=== PATIENT | female | born 1975 | race Hispanic/Latino ===

== ENCOUNTER 2018-09-23 10:39 | Inpatient (IN) | payer OTHER ==
[~2018-09-23] VITALS: Ht 157.5 cm; Wt 68.5 kg
[~2018-09-23 10:39] MED LIST: ASPIRIN325 MG PO; COREG12.5 MG PO; COZAAR25 MG PO; FUROSEMIDE40 MG PO; KLONOPIN2 MG PO; PEPCID20 MG PO; POTASSIUM CHLO20 ME1 PO; RITALIN20 MG PO; ROBAXIN-750750 MG PO; VALIUM10 MG PO
--- OUTSIDE RECORDS SUMMARY | 2018-09-23 10:42 | XMS REPORT | Clinical Summary ---
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 6.92 cm2 [facility] method E/A ratio 22.33 [facility] E wave decelartion time 109.59 msec [facility] LVOT Diam,S 1.94 cm [facility] LVOT area 2.95 cm2 [facility] LVOT Vmax 0.82 m/s [facility] LVOT VTI 0.15 m [facility] AoV Peak PG 5.01 mmHg [facility] MV Peak E Sabino 0.67 m/s [facility] MV stenosis pressure 1/2 31.78 ms [facility] time MV Peak A Sabino 0.03 m/s [facility] Ao Root Diameter 2.48 cm [facility] AoV Area, Vmax 2.18 cm2 [facility] AoV Area, VTI 2.47 cm2 [facility] AoV Vmax 1.19 m/s [facility] IVS/LVPW,2D 1.27 [facility] Left Atrium Dimension 2.72 cm [facility] Anterior LV,d 4.82 cm [facility] LV,s 4.34 cm [facility] TR Vpeak 2.42 mm/s [facility] MV E A ratio 19.86 mmHg [facility] TR pk grad 21.45 mmHg [facility] MR peak grad 3.15 mmHg [facility] Ao Root Diameter 2.48 cm [facility] LV SYS VOL 84.80 ml [facility] LV OSEGUERA VOL 108.40 ml [facility] LV SV Teich 2D 23.59 ml [facility] LV Vol s Teich PSAX 84.80 ml [facility] LVOT CO 4.13 l/min [facility] LVOT HR for LVOT CO 90.60 bpm [facility] MV Vmax 0.89 m [facility] MV VTI Tips 0.13 m [facility] AoV Vmn 0.80 [facility] IVS s 2D 0.72 [facility] LV FS Cube 2D 9.94 [facility] LV FS Teich 2D 9.94 [facility] AoV VTI 0.18 m [facility] LV EF,2D 26.96 % [facility] MV AE ratio 0.05 [facility] LVOT Vmn 0.57 [facility] Aov area Vmn 2.12 cm2 [facility] LVOT mean grad 1.46 mmHg [facility] MAX Pred HR 176.86 [facility] 85 of MPHR 150.33 [facility] Calc MPHR 176.86 bpm [facility] IVS pct thck PLAX -3.20 % [facility] LV SV Cube 2D 30.12 ml [facility] LV vol d cube 2D 111.75 ml [facility] LV vol s cube 2D 81.63 ml [facility] LVPW pct thck PLAX 31.44 % [facility] LVPW s PLAX 0.77 cm [facility] MV Decel slope 6.11 m/s2 [facility] Pred Exer Dur R1 9.73 [facility] Pred METS R1 9.09 [facility] Narrative Performed At [facility] The left ventricle chamber size is moderately enlarged. Left ventricular systolic function moderately impaired. Left Ventricular ejection fraction is 35 - 40%. Right ventricular size is upper limits of normal. No pericardial effusion The mitral valve appears thickened and calcified. Performing Organization Address City/State/Zipcode Phone Number [facility] [address] [place] [address] * NM Lung Ventilation Perfusion (03/01/2018 8:40 PM CDT) Only the most recent of 2 results within the time period is included. Narrative Performed At [facility] CLINICAL HISTORY: hx of PEsobtachycardiacp TECHNIQUE: The patient breathed 15-20 mCi of xenon-133 gas through a closed ventilation system while dynamic imaging of the lungs was performed in the posterior and anterior projections. The patient was then injected with 5 mCi of [id number] intravenously, followed by imaging of the lungs in 8 projections. FINDINGS: Ventilation and perfusion are normal bilaterally. Incidental note of pacemaker metallic attenuation artifact left upper lobe. IMPRESSION: Normal VQ scan. [facility] Procedure Note Interface, Radiology Results Incoming - 03/01/2018 8:51 PM CDT CLINICAL HISTORY: hx of PE sob tachycardia cp TECHNIQUE: The patient breathed 15-20 mCi of xenon-133 gas through a closed ventilation system while dynamic imaging of the lungs was performed in the posterior and anterior projections. The patient was then injected with 5 mCi of [id number] intravenously, followed by imaging of the lungs in 8 projections. FINDINGS: Ventilation and perfusion are normal bilaterally. Incidental note of pacemaker metallic attenuation artifact left upper lobe. IMPRESSION: Normal VQ scan. KAMRYN Performing Organization Address City/[facility]/Zipcode Phone Number [facility] [address] [place] [address] * Respiratory pathogen panel (03/01/2018 8:07 PM CDT) Respiratory pathogen Negative for all pathogens [facility] DEPARTMENT OF panel tested: PATHOLOGY AND Negative for Adenovirus GENOMIC MEDICINE Negative for Coronavirus HKU1 Negative for Coronavirus NL63 Negative for Coronavirus 229E Negative for Coronavirus OC43 Negative for Human Metapneumovirus Negative for Rhinovirus/Enterovirus Negative for Influenza A Negative for Influenza A/H1 Negative for Influenza A/H3 Negative for Influenza A/H1-2009 Negative for Influenza B Negative for Parainfluenza Virus 1 Negative for Parainfluenza Virus 2 Negative for Parainfluenza Virus 3 Negative for Parainfluenza Virus 4 Negative for Respiratory Syncytial Virus Negative for Bordetella pertussis Negative for Chlamydophila pneumoniae Negative for Mycoplasma pneumoniae This real-time PCR assay detects the presence of nucleic acids (RNA or DNA) for the respiratory pathogens listed. A result of "Not-detected" does not exclude the possibility of the presence of one or more pathogens at concentrations less than the detectable limits of the assay. Comment: Specimen Information Specimen Source: Nares Specimen Site: Not specified Specimen Nares - Not specified Performing Organization Address [facility] Phone Number [facility] DEPARTMENT OF [address] [place] [address] PATHOLOGY AND GENOMIC MEDICINE * Influenza antigen (03/01/2018 8:07 PM CDT) Influenza antigen Negative for Influenza A/B [facility] DEPARTMENT OF antigen. PATHOLOGY AND Comment: GENOMIC MEDICINE Specimen Information Specimen Source: Nares Specimen Site: Not specified Specimen Nares - Not specified Performing Organization Address City/State/Zipcode Phone Number [facility] DEPARTMENT OF [address] [place] [address] PATHOLOGY AND GENOMIC MEDICINE * CT Chest Wo Contrast (03/01/2018 8:01 PM CDT) Narrative Performed At EXAMINATION: CT CHEST WO CONTRAST [facility] CLINICAL HISTORY: chest painsob TECHNIQUE:Multiple axial CT images of the chest are obtained without the use of intravenous contrast. The lack of intravenous contrast reduces the sensitivity of the sensitivity of detecting solid organ disease and evaluating vasculature. Sagittal and coronal 3-D reformatted images were obtained. CT scans are performed using radiation dose reduction techniques.Technical factors are evaluated and adjusted to ensure appropriate moderation of exposure.Automated dose management technology is applied to adjust radiation exposure while achieving a diagnostic quality image. COMPARISON: 01/11/2017 FINDINGS: The visualized portions of the thyroid gland are unremarkable. The right lung zone does not have any focal area of consolidation. There is no pleural effusion or pneumothorax. The left lung zone does not have any focal consolidation. There is no pleural effusion or pneumothorax. The visualized portions of the thyroid gland are unremarkable. The thoracic aorta has no aneurysmal dilatation. The heart has no pericardial effusion. There is no pleural effusion or pneumothorax. The visualized portions of the spleen, adrenal glands, pancreas and liver are unremarkable. The kidneys demonstrate no abnormality. IMPRESSION: 1. The lung zones are clear. 2. There is no pleural effusion or pneumothorax. 3. The thoracic aorta has no aneurysmal dilatation. 4. The upper abdomen is unremarkable. [id number] Procedure Note Hm Interface, Radiology Results Incoming - 03/01/2018 8:11 PM CDT EXAMINATION: CT CHEST WO CONTRAST CLINICAL HISTORY: chest pain sob TECHNIQUE: Multiple axial CT images of the chest are obtained without the use of intravenous contrast. The lack of intravenous contrast reduces the sensitivity of the sensitivity of detecting solid organ disease and evaluating vasculature. Sagittal and coronal 3-D reformatted images were obtained. CT scans are performed using radiation dose reduction techniques. Technical factors are evaluated and adjusted to ensure appropriate moderation of exposure. Automated dose management technology is applied to adjust radiation exposure while achieving a diagnostic quality image. COMPARISON: 01/11/2017 FINDINGS: The visualized portions of the thyroid gland are unremarkable. The right lung zone does not have any focal area of consolidation. There is no pleural effusion or pneumothorax. The left lung zone does not have any focal consolidation. There is no pleural effusion or pneumothorax. The visualized portions of the thyroid gland are unremarkable. The thoracic aorta has no aneurysmal dilatation. The heart has no pericardial effusion. There is no pleural effusion or pneumothorax. The visualized portions of the spleen, adrenal glands, pancreas and liver are unremarkable. The kidneys demonstrate no abnormality. IMPRESSION: 1. The lung zones are clear. 2. There is no pleural effusion or pneumothorax. 3. The thoracic aorta has no aneurysmal dilatation. 4. The upper abdomen is unremarkable. 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 [facility] DEPARTMENT OF PATHOLOGY AND GENOMIC MEDICINE Collection site RAC [facility] DEPARTMENT OF PATHOLOGY AND GENOMIC MEDICINE O2 therapy ROOM [facility] DEPARTMENT OF PATHOLOGY AND GENOMIC MEDICINE pH, venous 7.588 (H) 7.320 - 7.420 units [facility] DEPARTMENT OF PATHOLOGY AND GENOMIC MEDICINE pCO2, venous 24.7 (L) 45.0 - 51.0 mmHg [facility] DEPARTMENT OF PATHOLOGY AND GENOMIC MEDICINE pO2, venous 19.6 (L) 25.0 - 40.0 mmHg [facility] DEPARTMENT OF PATHOLOGY AND GENOMIC MEDICINE O2 saturation, venous 39.6 (L) 40.0 - 70.0 % [facility] DEPARTMENT OF PATHOLOGY AND GENOMIC MEDICINE Base excess, venous 1.8 -2.0 - 2.0 mEq/L [facility] DEPARTMENT OF PATHOLOGY AND GENOMIC MEDICINE Bicarbonate 23.6 21.0 - 28.0 mEq/L [facility] DEPARTMENT OF PATHOLOGY AND GENOMIC MEDICINE O2 content 6.7 VOL% [facility] DEPARTMENT OF PATHOLOGY AND GENOMIC MEDICINE FiO2, inspired O2% 21.0 % [facility] DEPARTMENT OF PATHOLOGY AND GENOMIC MEDICINE Carboxyhemoglobin 0.7 0.0 - 1.4 % [facility] DEPARTMENT OF Comment: PATHOLOGY AND Reference Ranges: GENOMIC MEDICINE Carboxyhemoglobin Non smoker: 0.0 - 2.0% Smoker: 2.1 - 5.0% Heavy smoker: 5.1 - 9% Methemoglobin 0.1 0.0 - 1.0 % [facility] DEPARTMENT OF PATHOLOGY AND GENOMIC MEDICINE Hemoglobin, blood gas 12.1 12.0 - 16.0 g/dL [facility] DEPARTMENT OF PATHOLOGY AND GENOMIC MEDICINE Specimen Blood Performing Organization Address City/[facility]/Zipcode Phone Number [facility] [address] [place] [address] PATHOLOGY AND GENOMIC MEDICINE * Acetaminophen level (03/01/2018 7:15 PM CDT) Acetaminophen level <15.3 10.0 - 30.0 ug/mL [facility] DEPARTMENT OF Comment: PATHOLOGY AND Therapeutic GENOMIC MEDICINE 10-30 ug/mL Possible Toxicity 150-200 ug/mL Probable Toxicity >200 ug/mL Specimen Blood Performing Organization Address City/[facility]/Zipcode Phone Number [facility] [address] [place] [address] PATHOLOGY AND GENOMIC MEDICINE * Salicylate level (03/01/2018 7:15 PM CDT) Salicylate <0.4 (L) 3.0 - 30.0 mg/dL [facility] DEPARTMENT OF Comment: PATHOLOGY AND Therapeutic Range: GENOMIC MEDICINE 5 - 30 mg/dL Specimen Blood Performing Organization Address City/[facility] Phone Number [facility] [address] [place] [address] PATHOLOGY AND GENOMIC MEDICINE * ECG ED Preliminary Interpretation - NOT AN ORDER (03/01/2018 6:48 PM CDT) Only the most recent of 3 results within the time period is included. Narrative Performed At Luis Snider Jr., MD 03/05/20189:14 PM ECG ED Preliminary Interpretation - Not an Order Performed by: LUIS SNIDER JR. Authorized by: LUIS SNIDER JR. ECG reviewed by ED Physician in the absence of a product development coordinator: yes Rate: ECG rate:103 ECG rate assessment: tachycardic Rhythm: Rhythm: paced Pacing: Pacing capture: atrially sensed, v-paced rhythm. Ectopy: Ectopy: none QRS: QRS axis:Normal Conduction: Conduction: normal ST segments: ST segments:Normal T waves: T waves: normal Comments: No acute ischemic changes noted. * XR Chest 2 Vw (03/01/2018 6:39 PM CDT) Narrative Performed At EXAMINATION:XR CHEST 2 VW [facility] CLINICAL HISTORY:43 years Female sobcpcardiac hx [facility] COMPARISON:01/31/2018 IMPRESSION: 1.Left chest wall cardiac device is similar to prior. Heart and central vasculature are normal. 2.The lungs are clear. 3.Cholecystectomy clips. Bones are intact. [id number] Procedure Note Hm Interface, Radiology Results Incoming - 03/01/2018 6:46 PM CDT EXAMINATION: XR CHEST 2 VW CLINICAL HISTORY:43 years Female sob cp cardiac hx [facility] COMPARISON: 01/31/2018 IMPRESSION: 1. Left chest wall cardiac device is similar to prior. Heart and central vasculature are normal. 2. The lungs are clear. 3. Cholecystectomy clips. Bones are intact. [id number] Performing Organization Address City/State/Zipcode Phone Number [facility] [address] [place] [address] * B natriuretic peptide (03/01/2018 6:10 PM CDT) Only the most recent of 4 results within the time period is included. BNP 19 0 - 100 pg/mL [facility] DEPARTMENT OF PATHOLOGY AND GENOMIC MEDICINE Specimen Blood Performing Organization Address City/State/Zipcode Phone Number [facility] DEPARTMENT [address] [place] [address] PATHOLOGY AND GENOMIC MEDICINE * Comprehensive metabolic panel (03/01/2018 6:10 PM CDT) Only the most recent of 3 results within the time period is included. Sodium 138 135 - 150 mEq/L [facility] DEPARTMENT OF PATHOLOGY AND GENOMIC MEDICINE Potassium 3.9 3.5 - 5.0 mEq/L [facility] DEPARTMENT OF PATHOLOGY AND GENOMIC MEDICINE Chloride 93 (L) 98 - 112 mEq/L [facility] DEPARTMENT OF PATHOLOGY AND GENOMIC MEDICINE CO2 21 (L) 24 - 31 mmol/L [facility] DEPARTMENT OF PATHOLOGY AND GENOMIC MEDICINE Anion gap 24@ANIO (H) 7 - 15 mEq/L [facility] DEPARTMENT OF PATHOLOGY AND GENOMIC MEDICINE BUN 20 (H) 7 - 18 mg/dL [facility] DEPARTMENT OF PATHOLOGY AND GENOMIC MEDICINE Creatinine 1.50 (H) 0.50 - 0.90 mg/dL [facility] DEPARTMENT OF PATHOLOGY AND GENOMIC MEDICINE Glucose 84 65 - 100 mg/dL [facility] DEPARTMENT OF PATHOLOGY AND GENOMIC MEDICINE Calcium 9.7 8.3 - 10.2 mg/dL [facility] DEPARTMENT OF PATHOLOGY AND GENOMIC MEDICINE Protein 8.9 (H) 6.3 - 8.3 g/dL [facility] DEPARTMENT OF PATHOLOGY AND GENOMIC MEDICINE Albumin 5.0 3.5 - 5.0 g/dL [facility] DEPARTMENT OF PATHOLOGY AND GENOMIC MEDICINE A/G ratio 1.3 0.7 - 3.8 [facility] DEPARTMENT OF PATHOLOGY AND GENOMIC MEDICINE Alkaline phosphatase 97 0 - 104 U/L [facility] DEPARTMENT OF PATHOLOGY AND GENOMIC MEDICINE AST 27 10 - 35 U/L [facility] DEPARTMENT OF PATHOLOGY AND GENOMIC MEDICINE ALT 15 5 - 50 U/L [facility] DEPARTMENT OF PATHOLOGY AND GENOMIC MEDICINE Total bilirubin 0.7 0.2 - 1.2 mg/dL [facility] DEPARTMENT OF PATHOLOGY AND GENOMIC MEDICINE Specimen Plasma specimen Performing Organization Address City/State/Zipcode Phone Number [facility] [place] [address] PATHOLOGY AND GENOMIC MEDICINE * Urinalysis screen and microscopy, with reflex to culture (02/01/2018 12:26 PM CDT) Only the most recent of 4 results within the time period is included. Specimen site Clean catch [facility] DEPARTMENT OF PATHOLOGY AND GENOMIC MEDICINE Color, UA Yellow [facility] DEPARTMENT OF PATHOLOGY AND GENOMIC MEDICINE Appearance, UA Slightly-Cloudy [facility] DEPARTMENT OF PATHOLOGY AND GENOMIC MEDICINE Specific gravity, UA 1.006 1.001 - 1.035 [facility] DEPARTMENT OF PATHOLOGY AND GENOMIC MEDICINE pH, UA 6.0 5.0 - 8.5 [facility] DEPARTMENT OF PATHOLOGY AND GENOMIC MEDICINE Protein, UA Negative Negative [facility] DEPARTMENT OF PATHOLOGY AND GENOMIC MEDICINE Glucose, UA Negative Negative [facility] DEPARTMENT OF PATHOLOGY AND GENOMIC MEDICINE Ketones, UA Negative Negative [facility] DEPARTMENT OF PATHOLOGY AND GENOMIC MEDICINE Bilirubin, UA Negative Negative [facility] DEPARTMENT OF PATHOLOGY AND GENOMIC MEDICINE Blood, UA Negative Negative [facility] DEPARTMENT OF PATHOLOGY AND GENOMIC MEDICINE Nitrite, UA Negative Negative [facility] DEPARTMENT OF PATHOLOGY AND GENOMIC MEDICINE Urobilinogen, UA Negative <2.0 [facility] DEPARTMENT OF PATHOLOGY AND GENOMIC MEDICINE Leukocyte esterase, UA Small (A) Negative [facility] DEPARTMENT OF PATHOLOGY AND GENOMIC MEDICINE Epithelial cells, UA Many /HPF [facility] DEPARTMENT OF PATHOLOGY AND GENOMIC MEDICINE WBC, UA 17 (H) 0 - 5 /HPF [facility] DEPARTMENT OF PATHOLOGY AND GENOMIC MEDICINE RBC, UA 1 0 - 5 /HPF [facility] DEPARTMENT OF PATHOLOGY AND GENOMIC MEDICINE Bacteria, UA Trace None seen [facility] DEPARTMENT OF PATHOLOGY AND GENOMIC MEDICINE Yeast, UA None seen [facility] DEPARTMENT OF PATHOLOGY AND GENOMIC MEDICINE Yeast with pseudohyphae, None seen [facility] DEPARTMENT OF PATHOLOGY AND GENOMIC MEDICINE Specimen Urine Performing Organization Address City/State/Zipcode Phone Number [facility] [place] [address] PATHOLOGY AND GENOMIC MEDICINE * Gram stain (02/01/2018 12:26 PM CDT) Only the most recent of 3 results within the time period is included. Gram stain result No WBC's or organisms seen. [facility] DEPARTMENT OF Comment: PATHOLOGY AND Specimen Information GENOMIC MEDICINE Specimen Source: Urine Specimen Site: Clean catch Specimen Urine Performing Organization Address City/[facility]/Zipcode Phone Number [facility] DEPARTMENT OF [address] [place] [address] PATHOLOGY AND GENOMIC MEDICINE * Urine culture (02/01/2018 12:26 PM CDT) Only the most recent of 4 results within the time period is included. Urine culture isolate Mixed Gram positive antionette [facility] DEPARTMENT OF 10-3 cfu/ml PATHOLOGY AND (A) GENOMIC MEDICINE Comment: Specimen Information Specimen Source: Urine Specimen Site: Clean catch Specimen Urine Performing Organization Address City/[facility] Phone Number [facility] DEPARTMENT OF [address] [place] [phone] PATHOLOGY AND GENOMIC MEDICINE * hCG qualitative, urine screen (01/31/2018 10:44 PM CDT) Only the most recent of 2 results within the time period is included. hCG qualitative, urine Negative Negative [facility] DEPARTMENT OF Comment: PATHOLOGY AND The manufacturers stated GENOMIC MEDICINE sensitivity of HcG test for serum is >/=10 mIU/ml and urine is >/=20mIU/ml. Specimen Urine Performing Organization Address [facility] Phone Number [place] [address] [place] [address] PATHOLOGY AND GENOMIC MEDICINE * Total iron binding capacity (11/10/2017 9:38 AM CDT) Iron level 51 (L) 76 - 198 ug/dL [facility] DEPARTMENT OF PATHOLOGY AND GENOMIC MEDICINE Iron binding capacity 305 271 - 474 ug/dL [facility] DEPARTMENT OF PATHOLOGY AND GENOMIC MEDICINE % Saturation 16.7 15.0 - 38.0 % [facility] DEPARTMENT OF PATHOLOGY AND GENOMIC MEDICINE Specimen Plasma specimen Performing Organization Address [facility] Phone Number [facility] DEPART[facility] [place] [address] [place] [phone] PATHOLOGY AND GENOMIC MEDICINE * Ferritin level (11/10/2017 9:38 AM CDT) Ferritin level 125 10 - 125 ng/mL [facility] DEPARTMENT OF PATHOLOGY AND GENOMIC MEDICINE Specimen Serum Performing Organization Address [facility] Phone Number [place] [address] [place] [phone] PATHOLOGY AND GENOMIC MEDICINE * US Extremity Left (11/09/2017 10:06 PM CDT) Narrative Performed At EXAMINATION:US EXTREMITY LEFT [facility] CLINICAL HISTORY:Pain, Lt arm edema R O abcess on pnumovax injection site COMPARISON:No prior TECHNIQUE: Focused ultrasound of the left upper extremity IMPRESSION: 1.No discrete fluid collection, abscess or hematoma is noted at the site of interest in the left upper and mid. Heterogeneous echogenicity in the soft tissues without discrete fluid collection. Procedure Note Hm Interface, Radiology Results Incoming - 11/09/2017 11:31 PM CDT EXAMINATION: US EXTREMITY LEFT CLINICAL HISTORY: Pain, Lt arm edema R O abcess on pnumovax injection site COMPARISON: No prior TECHNIQUE: Focused ultrasound of the left upper extremity IMPRESSION: 1. No discrete fluid collection, abscess or hematoma is noted at the site of interest in the left upper and mid. Heterogeneous echogenicity in the soft tissues without discrete fluid collection. Performing Organization Address City/[facility] Phone Number [facility] [address] [place] [address] * Magnesium level (11/09/2017 6:20 AM CDT) Only the most recent of 3 results within the time period is included. Magnesium 2.50 (H) 1.60 - 2.40 mg/dL [facility] DEPARTMENT OF PATHOLOGY AND GENOMIC MEDICINE Specimen Plasma specimen Performing Organization Address [facility] Phone Number [address] [place] [address] PATHOLOGY AND GENOMIC MEDICINE * Reticulocyte count (11/08/2017 6:31 AM CDT) Retic %, auto 1.9 % [facility] DEPARTMENT OF PATHOLOGY AND GENOMIC MEDICINE Retic absolute, auto 0.0533 0.0210 - 0.1155 m/uL [facility] DEPARTMENT OF PATHOLOGY AND GENOMIC MEDICINE Specimen Blood Performing Organization Address [facility] Phone Number [place] [address] [place] [address] PATHOLOGY AND GENOMIC MEDICINE * Folate level (11/08/2017 6:31 AM CDT) Folate 16.6 3.4 - 20.0 ng/mL [facility] DEPARTMENT OF PATHOLOGY AND GENOMIC MEDICINE Specimen Serum Performing Organization Address [facility] Phone Number [address] [place] [address] PATHOLOGY AND GENOMIC MEDICINE * Vitamin B12 level (11/08/2017 6:31 AM CDT) Vitamin B12 770 231 - 931 pg/mL [facility] DEPARTMENT OF Comment: PATHOLOGY AND Significant overlap exists [facility] between normal and deficiency states. However, most patients with deficiencies will have Serum B12 <200 pg/mL. Specimen Serum Performing Organization Address City/[facility] Phone Number [facility] [address] [place] [address] PATHOLOGY AND GENOMIC MEDICINE * Digoxin level (11/07/2017 5:40 PM CDT) Digoxin 1.0 0.8 - 2.0 ng/mL [facility] DEPARTMENT OF Comment: PATHOLOGY AND For valid Digoxin results, at [facility] least 6 hours should elapse between time of last dose and collection of blood. Otherwise, result may be false high. Therapeutic Range: 0.8 - 2.0 ng/mL Specimen Blood Performing Organization Address City/[facility] Phone Number [facility] [address] [place] [address] PATHOLOGY AND [facility] MEDICINE * Pv carotid duplex (11/07/2017 9:42 AM CDT) Narrative Performed At Examination: US CAROTID DUPLEX BILATERAL [facility] CLINICAL HISTORY: Suspected symptomatic vertebrovasilar occlusive disease in the symptomatic patient (e.g. vertigoataxiadiplopiadysphagiadysarthria) TECHNIQUE: Examination includes full duplex Doppler scan (real-time B mode grayscale, Doppler spectral analysis, Doppler color flow imaging) of the common carotid, internal carotid, external carotid, and vertebral arteries. Velocity parameters are based upon studies using distal internal carotid artery diameter as a denominator for stenosis calculation. COMPARISON: 07-10-12 FINDINGS: Right side:There are no significant atherosclerotic changes involving the right common carotid artery, carotid bulb, or visualized aspects of the right internal and external carotid arteries. There are no flow-limiting stenoses.. The peak systolic velocities in the right internal carotid artery are -112.90 cm/s, -98.37 cm/s, and -98.37 cm/s.The ICA end-diastolic velocity is 43.4 cm/s. The common carotid artery peak systolic velocity is 93.8 cm/s, giving an ICA/CCA peak systolic velocity ratio of 1.2.The external carotid artery has a peak systolic velocity of 127.4 cm/s. There is antegrade flow in the right vertebral artery. Left side:There are no significant atherosclerotic changes involving the left common carotid artery, carotid bulb, and visualized aspects of the left internal and external carotid arteries. There are no flow-limiting stenoses. . The peak systolic velocities in the left internal carotid artery are -87.55 cm/s, -90.78 cm/s, -111.77 cm/s.The ICA end-diastolic velocity is 37.5 cm/s. The common carotid artery peak systolic velocity is 117.7 cm/s, giving an ICA/CCA peak systolic velocity ratio of 0.9. The external carotid artery has a peak systolic velocity of 90.8 cm/s. There is antegrade flow in the left vertebral artery. IMPRESSION:Normal bilateral carotid Doppler examination. No hemodynamically significant stenosis in either carotid artery (less than 50%). Bilateral antegrade vertebral flow. [id number] Procedure Note Hm Interface, Radiology Results Incoming - 11/07/2017 9:48 AM CDT Examination: US CAROTID DUPLEX BILATERAL CLINICAL HISTORY: Suspected symptomatic vertebrovasilar occlusive disease in the symptomatic patient (e.g. vertigo ataxia diplopia dysphagia dysarthria) TECHNIQUE: Examination includes full duplex Doppler scan (real-time B mode grayscale, Doppler spectral analysis, Doppler color flow imaging) of the common carotid, internal carotid, external carotid, and vertebral arteries. Velocity parameters are based upon studies using distal internal carotid artery diameter as a denominator for stenosis calculation. COMPARISON: 07-10-12 FINDINGS: Right side:There are no significant atherosclerotic changes involving the right common carotid artery, carotid bulb, or visualized aspects of the right internal and external carotid arteries. There are no flow-limiting stenoses. . The peak systolic velocities in the right internal carotid artery are -112.90 cm/s, -98.37 cm/s, and -98.37 cm/s.The ICA end-diastolic velocity is 43.4 cm/s. The common carotid artery peak systolic velocity is 93.8 cm/s, giving an ICA/CCA peak systolic velocity ratio of 1.2. The external carotid artery has a peak systolic velocity of 127.4 cm/s. There is antegrade flow in the right vertebral artery. Left side:There are no significant atherosclerotic changes involving the left common carotid artery, carotid bulb, and visualized aspects of the left internal and external carotid arteries. There are no flow-limiting stenoses. . The peak systolic velocities in the left internal carotid artery are -87.55 cm/s, -90.78 cm/s, - 111.77 cm/s.The ICA end-diastolic velocity is 37.5 cm/s. The common carotid artery peak systolic velocity is 117.7 cm/s, giving an ICA/CCA peak systolic velocity ratio of 0.9. The external carotid artery has a peak systolic velocity of 90.8 cm/s. There is antegrade flow in the left vertebral artery. IMPRESSION: Normal bilateral carotid Doppler examination. No hemodynamically significant stenosis in either carotid artery (less than 50%). Bilateral antegrade vertebral flow. [id number] Performing Organization Address City/[facility]/Zipcode Phone Number [facility] [address] [place] [address] * Hemoglobin A1c (11/06/2017 5:20 AM CDT) Hemoglobin A1C 5.2 4.0 - 6.0 % [facility] DEPARTMENT OF Comment: PATHOLOGY AND GENOMIC MEDICINE Less than 6% - Goal of therapy for Type II Diabetes Less than 7%-Goal of therapy for Type I Diabetes Less than 8%-Accepta ble control for Type I or Type II Diabetes Greater than 8%-Unacceptabl e control; action indicated. ([id number]) Specimen Blood Performing Organization Address City/[facility]/Zipcode Phone Number [place] [phone] [place] [address] PATHOLOGY AND GENOMIC MEDICINE * Lipid panel (11/06/2017 5:20 AM CDT) Cholesterol 166 120 - 200 mg/dL [facility] DEPARTMENT OF PATHOLOGY AND GENOMIC MEDICINE Triglycerides 106 50 - 150 mg/dL [facility] DEPARTMENT OF PATHOLOGY AND GENOMIC MEDICINE HDL cholesterol 76 (H) 40 - 60 mg/dL [facility] DEPARTMENT OF PATHOLOGY AND GENOMIC MEDICINE LDL cholesterol 81Comment: Result obtained by mg/dL [facility] DEPARTMENT OF direct LDL measurement PATHOLOGY AND GENOMIC MEDICINE Lipid panel See below [facility] DEPARTMENT OF interpretation Comment: PATHOLOGY AND Total Cholesterol GENOMIC MEDICINE (mg/dL) LDL Cholesterol (mg/dL) <200 Desirable <100 Optimal 200-239Borderline -part291-9 29Near or above optimal >=240High 130-159Borderline- high 160-189High >=190Very high HDL Cholesterol (mg/dL) Triglycerides (mg/dL) <40Low <150 Normal >=60 High 150-199Borderline- high 200-499High >=500Very high Risk Catergories that modify LDL goals. Risk Catergories LDL goal (mg/dL) CHD and CHD risk equivalent <100 (10-year risk >20%) Multiple (2+) risk factors <130 (10-year risk=<20%) 0-1 risk factors <160 (<10-year risk) Defining levels of lipids in metabolic syndrome Triglycerides >=150 mg/dL HDL Cholesterol Men <40 mg/dL Women <50 mg/dL Non-HDL cholesterol is a second target for therapy in persons with high triglycerides (>=200 mg/dL) Specimen Plasma specimen Performing Organization Address City/State/Zipcode Phone Number [place] [address] [place] [address] PATHOLOGY AND GENOMIC MEDICINE * Echocardiogram complete w contrast and 3D if needed (11/05/2017 3:57 PM CDT) Velocity Ratio (V1/V2) 0.70 m/s [facility] IVS,d 0.83 0.6 - 1.2 cm [facility] EF 51.27 % [facility] LVPWD,d 0.80 cm [facility] AoV Mean PG 3.78 mmHg [facility] AV LVOT peak gradient 3.14 mmHg [facility] MV mean gradient 1.14 mmHg [facility] MV valve area p 1/2 2.28 cm2 [facility] method PV Pk Grad 4.31 mmHg [facility] E/A ratio 1.57 [facility] E wave decelartion time 210.60 msec [facility] LVOT Diam,S 2.02 cm [facility] LVOT area 3.20 cm2 [facility] LVOT Vmax 0.90 m/s [facility] LVOT VTI 0.17 m [facility] AoV Peak PG 5.35 mmHg [facility] MV Peak E Sabino 0.74 m/s [facility] MV stenosis pressure 1/2 96.51 ms [facility] time MV Peak A Sabino 0.47 m/s [facility] Ao Root Diameter 2.53 cm [facility] AoV Area, Vmax 2.45 cm2 [facility] AoV Area, VTI 2.36 cm2 [facility] AoV Vmax 1.28 m/s [facility] IVS/LVPW,2D 1.01 [facility] Left Atrium Dimension 2.08 cm [facility] Anterior LV,d 4.65 cm [facility] LV,s 3.83 cm [facility] PV VMAX 1.04 m/s [facility] RVSP (TR) 33.17 mmHg [facility] TR Vpeak 2.41 mm/s [facility] MV E A ratio 1.55 mmHg [facility] TR pk grad 23.17 mmHg [facility] MR peak grad 3.30 mmHg [facility] RVSP 33.17 mmHg [facility] Ao Root Diameter 2.53 cm [facility] LV SYS VOL 35.60 ml [facility] LV OSEGUERA VOL 73.05 ml [facility] LV SV Teich 2D 37.44 ml [facility] LV Vol s Teich PSAX 48.32 ml [facility] LVOT CO 2.35 l/min [facility] LVOT HR for LVOT CO 54.04 bpm [facility] MV Vmax 0.91 m [facility] MV VTI Tips 0.26 m [facility] AoV Vmn 0.91 [facility] IVS s 2D 0.67 [facility] LV FS Cube 2D 21.44 [facility] LV FS Teich 2D 21.44 [facility] LVPW d Mmode 0.86 [facility] AoV VTI 0.24 m [facility] LV EF,2D 51.52 % [facility] MV AE ratio 0.64 [facility] LVOT Vmn 0.57 [facility] Aov area Vmn 2.04 cm2 [facility] LVOT mean grad 1.53 mmHg [facility] MAX Pred HR 177.18 [facility] 85 of MPHR 150.60 [facility] Calc MPHR 177.18 bpm [facility] IVS pct thck PLAX 6.69 % [facility] LV SV Cube 2D 42.74 ml [facility] LV vol d cube 2D 82.96 ml [facility] LV vol s cube 2D 40.22 ml [facility] LVPW pct thck PLAX -3.29 % [facility] LVPW s PLAX 0.68 cm [facility] MV Decel slope 3.49 m/s2 [facility] Pred Exer Dur R1 9.76 [facility] Pred METS R1 9.13 [facility] TV rest pulmonary artery 35.00 mmHg [facility] pressure Narrative Performed At [facility] The left ventricle chamber size is mildly enlarged. Left Ventricular ejection fraction is 45 - 50%. Right ventricular size is normal. No pericardial effusion Performing Organization Address [facility] Phone Number [facility] [address] [place] [address] * XR Chest 1 Vw (11/05/2017 8:05 AM CDT) Narrative Performed At EXAMINATION:XR CHEST 1 VW [facility] CLINICAL HISTORY: SHORTNESS OF BREATH COMPARISON:08/19/2017. FINDINGS: One view of the chest demonstratesnormal cardiomediastinal silhouette. Pulmonary vasculature is within normal limits. Left subclavian pacer/defibrillator is again noted. Both lungs are clear. No pleural disease is identified. Regional osseous structures is unremarkable. IMPRESSION: No radiographic evidence of acute cardiopulmonary process or active disease of the chest. [id number] Procedure Note Hm Interface, Radiology Results Incoming - 11/05/2017 8:24 AM CDT EXAMINATION: XR CHEST 1 VW CLINICAL HISTORY: SHORTNESS OF BREATH COMPARISON: 08/19/2017. FINDINGS: One view of the chest demonstrates normal cardiomediastinal silhouette. Pulmonary vasculature is within normal limits. Left subclavian pacer/defibrillator is again noted. Both lungs are clear. No pleural disease is identified. Regional osseous structures is unremarkable. IMPRESSION: No radiographic evidence of acute cardiopulmonary process or active disease of the chest. [id number] Performing Organization Address [facility] Phone Number [facility] [address] [place] [address] after 09/22/2017 Insurance Payer Benefit Subscriber ID Type Phone Address Plan / Group [employer] xxxxxxxxx HMO [employer] [place] (Home) [place] [address] Advance Directives Patient has advance care planning documents, and code status on file. For more i nformation, please contact: Javon Ricks [address] [place] [address] Date Inactivated Comments Code Status Date Activated 01/06/2017 6:25 PM Full Code 01/05/2017 7:50 PM Code Status decision reached by: Patient
--- OUTSIDE RECORDS SUMMARY | 2018-09-23 10:43 | XMS REPORT | Clinical Summary ---
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 5 Active diazepam (VALIUM) 10 MG Take 10 mg by 0 tablet mouth every 8 (eight) hours as needed for Anxiety. Active dexmethylphenidate Take 40 mg by 0 (FOCALIN XR) 20 MG 24 hr mouth daily. capsule Active furosemide (LASIX) 80 MG Take 80 mg by 0 tablet mouth daily . Active potassium chloride Take 20 mEq 0 (KLOR-CON) 20 mEq packet by mouth daily . Active hahleudv-cqbx-ztw-folic Take 1 tablet 0 acid by mouth (GRXRSUHMBLEZ-AHSJ-QQUFUY daily. LS-FOLIC ACID) 3,500-18-0.4 unit-mg-mg Chew Active lactobacillus rhamnosus, Take 1 0 GG, (CULTURELLE) 10 capsule by billion cell capsule mouth. Active aspirin 81 MG EC tablet Take 81 mg by 0 mouth daily. 03/28/2018 Discontinued furosemide (LASIX) 40 MG Take 80 mg by 0 tablet mouth daily . 03/28/2018 Discontinued potassium chloride SA Take 20 mEq 0 (K-DUR,KLOR-CON) 20 MEQ by mouth tablet daily. 03/28/2018 Discontinued methylphenidate (RITALIN Take 60 mg by 0 LA) 40 MG 24 hr capsule mouth every morning . 03/28/2018 Discontinued cephalexin (KEFLEX) 750 Take 750 mg 0 MG capsule by mouth daily. 04/20/2018 Discontinued acetaminophen-codeine Take 1 tablet 5 tablet 0 (TYLENOL #3) 300-30 mg by mouth 7 per tablet every 8 (eight) hours as needed. Max Daily Amount: 3 tablets 03/28/2018 Discontinued losartan (COZAAR) 50 MG Take 50 mg by 0 tablet mouth daily. 04/20/2018 Discontinued nebivolol (BYSTOLIC) 5 MG Take 5 mg by 0 tablet mouth daily. 03/28/2018 Discontinued levoFLOXacin (LEVAQUIN) Take 500 mg 0 500 MG tablet by mouth daily. 04/20/2018 Discontinued aspirin 81 MG chewable Take 81 mg by 0 tablet mouth daily. 04/20/2018 Discontinued losartan (COZAAR) 100 MG Take 100 mg 0 tablet by mouth daily. 05/20/2018 losartan (COZAAR) 25 MG Take 1 tablet 30 tablet 0 tablet (25 mg total) 8 by mouth daily for 30 days. 05/20/2018 nebivolol (BYSTOLIC) 5 MG Take 1 tablet 60 tablet 0 tablet (5 mg total) 8 by mouth 2 (two) times daily for 30 days. 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 Arm DVT (deep venous thromboembolism), acute, right 08/17/2014 Resolved Problems Problem Noted Date Resolved Date Chest pain, unspecified type 08/31/2016 04/20/2018 Encounters Care Team Description Date Type Specialty Yamini Swanson NP Acute on chronic systolic (congestive) heart failure (HCC) (Primary Dx) 04/20/2018 Office Visit Cardiology Julio Cesar Stephens MD Henderson, MD Noel Santiago, MD Reyes Moe Elie G., MD Chest pain, unspecified type (Primary Dx); Arm DVT (deep venous thromboembolism), acute, right (HCC); History of DVT (deep vein thrombosis); Hx of cardiomyopathy; Morbid obesity (HCC); Chronic combined systolic and diastolic CHF (congestive heart failure) (HCC); Chronic kidney disease, stage 3 03/26/2018 Emergency Cardiology - 03/28/2018 03/26/2018 Orders Only General Internal Medicine after 09/22/2017 Family History Medical History Relation Name Comments Heart disease Relation Name Status Comments Social History Date Tobacco Use Types Packs/Day Years Used Former Smoker Smokeless Tobacco: Never Used Alcohol Use Drinks/Week oz/Week Comments No Sex Assigned at Date Recorded Not on file Industry Job Start Date Occupation Not on file Not on file Not on file Travel End Travel History Travel Start No recent travel history available. Last Filed Vital Signs Time Taken Vital Sign Reading 04/20/2018 10:51 AM CDT Blood Pressure 111/72 04/20/2018 10:51 AM CDT Pulse 105 04/20/2018 10:51 AM CDT Temperature 37.1 C (98.8 F) 04/20/2018 10:51 AM CDT Respiratory Rate 16 04/20/2018 10:51 AM CDT Oxygen Saturation 100% - Inhaled Oxygen - Concentration 04/20/2018 10:51 AM CDT Weight 58.7 kg (129 lb 4.8 oz) 04/20/2018 10:51 AM CDT Height 157.5 cm (5' 2") 04/20/2018 10:51 AM CDT Body Mass Index 23.65 Plan of Treatment Health Maintenance Due Date Last Done Comments INFLUENZA VACCINE 05/09/2018 Procedures Comments Procedure Name Priority Date/Time Associated Diagnosis MAGNESIUM Routine 04/20/2018 Acute on chronic systolic 12:49 PM CDT (congestive) heart failure (HCC) B-TYPE NATRIURETIC FACTOR STAT 04/20/2018 Acute on chronic systolic (BNP) 12:49 PM CDT (congestive) heart failure (HCC) BASIC METABOLIC PANEL (7) STAT 04/20/2018 Acute on chronic systolic 12:49 PM CDT (congestive) heart failure (HCC) RHYTHM STRIP - SCAN 03/29/2018 1:50 PM CDT ECHOCARDIOGRAM REPORT - 03/28/2018 SCAN 9:30 AM CDT B-TYPE NATRIURETIC FACTOR Routine 03/28/2018 (BNP) 5:09 AM CDT TSH/FREE T4 IF INDICATED Routine 03/28/2018 5:09 AM CDT BASIC METABOLIC PANEL (7) Routine 03/28/2018 5:09 AM CDT TROPONIN I Routine 03/28/2018 5:09 AM CDT US RENAL COMPLETE Routine 03/27/2018 10:37 PM CDT BLOOD CULTURE Routine 03/27/2018 9:06 PM CDT BLOOD CULTURE Routine 03/27/2018 9:06 PM CDT NM LUNG SCAN PERFUSION STAT 03/27/2018 PARTICULATE VENT 6:55 PM CDT SCREEN, URINE Routine 03/27/2018 6:34 PM CDT SODIUM, RANDOM URINE Routine 03/27/2018 4:59 PM CDT CREATININE, RANDOM URINE Routine 03/27/2018 4:59 PM CDT RAPID DRUG SCREEN, URINE STAT 03/27/2018 4:59 PM CDT 2D ECHO W/ DOPPLER Routine 03/27/2018 (CW/PW/COLOR) 4:56 PM CDT RAPID DRUG SCREEN, URINE STAT 03/27/2018 6:34 AM CDT CBC W/PLT COUNT & AUTO Routine 03/27/2018 DIFFERENTIAL 4:56 AM CDT CBC W/PLT COUNT & AUTO Routine 03/27/2018 DIFFERENTIAL 4:56 AM CDT BASIC METABOLIC PANEL (7) Routine 03/27/2018 4:56 AM CDT TROPONIN I Routine 03/27/2018 4:56 AM CDT XR CHEST 1 VIEW STAT 03/26/2018 PORTABLE/BEDSIDE 9:07 PM CDT CBC W/PLT COUNT & AUTO STAT 03/26/2018 DIFFERENTIAL 6:12 PM CDT SCREEN, URINE STAT 03/26/2018 6:12 PM CDT CREATINE KINASE (CK), STAT 03/26/2018 TOTAL AND MB 6:12 PM CDT TROPONIN I STAT 03/26/2018 6:12 PM CDT BASIC METABOLIC PANEL (7) STAT 03/26/2018 6:12 PM CDT CBC W/PLT COUNT & AUTO STAT 03/26/2018 DIFFERENTIAL 6:12 PM CDT PT/APTT STAT 03/26/2018 6:12 PM CDT ECG 12-LEAD Routine 03/26/2018 4:48 PM CDT Procedure Note - Interface, External Ris In - 03/26/2018 9:12 PM CDT Ventricula r Rate 129 BPM Atrial Rate 129 BPM P-R Interval 114 ms QRS Duration 104 ms Q-T Interval 322 ms QTC Calculatio n(Bazett) 471 ms P [place] 61 degrees R [place] 86 degrees T [place] 32 degrees Sinus tachycardi a Otherwise normal ECG No previous ECGs available ECG 12-LEAD STAT 03/26/2018 4:48 PM CDT after 09/22/2017 Results * B N P (04/20/2018 12:49 PM CDT) Only the most recent of 2 results within the time period is included. BNP 27 0 - 100 pg/mL [facility] Specimen Blood Performing Organization Address City/[facility]/Zipcode Phone Number [address] [address] [facility] * Magnesium (04/20/2018 12:49 PM CDT) Magnesium 2.3 1.6 - 2.6 mg/dL [facility] Specimen Blood Performing Organization Address City/[facility]/Zipcode Phone Number [facility] [place] [phone] * Basic Metabolic Panel (04/20/2018 12:49 PM CDT) Only the most recent of 4 results within the time period is included. Sodium 136 136 - 145 meq/L [facility] Potassium 3.7 3.5 - 5.1 meq/L [facility] Chloride 101 98 - 107 meq/L [facility] CO2 25 22 - 29 meq/L [facility] BUN 19 7 - 21 mg/dL [facility] Creatinine 1.35 (H) 0.57 - 1.25 mg/dL [facility] Glucose 106 (H) 70 - 105 mg/dL [facility] Calcium 9.8 8.4 - 10.2 mg/dL [facility] EGFR 43Comment: ESTIMATED GFR IS mL/min/1.73 sq m [facility] NOT ACCURATE CREATININE [facility] CLEARANCE IN PREDICTING GLOMERULAR FILTRATION RATE. ESTIMATED GFR IS NOT APPLICABLE FOR DIALYSIS PATIENTS. Specimen Blood Performing Organization Address City/State/Zipcode Phone Number [address] * RHYTHM STRIP - SCAN (03/29/2018 1:50 PM CDT) Narrative Performed At * ECHOCARDIOGRAM REPORT - SCAN (03/28/2018 9:30 AM CDT) Narrative Performed At * TSH/Free T4 If Indicated (03/28/2018 5:09 AM CDT) TSH 2.06 0.35 - 4.94 uIU/mL [facility] Specimen Blood - Arm, Left Performing Organization Address City/State/Zipcode Phone Number [address] [address] [phone] [place] [address] * Troponin I (03/28/2018 5:09 AM CDT) Only the most recent of 3 results within the time period is included. Troponin I <0.01 0.00 - 0.03 ng/mL [facility] Specimen Blood - Arm, Left Narrative Performed At Troponin I (TnI) levels must be interpreted in the context of the presenting [facility] symptoms and the clinical findings. Elevated TnI levels indicate myocardial [facility] damage, but are not specific for ischemic heart disease. Elevated TnI levels are seen in patients with other cardiac conditions (including myocarditis and congestive heart failure), and slight TnI elevations occur in patients with other conditions, including sepsis, renal failure, acidosis, acute neurological disease, and persistent tachyarrhythmia. Performing Organization Address City/State/Zipcode Phone Number [facility] [address] [place] [address] [facility] * US renal complete (03/27/2018 10:37 PM CDT) Narrative Performed At FINAL REPORT [facility] Exam: Complete renal ultrasound Clinical History:Acute kidney insufficiency Discussion: Evaluation of the left kidney was mildly limited by patient's body habitus and superimposed bowel. A complete renal ultrasound was performed in the usual fashion with transabdominal imaging. Compared with abdominal CT 03/07/2014 The right kidney measures 8 x 5 x 5 cm. The left kidney measures 7 x 4 x 4 cm. No evidence of renal obstruction or nephrolithiasis. The bilateral renal cortical echogenicity was normal. The right renal cortex measures 14 mm. The left renal cortex measures 14 mm. The main renal arteries and veins were patent where visible. The bladder is decompressed with a volume of 15 cc. IMPRESSION: Relatively small kidneys. Recommend clinical correlation with patient's body size. No evidence of abnormal renal cortical echogenicity, significant cortical atrophy or obstructive uropathy. Signed: Gaby Bocanegra MD Report Verified Date/Time:03/28/2018 02:22:25 Reading Location: [facility] C013T Transitional Reading Room Procedure Note Interface, External Ris In - 03/28/2018 2:24 AM CDT FINAL REPORT Exam: Complete renal ultrasound Clinical History: Acute kidney insufficiency Discussion: Evaluation of the left kidney was mildly limited by patient's body habitus and superimposed bowel. A complete renal ultrasound was performed in the usual fashion with transabdominal imaging. Compared with abdominal CT 03/07/2014 The right kidney measures 8 x 5 x 5 cm. The left kidney measures 7 x 4 x 4 cm. No evidence of renal obstruction or nephrolithiasis. The bilateral renal cortical echogenicity was normal. The right renal cortex measures 14 mm. The left renal cortex measures 14 mm. The main renal arteries and veins were patent where visible. The bladder is decompressed with a volume of 15 cc. IMPRESSION: Relatively small kidneys. Recommend clinical correlation with patient's body size. No evidence of abnormal renal cortical echogenicity, significant cortical atrophy or obstructive uropathy. Signed: Gaby Bocanegra MD Report Verified Date/Time: 03/28/2018 02:22:25 Reading Location: [address] Transitional Reading Room Performing Organization Address City/State/Zipcode Phone Number [facility] * Blood culture (03/27/2018 9:06 PM CDT) Only the most recent of 2 results within the time period is included. Result No growth in [address] [facility] Specimen Blood - Arm, Right Performing Organization Address City/[facility]/Zipcode Phone Number [facility] [address] [place] [address] [facility] * NM lung scan (V/Q) (03/27/2018 6:55 PM CDT) Narrative Performed At FINAL REPORT [facility] PROCEDURE: V/Q LUNG SCAN CPT CODE:45825 INDICATION:Dyspnea, chest pain, history of PE, pacemaker, blood clot in vein, cardiomyopathy PROTOCOL:10.5 mCi ofXe-133 gas was administered by inhalation. Rebreathing/washout images were obtained in the anterior and the posterior projections.4.2 mCi of Tc-99m MAA was then injected intravenously, and static perfusion images were obtained in multiple projections. FINDINGS: Ventilation: Initial tracer distribution is physiological. Washout proceeds normally. Perfusion:Tracer distribution is physiological. IMPRESSION: Normal ventilation/perfusion lung scan. Signed: Leonel Dodd MD Report Verified Date/Time:03/27/2018 19:11:41 Procedure Note Interface, External Ris In - 03/27/2018 7:13 PM CDT FINAL REPORT PROCEDURE: V/Q LUNG SCAN CPT CODE: 57620 INDICATION: Dyspnea, chest pain, history of PE, pacemaker, blood clot in vein, cardiomyopathy PROTOCOL: 10.5 mCi of Xe-133 gas was administered by inhalation. Rebreathing/washout images were obtained in the anterior and the posterior projections. 4.2 mCi of Tc-99m MAA was then injected intravenously, and static perfusion images were obtained in multiple projections. FINDINGS: Ventilation: Initial tracer distribution is physiological. Washout proceeds normally. Perfusion: Tracer distribution is physiological. IMPRESSION: Normal ventilation/perfusion lung scan. Signed: Leonel Dodd MD Report Verified Date/Time: 03/27/2018 19:11:41 Performing Organization Address City/State/Zipcode Phone Number [facility] * Screen, urine (03/27/2018 6:34 PM CDT) Only the most recent of 2 results within the time period is included. Preg Test, Ur Negative [facility] Specimen Urine Performing Organization Address City/[facility]/[place] [address] [facility] * Rapid drug screen, urine (03/27/2018 4:59 PM CDT) Only the most recent of 2 results within the time period is included. Barbiturate Screen Negative Negative [facility] Benzodiazepine Screen Positive (A) Negative [facility] Cocaine (Metab.) Screen Negative Negative [facility] Methadone Screen Negative Negative [facility] Opiate Screen Negative Negative [facility] Cannabinoid Screen Negative Negative [facility] Amph/Methamph Screen Negative Negative [facility] Phencyclidine Screen Negative Negative [facility] Oxycodone Screen Negative Negative [facility] Specimen Urine Narrative Performed At [facility]UG[facility] JEAN B[facility]IST[facility]. [facility] Cocaine 300 ng/mL [facility] Bnprggwydfr87 ng/mL Sttohsdmbludxv495 ng/mL Barbiturate 200 ng/mL Ojsfkuawjsfqf31 ng/mL Imvjzc731 ng/mL Methadone 300 ng/mL Amphetamine/ 1000 ng/mL Methamphetamine Oxycodone 300 ng/mL This assay provides an unconfirmed qualitative test result for the clinical management of patients in emergency situations. Chain of custody not maintained. Some xdwz-uxp-xyyzzbq medications, as well as adulterants, may cause inaccurate results. Clinical correlation should be applied. A more comprehensive drug screen or confirmation of a detected drug may be performed upon request. Performing Organization Address City/[facility] Phone Number [address] * Sodium, random urine (03/27/2018 4:59 PM CDT) Sodium Urine <20 meq/L [facility] Specimen Urine Narrative Performed At Reference Range: No Normals [facility] Performing Organization Address [facility] Phone Number [address] * Creatinine, random urine (03/27/2018 4:59 PM CDT) Creatinine, Ur 53.1 mg/dL [facility] Specimen Urine Narrative Performed At Reference Range: No Normals [facility] Performing Organization Address [facility] Phone Number [address] * 2D Echo W/Doppler(CW/PW/Color) (03/27/2018 4:56 PM CDT) Ejection Fraction [facility]CHO [facility] Narrative Performed At Transthoracic Echocardiography Report (TTE) [facility] ECHO HEARTLAB Demographics [facility] Patient Name Yandy AIKEN of Study 03/27/2018 DEONDRE [id number] GenderFemale Visit Number [id number] Ragini [id number] Number [id number] Number Date of Birth1975 Referring Physician Ijeoma Tan MD Age43 year(s) Staff Field Engineer Gaby Ruby [facility] KarolyntIzojanel Hanks MD Physician Procedure Type of Study TTE procedure:2DECHO W DOPPLER(CW/PW/COLOR) (Pending Discharge) Indications:Acute Chest Pain/ Suspected CAD. Clinical History Cardiomyopathy Congestive Heart Failure Myocarditis Pulmonary embolism S/P Pacemaker HGB 11.6 HCT 33.3 % Height: 62 inches Weight: 54.88 kg (121 lbs) BSA: 1.54 m^2 BMI: 22.13 kg/m^2 HR: 97 bpm BP: 122/75 mmHg Summary The left ventricle is chamber size (by PSLAX dimension) is normal (female - LVIDd 3.8-5.2cm) . Normal LV wall thickness. All of the LV segments are mildly hypokinetic . LVEF by Aiken's method of disk assessment is mildly reduced (40-44%) . The LVEF was measured using Aiken's bi-plane method of disk . Degree of diastolic dysfunction (LAP assessment) is inconclusive due to tachycardia . Normal (cardiac index 2-3 L/min/m2) cardiac output state at rest is noted. Peak systolic pressure may be underestimated; partial TR signal. Estimated peak systolic pressure is at least 25 mmHg. No pericardial effusion is visualized. Previous Study In comparison with the prior exam on 09-02-16 patient has tachycardia today. Signature Findings Technical Quality: Technically fair exam. Rhythm/BPSinus tachycardia during the exam. Left Ventricle The left ventricle is chamber size (by PSLAX dimension) is normal (female - LVIDd 3.8-5.2cm) . Normal LV wall thickness. All of the LV segments are mildly hypokinetic . LVEF by Aiken's method of disk assessment is mildly reduced (40-44%) . The LVEF was measured using Aiken's bi-plane method of disk . Degree of diastolic dysfunction (LAP assessment) is inconclusive due to tachycardia . Normal (cardiac index 2-3 L/min/m2) cardiac output state at rest is noted. Left AtriumLA size is normal . Right VentricleRV pacing wire is visualized . The right ventricular chamber size and systolic function are within normal limits. Right Atrium RA pacing wire is visualized . RA cavity size is normal . Aortic Valve Normal AoV structure and function. Mitral Valve Mild MV leaflet thickening. Tricuspid ValvePeak systolic pressure may be underestimated; partial TR signal. Estimated peak systolic pressure is at least 25 mmHg. Pulmonic Valve PV is not well visualized; function appears normal by Doppler visualized. AortaAortic root size (SInus of Valsalva diameter) is normal . PericardiumNo pericardial effusion is visualized. IVC/SVC/PA/PV/PleuralThe estimated RA pressure by IVC dynamics 0-5mmHg . Chambers/Structures Left Ventricle LVIDd: 3.92 cm LV Septum Diastolic: 0.82 cm LV PW Diastolic: 0.84 cm LVEDV Aiken's:70.12 ml LVESV Aiken's:41.63 ml LVEF Aiken's: 40.6 %LVEDVI: 46 ml/m^2 LVESVI: 27 ml/m^2 LVOT Diameter: 1.92 cm Right Ventricle TAPSE: 1.65 cm Aorta Ao Root S of Akosua.: 2.56 cm Doppler/Quantitative Measurements Mitral Valve MV Sabino. Peak: Tissue Doppler E' Lateral Velocity: 0.16 m/s LVOT Peak Velocity: 1.02 m/s Peak Gradient: 4.15 mmHg Mean Velocity: 0.7 m/sMean Gradient: 2.26 mmHg LVOT Diameter: 1.92 cmLVOT VTI: 15.57 cm LVOT Area: 2.9 cm^2 LVOT SV:45.06 ml LVOT CO: 4.37 l/min LVOT CI: 2.84 l/min/m^2 Tricuspid Valve TR Velocity: 2.28 m/s TR Gradient: 20.73 mmHg Procedure Note Interface, External Ris In - 03/28/2018 8:33 AM CDT Transthoracic Echocardiography Report (TTE) Demographics Patient Name AIXA AIKEN Date of Study 03/27/2018 DEONDRE Gender Female Visit Number [id number] Race Unknown Room Number C623 Number Date of 1975 Referring Physician Ijeoma Tan MD Age 43 year(s) Staff Field Engineer Gaby Tung [facility] Decorator Hand Nataliia Fischer Interpreting Sky Hanks MD Physician Procedure Type of Study TTE procedure:2DECHO W DOPPLER(CW/PW/COLOR) (Pending Discharge) Indications:Acute Chest Pain/ Suspected CAD. Clinical History Cardiomyopathy Congestive Heart Failure Myocarditis Pulmonary embolism S/P Pacemaker HGB 11.6 HCT 33.3 % Height: 62 inches Weight: 54.88 kg (121 lbs) BSA: 1.54 m^2 BMI: 22.13 kg/m^2 HR: 97 bpm BP: 122/75 mmHg Summary The left ventricle is chamber size (by PSLAX dimension) is normal (female - LVIDd 3.8-5.2cm) . Normal LV wall thickness. All of the LV segments are mildly hypokinetic . LVEF by Aiken's method of disk assessment is mildly reduced (40-44%) . The LVEF was measured using Aiken's bi-plane method of disk . Degree of diastolic dysfunction (LAP assessment) is inconclusive due to tachycardia . Normal (cardiac index 2-3 L/min/m2) cardiac output state at rest is noted. Peak systolic pressure may be underestimated; partial TR signal. Estimated peak systolic pressure is at least 25 mmHg. No pericardial effusion is visualized. Previous Study In comparison with the prior exam on 09-02-16 patient has tachycardia today. Signature Findings Technical Quality: Technically fair exam. Rhythm/BP Sinus tachycardia during the exam. Left Ventricle The left ventricle is chamber size (by PSLAX dimension) is normal (female - LVIDd 3.8-5.2cm) . Normal LV wall thickness. All of the LV segments are mildly hypokinetic . LVEF by Aiken's method of disk assessment is mildly reduced (40-44%) . The LVEF was measured using Aiken's bi-plane method of disk . Degree of diastolic dysfunction (LAP assessment) is inconclusive due to tachycardia . Normal (cardiac index 2-3 L/min/m2) cardiac output state at rest is noted. Left Atrium LA size is normal . Right Ventricle RV pacing wire is visualized . The right ventricular chamber size and systolic function are within normal limits. Right Atrium RA pacing wire is visualized . RA cavity size is normal . Aortic Valve Normal AoV structure and function. Mitral Valve Mild MV leaflet thickening. Tricuspid Valve Peak systolic pressure may be underestimated; partial TR signal. Estimated peak systolic pressure is at least 25 mmHg. Pulmonic Valve PV is not well visualized; function appears normal by Doppler visualized. Aorta Aortic root size (SInus of Valsalva diameter) is normal . Pericardium No pericardial effusion is visualized. IVC/SVC/PA/PV/Pleural The estimated RA pressure by IVC dynamics 0-5mmHg . Chambers/Structures Left Ventricle LVIDd: 3.92 cm LV Septum Diastolic: 0.82 cm LV PW Diastolic: 0.84 cm LVEDV Aiken's:70.12 ml LVESV Aiken's:41.63 ml LVEF Aiken's: 40.6 % LVEDVI: 46 ml/m^2 LVESVI: 27 ml/m^2 LVOT Diameter: 1.92 cm Right Ventricle TAPSE: 1.65 cm Aorta Ao Root S of Akosua.: 2.56 cm Doppler/Quantitative Measurements Mitral Valve MV Sabino. Peak: Tissue Doppler E' Lateral Velocity: 0.16 m/s LVOT Peak Velocity: 1.02 m/s Peak Gradient: 4.15 mmHg Mean Velocity: 0.7 m/s Mean Gradient: 2.26 mmHg LVOT Diameter: 1.92 cm LVOT VTI: 15.57 cm LVOT Area: 2.9 cm^2 LVOT SV:45.06 ml LVOT CO: 4.37 l/min LVOT CI: 2.84 l/min/m^2 Tricuspid Valve TR Velocity: 2.28 m/s TR Gradient: 20.73 mmHg Performing Organization Address City/State/Zipcode Phone Number [facility] * CBC with platelet count + automated diff (03/27/2018 4:56 AM CDT) Only the most recent of 2 results within the time period is included. WBC 7.9 3.5 - 10.5 K/L [facility] RBC 3.53 (L) 3.93 - 5.22 M/L [facility] Hemoglobin 11.6 11.2 - 15.7 GM/DL [facility] Hematocrit 33.3 (L) 34.1 - 44.9 % [facility] MCV 94.3 79.4 - 94.[address] [facility] MCH 32.9 (H) 25.6 - 32.[address] [facility] MCHC 34.8 32.2 - 35.5 GM/DL [facility] RDW 12.0 11.7 - 14.4 % [facility] Platelets 280 150 - 450 K/CU MM [facility] MPV 10.2 9.4 - 12.[address] [facility] nRBC 0 0 - 0 /[address] [facility] % Neutros 60 % [facility] % Lymphs 28 % [facility] % Monos 11 % [facility] % Eos 1 % [facility] % Baso 1 % [facility] # Neutros 4.73 1.56 - 6.13 K/L [facility] # Lymphs 2.20 1.18 - 3.74 K/L [facility] # Monos 0.83 (H) 0.24 - 0.36 K/L [facility] # Eos 0.07 0.04 - 0.36 K/L [facility] # Baso 0.05 0.01 - 0.08 K/L [facility] Immature 0 0 - 1 % [facility] Granulocytes-Relative [facility] Specimen Blood Performing Organization Address City/State/Zipcode Phone Number [facility] [address] [place] [address] [facility] * XR chest 1 view portable / bedside (03/26/2018 9:07 PM CDT) Narrative Performed At FINAL REPORT RIS History: Chest pain. Comparison: 08/31/2016 Findings: A single view of the chest is submitted. The cardiac silhouette is within normal limits for size. A left subclavian, multilead ICD remains in place. There is no focal consolidation, pneumothorax, large pleural effusion or evidence of overt pulmonary edema. There is no acute bony abnormality. Signed: Jon Taylor MD Report Verified Date/Time:03/26/2018 21:16:59 Reading Location: [address] Reading Room Procedure Note Interface, External Ris In - 03/26/2018 9:19 PM CDT FINAL REPORT History: Chest pain. Comparison: 08/31/2016 Findings: A single view of the chest is submitted. The cardiac silhouette is within normal limits for size. A left subclavian, multilead ICD remains in place. There is no focal consolidation, pneumothorax, large pleural effusion or evidence of overt pulmonary edema. There is no acute bony abnormality. Signed: Jon Taylor MD Report Verified Date/Time: 03/26/2018 21:16:59 Reading Location: [address] Reading Room Performing Organization Address City/[facility] Phone Number GE RIS * PT/aPTT (03/26/2018 6:12 PM CDT) Protime 13.6 11.7 - 14.[address] [facility] INR 1.0 <=5.9 [facility] PTT 27.7 22.5 - 36.[address] [facility] Specimen Blood Narrative Performed At RECOMMENDED COUMADIN/WARFARIN INR THERAPY RANGES [facility] STANDARD DOSE: 2.0 - 3.0 Includes: PROPHYLAXIS for venous thrombosis, [facility] systemic embolization; TREATMENT for venous thrombosis and/or pulmonary embolus. HIGH RISK: Target INR is 2.5-3.5 for patients with mechanical heart valves. Performing Organization Address [facility] Centercode Phone Number [facility] [address] [place] [address] [phone] [place] [address] * Creatine Kinase (CK), Total and MB (03/26/2018 6:12 PM CDT) Total CK 68 29 - 200 U/L [facility] CK-MB 0.6 0.0 - 6.6 ng/mL [facility] MB Relative Index 0.9 % [facility] Specimen Blood Narrative Performed At CK-MB Reference Range: [facility] <6.7Normal [facility] 6.7-10.0Borderline >10.0 Abnormal Performing Organization Address [facility] Centercode Phone Number [facility] [address] [place] [address] [facility] * ECG 12 lead (03/26/2018 4:48 PM CDT) Narrative Performed At Ventricular Rate 129 BPM GE MUSE Atrial Rate 129 BPM P-R Interval 114 ms QRS Duration 104 ms Q-T Interval 322 ms QTC Calculation(Bazett) 471 ms P [place] 61 degrees R [place] 86 degrees T [place] 32 degrees Sinus tachycardia Prolonged QT Pacing complexes seen but without evidence of ventricular capture. Supsected Pacemaker Malfunction. Please arrange for pacemaker interrogation. No previous ECGs available Confirmed by Viet BEY BASANT ([id number]) on 03/27/2018 12:37:15 PM Procedure Note Interface, External Ris In - 03/27/2018 12:37 PM CDT Ventricular Rate 129 BPM Atrial Rate 129 BPM P-R Interval 114 ms QRS Duration 104 ms Q-T Interval 322 ms QTC Calculation(Bazett) 471 ms P [place] 61 degrees R [place] 86 degrees T [place] 32 degrees Sinus tachycardia Prolonged QT Pacing complexes seen but without evidence of ventricular capture. Supsected Pacemaker Malfunction. Please arrange for pacemaker interrogation. No previous ECGs available Confirmed by Viet BEY BASANT ([id number]) on 03/27/2018 12:37:15 PM Performing Organization Address City/State/Zipcode Phone Number GE MUSE after 09/22/2017 Insurance Payer Benefit Subscriber ID Type Phone Address Plan / Group MEDICAID - MEDICAID MGD MEDICAID xxxxxxxxx Medicaid [employer] Non-Contra cted ([place]) [place] [address] Advance Directives For more information, please contact: [facility] [address] [place] [phone] Date Inactivated Comments Code Status Date Activated 03/28/2018 2:49 PM Full Code 03/26/2018 10:30 PM This code status was determined by: Patient 09/02/2016 5:33 PM Full Code 09/01/2016 12:25 AM This code status was determined by: Patient 08/25/2014 2:06 PM Full Code 08/18/2014 7:08 AM This code status was determined by: Patient
--- OUTSIDE RECORDS SUMMARY | 2018-09-23 10:45 | XMS REPORT | Summary of Care ---
Author Organization Unknown Address Unknown Phone Unavailable Encounter [facility] Sara(SOLIT[facility]) [id number] Date(s): 09/03/14 - 09/05/14 [facility] [id number] [address] Discharge Disposition: Home Physician Attending: Salvador Wade DO Physician Admitting: Salvador Wade DO Reason for Visit BENZO WITHDRAWAL Vital Signs 1 2 3 Most recent to oldest [Reference Range]: 162.56 cm (09/03/14 10:57 PM) Height 98.2 DegF (09/05/14 3:29 PM) 97.9 DegF (09/05/14 12:00 PM) 98.5 DegF (09/05/14 8:00 AM) Temperature Oral [96.4-99.1 DegF] 121 mmHg (09/05/14 3:29 PM) 112 mmHg (09/05/14 12:00 PM) 107 mmHg (09/05/14 8:00 AM) Systolic Blood Pressure [90-140 mmHg] 81 mmHg (09/05/14 3:29 PM) 77 mmHg (09/05/14 12:00 PM) 75 mmHg (09/05/14 8:00 AM) Diastolic Blood Pressure [60-90 mmHg] 15 BRMIN (09/05/14 3:29 PM) 16 BRMIN (09/05/14 12:00 PM) 16 BRMIN (09/05/14 8:00 AM) Respiratory Rate [14-20 BRMIN] 101 bpm *HI* (09/05/14 3:29 PM) 109 bpm *HI* (09/05/14 12:00 PM) 101 bpm *HI* (09/05/14 8:00 AM) Peripheral Pulse Rate [60-100 bpm] 52.273 kg (09/03/14 10:57 PM) Weight 19.78 m2 (09/03/14 10:57 PM) Body Mass Index Problem List Condition Effective Dates Status Health Status Informant ADHD (attention Resolved deficit hyperactivity disorder)(Confirmed) Blood Resolved clot(Confirmed) CHF (congestive Resolved heart failure)(Confirmed) Herniated Resolved disc(Confirmed) Hypertension(Confirm Resolved ed) Stroke(Confirmed)1 Resolved 1pt states diagnosed with stroke Friday 09/01 at [facility] Allergies, Adverse Reactions, Alerts Substance Reaction Severity Status Mucinex Active Medications Ativan 1 mg, 0.5 mL, Route: IVP, Drug form: INJ, ONCE, kg, PRN Anxiety, Start date: 19:11:00 Notes: (Same as: Ativan) Start Date: 09/03/14 Stop Date: 09/05/14 Status: Discontinued Ativan 1 mg, Route: IVP, Drug form: INJ, ONCE, kg, Priority: STAT, Start date: 09/03/14 13:32:00, Stop date: 09/03/14 13:32:00 Start Date: 09/03/14 Stop Date: 09/03/14 Status: Completed Ativan 1 mg, Route: IVP, Drug form: INJ, ONCE, kg, Priority: STAT, Start date: 09/03/14 13:10:00, Stop date: 09/03/14 13:10:00 Start Date: 09/03/14 Stop Date: 09/03/14 Status: Completed Ativan 1 mg, Route: IVP, Drug form: INJ, ONCE, kg, Priority: STAT, Start date: 09/03/14 14:39:00, Stop date: 09/03/14 14:39:00 Start Date: 09/03/14 Stop Date: 09/03/14 Status: Completed Ativan 1 mg, 0.5 mL, Route: IVP, Drug form: INJ, Q8H, kg, PRN as needed for anxiety, Pr iority: STAT, Start date: 09/03/14 18:50:00, Stop date: 10/03/14 16:01:00 Notes: (Same as: Ativan) Start Date: 09/03/14 Stop Date: 09/05/14 Status: Discontinued Ativan 1 mg, Route: IVP, Drug form: INJ, ONCE, kg, Priority: STAT, Start date: 09/03/14 18:44:00, Stop date: 09/03/14 18:44:00 Start Date: 09/03/14 Stop Date: 09/03/14 Status: Completed atropine 0.5 mg, 5 mL, Route: IVP, Drug form: INJ, ONCE, Dosing Weight 52.273, kg, PRN Br adycardia, Start date: 09/04/14 23:31:00, For symptomatic bradycardia heart rate less than 40 Start Date: 09/04/14 Stop Date: 09/05/14 Status: Discontinued cefTRIAXone + Sodium Chloride 0.9% IV 100 mL 1 gm, Route: IVPB, Drug form: PDR/INJ, [id number], kg, Start date: 09/03/14 20:00:0 0, Duration: 30 day, Stop date: 10/02/14 20:00:00 Notes: (Same As: Rocephin). Use with 100ml NS mini-bag PLUS and infuse over 30 min Start Date: 09/03/14 Stop Date: 09/05/14 Status: Discontinued chlordiazePOXIDE 10 mg, 2 cap, Route: PO, Drug form: CAP, BID, kg, Start date: 09/03/14 22:56:00, Duration: 30 day, Stop date: 10/03/14 17:00:00 Notes: (Same As: Librium) Start Date: 09/03/14 Stop Date: 09/05/14 Status: Discontinued Coreg 12.5 mg, 1 tab, Route: PO, Drug form: TAB, Q12H, Dosing Weight 52.273, kg, Start date: 09/05/14 21:00:00, Duration: 30 day, Stop date: 10/05/14 9:00:00 Notes: Give with food. (Same As: Coreg) Start Date: 09/05/14 Stop Date: 09/05/14 Status: Canceled Coreg 12.5 mg oral tablet 12.5 mg=1 tab, PO, BID, # 180 tab, 0 Refill(s) Start Date: 09/04/14 Status: Ordered Haldol 5 mg, Route: IM, ONCE, kg, PRN Anxiety, Start date: 09/03/14 19:10:00, Stop date : 10/03/14 19:09:00 Start Date: 09/03/14 Stop Date: 09/03/14 Status: Completed morphine Sulfate 4 mg, Route: IVP, Drug form: INJ, ONCE, kg, Priority: STAT, Start date: 09/03/14 13:09:00, Stop date: 09/03/14 13:09:00 Start Date: 09/03/14 Stop Date: 09/03/14 Status: Completed nitroglycerin 0.4 mg sublingual tablet 0.4 mg, 1 tab, Route: SL, Drug form: TAB, Q5Min, Dosing Weight 52.273, kg, PRN C hest Pain, Start date: 09/04/14 23:31:00, Duration: 30 day, Stop date: 10/04/14 23:30:00 Notes: (Same as:Nitroquick, Nitrostat)"Do Not Crush" Sublingual tablet Start Date: 09/04/14 Stop Date: 09/05/14 Status: Discontinued Helton 10/325 oral tablet 1 tab, Route: PO, Drug Form: TAB, Dosing Weight 52.273, kg, Q6H, PRN Pain Score 4-6, Start date: 09/05/14 12:12:00, Stop date: 09/10/14 19:39:00 Notes: Do not exceed 4gm/day of acetaminophen. (Same as: Helton 325/10) Start Date: 09/05/14 Stop Date: 09/05/14 Status: Discontinued Helton 10/325 oral tablet 1 tab, PO, Q6H, for pain, # 24 tab, 0 Refill(s) Start Date: 09/04/14 Stop Date: 09/10/14 Status: Ordered ondansetron 4 mg, 2 mL, Route: IVP, Drug form: INJ, Q8H, kg, PRN Nausea & Vomiting, Start date: 09/03/14 22:56:00, Duration: 30 day, Stop date: 10/03/14 22:55:00 Notes: (Same as: Ata) Start Date: 09/03/14 Stop Date: 09/05/14 Status: Discontinued potassium chloride 20 mEq, 100 mL, Route: IVPB, Drug form: INJ, Q2H, Dosing Weight 52.273, kg, Tota l dose=40 mEq, Start date: 09/04/14 14:00:00, Duration: 2 doses or times, Stop d ate: 09/04/14 16:00:00 Notes: (Same as: KCL) Infuse no faster than 10 mEq/hr if given peripherally. Start Date: 09/04/14 Stop Date: 09/04/14 Status: Completed potassium chloride 20 mEq oral tablet, extended release 40 mEq, Route: PO, Drug form: ERTAB, ONCE, Dosing Weight 52.273, kg, Start date: 09/04/14 9:43:00, Stop date: 09/04/14 9:43:00 Start Date: 09/04/14 Stop Date: 09/04/14 Status: Discontinued potassium chloride 25 mEq oral powder 0 Refill(s) Start Date: 09/04/14 Stop Date: 09/05/14 Status: Discontinued Ritalin LA 40 mg, Route: PO, Drug form: ERCAP, QAM, Dosing Weight 52.273, kg, Start date: 0 09/06/14 9:00:00, Duration: 30 day, Stop date: 10/05/14 9:00:00 Start Date: 09/06/14 Stop Date: 09/05/14 Status: Canceled Ritalin LA 40 mg/24 hr oral capsule, extended release 40 mg=1 cap, PO, QAM, # 30 cap, 0 Refill(s) Start Date: 09/04/14 Status: Ordered Saline Flush 0.9% 10 ml, Route: IVP, Drug Form: INJ, kg, PRN, PRN Line Flush, Start date: 09/03/14 22:56:00, Duration: 30 day, Stop date: 10/03/14 22:55:00 Notes: (Same as: BD Posiflush) Start Date: 09/03/14 Stop Date: 09/05/14 Status: Discontinued Sodium Chloride 0.9% IV 1,000 mL 1,000 mL, Rate: 125 ml/hr, Infuse over: 8 hr, Route: IV, Total Volume: 1,000, St art date: 09/03/14 22:56:00, Duration: 30 day, Stop date: 10/03/14 22:55:00 Start Date: 09/03/14 Stop Date: 09/05/14 Status: Discontinued thiamine 100 mg, 1 tab, Route: PO, Drug form: TAB, Daily, Dosing Weight 52.273, kg, Start date: 09/04/14 15:00:00, Duration: 30 day, Stop date: 10/04/14 9:00:00 Notes: (Same As: Vitamin B1) Start Date: 09/04/14 Stop Date: 09/05/14 Status: Discontinued Tylenol 650 mg, 2 tab, Route: PO, Drug form: TAB, Q6H, Dosing Weight 52.273, kg, PRN Татьяна n Score 1-3, Start date: 09/04/14 16:42:00, Duration: 30 day, Stop date: 5 16:41:00 Notes: Do not exceed 4 gm/day. (Same as: Tylenol) Start Date: 09/04/14 Stop Date: 09/05/14 Status: Discontinued warfarin 4 mg oral tablet 4 mg=1 tab, PO, Daily, # 30 tab, 0 Refill(s) Start Date: 09/05/14 Status: Ordered Xanax 2 mg oral tablet 2 mg, PO, TID, Anxiety, 0 Refill(s) Start Date: 09/04/14 Status: Ordered Xanax 2 mg oral tablet 2 mg, 2 tab, Route: PO, Drug form: TAB, TID, Dosing Weight 52.273, kg, PRN as ne eded for anxiety, Start date: 09/05/14 12:12:00, Stop date: 10/05/14 12:11:00 Notes: With food or milk(Same as: Xanax) Start Date: 09/05/14 Stop Date: 09/05/14 Status: Discontinued Zofran 4 mg, Route: IVP, Drug form: INJ, ONCE, kg, Priority: STAT, Start date: 09/03/14 13:09:00, Stop date: 09/03/14 13:09:00 Start Date: 09/03/14 Stop Date: 09/03/14 Status: Completed Results ELECTROLYTES 1 2 3 Most recent to oldest [Reference Range]: 141 mEq/L (09/05/14 4:49 AM) 142 mEq/L (09/04/14 5:44 AM) 136 mEq/L (09/03/14 12:32 PM) Sodium Lvl [135-145 mEq/L] 3.8 mEq/L (09/05/14 4:49 AM) 2.7 mEq/L 1 *CRIT* (09/04/14 5:44 AM) 3.6 mEq/L (09/03/14 12:32 PM) Potassium Lvl [3.5-5.1 mEq/L] 106 mEq/L (09/05/14 4:49 AM) 111 mEq/L *HI* (09/04/14 5:44 AM) 103 mEq/L (09/03/14 12:32 PM) Chloride Lvl [95-109 mEq/L] 26 mEq/L (09/05/14 4:49 AM) 21 mEq/L *LOW* (09/04/14 5:44 AM) 23 mEq/L *LOW* (09/03/14 12:32 PM) CO2 [24-32 mEq/L] 12.8 mEq/L (09/05/14 4:49 AM) 12.7 mEq/L (09/04/14 5:44 AM) 13.6 mEq/L (09/03/14 12:32 PM) AGAP [10.0-20.0 mEq/L] 1Result Comment: Critical Result(s) called to monie linn 09/04/2014 06:39 by sm. Read back OK. CHEM PANEL 1 2 3 Most recent to oldest [Reference Range]: 0.8 mg/dL (09/05/14 4:49 AM) 0.7 mg/dL (09/04/14 5:44 AM) 0.9 mg/dL (09/03/14 12:32 PM) Creatinine Lvl [0.5-1.4 mg/dL] 93 mL/min/1.73m2 2 *NA* (09/05/14 4:49 AM) 109 mL/min/1.73m2 3 *NA* (09/04/14 5:44 AM) 81 mL/min/1.73m2 4 *NA* (09/03/14 12:32 PM) eGFR 9 mg/dL (09/05/14 4:49 AM) 8 mg/dL (09/04/14 5:44 AM) 11 mg/dL (09/03/14 12:32 PM) BUN [7-22 mg/dL] 11 (09/04/14 5:44 AM) 12 (09/03/14 12:32 PM) B/C Ratio [6-25] 92 mg/dL 5 (09/05/14 4:49 AM) 85 mg/dL 6 (09/04/14 5:44 AM) 114 mg/dL 7 *HI* (09/03/14 12:32 PM) Glucose Lvl [70-99 mg/dL] 6.4 g/dL (09/04/14 5:44 AM) 9.0 g/dL *HI* (09/03/14 12:32 PM) Total Protein [6.4-8.4 g/dL] 3.1 g/dL *LOW* (09/04/14 5:44 AM) 4.5 g/dL (09/03/14 12:32 PM) Albumin Lvl [3.5-5.0 g/dL] 3.3 g/dL (09/04/14 5:44 AM) 4.5 g/dL *HI* (09/03/14 12:32 PM) Globulin [2.0-4.0 g/dL] 0.9 (09/04/14 5:44 AM) 1.0 (09/03/14 12:32 PM) A/G Ratio [0.7-1.6] 8.4 mg/dL *LOW* (09/05/14 4:49 AM) 7.2 mg/dL *LOW* (09/04/14 5:44 AM) 9.2 mg/dL (09/03/14 12:32 PM) Calcium Lvl [8.5-10.5 mg/dL] 4.2 mg/dL (09/04/14 5:44 AM) Phosphorus [2.5-4.5 mg/dL] 1.9 mg/dL (09/04/14 5:44 AM) Magnesium Lvl [1.8-2.4 mg/dL] 24 unit/L (09/04/14 5:44 AM) 30 unit/L (09/03/14 12:32 PM) ALT [0-65 unit/L] 33 unit/L (09/04/14 5:44 AM) 34 unit/L (09/03/14 12:32 PM) AST [0-37 unit/L] 108 unit/L (09/04/14 5:44 AM) 150 unit/L *HI* (09/03/14 12:32 PM) Alk Phos [39-136 unit/L] 0.4 mg/dL (09/04/14 5:44 AM) 0.6 mg/dL (09/03/14 12:32 PM) Bili Total [0.2-1.3 mg/dL] 2Result Comment: The eGFR is calculated using the CKD-EPI formula. In most young, healthy individuals the eGFR will be >90 mL/min/1.73m2. The eGFR declines with age. An eGFR of 60-89 may be normal in some populations, particularly the elderly, for whom the CKD-EPI formula has not been extensively validated. Use of the eGFR is not recommended in the following populations: Individuals with unstable creatinine concentrations, including patients and those with serious co-morbid conditions. Patients with extremes in muscle mass or diet. The data above are obtained from the National Kid[employer] Disease Education Program ( NKDEP) which additionally recommends that when the eGFR is used in patients with extremes of body mass index for purposes of drug dosing, the eGFR should be mul tiplied by the estimated BMI. 3Result Comment: The eGFR is calculated using the CKD-EPI formula. In most young, healthy individuals the eGFR will be >90 mL/min/1.73m2. The eGFR declines with age. An eGFR of 60-89 may be normal in some populations, particularly the elderly, for whom the CKD-EPI formula has not been extensively validated. Use of the eGFR is not recommended in the following populations: Individuals with unstable creatinine concentrations, including patients and those with serious co-morbid conditions. Patients with extremes in muscle mass or diet. The data above are obtained from the National Kid[employer] Disease Education Program ( NKDEP) which additionally recommends that when the eGFR is used in patients with extremes of body mass index for purposes of drug dosing, the eGFR should be mul tiplied by the estimated BMI. 4Result Comment: The eGFR is calculated using the CKD-EPI formula. In most young, healthy individuals the eGFR will be >90 mL/min/1.73m2. The eGFR declines with age. An eGFR of 60-89 may be normal in some populations, particularly the elderly, for whom the CKD-EPI formula has not been extensively validated. Use of the eGFR is not recommended in the following populations: Individuals with unstable creatinine concentrations, including patients and those with serious co-morbid conditions. Patients with extremes in muscle mass or diet. The data above are obtained from the National Kidney Disease Education Program ( NKDEP) which additionally recommends that when the eGFR is used in patients with extremes of body mass index for purposes of drug dosing, the eGFR should be mul tiplied by the estimated BMI. 5Interpretive Data: Adult reference range values reflect the clinical guidelines of the [place] [employer]. 6Interpretive Data: Adult reference range values reflect the clinical guidelines of the [place] [employer]. 7Interpretive Data: Adult reference range values reflect the clinical guidelines of the [place] [employer]. CARDIAC ENZYMES 1 2 3 Most recent to oldest [Reference Range]: 211 unit/L *HI* (09/03/14 12:32 PM) Total CK [12-191 unit/L] 3.5 ng/mL (09/03/14 12:32 PM) CK MB [0.5-3.6 ng/mL] 1.7 (09/03/14 12:32 PM) CK MB Index [0.0-2.5] <0.02 ng/mL (09/03/14 12:32 PM) Troponin-I [0.00-0.40 ng/mL] DRUG SCREEN 1 2 3 Most recent to oldest [Reference Range]: Negative *NA* (09/03/14 1:08 PM) U Amph Scr [Negative] Negative *NA* (09/03/14 1:08 PM) U Valeria Scr [Negative] Negative *NA* (09/03/14 1:08 PM) U Benzodia Scr [Negative] Negative *NA* (09/03/14 1:08 PM) U Cocaine Scr [Negative] Negative *NA* (09/03/14 1:08 PM) U Opiate Scr [Negative] Negative *NA* (09/03/14 1:08 PM) U Phencyc Scr [Negative] Negative *NA* (09/03/14 1:08 PM) U Cannab Scr [Negative] See Note 8 *NA* (09/03/14 1:08 PM) UDS Note 8Interpretive Data: Drugs reported as positive have not been confirmed by a second method and should be used for medical purposes only. To order confirmation, contact laboratory. note: Below are cut-off concentrations for all urine drugs of abuse performed in the laboratory. Some drugs listed in the table may not be included in this panel. Description Cut-off concentration Amphetamine 1000 ng/mL Barbiturates 200 ng/mL Benzodiazepines 300 ng/mL Cocaine metabolites 300 ng/mL Opiates 300 ng/mL Phencyclidine 25 ng/mL Propoxyphene 300 ng/mL Marijuana metabolites 50 ng/mL Methadone 300 ng/mL Urine alcohol 20 mg/dL TOXICOLOGY 1 2 3 Most recent to oldest [Reference Range]: <2 (09/03/14 12:32 PM) Acetaminoph Lvl [10-20] <1.7 mg/dL (09/03/14 12:32 PM) Salicylate Lvl [0.0-30.0 mg/dL] <.003 % 9 *NA* (09/03/14 2:49 PM) Etoh (%) <3 mg/dL 10 *NA* (09/03/14 2:49 PM) Ethanol Lvl 9Interpretive Data: Ethanol testing results should be used for medical purposes only. Negative Range: <0.003% Toxic Range: >0.25% 10Interpretive Data: Negative Range: <3 mg/dL Toxic Range: >250 mg/dL URINE CHEM 1 2 3 Most recent to oldest [Reference Range]: Negative (09/03/14 1:08 PM) U Preg [Negative] URINE AND STOOL 1 2 3 Most recent to oldest [Reference Range]: Clear (09/03/14 1:08 PM) UA Turbidity [Clear] Yellow *NA* (09/03/14 1:08 PM) UA Color [Yellow] 6.0 (09/03/14 1:08 PM) UA pH [5.0-8.0] 1.015 (09/03/14 1:08 PM) UA Spec Grav [<=1.030] Negative (09/03/14 1:08 PM) UA Glucose [Negative] Large *ABN* (09/03/14 1:08 PM) UA Blood [Negative] Negative *NA* (09/03/14 1:08 PM) UA Ketones [Negative] Negative (09/03/14 1:08 PM) UA Protein [Negative] 0.2 EU/dL (09/03/14 1:08 PM) UA Urobilinogen [0.1-1.0 EU/dL] Negative *NA* (09/03/14 1:08 PM) UA Bili [Negative] Negative (09/03/14 1:08 PM) UA Leuk Est [Negative] Negative (09/03/14 1:08 PM) UA Nitrite [Negative] 7 /HPF *HI* (09/03/14 1:08 PM) UA WBC [0-5 /HPF] 8 /HPF *HI* (09/03/14 1:08 PM) UA RBC [0-2 /HPF] Moderate /HPF *ABN* (09/03/14 1:08 PM) UA Bacteria [None Seen /HPF] Many /LPF *ABN* (09/03/14 1:08 PM) UA Sq Epi [Few /LPF] 1 /LPF (09/03/14 1:08 PM) UA Hyal Cast [0-2 /LPF] Few /LPF *NA* (09/03/14 1:08 PM) UA Mucus [None Seen /LPF] HEMATOLOGY 1 2 3 Most recent to oldest [Reference Range]: 6.9 K/CMM (09/04/14 5:44 AM) 8.1 K/CMM (09/03/14 12:32 PM) WBC [3.7-10.4 K/CMM] 3.18 M/CMM *LOW* (09/04/14 5:44 AM) 3.86 M/CMM *LOW* (09/03/14 12:32 PM) RBC [4.20-5.40 M/CMM] 10.8 g/dL *LOW* (09/04/14 5:44 AM) 12.8 g/dL (09/03/14 12:32 PM) Hgb [12.0-16.0 g/dL] 30.1 % *LOW* (09/04/14 5:44 AM) 36.0 % (09/03/14 12:32 PM) Hct [36.0-48.0 %] 94.6 fL (09/04/14 5:44 AM) 93.3 fL (09/03/14 12:32 PM) MCV [80.0-98.0 fL] 33.9 pg *HI* (09/04/14 5:44 AM) 33.1 pg *HI* (09/03/14 12:32 PM) MCH [27.0-31.0 pg] 35.8 g/dL (09/04/14 5:44 AM) 35.5 g/dL (09/03/14 12:32 PM) MCHC [32.0-36.0 g/dL] 12.6 % (09/04/14 5:44 AM) 12.4 % (09/03/14 12:32 PM) RDW [11.5-14.5 %] 206 K/CMM (09/04/14 5:44 AM) 300 K/CMM (09/03/14 12:32 PM) Platelet [133-450 K/CMM] 8.0 fL (09/04/14 5:44 AM) 8.3 fL (09/03/14 12:32 PM) MPV [7.4-10.4 fL] 63.5 % (09/04/14 5:44 AM) 70.5 % (09/03/14 12:32 PM) Segs [45.0-75.0 %] 23.4 % (09/04/14 5:44 AM) 20.4 % (09/03/14 12:32 PM) Lymphocytes [20.0-40.0 %] 9.7 % (09/04/14 5:44 AM) 7.9 % (09/03/14 12:32 PM) Monocytes [2.0-12.0 %] 2.5 % (09/04/14 5:44 AM) 0.4 % (09/03/14 12:32 PM) Eosinophils [0.0-4.0 %] 0.9 % (09/04/14 5:44 AM) 0.8 % (09/03/14 12:32 PM) Basophils [0.0-1.0 %] 4.4 K/CMM (09/04/14 5:44 AM) 5.7 K/CMM (09/03/14 12:32 PM) Segs-Bands # [1.5-8.1 K/CMM] 1.6 K/CMM (1/27/15 5:44 AM) 1.7 K/CMM (09/03/14 12:32 PM) Lymphocytes # [1.0-5.5 K/CMM] 0.7 K/CMM (09/04/14 5:44 AM) 0.6 K/CMM (09/03/14 12:32 PM) Monocytes # [0.0-0.8 K/CMM] 0.2 K/CMM (09/04/14 5:44 AM) Eosinophils # [0.0-0.5 K/CMM] 0.1 K/CMM (09/04/14 5:44 AM) 0.1 K/CMM (09/03/14 12:32 PM) Basophils # [0.0-0.2 K/CMM] 20.8 seconds *HI* (09/05/14 4:49 AM) 20.8 seconds *HI* (09/03/14 12:32 PM) PT [12.0-14.7 seconds] 1.75 11 *HI* (09/05/14 4:49 AM) 1.75 12 *HI* (09/03/14 12:32 PM) INR [0.85-1.17] 39.6 seconds 13 *HI* (09/03/14 12:32 PM) PTT [22.9-35.8 seconds] 11Interpretive Data: RECOMMENDED RANGES FOR PROTIME INR: 2.0-3.0 for most medical and surgical thromboembolic states. 2.5-3.5 for artificial heart valves and recurrent embolism. INR SHOULD BE USED ONLY FOR PATIENTS ON STABLE ANTICOAGULANT THERAPY. 12Interpretive Data: RECOMMENDED RANGES FOR PROTIME INR: 2.0-3.0 for most medical and surgical thromboembolic states. 2.5-3.5 for artificial heart valves and recurrent embolism. INR SHOULD BE USED ONLY FOR PATIENTS ON STABLE ANTICOAGULANT THERAPY. 13Interpretive Data: Heparin Therapeutic Range: 57 - 92 Seconds Medications Administered During Your Visit No data available for this section Immunizations No data available for this section Procedures Procedure Type Body Site Date of Procedure Related Diagnosis section1 Cholecystectomy Permanent cardiac pacemaker procedure Spinal fusion Tubal ligation 1x2 Social History Social History Type Response Substance Abuse 1 Alcohol Use: Past Smoking Status Never smoker, Exposure to Tobacco Smoke None, Cigarette Smoking Last 365 Days No, Reg Smoking Cessation Counseling No 1pt denies
--- OUTSIDE RECORDS SUMMARY | 2018-09-23 10:45 | XMS REPORT | Continuity of Care Document ---
Author Author [facility] Interface Address Unknown Phone Unavailable Problems Problem Status Onset Date Classification Date Reported Comments Source Discharge Diagnosis: Acute upper respiratory infection 07/28/2017 07/31/2017 [facility] PALPITATIONS Active 07/27/2017 [facility] Discharge Diagnosis: Acute anxiety 08/19/2016 08/23/2016 [facility] Discharge Diagnosis: GI bleeding 08/19/2016 08/23/2016 [facility] Discharge Diagnosis: Heart palpitations 08/19/2016 08/23/2016 [facility] Discharge Diagnosis: Abdominal pain 08/19/2016 08/23/2016 [facility] Discharge Diagnosis: Unspecified mood [affective] disorder 11/18/2015 11/21/2015 [facility] Discharge Diagnosis: Other psychoactive substance abuse, uncomplicated 11/18/2015 11/21/2015 [facility] Discharge Diagnosis: Low back pain 11/18/2015 11/21/2015 [facility] SHORTNESS OF BREATH Active 11/18/2015 [facility] FEVER Active 10/11/2015 [facility] Discharge Diagnosis: Pain in left arm 10/01/2015 10/04/2015 [facility] ARM PAIN Active 10/01/2015 [facility] Discharge Diagnosis: Urinary tract infection, site not specified 07/09/2015 07/12/2015 [facility] KINDEY INFECTION Active 07/09/2015 [facility] Discharge Diagnosis: Dehydration 09/21/2014 09/23/2014 [facility] Discharge Diagnosis: Paresthesia 09/21/2014 09/23/2014 [facility] 729.5 - PAIN IN LIMB Active 09/21/2014 [facility] ARM PAIN Active 09/21/2014 [facility] BENZO WITHDRAWAL Active 09/03/2014 [facility] DELUSIONAL Active 09/03/2014 [facility] CHF - Congestive heart failure Resolved 07/09/2011 Problem 07/31/2017 [facility] ADHD (<span ID="[id number]">Confirmed</span>) Resolved Problem 07/31/2017 [facility] Blood clot Active Problem 11/21/2015 [facility] CHF (<span ID="[id number]">Confirmed</span>) Resolved Problem 08/23/2016 [facility] Herniated disc Resolved Problem 07/31/2017 [facility] Hypertension Resolved Problem 07/31/2017 [facility] Stroke<sup>1</sup> Resolved Problem 08/23/2016 pt states diagnosed with stroke Friday 09/01 at [facility] Anxiety Resolved Problem 07/31/2017 [facility] Hematuria Resolved Problem 07/31/2017 [facility] Cardiac arrest Resolved Problem 07/31/2017 [facility] Cardiac pacemaker<sup>1</sup> Resolved Problem 07/31/2017 [facility] CHF (<span ID="[id number]">Confirmed</span>)<sup>2</sup> Active Problem 07/31/2017 ef 20% [facility] CKD (<span ID="[id number]">Confirmed</span>)<sup>3</sup> Active Problem 07/31/2017 [facility] DVT (<span ID="[id number]">Confirmed</span>) Resolved Problem 07/31/2017 [facility] SOB (<span ID="[id number]">Confirmed</span>) Resolved Problem 07/31/2017 [facility] HT - Hypertension Resolved Problem 07/31/2017 [facility] Kidney infection Active Problem 07/31/2017 [facility] [place] (<span ID="[id number]">Confirmed</span>) Resolved Problem 07/31/2017 [facility] Myocarditis Resolved Problem 07/31/2017 [facility] Palpitations<sup>4</sup> Resolved Problem 07/31/2017 heart [facility] Angina pectoris, unstable Active Problem 07/31/2017 [facility] Pulmonary embolism Resolved Problem 07/31/2017 [facility] Stroke<sup>5</sup> Resolved Problem 07/31/2017 pt states diagnosed with stroke Friday 09/01 at [facility] Cardiac pacemaker Resolved Problem 08/23/2016 [facility] CHF Active Problem 06/26/2015 [facility] Hypertension Active Problem 06/26/2015 [facility] CMP Active Problem 06/26/2015 [facility] S/P ICD Active Problem 06/26/2015 [facility] S/P ICD procedure Active Problem 04/07/2016 [facility] Congestive heart failure Active Problem 04/07/2016 [facility] Cardiomyopathy Active Problem 04/07/2016 [facility] HTN Active Problem 04/07/2016 [facility] Paroxysmal ventricular tachycardia Active Problem 04/07/2016 [facility] DRUG WITHDRAWAL Active [facility] INFLUENZA DUE TO UNIDENTIFIED INFLUENZA Active [facility] Medications Medication Details Route Status Patient Instructions Ordering Provider Order Date Source Benzocaine 15 MG / Menthol 2.1 MG Lozenge [Cepacol Sore Throat Pain Relief 15/2.1] 1 lozenge, PO, Q2H, PRN for sore throat, X 2 day, # 18 ea, 0 Refill(s) No Longer Active 07/28/2017 [facility] Saline Flush 0.9% 10 mL, Route: IVP, Drug Form: INJ, Dosing Weight 63.636, kg, PRN, PRN Line Flush, Start date: 07/27/17 15:11:00 ORTHO RN, Duration: 30 day, Stop date: 08/26/17 15:10:00 CSTNotes: (Same as: BD Posiflush) No Longer Active 07/27/2017 [facility] Acetaminophen 325 MG / Hydrocodone Bitartrate 5 MG Oral Tablet [Bullock 5/325] 1 tab, Route: PO, Drug Form: TAB, Dosing Weight 63.636, kg, ONCE, STAT, Start date: 08/19/16 21:36:00 ORTHO RN, Stop date: 08/19/16 21:36:00 CSTNotes: (Same as: Bullock 325/5) Do not exceed 4gm/day of acetaminophen. Inactive 08/20/2016 [facility] Saline Flush 0.9% 10 mL, Route: IVP, Drug Form: INJ, Dosing Weight 61.364, kg, PRN, PRN Line Flush, Start date: 08/19/16 17:07:00 ORTHO RN, Duration: 30 day, Stop date: 09/18/16 17:06:00 CSTNotes: (Same as: BD Posiflush) No Longer Active 08/19/2016 [facility] Potassium Chloride [facility] TAKE 1 TABLET BY MOUTH EVERY DAY Orally Active 20 Orally Once a day Jeffrey 08/04/2016 [facility] Diflunisal 500 MG Oral Tablet [Dolobid] 500 mg=1 tab, PO, Q8H, # 90 tab, 0 Refill(s) Active 11/18/2015 [facility] Metronidazole 500 MG Oral Tablet [Flagyl] 500 mg=1 tab, PO, Q12H, X 14 day, # 28 tab, 0 Refill(s) Active 11/18/2015 [facility] Tylenol 975 mg, Route: PO, Drug form: TAB, ONCE, Dosing Weight 61.364, kg, Priority: STAT, Start date: 11/18/15 16:51:00 CDT, Stop date: 11/18/15 16:51:00 CDT Inactive 11/18/2015 [facility] Saline Flush 0.9% 10 mL, Route: IVP, Drug Form: INJ, Dosing Weight 61.364, kg, PRN, PRN Line Flush, Start date: 11/18/15 14:41:00 CDT, Duration: 30 day, Stop date: 12/18/15 14:40:00 CDTNotes: (Same as: BD Posiflush) No Longer Active 11/18/2015 [facility] Acetaminophen 325 MG / Hydrocodone Bitartrate 10 MG Oral Tablet [Bullock 10/325] 1 tab, Route: PO, Drug Form: TAB, Dosing Weight 61.364, kg, Q6H, PRN Pain Score 4-6, STAT, Start date: 10/14/15 21:18:00, Duration: 30 day, Stop date: 11/13/15 21:17:00Notes: Do not exceed 4gm/day of acetaminophen. (Same as: Bullock 325/10) No Longer Active 10/15/2015 [facility] Morphine 2 mg, 1 mL, Route: IVP, Drug form: INJ, Q3H, Dosing Weight 61.364, kg, PRN Pain Score 7-10, Start date: 10/14/15 21:17:00, Duration: 30 day, Stop date: 11/13/15 21:16:00Notes: (Same as:MORPhine Sulfate) No Longer Active 10/15/2015 [facility] Acetaminophen 325 MG / Hydrocodone Bitartrate 5 MG Oral Tablet [Bullock 5/325] 1 tab, Route: PO, Drug Form: TAB, Dosing Weight 61.364, kg, Q4H, PRN, Start date: 10/14/15 14:54:00, Duration: 30 day, Stop date: 11/13/15 14:53:00, Pain Score 4-10 Inactive 10/14/2015 [facility] tramadol hydrochloride 50 MG Oral Tablet 50 mg, 1 tab, Route: PO, Drug form: TAB, Q4H, Dosing Weight 61.364, kg, PRN Pain Score 1-3, Start date: 10/14/15 14:54:00, Duration: 30 day, Stop date: 11/13/15 14:53:00Notes: Not to exceed 400mg/day. (Same As: Ultram) No Longer Active 10/14/2015 [facility] Colette 180 mg, Route: PO, Daily, Dosing Weight 61.364, kg, Start date: 10/14/15 9:00:00, Duration: 30 day, Stop date: 11/12/15 9:00:00 No Longer Active 10/14/2015 [facility] Warfarin 4 mg, 2 tab, Route: PO, Drug form: TAB, Q5PM, Dosing Weight 61.364, kg, Start date: 10/13/15 17:00:00, Duration: 30 day, Stop date: 11/11/15 17:00:00Notes: Nurse to ensure documentation of patient education per anticoagulation policy. Avoid large intake of vitamin-K containing foods diet. (Same As: Coumadin) WASTE: F/P - P Waste Black; E - P Waste Black Inactive 10/13/2015 [facility] Morphine 1 mg, 0.5 mL, Route: IV, Drug form: INJ, Q4H, Dosing Weight 61.364, kg, PRN Pain Score 4-6, Start date: 10/13/15 16:34:00, Duration: 30 day, Stop date: 11/12/15 16:33:00Notes: (Same as:MORPhine Sulfate) No Longer Active 10/13/2015 [facility] Claritin 10 mg, 1 tab, Route: PO, Drug form: TAB, Daily, Start date: 10/13/15 12:30:00, Duration: 30 day, Stop date: 11/12/15 9:00:00Notes: 1 hr before meals (Same as: Claritin) No Longer Active 10/13/2015 [facility] Colette 180 mg, PO, Daily, 0 Refill(s) No Longer Active 10/13/2015 [facility] Losartan 25 mg, PO, Daily, 0 Refill(s) No Longer Active 10/13/2015 [facility] cyclobenzaprine 10 mg oral tablet 10 mg=1 tab, PO, TID, PRN for spasms, # 30 tab, 0 Refill(s) Active 10/13/2015 [facility] Fexofenadine hydrochloride 180 MG Oral Tablet [Colette] 180 mg=1 tab, PO, Daily, # 30 tab, 0 Refill(s) Active 10/13/2015 [facility] Ritalin LA 40 mg, Route: PO, Drug form: ERCAP, QAM, Dosing Weight 61.364, kg, Start date: 10/13/15 9:00:00, Duration: 30 day, Stop date: 11/11/15 9:00:00 No Longer Active 10/13/2015 [facility] Tessalon Perles 100 mg, 1 cap, Route: PO, Drug form: CAP, TID, Dosing Weight 61.364, kg, PRN Cough, Start date: 10/13/15 8:49:00, Duration: 30 day, Stop date: 11/12/15 8:48:00Notes: (Same As: Tessalon Perles) "Do Not Crush" No Longer Active 10/13/2015 [facility] Alprazolam 2 MG Oral Tablet [Xanax] 2 mg, 2 tab, Route: PO, Drug form: TAB, TID, Dosing Weight 61.364, kg, PRN Anxiety, Start date: 10/13/15 8:45:00, Duration: 30 day, Stop date: 11/12/15 8:44:00Notes: With food or milk (Same as: Xanax) No Longer Active 10/13/2015 [facility] normal saline 0.9% IV 1,000 mL 1,000 mL, Rate: 75 ml/hr, Infuse over: 13.3 hr, Route: IV, Dosing Weight 61.364 kg, Total Volume: 1,000, Start date: 10/12/15 17:31:00, Duration: 30 day, Stop date: 11/11/15 17:30:00 No Longer Active 10/12/2015 [facility] Morphine 1 mg, 0.5 mL, Route: IVP, Drug form: INJ, On Adm, Dosing Weight 61.364, kg, PRN Chest Pain, Start date: 10/12/15 16:56:00, Duration: 30 day, Stop date: 11/11/15 17:55:00Notes: (Same as:MORPhine Sulfate) No Longer Active 10/12/2015 [facility] Acetaminophen 325 MG / Hydrocodone Bitartrate 5 MG Oral Tablet [Bullock 5/325] 1 tab, Route: PO, Drug Form: TAB, Dosing Weight 61.364, kg, Q6H, PRN Pain Score 1-3, Start date: 10/12/15 15:58:00, Duration: 30 day, Stop date: 11/11/15 15:57:00Notes: (Same as: Bullock 325/5) Do not exceed 4gm/day of acetaminophen. No Longer Active 10/12/2015 [facility] Sodium Chloride 0.154 MEQ/ML Injectable Solution 1,000 mL, Rate: 2,000 ml/hr, Infuse over: 30 minutes, Route: IV, Dosing Weight 61.364 kg, Total Volume: 1,000, Start date: 10/12/15 13:42:00, Duration: 1 doses or times, Stop date: 10/12/15 14:11:00 Inactive 10/12/2015 [facility] Sodium Chloride 0.154 MEQ/ML Injectable Solution 1,000 mL, Rate: 2,000 ml/hr, Infuse over: 30 minutes, Route: IV, Dosing Weight 61.364 kg, Total Volume: 1,000, Start date: 10/12/15 13:41:00, Duration: 1 doses or times, Stop date: 10/12/15 14:10:00 Inactive 10/12/2015 [facility] Calcium Carbonate 500 MG Chewable Tablet 1,000 mg, 2 tab, Route: PO, Drug form: CHEWTAB, PRN, Dosing Weight 61.364, kg, PRN Abnormal Lab Result, FOR ICU USE ONLY, Start date: 10/12/15 10:13:00, Duration: 30 day, Stop date: 11/11/15 11:12:00Notes: (Same As: Tums) Calcium Carbonate 500 wb=591 mg elemental calcium Dose= mg calcium carbonate ( mg elemental calcium) No Longer Active 10/12/2015 [facility] Calcium Gluconate 1 gm, 10 mL, Route: IVPB, PRN, Dosing Weight 61.364, kg, PRN Abnormal Lab Result, Start date: 10/12/15 10:13:00, Duration: 30 day, Stop date: 11/11/15 11:12:00, FOR ICU USE ONLYNotes: WASTE: F/P - Sink; E - Municipal Trash Bin No Longer Active 10/12/2015 [facility] Magnesium Sulfate 2 gm, 50 mL, Route: IVPB, Drug form: INJ, PRN, Dosing Weight 61.364, kg, PRN Abnormal Lab Result, Start date: 10/12/15 10:13:00, Duration: 30 day, Stop date: 11/11/15 11:12:00, FOR ICU USE ONLYNotes: WASTE: F/P - Sink; E - Municipal Trash Bin No Longer Active 10/12/2015 [facility] Neutra-Phos 2 pkt, Route: PO, Drug Form: PDR/REC, Dosing Weight 61.364, kg, PRN, PRN Abnormal Lab Result, FOR ICU USE ONLY, Start date: 10/12/15 10:13:00, Duration: 30 day, Stop date: 11/11/15 11:12:00Notes: (Same as: Neutra-Phos) Each 1.25 gm pkt has 250mg phosphorous. Mix w/2.5oz water and stir. No Longer Active 10/12/2015 [facility] potassium phosphate + Sodium Chloride 0.9% IV 250 mL 45 mmol, 15 mL, Route: IVPB, PRN, Dosing Weight 61.364, kg, PRN Abnormal Lab Result, Start date: 10/12/15 10:13:00, Duration: 30 day, Stop date: 11/11/15 11:12:00, FOR ICU USE ONLYNotes: (Same as: K Phosphate.) 1 mMol phoshate has 1.47 mEq potassium Infuse over 4 hours No Longer Active 10/12/2015 [facility] sodium phosphate + Sodium Chloride 0.9% IV 250 mL 30 mmol, 10 mL, Route: IVPB, PRN, Dosing Weight 61.364, kg, PRN Abnormal Lab Result, Start date: 10/12/15 10:13:00, Duration: 30 day, Stop date: 11/11/15 11:12:00, FOR ICU USE ONLY No Longer Active 10/12/2015 [facility] Magnesium Oxide 800 mg, 2 tab, Route: PO, Drug form: TAB, PRN, Dosing Weight 61.364, kg, PRN Abnormal Lab Result, FOR ICU USE ONLY, Start date: 10/12/15 10:13:00, Duration: 30 day, Stop date: 11/11/15 11:12:00Notes: (S stuart as: Mag-Ox 400) Magnesium oxide [id number] elemental magnesium Dose=____mg magnesium oxide (___mg elemental magnesium) No Longer Active 10/12/2015 [facility] potassium chloride 20 mEq, 100 mL, Route: IVPB, Drug form: INJ, PRN, Dosing Weight 61.364, kg, PRN Abnormal Lab Result, Via central line, Start date: 10/12/15 10:13:00, Duration: 30 day, Stop date: 11/11/15 11:12:00, F OR ICU USE ONLYNotes: (Same as: KCL) Infuse no faster than 10 mEq/hr if given peripherally. No Longer Active 10/12/2015 [facility] Saline Flush 0.9% 10 ml, Route: IVP, Drug Form: INJ, Dosing Weight 61.364, kg, Q12H, Start date: 10/12/15 9:00:00, Duration: 30 day, Stop date: 11/10/15 21:00:00Notes: (Same as: BD Posiflush) No Longer Active 10/12/2015 [facility] pantoprazole 40 mg, 1 tab, Route: PO, Drug form: ECTAB, Daily, Dosing Weight 61.364, kg, Start date: 10/12/15 9:00:00, Duration: 30 day, Stop date: 11/10/15 9:00:00Notes: Tablet should not be chewed or crushed. ( Same as: Protonix) No Longer Active 10/12/2015 [facility] potassium chloride 0 Refill(s) No Longer Active 10/12/2015 [facility] Furosemide 40 MG Oral Tablet [Lasix] 40 mg=1 tab, PO, Daily, 0 Refill(s) No Longer Active 10/12/2015 [facility] diazepam 10 mg oral tablet 10 mg=1 tab, PO, TID, 0 Refill(s) No Longer Active 10/12/2015 [facility] Lovenox 40 mg, 0.4 mL, Route: SUB-Q, Drug form: INJ, [id number], Dosing Weight 61.364, kg, Start date: 10/12/15 7:00:00, Duration: 30 day, Stop date: 11/10/15 9:00:00Notes: (Same as: Lovenox) No Longer Active 10/12/2015 [facility] Levofloxacin 500 mg, 1 tab, Route: PO, Drug form: TAB, [id number], Dosing Weight 61.364, kg, Priority: NOW, Start date: 10/12/15 6:24:00, Duration: 5 day, Stop date: 10/16/15 6:24:00 No Longer Active 10/12/2015 [facility] potassium chloride 20 mEq, 15 mL, Route: NJ, Drug form: LIQ, PRN, Dosing Weight 61.364, kg, PRN Abnormal Lab Result, Start date: 10/12/15 5:41:00, Duration: 30 day, Stop date: 11/11/15 6:40:00, FOR ICU USE ONLYNotes: (Same as: Potassium Chloride) No Longer Active 10/12/2015 [facility] sodium phosphate + Sodium Chloride 0.9% IV 250 mL 15 mmol, 5 mL, Route: IVPB, PRN, Dosing Weight 61.364, kg, PRN Abnormal Lab Result, Start date: 10/12/15 5:41:00, Duration: 30 day, Stop date: 11/11/15 6:40:00, FOR ICU USE ONLY No Longer Active 10/12/2015 [facility] Calcium Carbonate 500 MG Chewable Tablet 1,000 mg, 2 tab, Route: PO, Drug form: CHEWTAB, PRN, Dosing Weight 61.364, kg, PRN Abnormal Lab Result, FOR ICU USE ONLY, Start date: 10/12/15 5:41:00, Duration: 30 day, Stop date: 11/11/15 6:40:00Notes: (Same As: Tums) Calcium Carbonate 500 eb=407 mg elemental calcium Dose= mg calcium carbonate ( mg elemental calcium) No Longer Active 10/12/2015 [facility] Magnesium Sulfate 2 gm, 50 mL, Route: IVPB, Drug form: INJ, PRN, Dosing Weight 61.364, kg, PRN Abnormal Lab Result, Start date: 10/12/15 5:41:00, Duration: 30 day, Stop date: 11/11/15 6:40:00, FOR ICU USE ONLYNotes: WASTE: F/P - Sink; E - Municipal Trash Bin No Longer Active 10/12/2015 [facility] Neutra-Phos 2 pkt, Route: PO, Drug Form: PDR/REC, Dosing Weight 61.364, kg, PRN, PRN Abnormal Lab Result, FOR ICU USE ONLY, Start date: 10/12/15 5:41:00, Duration: 30 day, Stop date: 11/11/15 6:40:00Notes: (Same as: Neutra-Phos) Each 1.25 gm pkt has 250mg phosphorous. Mix w/2.5oz water and stir. No Longer Active 10/12/2015 [facility] Calcium Gluconate 1 gm, 10 mL, Route: IVPB, PRN, Dosing Weight 61.364, kg, PRN Abnormal Lab Result, Start date: 10/12/15 5:41:00, Duration: 30 day, Stop date: 11/11/15 6:40:00, FOR ICU USE ONLYNotes: WASTE: F/P - Sink; E - Municipal Trash Bin No Longer Active 10/12/2015 [facility] Magnesium Oxide 800 mg, 2 tab, Route: PO, Drug form: TAB, PRN, Dosing Weight 61.364, kg, PRN Abnormal Lab Result, FOR ICU USE ONLY, Start date: 10/12/15 5:41:00, Duration: 30 day, Stop date: 11/11/15 6:40:00Notes: ( Same as: Mag-Ox 400) Magnesium oxide [id number] elemental magnesium Dose=____mg magnesium oxide (___mg elemental magnesium) No Longer Active 10/12/2015 [facility] potassium phosphate + Sodium Chloride 0.9% IV 250 mL 30 mmol, 10 mL, Route: IVPB, PRN, Dosing Weight 61.364, kg, PRN Abnormal Lab Result, Start date: 10/12/15 5:41:00, Duration: 30 day, Stop date: 11/11/15 6:40:00, FOR ICU USE ONLYNotes: (Same as: K Phosphate.) 1 mMol phoshate has 1.47 mEq potassium Infuse over 4 hours No Longer Active 10/12/2015 [facility] Saline Flush 0.9% 10 ml, Route: IVP, Drug Form: INJ, Dosing Weight 61.364, kg, PRN, PRN Line Flush, Start date: 10/12/15 5:41:00, Duration: 30 day, Stop date: 11/11/15 6:40:00Notes: (Same as: BD Posiflush) No Longer Active 10/12/2015 [facility] sennosides, HALFWAY 8.6 mg, 1 tab, Route: PO, Drug Form: TAB, Dosing Weight 61.364, kg, Q12H, PRN as needed for constipation, Start date: 10/12/15 5:41:00, Duration: 30 day, Stop date: 11/11/15 5:40:00Notes: (Same as: Senokot) No Longer Active 10/12/2015 [facility] Docusate 100 mg, 1 cap, Route: PO, Drug form: CAP, Q12H, Dosing Weight 61.364, kg, PRN as needed for constipation, Start date: 10/12/15 5:41:00, Duration: 30 day, Stop date: 11/11/15 5:40:00Notes: (Same as: Colace) (Do Not Crush) No Longer Active 10/12/2015 [facility] Ondansetron 4 mg, 2 mL, Route: IVP, Drug form: INJ, Q8H, Dosing Weight 61.364, kg, PRN Nausea & Vomiting, Start date: 10/12/15 5:41:00, Duration: 30 day, Stop date: 11/11/15 5:40:00Notes: (Same as: Zofran) MEDICATION WASTE Product Size: 4 mg Product Wasted: ___ mg No Longer Active 10/12/2015 [facility] Acetaminophen 650 mg, 2 tab, Route: PO, Drug form: TAB, Q4H, Dosing Weight 61.364, kg, PRN For Temp > 100.4 F, Start date: 10/12/15 5:41:00, Duration: 30 day, Stop date: 11/11/15 5:40:00Notes: Do not exceed 4 gm/day. (Same as: Tylenol) No Longer Active 10/12/2015 [facility] normal saline 0.9% IV 1,000 mL 1,000 mL, Rate: 75 ml/hr, Infuse over: 13.3 hr, Route: IV, Dosing Weight 61.364 kg, Total Volume: 1,000, Start date: 10/12/15 3:49:00, Stop date: 10/12/15 12:00:00 Inactive 10/12/2015 [facility] Tamiflu 75 mg, 1 cap, Route: PO, Drug form: CAP, [id number], Dosing Weight 61.364, kg, CrCl > 60 ml/hr, Start date: 10/12/15 1:00:00, Duration: 5 day, Stop date: 10/16/15 13:00:00Notes: Take with food. Same as: Tamiflu) No Longer Active 10/12/2015 [facility] Sodium Chloride 0.154 MEQ/ML Injectable Solution 1,000 mL, 1000 ml/hr, Infuse Over: 1 hr, Route: IV, 1,000, Drug form: INJ, ONCE, Priority: STAT, Dosing Weight 61.364 kg, Start date: 10/12/15 0:37:00, Duration: 1 doses or times, Stop date: 10/12/15 0:37:00 Inactive 10/12/2015 [facility] Zofran 4 mg, 2 mL, Route: IVP, Drug form: INJ, ONCE, Dosing Weight 61.364, kg, Priority: STAT, Start date: 10/12/15 0:36:00, Stop date: 10/12/15 0:36:00Notes: (Same as: Zofran) MEDICATION WASTE Product Size: 4 mg Product Wasted: ___ mg Inactive 10/12/2015 [facility] Sodium Chloride 0.154 MEQ/ML Injectable Solution 1,000 mL, 1,000 ml/hr, Infuse Over: 1 Hour, Route: IV, ONCE, Priority: STAT, Dosing Weight 61.364 kg, Start date: 10/11/15 22:34:00, Duration: 1 doses or times, Stop date: 10/11/15 22:34:00 Inactive 10/12/2015 [facility] Cipro 400 mg, 200 mL, Route: IVPB, Drug form: INJ, ONCE, Dosing Weight 61.364, kg, Priority: STAT, Start date: 10/11/15 22:34:00, Stop date: 10/11/15 22:34:00Notes: Do not refrigerate Inactive 10/12/2015 [facility] cefepime 1 gm, Route: IVPB, ONCE, Dosing Weight 61.364, kg, Priority: STAT, Start date: 10/11/15 22:34:00, Stop date: 10/11/15 22:34:00 Inactive 10/12/2015 [facility] Vancomycin 1,250 mg, Route: IVPB, ONCE, Dosing Weight 61.364, kg, Priority: STAT, Start date: 10/11/15 22:33:00, Stop date: 10/11/15 22:33:00Notes: TIME CRITICAL MEDICATION (Same As: Vancocin) Infusion rate 2001 mg: infuse over 2.5 hours MEDICATION WASTE Product Size: 1000 mg Product Wasted: ___ mg No Longer Active 10/12/2015 [facility] Zofran ODT 4 mg, Route: PO, Drug form: TABDIS, ONCE, Dosing Weight 61.364, kg, Priority: STAT, Start date: 10/11/15 16:26:00, Stop date: 10/11/15 16:26:00 Inactive 10/11/2015 [facility] Saline Flush 0.9% 10 mL, Route: IVP, Drug Form: INJ, Dosing Weight 61.364, kg, PRN, PRN Line Flush, Start date: 10/11/15 16:19:00, Duration: 1 day, Stop date: 10/12/15 16:18:00Notes: (Same as: BD Posiflush) No Longer Active 10/11/2015 [facility] Ondansetron 4 mg, Route: IVP, Drug form: INJ, ONCE, Dosing Weight 61.364, kg, Priority: STAT, Start date: 07/09/15 18:08:00, Stop date: 07/09/15 18:08:00 Inactive 07/10/2015 [facility] Morphine 4 mg, Route: IVP, Drug form: INJ, ONCE, Dosing Weight 61.364, kg, Priority: STAT, Start date: 07/09/15 18:07:00, Stop date: 07/09/15 18:07:00 Inactive 07/10/2015 [facility] Ibuprofen 800 MG Oral Tablet [Motrin] 800 mg=1 tab, PO, Q8H, PRN Pain, Take with food, # 30 tab, 0 Refill(s) Active 07/09/2015 [facility] Rocephin 1 gm, Route: IVPB, Drug form: PDR/INJ, ONCE, Dosing Weight 61.364, kg, Priority: STAT, Start date: 07/09/15 17:54:00, Stop date: 07/09/15 17:54:00 Inactive 07/09/2015 [facility] nitrofurantoin macrocrystals 100 mg oral capsule (Macrodantin) 100 mg=1 cap, PO, BID, X 10 day, # 20 cap, 0 Refill(s) Active 07/09/2015 [facility] Potassium Chloride CR as directed Orally Active 20 MEQ Orally daily Jeffrey 02/21/2015 [facility] Losartan Potassium 1 tablet Orally Active 50 MG Orally Twice a day Jeffrey 02/11/2015 [facility] Losartan Potassium 1/2 half tablet Orally Active 100 MG Orally twice a day (bid) Jeffrey 02/11/2015 [facility] Coumadin 5 mg, Route: PO, ONCE, Dosing Weight 65.909, kg, Priority: STAT, Start date: 09/21/14 17:26:00, Stop date: 09/21/14 17:26:00 Inactive 09/21/2014 [facility] Acetaminophen 300 MG / Codeine Phosphate 30 MG Oral Tablet [Tylenol with Codeine #3] See Instructions, Pain, 1 - 2 tab PO Q4H 2, # 24 tab, 0 Refill(s)Special Instructions: 1 - 2 tab PO Q4H 2 Active 09/21/2014 [facility] Sodium Chloride 0.154 MEQ/ML Injectable Solution 1,000 mL, 1000 ml/hr, Infuse Over: 1 hr, Route: IV, 1,000, Drug form: INJ, ONCE, Priority: STAT, Dosing Weight 65.909 kg, Start date: 09/21/14 15:10:00, Duration: 1 doses or times, Stop date: 09/21/14 15:10:00 Inactive 09/21/2014 [facility] Ritalin LA 40 mg, Route: PO, Drug form: ERCAP, QAM, Dosing Weight 52.273, kg, Start date: 09/06/14 9:00:00, Duration: 30 day, Stop date: 10/05/14 9:00:00 No Longer Active 09/06/2014 [facility] Coreg 12.5 mg, 1 tab, Route: PO, Drug form: TAB, Q12H, Dosing Weight 52.273, kg, Start date: 09/05/14 21:00:00, Duration: 30 day, Stop date: 10/05/14 9:00:00Notes: Give with food. (Same As: Coreg) Inactive 09/06/2014 [facility] warfarin 4 mg oral tablet 4 mg=1 tab, PO, Daily, # 30 tab, 0 Refill(s) Active 09/05/2014 [facility] Alprazolam 2 MG Oral Tablet [Xanax] 2 mg, 2 tab, Route: PO, Drug form: TAB, TID, Dosing Weight 52.273, kg, PRN as needed for anxiety, Start date: 09/05/14 12:12:00, Stop date: 10/05/14 12:11:00Notes: With food or milk (Same as: Xanax) Inactive 09/05/2014 [facility] Acetaminophen 325 MG / Hydrocodone Bitartrate 10 MG Oral Tablet [Bullock 10/325] 1 tab, Route: PO, Drug Form: TAB, Dosing Weight 52.273, kg, Q6H, PRN Pain Score 4-6, Start date: 09/05/14 12:12:00, Stop date: 09/10/14 19:39:00Notes: Do not exceed 4gm/day of acetaminophen. (Same as: Bullock 325/10) Inactive 09/05/2014 [facility] Atropine 0.5 mg, 5 mL, Route: IVP, Drug form: INJ, ONCE, Dosing Weight 52.273, kg, PRN Bradycardia, Start date: 09/04/14 23:31:00, For symptomatic bradycardia heart rate less than 40 No Longer Active 09/05/2014 [facility] Nitroglycerin 0.4 MG Sublingual Tablet 0.4 mg, 1 tab, Route: SL, Drug form: TAB, Q5Min, Dosing Weight 52.273, kg, PRN Chest Pain, Start date: 09/04/14 23:31:00, Duration: 30 day, Stop date: 10/04/14 23:30:00Notes: (Same as:Nitroquick, Nitrostat) "Do Not Crush" Sublingual tablet No Longer Active 09/05/2014 [facility] Alprazolam 2 MG Oral Tablet [Xanax] 2 mg, PO, TID, Anxiety, 0 Refill(s) Active 09/05/2014 [facility] Acetaminophen 325 MG / Hydrocodone Bitartrate 10 MG Oral Tablet [Bullock 10/325] 1 tab, PO, Q6H, for pain, # 24 tab, 0 Refill(s) Active 09/05/2014 [facility] 24 HR Methylphenidate Hydrochloride 40 MG Extended Release Capsule [Ritalin] 40 mg=1 cap, PO, QAM, # 30 cap, 0 Refill(s) Active 09/05/2014 [facility] potassium chloride 25 mEq oral powder 0 Refill(s) No Longer Active 09/05/2014 [facility] carvedilol 12.5 MG Oral Tablet [Coreg] 12.5 mg=1 tab, PO, BID, # 180 tab, 0 Refill(s) Active 09/05/2014 [facility] Tylenol 650 mg, 2 tab, Route: PO, Drug form: TAB, Q6H, Dosing Weight 52.273, kg, PRN Pain Score 1-3, Start date: 09/04/14 16:42:00, Duration: 30 day, Stop date: 10/04/14 16:41:00Notes: Do not exceed 4 gm/day. (Same as: Tylenol) No Longer Active 09/04/2014 [facility] Thiamine 100 mg, 1 tab, Route: PO, Drug form: TAB, Daily, Dosing Weight 52.273, kg, Start date: 09/04/14 15:00:00, Duration: 30 day, Stop date: 10/04/14 9:00:00Notes: (Same As: Vitamin B1) No Longer Active 09/04/2014 [facility] Potassium Chloride 20 mEq, 100 mL, Route: IVPB, Drug form: INJ, Q2H, Dosing Weight 52.273, kg, Total dose=40 mEq, Start date: 09/04/14 14:00:00, Duration: 2 doses or times, Stop date: 09/04/14 16:00:00Notes: (Same as: KCL) Infuse no faster than 10 mEq/hr if given peripherally. Inactive 09/04/2014 [facility] Potassium Chloride 20 MEQ Extended Release Tablet 40 mEq, Route: PO, Drug form: ERTAB, ONCE, Dosing Weight 52.273, kg, Start date: 09/04/14 9:43:00, Stop date: 09/04/14 9:43:00 Inactive 09/04/2014 [facility] Chlordiazepoxide 10 mg, 2 cap, Route: PO, Drug form: CAP, BID, kg, Start date: 09/03/14 22:56:00, Duration: 30 day, Stop date: 10/03/14 17:00:00Notes: (Same As: Librium) No Longer Active 09/04/2014 [facility] Saline Flush 0.9% 10 ml, Route: IVP, Drug Form: INJ, kg, PRN, PRN Line Flush, Start date: 09/03/14 22:56:00, Duration: 30 day, Stop date: 10/03/14 22:55:00Notes: (Same as: BD Posiflush) No Longer Active 09/04/2014 [facility] Sodium Chloride 0.154 MEQ/ML Injectable Solution 1,000 mL, Rate: 125 ml/hr, Infuse over: 8 hr, Route: IV, Total Volume: 1,000, Start date: 09/03/14 22:56:00, Duration: 30 day, Stop date: 10/03/14 22:55:00 No Longer Active 09/04/2014 [facility] Ondansetron 4 mg, 2 mL, Route: IVP, Drug form: INJ, Q8H, kg, PRN Nausea & Vomiting, Start date: 09/03/14 22:56:00, Duration: 30 day, Stop date: 10/03/14 22:55:00Notes: (Same as: Zofran) No Longer Active 09/04/2014 [facility] Ceftriaxone 1 gm, Route: IVPB, Drug form: PDR/INJ, [id number], kg, Start date: 09/03/14 20:00:00, Duration: 30 day, Stop date: 10/02/14 20:00:00Notes: (Same As: Rocephin). Use with 100ml NS mini-bag PLUS and infuse over 30 min No Longer Active 09/04/2014 [facility] Ativan 1 mg, 0.5 mL, Route: IVP, Drug form: INJ, ONCE, kg, PRN Anxiety, Start date: 09/03/14 19:11:00Notes: (Same as: Ativan) No Longer Active 09/04/2014 [facility] Haldol 5 mg, Route: IM, ONCE, kg, PRN Anxiety, Start date: 09/03/14 19:10:00, Stop date: 10/03/14 19:09:00 Inactive 09/04/2014 [facility] Ativan 1 mg, 0.5 mL, Route: IVP, Drug form: INJ, Q8H, kg, PRN as needed for anxiety, Priority: STAT, Start date: 09/03/14 18:50:00, Stop date: 10/03/14 16:01:00Notes: (Same as: Ativan) No Longer Active 09/04/2014 [facility] Ativan 1 mg, Route: IVP, Drug form: INJ, ONCE, kg, Priority: STAT, Start date: 09/03/14 18:44:00, Stop date: 09/03/14 18:44:00 Inactive 09/04/2014 [facility] Ativan 1 mg, Route: IVP, Drug form: INJ, ONCE, kg, Priority: STAT, Start date: 09/03/14 14:39:00, Stop date: 09/03/14 14:39:00 Inactive 09/03/2014 [facility] Ativan 1 mg, Route: IVP, Drug form: INJ, ONCE, kg, Priority: STAT, Start date: 09/03/14 13:32:00, Stop date: 09/03/14 13:32:00 Inactive 09/03/2014 [facility] Ativan 1 mg, Route: IVP, Drug form: INJ, ONCE, kg, Priority: STAT, Start date: 09/03/14 13:10:00, Stop date: 09/03/14 13:10:00 Inactive 09/03/2014 [facility] Zofran 4 mg, Route: IVP, Drug form: INJ, ONCE, kg, Priority: STAT, Start date: 09/03/14 13:09:00, Stop date: 09/03/14 13:09:00 Inactive 09/03/2014 [facility] Morphine 4 mg, Route: IVP, Drug form: INJ, ONCE, kg, Priority: STAT, Start date: 09/03/14 13:09:00, Stop date: 09/03/14 13:09:00 Inactive 09/03/2014 [facility] Losartan Potassium 1 tablet Orally Active 100 mg Orally Once a day [facility] Lasix 1 tablet Orally Active 40 mg Orally twice a day (bid) [facility] Allergies, Adverse Reactions, Alerts Substance Category Reaction Severity Reaction type Status Date Reported Comments Source Bicillin L-A Assertion Drug allergy Active [facility] Mucinex Assertion Drug allergy Active [facility] Zoloft Assertion Drug allergy Active [facility] Decadron Assertion Drug allergy Active [facility] traMADol Assertion Drug allergy Active [facility] Immunizations Immunization Date Given Site Status Last Updated Comments Source Results Order Name Results Value Reference Range Date Interpretation Comments Source Retroperitoneal Complete US Retroperitoneal Complete US EXAM: US RETROPERITONEAL COMPLETE DATE: 03/16/2018 10:33 AM CDT INDICATION: - N17.8 Other acute kidney failure, I95.9 Hypotension, unspecified. Stage III chronic kidney disease. ADDITIONAL INFORMATION: None. COMPARISON: CT scan of the abdomen and pelvis of 08/19/2016. TECHNIQUE: Multiplanar grayscale and color Doppler ultrasound images of the kidneys, aorta, IVC and urinary bladder. DISCUSSION: Right kidney Hydronephrosis: None. Size: 8.3 x 3.7 x 3.9 cm, small in size Echogenicity: Mild increased renal cortical echogenicity. Parenchymal thickness and contour: Normal. Calculi: None. Cysts: None. Masses: None. Left kidney Hydronephrosis: None. Size: 7.8 x 4.4 x 4.8 cm, small in size Echogenicity: Mild increased renal cortical echogenicity. Parenchymal thickness and contour: Normal. Calculi: None. Cysts: None. Masses: None. Abdominal aorta:There is no sonographic evidence of aneurysm or of dissection where visualized. IVC: Normal where visualized. Bladder: No wall thickening, masses, or calculi are seen. Normal ureteral jets are seen confirming bilateral ureteral patency. An 8 cc post void residual is seen within the urinary bladder. Prevoid bladder volume is estimated to be 404 cc. IMPRESSION: 1. Small bilateral kidneys with mild increased renal cortical echogenicity without significant cortical thinning, nonspecific findings likely from underlying medical renal disease. 2. Trace post void residual within the urinary bladder. 3. No focal lesions are seen within the kidneys or within the urinary bladder. 03/16/2018 - - Read by: Aguila Verdin MD Dictated Date/time: 03/16/18 11:33 Electronically Signed by: Aguila Verdin MD 03/16/18 11:37 FINAL REPORT [facility] CARDIAC ENZYMES Troponin-I null 0.00 - 0.40 07/28/2017 [facility] URINE AND STOOL UA Urobilinogen <=1.0 mg/dL 0.1 - 1.0 07/28/2017 [facility] URINE AND STOOL UA Color Ltyellow 07/28/2017 [facility] URINE AND STOOL UA Blood Negative (07/27/17 10:33 PM) Negative 07/28/2017 [facility] URINE AND STOOL UA Bacteria Occasional /HPF None Seen /HPF 07/28/2017 [facility] URINE AND STOOL UA Sq Epi Occasional /LPF Few /LPF 07/28/2017 [facility] URINE AND STOOL UA Leuk Est Trace *ABN* (07/27/17 10:33 PM) Negative 07/28/2017 [facility] URINE AND STOOL UA Nitrite Negative (07/27/17 10:33 PM) Negative 07/28/2017 [facility] URINE AND STOOL UA RBC 1 /HPF 0 - 2 07/28/2017 [facility] URINE AND STOOL UA WBC 2 /HPF 0 - 5 07/28/2017 [facility] URINE AND STOOL UA Glucose Negative mg/dL Negative mg/dL 07/28/2017 [facility] URINE AND STOOL UA Protein Negative mg/dL Negative mg/dL 07/28/2017 [facility] URINE AND STOOL UA Bili Negative *NA* (07/27/17 10:33 PM) Negative 07/28/2017 [facility] URINE AND STOOL UA Ketones Negative mg/dL Negative mg/dL 07/28/2017 [facility] URINE AND STOOL UA pH 7.0 5.0 - 8.0 07/28/2017 [facility] URINE AND STOOL UA Spec Grav 1.003 <=1.030 07/28/2017 [facility] URINE AND STOOL UA Turbidity Clear (07/27/17 10:33 PM) Clear 07/28/2017 [facility] CARDIAC ENZYMES BNP 30 pg/mL <=100 pg/mL 07/28/2017 [facility] CARDIAC ENZYMES Troponin-I null 0.00 - 0.40 07/28/2017 [facility] CARDIAC ENZYMES Total CK 202 unit/L 12 - 191 07/28/2017 [facility] CARDIAC ENZYMES CK MB 3.8 ng/mL 0.5 - 3.6 07/28/2017 [facility] CARDIAC ENZYMES CK MB Index 1.9 0.0 - 2.5 07/28/2017 [facility] CHEM PANEL eGFR 28 mL/min/1.73m2 07/28/2017 Result Comment: The eGFR is calculated using the [...] from the National Kidney Disease Education Program (NKDEP) which additionally recommends that when the eGFR is used in patients with extremes of body mass index for purposes of drug dosing, the eGFR should be multiplied by the estimated BMI. [facility] CHEM PANEL Globulin 4.7 g/dL 2.7 - 4.2 07/28/2017 [facility] CHEM PANEL A/G Ratio 1.0 0.7 - 1.6 07/28/2017 [facility] CHEM PANEL B/C Ratio 10 6 - 25 07/28/2017 [facility] CHEM PANEL AGAP 15.3 meq/L 10.0 - 20.0 07/28/2017 [facility] CHEM PANEL Bili Total 0.7 mg/dL 0.2 - 1.3 07/28/2017 [facility] CHEM PANEL Potassium Lvl 3.3 meq/L 3.5 - 5.1 07/28/2017 [facility] CHEM PANEL Sodium Lvl 131 meq/L 135 - 145 07/28/2017 [facility] CHEM PANEL Glucose Lvl 87 mg/dL 70 - 99 07/28/2017 [facility] CHEM PANEL ALT 24 unit/L 0 - 65 07/28/2017 [facility] CHEM PANEL AST 16 unit/L 0 - 37 07/28/2017 [facility] CHEM PANEL Albumin Lvl 4.8 g/dL 3.5 - 5.0 07/28/2017 [facility] CHEM PANEL Calcium Lvl 9.5 mg/dL 8.5 - 10.5 07/28/2017 [facility] CHEM PANEL Total Protein 9.5 g/dL 6.4 - 8.4 07/28/2017 [facility] CHEM PANEL Alk Phos 155 unit/L 39 - 136 07/28/2017 [facility] CHEM PANEL CO2 24 meq/L 24 - 32 07/28/2017 [facility] CHEM PANEL BUN 21 mg/dL 7 - 22 07/28/2017 [facility] CHEM PANEL Creatinine Lvl 2.14 mg/dL 0.50 - 1.40 07/28/2017 [facility] CHEM PANEL Chloride Lvl 95 meq/L 95 - 109 07/28/2017 [facility] HEMATOLOGY MPV 8.4 fL 7.4 - 10.4 07/28/2017 [facility] HEMATOLOGY MCHC 35.9 g/dL 32.0 - 36.0 07/28/2017 [facility] HEMATOLOGY Platelet 192 K/CMM 133 - 450 07/28/2017 [facility] HEMATOLOGY RDW 12.6 % 11.5 - 14.5 07/28/2017 [facility] MCH 34.4 pg 27.0 - 31.0 07/28/2017 [facility] HEMATOLOGY MCV 95.8 fL 80.0 - 98.0 07/28/2017 [facility] HEMATOLOGY Hct 34.3 % 36.0 - 48.0 07/28/2017 [facility] HEMATOLOGY Hgb 12.3 g/dL 12.0 - 16.0 07/28/2017 [facility] HEMATOLOGY RBC 3.58 M/CMM 4.20 - 5.40 07/28/2017 [facility] HEMATOLOGY WBC 13.3 K/CMM 3.7 - 10.4 07/28/2017 [facility] HEMATOLOGY Basophils # 0.1 K/CMM 0.0 - 0.2 07/28/2017 [facility] HEMATOLOGY Monocytes # 1.3 K/CMM 0.0 - 0.8 07/28/2017 [facility] HEMATOLOGY Lymphocytes # 1.8 K/CMM 1.0 - 5.5 07/28/2017 [facility] HEMATOLOGY Eosinophils # 0.2 K/CMM 0.0 - 0.5 07/28/2017 [facility] HEMATOLOGY Segs-Bands # 10.0 K/CMM 1.5 - 8.1 07/28/2017 [facility] HEMATOLOGY Basophils 0.8 % 0.0 - 1.0 07/28/2017 [facility] HEMATOLOGY Eosinophils 1.2 % 0.0 - 4.0 07/28/2017 [facility] HEMATOLOGY Lymphocytes 13.6 % 20.0 - 40.0 07/28/2017 [facility] HEMATOLOGY Monocytes 9.4 % 2.0 - 12.0 07/28/2017 [facility] HEMATOLOGY Segs 75.0 % 45.0 - 75.0 07/28/2017 [facility] RAPID Grp A Strep Scr Negative (07/27/17 6:24 PM) Negative 07/28/2017 [facility] VIRAL - SEROLOGY Influ B Negative (07/27/17 6:24 PM) Negative 07/28/2017 [facility] VIRAL - SEROLOGY Influ A Negative (07/27/17 6:24 PM) Negative 07/28/2017 [facility] Chest 1view DX Chest 1view DX Patient Name: MALIA CHU : 1975; Age: 42 years Female MR: [id number] Study: Chest 1view DX Order Time: 07/27/2017 3:11 PM ORTHO RN Clinical Indication: - chest pain, palpitations and cough. COMPARISON: October 2015 x-rays. August 2014. FINDINGS: Views: 1 SUPPORT LINES: Cardiac device wires are intact. LUNGS: There is normal lung volume. There are no suspicious interstitial/airspace opacities. There are no pleural effusions. There is no pneumothorax. The pulmonary vasculature is normal. MEDIASTINUM: The cardiac silhouette is normal. The trachea is midline. Right upper quadrant surgical dominique. BONES: There are no clinically significant osseous abnormalities noted. IMPRESSION: No radiographic evidence of acute pulmonary disease. SL: CHANTALE 07/27/2017 - - Read by: Tye Baird MD Dictated Date/time: 07/27/17 16:29 Electronically Signed by: Tye Baird MD 07/27/17 16:30 FINAL REPORT [facility] URINE AND STOOL Occult Bld Stl Positive *ABN* (08/19/16 9:15 PM) Negative 08/20/2016 [facility] URINE AND STOOL UA Urobilinogen <=1.0 mg/dL 0.1 - 1.0 08/19/2016 [facility] URINE AND STOOL UA Color Colorless 08/19/2016 [facility] URINE AND STOOL UA Nitrite Negative (08/19/16 5:57 PM) Negative 08/19/2016 [facility] URINE AND STOOL UA Leuk Est Negative (08/19/16 5:57 PM) Negative 08/19/2016 [facility] URINE AND STOOL UA WBC null 0 - 5 08/19/2016 [facility] URINE AND STOOL UA Sq Epi None Seen 08/19/2016 [facility] URINE AND STOOL UA Glucose Negative mg/dL Negative mg/dL 08/19/2016 [facility] URINE AND STOOL UA pH 6.0 5.0 - 8.0 08/19/2016 [facility] URINE AND STOOL UA Protein Negative mg/dL Negative mg/dL 08/19/2016 [facility] URINE AND STOOL UA Spec Grav 1.004 <=1.030 08/19/2016 [facility] URINE AND STOOL UA Turbidity Clear (08/19/16 5:57 PM) Clear 08/19/2016 [facility] URINE AND STOOL UA Bili Negative *NA* (08/19/16 5:57 PM) Negative 08/19/2016 [facility] URINE AND STOOL UA Blood Negative (08/19/16 5:57 PM) Negative 08/19/2016 [facility] URINE AND STOOL UA Ketones Negative mg/dL Negative mg/dL 08/19/2016 [facility] URINE CHEM U Preg Negative (08/19/16 5:57 PM) Negative 08/19/2016 [facility] CARDIAC ENZYMES CK MB null 0.5 - 3.6 08/19/2016 [facility] CARDIAC ENZYMES Troponin-I null 0.00 - 0.40 08/19/2016 [facility] CARDIAC ENZYMES Total CK 88 unit/L 12 - 191 08/19/2016 [facility] CARDIAC ENZYMES CK MB Index null 0.0 - 2.5 08/19/2016 [facility] CHEM PANEL eGFR 71 mL/min/1.73m2 08/19/2016 Result Comment: The eGFR is calculated using the [...] from the National Kidney Disease Education Program (NKDEP) which additionally recommends that when the eGFR is used in patients with extremes of body mass index for purposes of drug dosing, the eGFR should be multiplied by the estimated BMI. [facility] CHEM PANEL Albumin Lvl 3.6 g/dL 3.5 - 5.0 08/19/2016 [facility] CHEM PANEL ALT 22 unit/L 0 - 65 08/19/2016 [facility] CHEM PANEL Alk Phos 91 unit/L 39 - 136 08/19/2016 [facility] CHEM PANEL Bili Total 0.4 mg/dL 0.2 - 1.3 08/19/2016 [facility] CHEM PANEL AGAP 14.6 meq/L 10.0 - 20.0 08/19/2016 [facility] CHEM PANEL AST 25 unit/L 0 - 37 08/19/2016 [facility] CHEM PANEL B/C Ratio 11 6 - 25 08/19/2016 [facility] CHEM PANEL Globulin 4.2 g/dL 2.7 - 4.2 08/19/2016 [facility] CHEM PANEL A/G Ratio 0.9 0.7 - 1.6 08/19/2016 [facility] CHEM PANEL Glucose Lvl 96 mg/dL 70 - 99 08/19/2016 [facility] CHEM PANEL BUN 11 mg/dL 7 - 22 08/19/2016 [facility] CHEM PANEL Creatinine Lvl 0.99 mg/dL 0.50 - 1.40 08/19/2016 [facility] CHEM PANEL Potassium Lvl 3.6 meq/L 3.5 - 5.1 08/19/2016 [facility] CHEM PANEL Sodium Lvl 138 meq/L 135 - 145 08/19/2016 [facility] CHEM PANEL Chloride Lvl 104 meq/L 95 - 109 08/19/2016 [facility] CHEM PANEL Total Protein 7.8 g/dL 6.4 - 8.4 08/19/2016 [facility] CHEM PANEL Calcium Lvl 8.2 mg/dL 8.5 - 10.5 08/19/2016 [facility] CHEM PANEL CO2 23 meq/L 24 - 32 08/19/2016 [facility] CHEM PANEL Lipase Lvl 139 unit/L 73 - 393 08/19/2016 [facility] HEMATOLOGY PTT 31.7 s 22.9 - 35.8 08/19/2016 [facility] HEMATOLOGY INR 0.94 0.85 - 1.17 08/19/2016 [facility] HEMATOLOGY PT 12.8 s 12.0 - 14.7 08/19/2016 [facility] HEMATOLOGY MPV 8.1 fL 7.4 - 10.4 08/19/2016 [facility] HEMATOLOGY Platelet 163 K/CMM 133 - 450 08/19/2016 [facility] HEMATOLOGY RDW 13.5 % 11.5 - 14.5 08/19/2016 [facility] HEMATOLOGY RBC 3.31 M/CMM 4.20 - 5.40 08/19/2016 [facility] HEMATOLOGY Hct 32.4 % 36.0 - 48.0 08/19/2016 [facility] Hgb 11.2 g/dL 12.0 - 16.0 08/19/2016 [facility] WBC 5.2 K/CMM 3.7 - 10.4 08/19/2016 [facility] MCHC 34.7 g/dL 32.0 - 36.0 08/19/2016 [facility] MCH 33.9 pg 27.0 - 31.0 08/19/2016 [facility] MCV 97.7 fL 80.0 - 98.0 08/19/2016 [facility] Lymphocytes 17.3 % 20.0 - 40.0 08/19/2016 [facility] Segs 72.7 % 45.0 - 75.0 08/19/2016 [facility] Monocytes 8.1 % 2.0 - 12.0 08/19/2016 [facility] Eosinophils # 0.1 K/CMM 0.0 - 0.5 08/19/2016 [facility] Lymphocytes # 0.9 K/CMM 1.0 - 5.5 08/19/2016 [facility] Monocytes # 0.4 K/CMM 0.0 - 0.8 08/19/2016 [facility] Basophils 0.4 % 0.0 - 1.0 08/19/2016 [facility] Eosinophils 1.5 % 0.0 - 4.0 08/19/2016 [facility] Segs-Bands # 3.8 K/CMM 1.5 - 8.1 08/19/2016 [facility] ED Abdomen/Pelvis IV contrast only CT ED Abdomen/Pelvis IV contrast only CT EXAM: CT ABDOMEN AND PELVIS WITH CONTRAST DATE: 08/19/2016 9:21 PM ORTHO RN INDICATION: Bloody stool. COMPARISON: 11/18/2015. TECHNIQUE: Helical CT imaging of the abdomen and pelvis performed from lung bases through the lesser trochanters following the administration of intravenous contrast. Axial, sagittal and coronal multiplanar reconstructions provided. IV contrast: [address] Radiation Dose: TXO=1712.84 mGy-cm FINDINGS: LOWER CHEST: The lung bases are clear of focal consolidation, pleural effusions, and pneumothorax. The heart is unremarkable without evidence for a pericardial effusion. Defibrillator leads are partially visualized. LIVER: Unremarkable. GALLBLADDER/BILIARY: The patient is status post cholecystectomy, with physiologic dilatation of the intrahepatic and extrahepatic bile ducts. PANCREAS: Unremarkable SPLEEN: Unremarkable ADRENALS: Unremarkable KIDNEYS AND URETERS: Unremarkable BLADDER: Unremarkable STOMACH: Unremarkable. BOWEL: Normal in course and caliber without focal wall thickening or evidence for obstruction. The rectosigmoid colon is unremarkable. APPENDIX: The appendix is visualized and unremarkable. PELVIS: The uterus is retroverted. Nabothian cysts are noted adjacent to the cervix. PERITONEUM: There is free fluid within the pelvis, likely physiologic in nature. LYMPH NODES: Unremarkable. VASCULAR: Unremarkable. OSSEOUS STRUCTURES: Postsurgical changes at L5-S1 are redemonstrated. No acute osseous abnormalities are present. SOFT TISSUES: Unremarkable IMPRESSION: No acute abnormality in the abdomen or pelvis. SL: [id number] 08/19/2016 - - Read by: Julio Cesar Alanis MD Dictated Date/time: 08/19/16 23:51 Electronically Signed by: Julio Cesar Alanis MD 08/19/16 23:54 FINAL REPORT [facility] CHEM PANEL A/G Ratio 1.0 0.7 - 1.6 11/18/2015 [facility] CHEM PANEL Globulin 4.5 g/dL 2.0 - 4.0 11/18/2015 [facility] CHEM PANEL B/C Ratio 19 6 - 25 11/18/2015 [facility] CHEM PANEL AGAP 14.4 meq/L 10.0 - 20.0 11/18/2015 [facility] CHEM PANEL eGFR 59 mL/min/1.73m2 11/18/2015 Result Comment: The eGFR is calculated using the [...] from the National Kidney Disease Education Program (NKDEP) which additionally recommends that when the eGFR is used in patients with extremes of body mass index for purposes of drug dosing, the eGFR should be multiplied by the estimated BMI. [facility] CHEM PANEL Potassium Lvl 3.4 meq/L 3.5 - 5.1 11/18/2015 [facility] CHEM PANEL Sodium Lvl 133 meq/L 135 - 145 11/18/2015 [facility] CHEM PANEL Creatinine Lvl 1.16 mg/dL 0.50 - 1.40 11/18/2015 [facility] CHEM PANEL BUN 22 mg/dL 7 - 22 11/18/2015 [facility] CHEM PANEL Chloride Lvl 96 meq/L 95 - 109 11/18/2015 [facility] CHEM PANEL Bili Total 0.3 mg/dL 0.2 - 1.3 11/18/2015 [facility] CHEM PANEL Alk Phos 121 unit/L 39 - 136 11/18/2015 [facility] CHEM PANEL AST 32 unit/L 0 - 37 11/18/2015 [facility] CHEM PANEL ALT 33 unit/L 0 - 65 11/18/2015 [facility] CHEM PANEL Albumin Lvl 4.4 g/dL 3.5 - 5.0 11/18/2015 [facility]M PANEL Total Protein 8.9 g/dL 6.4 - 8.4 11/18/2015 [facility] CHEM PANEL Calcium Lvl 9.0 mg/dL 8.5 - 10.5 11/18/2015 [facility] CHEM PANEL CO2 26 meq/L 24 - 32 11/18/2015 [facility] CHEM PANEL Glucose Lvl 89 mg/dL 70 - 99 11/18/2015 [facility] CHEM PANEL Amylase Lvl 76 unit/L 25 - 115 11/18/2015 [facility] CHEM PANEL Lipase Lvl 149 unit/L 73 - 393 11/18/2015 [facility] HEMATOLOGY Eosinophils # 0.1 K/CMM 0.0 - 0.5 11/18/2015 [facility] HEMATOLOGY Monocytes # 0.4 K/CMM 0.0 - 0.8 11/18/2015 [facility] HEMATOLOGY Lymphocytes # 1.5 K/CMM 1.0 - 5.5 11/18/2015 [facility] HEMATOLOGY Segs-Bands # 3.9 K/CMM 1.5 - 8.1 11/18/2015 [facility] HEMATOLOGY Eosinophils 1.6 % 0.0 - 4.0 11/18/2015 [facility] HEMATOLOGY Monocytes 6.6 % 2.0 - 12.0 11/18/2015 [facility] HEMATOLOGY Basophils 0.7 % 0.0 - 1.0 11/18/2015 [facility] HEMATOLOGY Segs 66.2 % 45.0 - 75.0 11/18/2015 [facility] HEMATOLOGY Lymphocytes 24.9 % 20.0 - 40.0 11/18/2015 [facility] HEMATOLOGY Platelet 193 K/CMM 133 - 450 11/18/2015 [facility] HEMATOLOGY RDW 13.6 % 11.5 - 14.5 11/18/2015 [facility] HEMATOLOGY MPV 8.5 fL 7.4 - 10.4 11/18/2015 [facility] HEMATOLOGY MCHC 34.4 g/dL 32.0 - 36.0 11/18/2015 [facility] HEMATOLOGY MCV 98.5 fL 80.0 - 98.0 11/18/2015 [facility] HEMATOLOGY Hct 34.1 % 36.0 - 48.0 11/18/2015 [facility] HEMATOLOGY MCH 33.9 pg 27.0 - 31.0 11/18/2015 [facility] HEMATOLOGY Hgb 11.8 g/dL 12.0 - 16.0 11/18/2015 [facility] HEMATOLOGY RBC 3.47 M/CMM 4.20 - 5.40 11/18/2015 [facility] HEMATOLOGY WBC 5.9 K/CMM 3.7 - 10.4 11/18/2015 [facility] URINE CHEM U Preg Negative (11/18/15 3:35 PM) Negative 11/18/2015 [facility] DRUG SCREEN UDS Note See Note (11/18/15 3:18 PM) 11/18/2015 [facility] DRUG SCREEN U Opiate Scr Negative *NA* (11/18/15 3:18 PM) Negative 11/18/2015 [facility] DRUG SCREEN U Phencyc Scr Negative *NA* (11/18/15 3:18 PM) Negative 11/18/2015 [facility] DRUG SCREEN U Cocaine Scr Negative *NA* (11/18/15 3:18 PM) Negative 11/18/2015 [facility] DRUG SCREEN U Cannab Scr Positive *ABN* (11/18/15 3:18 PM) Negative 11/18/2015 [facility] DRUG SCREEN U Valeria Scr Negative *NA* (11/18/15 3:18 PM) Negative 11/18/2015 [facility] DRUG SCREEN U Benzodia Scr Positive *ABN* (11/18/15 3:18 PM) Negative 11/18/2015 [facility] DRUG SCREEN U Amph Scr Negative *NA* (11/18/15 3:18 PM) Negative 11/18/2015 [facility] URINE AND STOOL UA Turbidity Clear (11/18/15 3:18 PM) Clear 11/18/2015 [facility] URINE AND STOOL UA Nitrite Negative (11/18/15 3:18 PM) Negative 11/18/2015 [facility] URINE AND STOOL UA WBC 2 /HPF 0 - 5 11/18/2015 [facility] URINE AND STOOL UA Leuk Est Negative (11/18/15 3:18 PM) Negative 11/18/2015 [facility] URINE AND STOOL UA Sq Epi Occasional /LPF Few /LPF 11/18/2015 [facility] URINE AND STOOL UA Protein Negative mg/dL Negative mg/dL 11/18/2015 [facility] URINE AND STOOL UA Bili Negative *NA* (11/18/15 3:18 PM) Negative 11/18/2015 [facility] URINE AND STOOL UA Blood Moderate *ABN* (11/18/15 3:18 PM) Negative 11/18/2015 [facility] URINE AND STOOL UA Glucose Negative mg/dL Negative mg/dL 11/18/2015 [facility] URINE AND STOOL UA Ketones 20 mg/dL Negative mg/dL 11/18/2015 [facility] URINE AND STOOL UA Spec Grav 1.010 <=1.030 11/18/2015 [facility] URINE AND STOOL UA pH 6.0 5.0 - 8.0 11/18/2015 [facility] URINE AND STOOL UA RBC 1 /HPF 0 - 2 11/18/2015 [facility] URINE AND STOOL UA Bacteria Many /HPF None Seen /HPF 11/18/2015 [facility] URINE AND STOOL UA Hyal Cast 14 /LPF 0 - 2 11/18/2015 [facility] URINE AND STOOL UA Mucus Few /LPF None Seen /LPF 11/18/2015 [facility] URINE AND STOOL UA Color Ltyellow 11/18/2015 [facility] URINE AND STOOL UA Urobilinogen <=1.0 mg/dL 0.1 - 1.0 11/18/2015 [facility] Renal Stone CT Renal Stone CT CT ABDOMEN PELVIS WITHOUT CONTRAST (RENAL STONE): HISTORY: Vaginal discharge with left flank pain for 2 days. TECHNIQUE: Multislice axial acquisition of the abdomen and pelvis targeted to the urinary tract was done without contrast. Sagittal and coronal reconstructions were also done. FINDINGS: There is no evidence of urinary tract calculus or hydronephrosis. There are no significant renal abnormalities. The urinary bladder is within normal limits. There is been improvement in bladder distention since the CT on 10/11/2015. The uterus and adnexal regions are within normal limits. A surgical clip in the cul-de-sac is noted. The gallbladder is been removed. The liver, spleen, pancreas and adrenal glands show no significant abnormalities. The gastrointestinal tract is unremarkable. There are postsurgical changes in the lower lumbar spine with hardware at L5 L5 S1. No acute osseous abnormalities are seen. There is no significant change compared to the previous CT. IMPRESSION: 1. No evidence of urinary tract calculus or hydronephrosis. 2. No other acute CT abnormalities in the abdomen or pelvis. [id number] 11/18/2015 - - Read by: Arsen Oliva MD Dictated Date/time: 11/18/15 16:46 Electronically Signed by: Arsen Oliva MD 11/18/15 16:50 FINAL REPORT [facility] PT 12.9 s 12.0 - 14.7 10/15/2015 [facility] INR 0.94 0.85 - 1.17 10/15/2015 [facility] WBC 3.2 K/CMM 3.7 - 10.4 10/15/2015 [facility] Hgb 10.7 g/dL 12.0 - 16.0 10/15/2015 [facility] Hct 30.8 % 36.0 - 48.0 10/15/2015 [facility] MCH 34.6 pg 27.0 - 31.0 10/15/2015 [facility] Platelet 148 K/CMM 133 - 450 10/15/2015 [facility] RBC 3.09 M/CMM 4.20 - 5.40 10/15/2015 [facility] MCV 99.5 fL 80.0 - 98.0 10/15/2015 [facility] MCHC 34.8 g/dL 32.0 - 36.0 10/15/2015 [facility] MPV 8.7 fL 7.4 - 10.4 10/15/2015 [facility] RDW 13.5 % 11.5 - 14.5 10/15/2015 [facility] Monocytes # 0.5 K/CMM 0.0 - 0.8 10/15/2015 [facility] HEMATOLOGY Eosinophils # 0.1 K/CMM 0.0 - 0.5 10/15/2015 [facility] Lymphocytes # 1.2 K/CMM 1.0 - 5.5 10/15/2015 [facility] Segs-Bands # 1.4 K/CMM 1.5 - 8.1 10/15/2015 [facility] Basophils 0.4 % 0.0 - 1.0 10/15/2015 [facility] HEMATOLOGY Eosinophils 2.9 % 0.0 - 4.0 10/15/2015 [facility] HEMATOLOGY Monocytes 16.3 % 2.0 - 12.0 10/15/2015 [facility] HEMATOLOGY Lymphocytes 38.2 % 20.0 - 40.0 10/15/2015 [facility] HEMATOLOGY Segs 42.2 % 45.0 - 75.0 10/15/2015 [facility] HEMATOLOGY Macrocyte 1+ *ABN* (10/15/15 5:23 AM) None Seen 10/15/2015 [facility] CHEM PANEL Lactic Acid Lvl 0.8 mMol/L 0.5 - 2.2 10/14/2015 [facility] ELECTROLYTES AGAP 11.5 meq/L 10.0 - 20.0 10/14/2015 [facility] ELECTROLYTES eGFR 71 mL/min/1.73m2 10/14/2015 Result Comment: The eGFR is calculated using the [...] from the National Kidney Disease Education Program (NKDEP) which additionally recommends that when the eGFR is used in patients with extremes of body mass index for purposes of drug dosing, the eGFR should be multiplied by the estimated BMI. [facility] ELECTROLYTES BUN 7 mg/dL 7 - 22 10/14/2015 [facility] ELECTROLYTES Glucose Lvl 100 mg/dL 70 - 99 10/14/2015 [facility] ELECTROLYTES Sodium Lvl 136 meq/L 135 - 145 10/14/2015 [facility] ELECTROLYTES Creatinine Lvl 1.00 mg/dL 0.50 - 1.40 10/14/2015 [facility] ELECTROLYTES CO2 27 meq/L 24 - 32 10/14/2015 [facility] ELECTROLYTES Chloride Lvl 101 meq/L 95 - 109 10/14/2015 [facility] ELECTROLYTES Potassium Lvl 3.5 meq/L 3.5 - 5.1 10/14/2015 [facility] ELECTROLYTES Calcium Lvl 8.0 mg/dL 8.5 - 10.5 10/14/2015 [facility] HEMATOLOGY Macrocyte 1+ *ABN* (10/14/15 5:14 AM) None Seen 10/14/2015 [facility] HEMATOLOGY Eosinophils # 0.1 K/CMM 0.0 - 0.5 10/14/2015 [facility] HEMATOLOGY Segs 42.4 % 45.0 - 75.0 10/14/2015 [facility] HEMATOLOGY Basophils 0.6 % 0.0 - 1.0 10/14/2015 [facility] HEMATOLOGY Monocytes # 0.5 K/CMM 0.0 - 0.8 10/14/2015 [facility] HEMATOLOGY Monocytes 18.7 % 2.0 - 12.0 10/14/2015 [facility] HEMATOLOGY Lymphocytes 35.9 % 20.0 - 40.0 10/14/2015 [facility] HEMATOLOGY Segs-Bands # 1.1 K/CMM 1.5 - 8.1 10/14/2015 [facility] Eosinophils 2.4 % 0.0 - 4.0 10/14/2015 [facility] Lymphocytes # 0.9 K/CMM 1.0 - 5.5 10/14/2015 [facility] PT 12.7 s 12.0 - 14.7 10/14/2015 [facility] INR 0.92 0.85 - 1.17 10/14/2015 [facility] Hgb 9.8 g/dL 12.0 - 16.0 10/14/2015 [facility] HEMATOLOGY RBC 2.80 M/CMM 4.20 - 5.40 10/14/2015 [facility] MCH 34.9 pg 27.0 - 31.0 10/14/2015 [facility] WBC 2.6 K/CMM 3.7 - 10.4 10/14/2015 [facility] HEMATOLOGY MPV 8.7 fL 7.4 - 10.4 10/14/2015 [facility] MCV 100.8 fL 80.0 - 98.0 10/14/2015 [facility] HEMATOLOGY Hct 28.2 % 36.0 - 48.0 10/14/2015 [facility] HEMATOLOGY RDW 14.0 % 11.5 - 14.5 10/14/2015 [facility] Platelet 138 K/CMM 133 - 450 10/14/2015 [facility] MCHC 34.7 g/dL 32.0 - 36.0 10/14/2015 [facility] CHEM PANEL Lactic Acid Lvl 1.0 mMol/L 0.5 - 2.2 10/13/2015 [facility] ELECTROLYTES AGAP 10.8 meq/L 10.0 - 20.0 10/13/2015 [facility] ELECTROLYTES eGFR 86 mL/min/1.73m2 10/13/2015 Result Comment: The eGFR is calculated using the [...] from the National Kidney Disease Education Program (NKDEP) which additionally recommends that when the eGFR is used in patients with extremes of body mass index for purposes of drug dosing, the eGFR should be multiplied by the estimated BMI. [facility] ELECTROLYTES Potassium Lvl 3.8 meq/L 3.5 - 5.1 10/13/2015 [facility] ELECTROLYTES CO2 21 meq/L 24 - 32 10/13/2015 [facility] ELECTROLYTES Chloride Lvl 111 meq/L 95 - 109 10/13/2015 [facility] ELECTROLYTES Calcium Lvl 7.2 mg/dL 8.5 - 10.5 10/13/2015 [facility] ELECTROLYTES Glucose Lvl 107 mg/dL 70 - 99 10/13/2015 [facility] ELECTROLYTES BUN 7 mg/dL 7 - 22 10/13/2015 [facility] ELECTROLYTES Creatinine Lvl 0.85 mg/dL 0.50 - 1.40 10/13/2015 [facility] ELECTROLYTES Sodium Lvl 139 meq/L 135 - 145 10/13/2015 [facility] MPV 8.4 fL 7.4 - 10.4 10/13/2015 [facility] Platelet 125 K/CMM 133 - 450 10/13/2015 [facility] RDW 14.2 % 11.5 - 14.5 10/13/2015 [facility] MCHC 33.8 g/dL 32.0 - 36.0 10/13/2015 [facility] MCV 102.2 fL 80.0 - 98.0 10/13/2015 [facility] MCH 34.5 pg 27.0 - 31.0 10/13/2015 [facility] Hgb 8.6 g/dL 12.0 - 16.0 10/13/2015 [facility] HEMATOLOGY Hct 25.6 % 36.0 - 48.0 10/13/2015 [facility] HEMATOLOGY WBC 3.0 K/CMM 3.7 - 10.4 10/13/2015 [facility] HEMATOLOGY RBC 2.50 M/CMM 4.20 - 5.40 10/13/2015 [facility] HEMATOLOGY Eosinophils # 0.1 K/CMM 0.0 - 0.5 10/13/2015 [facility] HEMATOLOGY Monocytes # 0.4 K/CMM 0.0 - 0.8 10/13/2015 [facility] HEMATOLOGY Lymphocytes # 0.8 K/CMM 1.0 - 5.5 10/13/2015 [facility] HEMATOLOGY Segs-Bands # 1.8 K/CMM 1.5 - 8.1 10/13/2015 [facility] HEMATOLOGY Macrocyte 1+ *ABN* (10/13/15 3:59 AM) None Seen 10/13/2015 [facility] HEMATOLOGY Basophils 0.5 % 0.0 - 1.0 10/13/2015 [facility] HEMATOLOGY Eosinophils 1.9 % 0.0 - 4.0 10/13/2015 [facility] HEMATOLOGY Monocytes 13.8 % 2.0 - 12.0 10/13/2015 [facility] HEMATOLOGY Lymphocytes 25.0 % 20.0 - 40.0 10/13/2015 [facility] HEMATOLOGY Segs 58.8 % 45.0 - 75.0 10/13/2015 [facility] CARDIAC ENZYMES Troponin-I null 0.00 - 0.40 10/12/2015 [facility] URINE AND STOOL UA Urobilinogen 0.2 EU/dL 0.1 - 1.0 10/12/2015 [facility] URINE AND STOOL UA Leuk Est Negative (10/12/15 1:36 PM) Negative 10/12/2015 [facility] URINE AND STOOL UA Nitrite Positive *ABN* (10/12/15 1:36 PM) Negative 10/12/2015 [facility] URINE AND STOOL UA Ketones Negative *NA* (10/12/15 1:36 PM) Negative 10/12/2015 [facility] URINE AND STOOL UA Glucose Negative (10/12/15 1:36 PM) Negative 10/12/2015 [facility] URINE AND STOOL UA Bili Negative *NA* (10/12/15 1:36 PM) Negative 10/12/2015 [facility] URINE AND STOOL UA Blood Negative (10/12/15 1:36 PM) Negative 10/12/2015 [facility] URINE AND STOOL UA pH 6.5 5.0 - 8.0 10/12/2015 [facility] URINE AND STOOL UA Spec Grav 1.010 <=1.030 10/12/2015 [facility] URINE AND STOOL UA Protein Negative (10/12/15 1:36 PM) Negative 10/12/2015 [facility] URINE AND STOOL UA Turbidity Clear (10/12/15 1:36 PM) Clear 10/12/2015 [facility] URINE AND STOOL UA Color Yellow *NA* (10/12/15 1:36 PM) Yellow 10/12/2015 [facility] URINE AND STOOL UA Bacteria Moderate /HPF None Seen /HPF 10/12/2015 [facility] URINE AND STOOL UA RBC None Seen (10/12/15 1:36 PM) 0 - 2 10/12/2015 [facility] URINE AND STOOL UA WBC 0-2 /HPF None Seen /HPF 10/12/2015 [facility] URINE AND STOOL UA Sq Epi Many /LPF Few /LPF 10/12/2015 [facility] ELECTROLYTES Potassium Lvl 3.6 meq/L 3.5 - 5.1 10/12/2015 [facility] BACTERIAL - SEROLOGY MRSA by PCR Negative (10/12/15 5:49 AM) 10/12/2015 [facility] Chest 1view DX Chest 1view DX Clinical Indication: Respiratory distress; Comparison: 10/11/2015 FINDINGS: The AP single view radiograph provided for review. The exam demonstrates mild decreased lung volumes without significant airspace opacities, pleural effusions or pneumothorax. Heart size stable within normal limits. Vasculature mildly accentuated. Left automatic implantable cardiac defibrillator noted. The trachea is midline. There are no clinically significant osseous abnormalities noted. IMPRESSION: Decreased lung volumes with accentuated vascular markings but otherwise unremarkable SL: [id number] 10/12/2015 - - Read by: Frandy Savage MD Dictated Date/time: 10/12/15 11:51 Electronically Signed by: Frandy Savage MD 10/12/15 11:52 FINAL REPORT [facility] CHEM PANEL Procalcitonin Lvl 0.14 ng/mL 0.00 - 0.10 10/12/2015 [facility] CHEM PANEL Lactic Acid Lvl 0.5 mMol/L 0.5 - 2.2 10/12/2015 [facility] VIRAL - SEROLOGY Influ B Positive 1 *ABN* (10/11/15 10:50 PM) Negative 10/12/2015 Result Comment: "Significant Findings called to abhi lawrence__at __10/11/2015 23:56_by __bz_.Read Back OK." [facility] VIRAL - SEROLOGY Influ A Negative (10/11/15 10:50 PM) Negative 10/12/2015 [facility] ED Abdomen/Pelvis IV contrast only CT ED Abdomen/Pelvis IV contrast only CT Clinical Indication: Abdominal pain, acute, fever for 3 days Comparison: 09/03/2014 TECHNIQUE: Sequential trans-axial images were obtained with a multi-detector helical CT after administration of iodinated contrast. Coronal and sagittal reconstructions were obtained. 100 mL of omnipaque contrast material was used for the exam. omnipaque oral contrast material was used for the exam. CT Radiation Dose DLP 914.32 mGy-cm FINDINGS: CT ABDOMEN WITH CONTRAST: VISUALIZED LUNG BASES: Unremarkable. ABDOMINAL SOLID ORGANS: The contrast-enhanced images of the liver, spleen, pancreas,, adrenals and kidneys are normal. Bladder is surgically absent. The extrahepatic duct/ common bile duct appears unremarkable. STOMACH AND BOWEL: The stomach is unremarkable. The nonopacified loops of small bowel in the abdomen are unremarkable. The non-contrast opacified loops of colon in the abdomen are unremarkable. PERITONEUM AND RETROPERITONEUM: There is no abdominal lymphadenopathy. There is no pneumoperitoneum or ascites. The retroperitoneal region appears unremarkable. VASCULAR STRUCTURES: The abdominal aorta appears unremarkable. There are widely patent bilateral renal arteries. The mesenteric arteries appear unremarkable. The inferior vena cava appears normal. The renal veins, mesenteric veins and portal vein appear unremarkable. OSSEOUS STRUCTURES: There are no acute osseous abnormalities seen. Anterior and posterior fusion is noted at L5-S1. CT PELVIS WITH CONTRAST: BOWEL: The nonopacified loops of small bowel in the pelvis are unremarkable. The non-contrast opacified loops of colon in the pelvis are unremarkable. PERITONEUM AND EXTRAPERITONEAL REGIONS: There is no pelvic lymphadenopathy or ascites. The inguinal regions are unremarkable. BLADDER: The bladder is moderately distended. No wall thickening or calcification is appreciated.. OSSEOUS STRUCTURES: There are no definite significant osseous abnormalities seen. IMPRESSION: Moderate distention of the urinary bladder. No wall thickening appreciated. SL: [id number] 10/11/2015 - - Read by: Alvarez Clinton DO Dictated Date/time: 10/11/15 23:31 Electronically Signed by: Alvarez Clinton DO 10/11/15 23:39 FINAL REPORT [facility] CHEM PANEL Lipase Lvl 252 unit/L 73 - 393 10/11/2015 [facility] CHEM PANEL eGFR 47 mL/min/1.73m2 10/11/2015 Result Comment: The eGFR is calculated using the [...] from the National Kidney Disease Education Program (NKDEP) which additionally recommends that when the eGFR is used in patients with extremes of body mass index for purposes of drug dosing, the eGFR should be multiplied by the estimated BMI. [facility] CHEM PANEL Alk Phos 160 unit/L 39 - 136 10/11/2015 [facility] CHEM PANEL Bili Total 0.5 mg/dL 0.2 - 1.3 10/11/2015 [facility] CHEM PANEL Total Protein 7.8 g/dL 6.4 - 8.4 10/11/2015 [facility] CHEM PANEL Albumin Lvl 3.7 g/dL 3.5 - 5.0 10/11/2015 [facility] CHEM PANEL ALT 84 unit/L 0 - 65 10/11/2015 [facility] CHEM PANEL AST 70 unit/L 0 - 37 10/11/2015 [facility] CHEM PANEL CO2 28 meq/L 24 - 32 10/11/2015 [facility] CHEM PANEL Calcium Lvl 7.7 mg/dL 8.5 - 10.5 10/11/2015 [facility] CHEM PANEL Sodium Lvl 135 meq/L 135 - 145 10/11/2015 [facility] CHEM PANEL Chloride Lvl 99 meq/L 95 - 109 10/11/2015 [facility] CHEM PANEL BUN 24 mg/dL 7 - 22 10/11/2015 [facility] CHEM PANEL Creatinine Lvl 1.40 mg/dL 0.50 - 1.40 10/11/2015 [facility] CHEM PANEL Glucose Lvl 112 mg/dL 70 - 99 10/11/2015 [facility] CHEM PANEL Globulin 4.1 g/dL 2.0 - 4.0 10/11/2015 [facility] CHEM PANEL A/G Ratio 0.9 0.7 - 1.6 10/11/2015 [facility] CHEM PANEL B/C Ratio 17 6 - 25 10/11/2015 [facility] CHEM PANEL AGAP 11.2 meq/L 10.0 - 20.0 10/11/2015 [facility] HEMATOLOGY PTT 34.0 s 22.9 - 35.8 10/11/2015 [facility] HEMATOLOGY INR 0.91 0.85 - 1.17 10/11/2015 [facility] HEMATOLOGY PT 12.6 s 12.0 - 14.7 10/11/2015 [facility] URINE AND STOOL UA RBC 3-5 /HPF 0 - 2 10/11/2015 [facility] URINE AND STOOL UA Bacteria Many /HPF None Seen /HPF 10/11/2015 [facility] URINE AND STOOL UA WBC 6-10 /HPF None Seen /HPF 10/11/2015 [facility] URINE AND STOOL UA Sq Epi Few /LPF Few /LPF 10/11/2015 [facility] URINE AND STOOL UA Turbidity Clear (10/11/15 4:31 PM) Clear 10/11/2015 [facility] URINE AND STOOL UA Spec Grav 1.010 <=1.030 10/11/2015 [facility] URINE AND STOOL UA Nitrite Negative (10/11/15 4:31 PM) Negative 10/11/2015 [facility] URINE AND STOOL UA Leuk Est Negative (10/11/15 4:31 PM) Negative 10/11/2015 [facility] URINE AND STOOL UA Bili Negative *NA* (10/11/15 4:31 PM) Negative 10/11/2015 [facility] URINE AND STOOL UA Blood Negative (10/11/15 4:31 PM) Negative 10/11/2015 [facility] URINE AND STOOL UA Glucose Negative mg/dL Negative mg/dL 10/11/2015 [facility] URINE AND STOOL UA Ketones Negative mg/dL Negative mg/dL 10/11/2015 [facility] URINE AND STOOL UA Urobilinogen 0.2 EU/dL 0.1 - 1.0 10/11/2015 [facility] URINE AND STOOL UA pH 7.0 5.0 - 8.0 10/11/2015 [facility] URINE AND STOOL UA Protein Negative mg/dL Negative mg/dL 10/11/2015 [facility] URINE AND STOOL UA Color Yellow *NA* (10/11/15 4:31 PM) Yellow 10/11/2015 [facility] URINE CHEM U Preg Negative (10/11/15 4:31 PM) Negative 10/11/2015 [facility] Abdomen acute series w chest 1 view DX Abdomen acute series w chest 1 view DX Clinical Indication: Abdominal pain, acute, fever Comparison: CT dated 09/03/1949 FINDINGS: The single view of the chest shows no consolidation effusion or pneumothorax. Heart size, vascular markings, and osseous structures are within normal limits. Left subclavian automatic implantable cardiac defibrillator is present with leads in the region of right atrium, right ventricle and coronary sinus. The supine and upright views of the abdomen shows a non-obstructive bowel gas pattern. There is no abnormal dilatation of bowel loops. Mild amounts of retained colonic fecal material is noted. No significant air fluid levels. There is no pneumoperitoneaum. There are no radiopaque densities noted. There are no clinically significant osseous abnormalities noted. IMPRESSION: 1. Unremarkable view of the chest. 2. Unremarkable abdomen series. SL: [id number] 10/11/2015 - - Read by: Alvarez Clinton DO Dictated Date/time: 10/11/15 18:20 Electronically Signed by: Alvarez Clinton DO 10/11/15 18:27 FINAL REPORT [facility] CHEM PANEL Globulin 4.2 g/dL 2.0 - 4.0 10/01/2015 [facility] CHEM PANEL A/G Ratio 1.0 0.7 - 1.6 10/01/2015 [facility] CHEM PANEL B/C Ratio 17 6 - 25 10/01/2015 [facility] CHEM PANEL AGAP 12.4 meq/L 10.0 - 20.0 10/01/2015 [facility] CHEM PANEL eGFR 66 mL/min/1.73m2 10/01/2015 Result Comment: The eGFR is calculated using the [...] from the National Kidney Disease Education Program (NKDEP) which additionally recommends that when the eGFR is used in patients with extremes of body mass index for purposes of drug dosing, the eGFR should be multiplied by the estimated BMI. [facility] CHEM PANEL Bili Total 0.3 mg/dL 0.2 - 1.3 10/01/2015 [facility] CHEM PANEL Alk Phos 97 unit/L 39 - 136 10/01/2015 [facility] CHEM PANEL AST 19 unit/L 0 - 37 10/01/2015 [facility] CHEM PANEL ALT 24 unit/L 0 - 65 10/01/2015 [facility] CHEM PANEL Albumin Lvl 4.0 g/dL 3.5 - 5.0 10/01/2015 [facility] CHEM PANEL Total Protein 8.2 g/dL 6.4 - 8.4 10/01/2015 [facility] CHEM PANEL Calcium Lvl 8.3 mg/dL 8.5 - 10.5 10/01/2015 [facility] CHEM PANEL CO2 26 meq/L 24 - 32 10/01/2015 [facility] CHEM PANEL Chloride Lvl 103 meq/L 95 - 109 10/01/2015 [facility] CHEM PANEL Creatinine Lvl 1.06 mg/dL 0.50 - 1.40 10/01/2015 [facility] CHEM PANEL Sodium Lvl 137 meq/L 135 - 145 10/01/2015 [facility] CHEM PANEL Potassium Lvl 4.4 meq/L 3.5 - 5.1 10/01/2015 [facility] CHEM PANEL BUN 18 mg/dL 7 - 22 10/01/2015 [facility] CHEM PANEL Glucose Lvl 99 mg/dL 70 - 99 10/01/2015 [facility] HEMATOLOGY Basophils # 0.1 K/CMM 0.0 - 0.2 10/01/2015 [facility] Macrocyte 1+ *ABN* (10/01/15 1:17 PM) None Seen 10/01/2015 [facility] HEMATOLOGY Monocytes # 0.6 K/CMM 0.0 - 0.8 10/01/2015 [facility] HEMATOLOGY Eosinophils # 0.1 K/CMM 0.0 - 0.5 10/01/2015 [facility] Lymphocytes # 1.3 K/CMM 1.0 - 5.5 10/01/2015 [facility] HEMATOLOGY Segs-Bands # 5.8 K/CMM 1.5 - 8.1 10/01/2015 [facility] Eosinophils 1.1 % 0.0 - 4.0 10/01/2015 [facility] HEMATOLOGY Basophils 0.9 % 0.0 - 1.0 10/01/2015 [facility] HEMATOLOGY Monocytes 7.2 % 2.0 - 12.0 10/01/2015 [facility] HEMATOLOGY Segs 74.1 % 45.0 - 75.0 10/01/2015 [facility] HEMATOLOGY Lymphocytes 16.7 % 20.0 - 40.0 10/01/2015 [facility] WBC 7.8 K/CMM 3.7 - 10.4 10/01/2015 [facility] HEMATOLOGY RBC 3.58 M/CMM 4.20 - 5.40 10/01/2015 [facility] HEMATOLOGY Hgb 12.2 g/dL 12.0 - 16.0 10/01/2015 [facility] HEMATOLOGY Hct 35.7 % 36.0 - 48.0 10/01/2015 [facility] MCH 34.1 pg 27.0 - 31.0 10/01/2015 [facility] Platelet 238 K/CMM 133 - 450 10/01/2015 [facility] MPV 8.0 fL 7.4 - 10.4 10/01/2015 [facility] MCHC 34.2 g/dL 32.0 - 36.0 10/01/2015 [facility] RDW 13.0 % 11.5 - 14.5 10/01/2015 [facility] MCV 99.6 fL 80.0 - 98.0 10/01/2015 [facility] URINE AND STOOL UA Urobilinogen <=1.0 mg/dL 0.1 - 1.0 10/01/2015 [facility] URINE AND STOOL UA Color Ltyellow 10/01/2015 [facility] URINE AND STOOL UA Sq Epi None Seen 10/01/2015 [facility] URINE AND STOOL UA RBC 6 /HPF 0 - 2 10/01/2015 [facility] URINE AND STOOL UA Blood Negative (10/01/15 1:17 PM) Negative 10/01/2015 [facility] URINE AND STOOL UA Bili Negative *NA* (10/01/15 1:17 PM) Negative 10/01/2015 [facility] URINE AND STOOL UA Nitrite Positive *ABN* (10/01/15 1:17 PM) Negative 10/01/2015 [facility] URINE AND STOOL UA Glucose Negative mg/dL Negative mg/dL 10/01/2015 [facility] URINE AND STOOL UA Protein Negative mg/dL Negative mg/dL 10/01/2015 [facility] URINE AND STOOL UA Ketones Negative mg/dL Negative mg/dL 10/01/2015 [facility] URINE AND STOOL UA WBC 3 /HPF 0 - 5 10/01/2015 [facility] URINE AND STOOL UA Leuk Est Negative (10/01/15 1:17 PM) Negative 10/01/2015 [facility] URINE AND STOOL UA Turbidity Clear (10/01/15 1:17 PM) Clear 10/01/2015 [facility] URINE AND STOOL UA Spec Grav 1.006 <=1.030 10/01/2015 [facility] URINE AND STOOL UA pH 7.0 5.0 - 8.0 10/01/2015 [facility] Ext Upper Venous Doppler Unilat US Ext Upper Venous Doppler Unilat US Study: Left upper extremity Doppler venous sonogram Clinical Indication: Left upper extremity pain Comparison: None FINDINGS: Multiple sonographic images of the left upper extremity were acquired. The visualized and compressible portions of the left internal jugular, subclavian, axillary, brachial, cephalic, and basilic veins demonstrate normal compressibility and flow without filling defect. IMPRESSION: No evidence of deep venous thrombosis of the left upper extremity. SL: [id number] 10/01/2015 - - Read by: Nic Garduno MD Dictated Date/time: 10/01/15 13:58 Electronically Signed by: Nic Garduno MD 10/01/15 14:00 FINAL REPORT [facility] CARDIAC ENZYMES Troponin-I null 0.00 - 0.40 07/09/2015 [facility] CARDIAC ENZYMES CK MB null 0.5 - 3.6 07/09/2015 [facility] CARDIAC ENZYMES Total CK 64 unit/L 12 - 191 07/09/2015 [facility] CARDIAC ENZYMES CK MB Index null 0.0 - 2.5 07/09/2015 [facility] CHEM PANEL eGFR 46 mL/min/1.73m2 07/09/2015 Result Comment: The eGFR is calculated using the [...] from the National Kidney Disease Education Program (NKDEP) which additionally recommends that when the eGFR is used in patients with extremes of body mass index for purposes of drug dosing, the eGFR should be multiplied by the estimated BMI. [facility] CHEM PANEL Albumin Lvl 4.7 g/dL 3.5 - 5.0 07/09/2015 [facility] CHEM PANEL ALT 23 unit/L 0 - 65 07/09/2015 [facility] CHEM PANEL CO2 26 meq/L 24 - 32 07/09/2015 [facility] CHEM PANEL Calcium Lvl 9.5 mg/dL 8.5 - 10.5 07/09/2015 [facility] CHEM PANEL Total Protein 9.3 g/dL 6.4 - 8.4 07/09/2015 [facility] CHEM PANEL Potassium Lvl 4.0 meq/L 3.5 - 5.1 07/09/2015 [facility] CHEM PANEL Chloride Lvl 96 meq/L 95 - 109 07/09/2015 [facility] CHEM PANEL Creatinine Lvl 1.42 mg/dL 0.50 - 1.40 07/09/2015 [facility] CHEM PANEL Sodium Lvl 131 meq/L 135 - 145 07/09/2015 [facility] CHEM PANEL Bili Total 0.7 mg/dL 0.2 - 1.3 07/09/2015 [facility] CHEM PANEL AST 17 unit/L 0 - 37 07/09/2015 [facility] CHEM PANEL Alk Phos 90 unit/L 39 - 136 07/09/2015 [facility] CHEM PANEL Glucose Lvl 87 mg/dL 70 - 99 07/09/2015 [facility] CHEM PANEL BUN 26 mg/dL 7 - 22 07/09/2015 [facility] CHEM PANEL A/G Ratio 1.0 0.7 - 1.6 07/09/2015 [facility] CHEM PANEL B/C Ratio 18 6 - 25 07/09/2015 [facility] CHEM PANEL AGAP 13.0 meq/L 10.0 - 20.0 07/09/2015 [facility] CHEM PANEL Globulin 4.6 g/dL 2.0 - 4.0 07/09/2015 [facility] HEMATOLOGY MCHC 33.8 g/dL 32.0 - 36.0 07/09/2015 [facility] HEMATOLOGY RDW 13.2 % 11.5 - 14.5 07/09/2015 [facility] HEMATOLOGY MPV 8.5 fL 7.4 - 10.4 07/09/2015 [facility] HEMATOLOGY Platelet 191 K/CMM 133 - 450 07/09/2015 [facility] HEMATOLOGY RBC 4.08 M/CMM 4.20 - 5.40 07/09/2015 [facility] HEMATOLOGY Hgb 13.7 g/dL 12.0 - 16.0 07/09/2015 [facility] HEMATOLOGY WBC 9.8 K/CMM 3.7 - 10.4 07/09/2015 [facility] HEMATOLOGY MCV 99.3 fL 80.0 - 98.0 07/09/2015 [facility] HEMATOLOGY MCH 33.6 pg 27.0 - 31.0 07/09/2015 [facility] HEMATOLOGY Hct 40.5 % 36.0 - 48.0 07/09/2015 [facility] HEMATOLOGY Lymphocytes 14.9 % 20.0 - 40.0 07/09/2015 [facility] HEMATOLOGY Segs 78.5 % 45.0 - 75.0 07/09/2015 [facility] HEMATOLOGY Monocytes 5.5 % 2.0 - 12.0 07/09/2015 [facility] HEMATOLOGY Segs-Bands # 7.7 K/CMM 1.5 - 8.1 07/09/2015 [facility] HEMATOLOGY Lymphocytes # 1.5 K/CMM 1.0 - 5.5 07/09/2015 [facility] HEMATOLOGY Basophils 0.7 % 0.0 - 1.0 07/09/2015 [facility] HEMATOLOGY Eosinophils 0.4 % 0.0 - 4.0 07/09/2015 [facility] HEMATOLOGY Basophils # 0.1 K/CMM 0.0 - 0.2 07/09/2015 [facility] HEMATOLOGY Monocytes # 0.5 K/CMM 0.0 - 0.8 07/09/2015 [facility] HEMATOLOGY Macrocyte 1+ *ABN* (07/09/15 3:58 PM) None Seen 07/09/2015 [facility] URINE AND STOOL UA Urobilinogen <=1.0 mg/dL 0.1 - 1.0 07/09/2015 [facility] URINE AND STOOL UA Color Ltyellow 07/09/2015 [facility] URINE AND STOOL UA Blood Negative (07/09/15 1:50 PM) Negative 07/09/2015 [facility] URINE AND STOOL UA Nitrite Positive *ABN* (07/09/15 1:50 PM) Negative 07/09/2015 [facility] URINE AND STOOL UA Ketones Negative mg/dL Negative mg/dL 07/09/2015 [facility] URINE AND STOOL UA Bili Negative *NA* (07/09/15 1:50 PM) Negative 07/09/2015 [facility] URINE AND STOOL UA Glucose Negative mg/dL Negative mg/dL 07/09/2015 [facility] URINE AND STOOL UA Protein Negative mg/dL Negative mg/dL 07/09/2015 [facility] URINE AND STOOL UA pH 6.0 5.0 - 8.0 07/09/2015 [facility] URINE AND STOOL UA Turbidity Marked *ABN* (07/09/15 1:50 PM) Clear 07/09/2015 [facility] URINE AND STOOL UA Spec Grav 1.004 <=1.030 07/09/2015 [facility] URINE AND STOOL UA Bacteria Occasional /HPF None Seen /HPF 07/09/2015 [facility] URINE AND STOOL UA RBC null 0 - 2 07/09/2015 [facility] URINE AND STOOL UA Leuk Est Small *ABN* (07/09/15 1:50 PM) Negative 07/09/2015 [facility] URINE AND STOOL UA Sq Epi Few /LPF Few /LPF 07/09/2015 [facility] URINE AND STOOL UA WBC 11 /HPF 0 - 5 07/09/2015 [facility] URINE CHEM U Preg Negative (07/09/15 1:50 PM) Negative 07/09/2015 [facility] URINE AND STOOL UA Color Yellow *NA* (09/21/14 4:12 PM) Yellow 09/21/2014 [facility] URINE AND STOOL UA Turbidity Clear (09/21/14 4:12 PM) Clear 09/21/2014 [facility] URINE AND STOOL UA Ketones Negative *NA* (09/21/14 4:12 PM) Negative 09/21/2014 [facility] URINE AND STOOL UA Bili Negative *NA* (09/21/14 4:12 PM) Negative 09/21/2014 [facility] URINE AND STOOL UA Leuk Est Negative (09/21/14 4:12 PM) Negative 09/21/2014 [facility] URINE AND STOOL UA Glucose Negative (09/21/14 4:12 PM) Negative 09/21/2014 [facility] URINE AND STOOL UA Nitrite Negative (09/21/14 4:12 PM) Negative 09/21/2014 [facility] URINE AND STOOL UA Blood Negative (09/21/14 4:12 PM) Negative 09/21/2014 [facility] URINE AND STOOL UA Urobilinogen 0.2 EU/dL 0.1 - 1.0 09/21/2014 [facility] URINE AND STOOL UA pH 6.5 5.0 - 8.0 09/21/2014 [facility] URINE AND STOOL UA Spec Grav <=1.005
*NA*
(09/21/14 4:12 PM) <=1.030 09/21/2014 [facility] URINE AND STOOL UA Protein Negative (09/21/14 4:12 PM) Negative 09/21/2014 [facility] URINE AND STOOL UA Bacteria Occasional /HPF None Seen /HPF 09/21/2014 [facility] URINE AND STOOL UA WBC 0-2 /HPF None Seen /HPF 09/21/2014 [facility] URINE AND STOOL UA RBC None Seen (09/21/14 4:12 PM) 0 - 2 09/21/2014 [facility] URINE AND STOOL UA Sq Epi Rare /LPF Few /LPF 09/21/2014 [facility] URINE CHEM U Preg Negative (09/21/14 4:12 PM) Negative 09/21/2014 [facility] ELECTROLYTES AGAP 11.3 meq/L 10.0 - 20.0 09/21/2014 [facility] ELECTROLYTES A/G Ratio 0.7 0.7 - 1.6 09/21/2014 [facility] ELECTROLYTES Globulin 4.3 g/dL 2.0 - 4.0 09/21/2014 [facility] ELECTROLYTES B/C Ratio 9 6 - 25 09/21/2014 [facility] ELECTROLYTES eGFR 71 mL/min/1.73m2 09/21/2014 1Result Comment: The eGFR is calculated using the [...] from the National Kidney Disease Education Program (NKDEP) which additionally recommends that when the eGFR is used in patients with extremes of body mass index for purposes of drug dosing, the eGFR should be multiplied by the estimated BMI. [facility] ELECTROLYTES Alk Phos 173 unit/L 39 - 136 09/21/2014 [facility] ELECTROLYTES Bili Total 0.3 mg/dL 0.2 - 1.3 09/21/2014 [facility] ELECTROLYTES AST 43 unit/L 0 - 37 09/21/2014 [facility] ELECTROLYTES ALT 56 unit/L 0 - 65 09/21/2014 [facility] ELECTROLYTES Albumin Lvl 2.8 g/dL 3.5 - 5.0 09/21/2014 [facility] ELECTROLYTES Total Protein 7.1 g/dL 6.4 - 8.4 09/21/2014 [facility] ELECTROLYTES Calcium Lvl 9.2 mg/dL 8.5 - 10.5 09/21/2014 [facility] ELECTROLYTES Chloride Lvl 104 meq/L 95 - 109 09/21/2014 [facility] ELECTROLYTES CO2 32 meq/L 24 - 32 09/21/2014 [facility] ELECTROLYTES Sodium Lvl 142 meq/L 135 - 145 09/21/2014 [facility] ELECTROLYTES Potassium Lvl 5.3 meq/L 3.5 - 5.1 09/21/2014 [facility] ELECTROLYTES BUN 9 mg/dL 7 - 22 09/21/2014 [facility] ELECTROLYTES Creatinine Lvl 1.0 mg/dL 0.5 - 1.4 09/21/2014 [facility] ELECTROLYTES Glucose Lvl 97 mg/dL 70 - 99 09/21/2014 2Interpretive Data: Adult reference range values reflect the clinical guidelines of the [place] [employer]. [facility] HEMATOLOGY MPV 6.9 fL 7.4 - 10.4 09/21/2014 [facility] HEMATOLOGY RDW 13.1 % 11.5 - 14.5 09/21/2014 [facility] HEMATOLOGY Platelet 373 K/CMM 133 - 450 09/21/2014 [facility] MCHC 34.5 g/dL 32.0 - 36.0 09/21/2014 [facility] MCV 95.5 fL 80.0 - 98.0 09/21/2014 [facility] MCH 33.0 pg 27.0 - 31.0 09/21/2014 [facility] HEMATOLOGY Hgb 10.5 g/dL 12.0 - 16.0 09/21/2014 [facility] HEMATOLOGY Hct 30.4 % 36.0 - 48.0 09/21/2014 [facility] HEMATOLOGY RBC 3.18 M/CMM 4.20 - 5.40 09/21/2014 [facility] WBC 8.2 K/CMM 3.7 - 10.4 09/21/2014 [facility] Monocytes 5.1 % 2.0 - 12.0 09/21/2014 [facility] HEMATOLOGY Eosinophils 1.5 % 0.0 - 4.0 09/21/2014 [facility] HEMATOLOGY Basophils 0.5 % 0.0 - 1.0 09/21/2014 [facility] HEMATOLOGY Segs 72.4 % 45.0 - 75.0 09/21/2014 [facility] HEMATOLOGY Lymphocytes 20.5 % 20.0 - 40.0 09/21/2014 [facility] HEMATOLOGY Monocytes # 0.4 K/CMM 0.0 - 0.8 09/21/2014 [facility] HEMATOLOGY Segs-Bands # 5.9 K/CMM 1.5 - 8.1 09/21/2014 [facility] Lymphocytes # 1.7 K/CMM 1.0 - 5.5 09/21/2014 [facility] Eosinophils # 0.1 K/CMM 0.0 - 0.5 09/21/2014 [facility] Hip 2 views DX Hip 2 views DX Name: MALIA CHU : 1975 SEX: F Ordering Physician: Kd Trinidad Hip min 2 views : Sep 21, 2014 04:09:00 PM. CLINICAL INDICATION: Pain of unknown origin Comparison Examination: None FINDINGS: AP and frog-leg views of the left hip are acquired. There is normal alignment of the hip without fractures or dislocations. There are no radio-opaque foreign bodies. The acetabulum is unremarkable. The visualized sacroiliac joint and symphysis pubis are unremarkable. If there is further concern, recommend follow-up radiographs or MRI for complete assessment. IMPRESSION: No fracture or dislocation of the left hip. NE - 23 09/21/2014 - - Read by: Joshua Salamanca MD Dictated Date/time: 09/21/14 16:15 Electronically Signed by: Joshua Salamanca MD 09/21/14 16:16 FINAL REPORT [facility] CHEM PANEL BUN 9 mg/dL 7 - 22 09/05/2014 [facility] CHEM PANEL eGFR 93 mL/min/1.73m2 09/05/2014 2Result Comment: The eGFR is calculated using [...] from the National Kidney Disease Education Program (NKDEP) which additionally recommends that when the eGFR is used in patients with extremes of body mass index for purposes of drug dosing, the eGFR should be multiplied by the estimated BMI. [facility] CHEM PANEL Calcium Lvl 8.4 mg/dL 8.5 - 10.5 09/05/2014 [facility] CHEM PANEL AGAP 12.8 meq/L 10.0 - 20.0 09/05/2014 [facility] CHEM PANEL CO2 26 meq/L 24 - 32 09/05/2014 [facility] CHEM PANEL Chloride Lvl 106 meq/L 95 - 109 09/05/2014 [facility] CHEM PANEL Sodium Lvl 141 meq/L 135 - 145 09/05/2014 [facility] CHEM PANEL Creatinine Lvl 0.8 mg/dL 0.5 - 1.4 09/05/2014 [facility] CHEM PANEL Potassium Lvl 3.8 meq/L 3.5 - 5.1 09/05/2014 [facility] CHEM PANEL Glucose Lvl 92 mg/dL 70 - 99 09/05/2014 5Interpretive Data: Adult reference range values reflect the clinical guidelines of the [place] [employer]. [facility] HEMATOLOGY PT 20.8 s 12.0 - 14.7 09/05/2014 [facility] HEMATOLOGY INR 1.75 0.85 - 1.17 09/05/2014 11Interpretive Data: RECOMMENDED RANGES FOR PROTIME INR: 2.0-3.0 for most medical and surgical thromboembolic states. 2.5-3.5 for artificial heart valves and recurrent embolism. INR SHOULD BE USED ONLY FOR PATIENTS ON STABLE ANTICOAGULANT THERAPY. [facility] CHEM PANEL Phosphorus 4.2 mg/dL 2.5 - 4.5 09/04/2014 [facility] CHEM PANEL Magnesium Lvl 1.9 mg/dL 1.8 - 2.4 09/04/2014 [facility] ELECTROLYTES Chloride Lvl 111 meq/L 95 - 109 09/04/2014 [facility] ELECTROLYTES Potassium Lvl 2.7 meq/L 3.5 - 5.1 09/04/2014 1Result Comment: Critical Result(s) called to monie linn 09/04/2014 06:39 by bridgett. Read back OK. [facility] ELECTROLYTES Sodium Lvl 142 meq/L 135 - 145 09/04/2014 [facility] ELECTROLYTES Total Protein 6.4 g/dL 6.4 - 8.4 09/04/2014 [facility] ELECTROLYTES Albumin Lvl 3.1 g/dL 3.5 - 5.0 09/04/2014 [facility] ELECTROLYTES A/G Ratio 0.9 0.7 - 1.6 09/04/2014 [facility] ELECTROLYTES Globulin 3.3 g/dL 2.0 - 4.0 09/04/2014 [facility] ELECTROLYTES Calcium Lvl 7.2 mg/dL 8.5 - 10.5 09/04/2014 [facility] ELECTROLYTES AGAP 12.7 meq/L 10.0 - 20.0 09/04/2014 [facility] ELECTROLYTES B/C Ratio 11 6 - 25 09/04/2014 [facility] ELECTROLYTES eGFR 109 mL/min/1.73m2 09/04/2014 3Result Comment: The eGFR is calculated using [...] from the National Kidney Disease Education Program (NKDEP) which additionally recommends that when the eGFR is used in patients with extremes of body mass index for purposes of drug dosing, the eGFR should be multiplied by the estimated BMI. [facility] ELECTROLYTES AST 33 unit/L 0 - 37 09/04/2014 [facility] ELECTROLYTES ALT 24 unit/L 0 - 65 09/04/2014 [facility] ELECTROLYTES Alk Phos 108 unit/L 39 - 136 09/04/2014 [facility] ELECTROLYTES Bili Total 0.4 mg/dL 0.2 - 1.3 09/04/2014 [facility] ELECTROLYTES CO2 21 meq/L 24 - 32 09/04/2014 [facility] ELECTROLYTES BUN 8 mg/dL 7 - 22 09/04/2014 [facility] ELECTROLYTES Creatinine Lvl 0.7 mg/dL 0.5 - 1.4 09/04/2014 [facility] ELECTROLYTES Glucose Lvl 85 mg/dL 70 - 99 09/04/2014 6Interpretive Data: Adult reference range values reflect the clinical guidelines of the [place] [employer]. [facility] HEMATOLOGY Basophils # 0.1 K/CMM 0.0 - 0.2 09/04/2014 [facility] HEMATOLOGY Monocytes 9.7 % 2.0 - 12.0 09/04/2014 [facility] HEMATOLOGY Lymphocytes 23.4 % 20.0 - 40.0 09/04/2014 [facility] HEMATOLOGY Lymphocytes # 1.6 K/CMM 1.0 - 5.5 09/04/2014 [facility] HEMATOLOGY Eosinophils # 0.2 K/CMM 0.0 - 0.5 09/04/2014 [facility] HEMATOLOGY Monocytes # 0.7 K/CMM 0.0 - 0.8 09/04/2014 [facility] HEMATOLOGY Eosinophils 2.5 % 0.0 - 4.0 09/04/2014 [facility] HEMATOLOGY Segs 63.5 % 45.0 - 75.0 09/04/2014 [facility] Segs-Bands # 4.4 K/CMM 1.5 - 8.1 09/04/2014 [facility] Basophils 0.9 % 0.0 - 1.0 09/04/2014 [facility] MPV 8.0 fL 7.4 - 10.4 09/04/2014 [facility] RDW 12.6 % 11.5 - 14.5 09/04/2014 [facility] MCHC 35.8 g/dL 32.0 - 36.0 09/04/2014 [facility] WBC 6.9 K/CMM 3.7 - 10.4 09/04/2014 [facility] RBC 3.18 M/CMM 4.20 - 5.40 09/04/2014 [facility] MCV 94.6 fL 80.0 - 98.0 09/04/2014 [facility] MCH 33.9 pg 27.0 - 31.0 09/04/2014 [facility] Hct 30.1 % 36.0 - 48.0 09/04/2014 [facility] Platelet 206 K/CMM 133 - 450 09/04/2014 [facility] Hgb 10.8 g/dL 12.0 - 16.0 09/04/2014 [facility] TOXICOLOGY Etoh (%) null 09/03/2014 9Interpretive Data: Ethanol testing results should be used for medical purposes only. Negative Range: <0.003% Toxic Range: >0.25% [facility] TOXICOLOGY Ethanol Lvl null 09/03/2014 10Interpretive Data: Negative Range: <3 mg/dL Toxic Range: >250 mg/dL [facility] DRUG SCREEN U Opiate Scr Negative *NA* (09/03/14 1:08 PM) Negative 09/03/2014 [facility] DRUG SCREEN U Phencyc Scr Negative *NA* (09/03/14 1:08 PM) Negative 09/03/2014 [facility] DRUG SCREEN U Cannab Scr Negative *NA* (09/03/14 1:08 PM) Negative 09/03/2014 [facility] DRUG SCREEN UDS Note See Note 8 *NA* (09/03/14 1:08 PM) 09/03/2014 8Interpretive Data: Drugs reported as positive have [...] Methadone 300 ng/mL Urine alcohol 20 mg/dL [facility] DRUG SCREEN U Amph Scr Negative *NA* (09/03/14 1:08 PM) Negative 09/03/2014 [facility] DRUG SCREEN U Valeria Scr Negative *NA* (09/03/14 1:08 PM) Negative 09/03/2014 [facility] DRUG SCREEN U Cocaine Scr Negative *NA* (09/03/14 1:08 PM) Negative 09/03/2014 [facility] DRUG SCREEN U Benzodia Scr Negative *NA* (09/03/14 1:08 PM) Negative 09/03/2014 [facility] URINE AND STOOL UA Color Yellow *NA* (09/03/14 1:08 PM) Yellow 09/03/2014 [facility] URINE AND STOOL UA Turbidity Clear (09/03/14 1:08 PM) Clear 09/03/2014 [facility] URINE AND STOOL UA Protein Negative (09/03/14 1:08 PM) Negative 09/03/2014 [facility] URINE AND STOOL UA pH 6.0 5.0 - 8.0 09/03/2014 [facility] URINE AND STOOL UA Spec Grav 1.015 <=1.030 09/03/2014 [facility] URINE AND STOOL UA Ketones Negative *NA* (09/03/14 1:08 PM) Negative 09/03/2014 [facility] URINE AND STOOL UA Glucose Negative (09/03/14 1:08 PM) Negative 09/03/2014 [facility] URINE AND STOOL UA Urobilinogen 0.2 EU/dL 0.1 - 1.0 09/03/2014 [facility] URINE AND STOOL UA Blood Large *ABN* (09/03/14 1:08 PM) Negative 09/03/2014 [facility] URINE AND STOOL UA Bili Negative *NA* (09/03/14 1:08 PM) Negative 09/03/2014 [facility] URINE AND STOOL UA Leuk Est Negative (09/03/14 1:08 PM) Negative 09/03/2014 [facility] URINE AND STOOL UA Nitrite Negative (09/03/14 1:08 PM) Negative 09/03/2014 [facility] URINE AND STOOL UA RBC 8 /HPF 0 - 2 09/03/2014 [facility] URINE AND STOOL UA Bacteria Moderate /HPF None Seen /HPF 09/03/2014 [facility] URINE AND STOOL UA Mucus Few /LPF None Seen /LPF 09/03/2014 [facility] URINE AND STOOL UA Hyal Cast 1 /LPF 0 - 2 09/03/2014 [facility] URINE AND STOOL UA WBC 7 /HPF 0 - 5 09/03/2014 [facility] URINE AND STOOL UA Sq Epi Many /LPF Few /LPF 09/03/2014 [facility] URINE CHEM U Preg Negative (09/03/14 1:08 PM) Negative 09/03/2014 [facility] CARDIAC ENZYMES CK MB Index 1.7 0.0 - 2.5 09/03/2014 [facility] CARDIAC ENZYMES CK MB 3.5 ng/mL 0.5 - 3.6 09/03/2014 [facility] CARDIAC ENZYMES Troponin-I null 0.00 - 0.40 09/03/2014 [facility] CARDIAC ENZYMES Total CK 211 unit/L 12 - 191 09/03/2014 [facility] CHEM PANEL B/C Ratio 12 6 - 25 09/03/2014 [facility] CHEM PANEL Globulin 4.5 g/dL 2.0 - 4.0 09/03/2014 [facility] CHEM PANEL A/G Ratio 1.0 0.7 - 1.6 09/03/2014 [facility] CHEM PANEL AGAP 13.6 meq/L 10.0 - 20.0 09/03/2014 [facility] CHEM PANEL eGFR 81 mL/min/1.73m2 09/03/2014 4Result Comment: The eGFR is calculated using [...] from the National Kidney Disease Education Program (NKDEP) which additionally recommends that when the eGFR is used in patients with extremes of body mass index for purposes of drug dosing, the eGFR should be multiplied by the estimated BMI. [facility] CHEM PANEL BUN 11 mg/dL 7 - 22 09/03/2014 [facility] CHEM PANEL Bili Total 0.6 mg/dL 0.2 - 1.3 09/03/2014 [facility] CHEM PANEL Alk Phos 150 unit/L 39 - 136 09/03/2014 [facility] CHEM PANEL Creatinine Lvl 0.9 mg/dL 0.5 - 1.4 09/03/2014 [facility] CHEM PANEL CO2 23 meq/L 24 - 32 09/03/2014 [facility] CHEM PANEL Calcium Lvl 9.2 mg/dL 8.5 - 10.5 09/03/2014 [facility] CHEM PANEL Albumin Lvl 4.5 g/dL 3.5 - 5.0 09/03/2014 [facility] CHEM PANEL ALT 30 unit/L 0 - 65 09/03/2014 [facility] CHEM PANEL AST 34 unit/L 0 - 37 09/03/2014 [facility] CHEM PANEL Glucose Lvl 114 mg/dL 70 - 99 09/03/2014 7Interpretive Data: Adult reference range values reflect the clinical guidelines of the [place] [employer]. [facility] CHEM PANEL Total Protein 9.0 g/dL 6.4 - 8.4 09/03/2014 [facility] CHEM PANEL Chloride Lvl 103 meq/L 95 - 109 09/03/2014 [facility] CHEM PANEL Sodium Lvl 136 meq/L 135 - 145 09/03/2014 [facility] [facility]M PANEL Potassium Lvl 3.6 meq/L 3.5 - 5.1 09/03/2014 [facility] HEMATOLOGY Basophils # 0.1 K/CMM 0.0 - 0.2 09/03/2014 [facility] HEMATOLOGY Basophils 0.8 % 0.0 - 1.0 09/03/2014 [facility] HEMATOLOGY Segs-Bands # 5.7 K/CMM 1.5 - 8.1 09/03/2014 [facility] HEMATOLOGY Lymphocytes # 1.7 K/CMM 1.0 - 5.5 09/03/2014 [facility] Monocytes # 0.6 K/CMM 0.0 - 0.8 09/03/2014 [facility] Lymphocytes 20.4 % 20.0 - 40.0 09/03/2014 [facility] HEMATOLOGY Segs 70.5 % 45.0 - 75.0 09/03/2014 [facility] Monocytes 7.9 % 2.0 - 12.0 09/03/2014 [facility] Eosinophils 0.4 % 0.0 - 4.0 09/03/2014 [facility] PTT 39.6 s 22.9 - 35.8 09/03/2014 13Interpretive Data: Heparin Therapeutic Range: 57 - 92 Seconds [facility] INR 1.75 0.85 - 1.17 09/03/2014 12Interpretive Data: RECOMMENDED RANGES FOR PROTIME INR: 2.0-3.0 for most medical and surgical thromboembolic states. 2.5-3.5 for artificial heart valves and recurrent embolism. INR SHOULD BE USED ONLY FOR PATIENTS ON STABLE ANTICOAGULANT THERAPY. [facility] PT 20.8 s 12.0 - 14.7 09/03/2014 [facility] Platelet 300 K/CMM 133 - 450 09/03/2014 [facility] RDW 12.4 % 11.5 - 14.5 09/03/2014 [facility] MCHC 35.5 g/dL 32.0 - 36.0 09/03/2014 [facility] MPV 8.3 fL 7.4 - 10.4 09/03/2014 [facility] Hct 36.0 % 36.0 - 48.0 09/03/2014 [facility] MCH 33.1 pg 27.0 - 31.0 09/03/2014 [facility] MCV 93.3 fL 80.0 - 98.0 09/03/2014 [facility] HEMATOLOGY WBC 8.1 K/CMM 3.7 - 10.4 09/03/2014 [facility] HEMATOLOGY Hgb 12.8 g/dL 12.0 - 16.0 09/03/2014 [facility] HEMATOLOGY RBC 3.86 M/CMM 4.20 - 5.40 09/03/2014 [facility] TOXICOLOGY Salicylate Lvl null 0.0 - 30.0 09/03/2014 [facility] TOXICOLOGY Acetaminoph Lvl <2
(09/03/14 12:32 PM) 10 - 20 09/03/2014 [facility] Vital Signs Vital Sign Value Date Comments Source Respitory Rate 17 07/28/2017 [facility] Systolic (mm Hg) 113 07/28/2017 [facility] Diastolic (mm Hg) 80 07/28/2017 [facility] Temperature Oral (F) 97.7 F 07/28/2017 [facility] Respitory Rate 16 07/28/2017 [facility] Systolic (mm Hg) 103 07/28/2017 [facility] Diastolic (mm Hg) 75 07/28/2017 [facility] Heart Rate 88 07/28/2017 [facility] Temperature Oral (F) 98.8 F 07/28/2017 [facility] Weight 59.091 07/27/2017 [facility] BMI Calculated 23.83 07/27/2017 [facility] Height 157.48 cm 07/27/2017 [facility] Heart Rate 89 07/27/2017 [facility] Respitory Rate 18 07/27/2017 [facility] Temperature Oral (F) 97.9 F 07/27/2017 [facility] Systolic (mm Hg) 113 07/27/2017 [facility] Diastolic (mm Hg) 77 07/27/2017 [facility] Respitory Rate 16 08/20/2016 [facility] Heart Rate 76 08/20/2016 [facility] Systolic (mm Hg) 99 08/20/2016 [facility] Diastolic (mm Hg) 65 08/20/2016 [facility] Respitory Rate 16 08/20/2016 [facility] Heart Rate 80 08/20/2016 [facility] Systolic (mm Hg) 105 08/20/2016 [facility] Diastolic (mm Hg) 63 08/20/2016 [facility] Respitory Rate 18 08/20/2016 [facility] Heart Rate 84 08/20/2016 [facility] Systolic (mm Hg) 100 08/20/2016 [facility] Diastolic (mm Hg) 59 08/20/2016 [facility] Temperature Oral (F) 98.4 F 08/19/2016 [facility] Height 157.48 cm 08/19/2016 [facility] BMI Calculated 25.66 08/19/2016 [facility] Weight 63.636 08/19/2016 [facility] Respitory Rate 18 11/18/2015 [facility] Systolic (mm Hg) 98 11/18/2015 [facility] Diastolic (mm Hg) 67 11/18/2015 [facility] Heart Rate 86 11/18/2015 [facility] Temperature Oral (F) 98.1 F 11/18/2015 [facility] Height 157.48 cm 11/18/2015 [facility] Weight 61.364 11/18/2015 [facility] BMI Calculated 24.74 11/18/2015 [facility] Temperature Oral (F) 97.5 F 11/18/2015 [facility] Systolic (mm Hg) 114 11/18/2015 [facility] Diastolic (mm Hg) 79 11/18/2015 [facility] Respitory Rate 17 11/18/2015 [facility] Heart Rate 93 11/18/2015 [facility] Respitory Rate 18 10/15/2015 [facility] Systolic (mm Hg) 116 10/15/2015 [facility] Diastolic (mm Hg) 81 10/15/2015 [facility] Heart Rate 120 10/15/2015 [facility] Respitory Rate 18 10/15/2015 [facility] Heart Rate 89 10/15/2015 [facility] Temperature Oral (F) 97.4 F 10/15/2015 [facility] Systolic (mm Hg) 106 10/15/2015 [facility] Diastolic (mm Hg) 74 10/15/2015 [facility] Systolic (mm Hg) 104 10/15/2015 [facility] Diastolic (mm Hg) 71 10/15/2015 [facility] Respitory Rate 18 10/15/2015 [facility] Heart Rate 90 10/15/2015 [facility] Temperature Oral (F) 97.5 F 10/15/2015 [facility] Temperature Oral (F) 97.9 F 10/15/2015 [facility] Weight 61.364 10/11/2015 [facility] BMI Calculated 23.96 10/11/2015 [facility] Height 160.02 cm 10/11/2015 [facility] Temperature Oral (F) 98.2 F 10/01/2015 [facility] Heart Rate 80 10/01/2015 [facility] Systolic (mm Hg) 110 10/01/2015 [facility] Diastolic (mm Hg) 74 10/01/2015 [facility] Respitory Rate 18 10/01/2015 [facility] Systolic (mm Hg) 108 10/01/2015 [facility] Diastolic (mm Hg) 76 10/01/2015 [facility] Heart Rate 83 10/01/2015 [facility] Respitory Rate 17 10/01/2015 [facility] Temperature Oral (F) 98.3 F 10/01/2015 [facility] BMI Calculated 24.74 10/01/2015 [facility] Weight 61.364 10/01/2015 [facility] Height 157.48 cm 10/01/2015 [facility] Temperature Oral (F) 98.2 F 07/10/2015 [facility] Systolic (mm Hg) 118 07/10/2015 [facility] Diastolic (mm Hg) 78 07/10/2015 [facility] Respitory Rate 16 07/10/2015 [facility] Heart Rate 98 07/10/2015 [facility] Diastolic (mm Hg) 75 07/09/2015 [facility] Systolic (mm Hg) 109 07/09/2015 [facility] Respitory Rate 18 07/09/2015 [facility] Heart Rate 103 07/09/2015 [facility] Weight 61.364 07/09/2015 [facility] Height 157.48 cm 07/09/2015 [facility] Respitory Rate 18 07/09/2015 [facility] Heart Rate 103 07/09/2015 [facility] Temperature Oral (F) 98.4 F 07/09/2015 [facility] Systolic (mm Hg) 145 07/09/2015 [facility] Diastolic (mm Hg) 96 07/09/2015 [facility] BMI Calculated 24.74 07/09/2015 [facility] Heart Rate 82 09/21/2014 [facility] Respitory Rate 17 09/21/2014 [facility] Diastolic (mm Hg) 61 09/21/2014 [facility] Systolic (mm Hg) 105 09/21/2014 [facility] Temperature Oral (F) 97.7 F 09/21/2014 [facility] Heart Rate 90 09/21/2014 [facility] Systolic (mm Hg) 99 09/21/2014 [facility] Respitory Rate 16 09/21/2014 [facility] Diastolic (mm Hg) 55 09/21/2014 [facility] Systolic (mm Hg) 96 09/21/2014 [facility] Respitory Rate 16 09/21/2014 [facility] Diastolic (mm Hg) 68 09/21/2014 [facility] Heart Rate 90 09/21/2014 [facility] Temperature Oral (F) 98.3 F 09/21/2014 [facility] BMI Calculated 26.58 09/21/2014 [facility] Height 157.48 cm 09/21/2014 [facility] Weight 65.909 09/21/2014 [facility] Systolic (mm Hg) 121 09/05/2014 [facility] Diastolic (mm Hg) 81 09/05/2014 [facility] Heart Rate 101 09/05/2014 [facility] Temperature Oral (F) 98.2 F 09/05/2014 [facility] Respitory Rate 15 09/05/2014 [facility] Temperature Oral (F) 97.9 F 09/05/2014 [facility] Systolic (mm Hg) 112 09/05/2014 [facility] Respitory Rate 16 09/05/2014 [facility] Heart Rate 109 09/05/2014 [facility] Diastolic (mm Hg) 77 09/05/2014 [facility] Systolic (mm Hg) 107 09/05/2014 [facility] Diastolic (mm Hg) 75 09/05/2014 [facility] Temperature Oral (F) 98.5 F 09/05/2014 [facility] Heart Rate 101 09/05/2014 [facility] Respitory Rate 16 09/05/2014 [facility] Height 162.56 cm 09/04/2014 [facility] BMI Calculated 19.78 09/04/2014 [facility] Weight 52.273 09/04/2014 [facility] Encounters Location Location Details Encounter Type Encounter Number Reason For Visit Attending Provider ADM Date DC Date Status Source [facility] Inpatient [id number] Salvador Fernandesk 09/03/2014 09/05/2014 [facility] [id number] Kd Vivi 09/21/2014 09/22/2014 [facility] losartan 50mg [id number] 02/11/2015 02/11/2015 [facility] losartan 50mg [id number] 02/11/2015 02/11/2015 [facility] losartan 50mg [id number] 02/11/2015 02/11/2015 [facility] losartan 50mg [id number] 02/11/2015 02/11/2015 [facility] losartan 50mg [id number] 02/11/2015 02/11/2015 [facility] losartan 50mg [id number] 02/11/2015 02/11/2015 [facility] losartan 50mg [id number] 02/11/2015 02/11/2015 [facility] Wants to increase Losartan [id number] 05/22/2015 05/22/2015 [facility] Wants to increase Losartan [id number] 05/22/2015 05/22/2015 [facility] Losartan [id number] 05/22/2015 05/22/2015 [facility] Wants [facility] Losartan [id number] 05/22/2015 05/22/2015 [facility] Wants [facility] Losartan [id number] 05/22/2015 05/22/2015 [facility] Wants [facility] Losartan [id number] 05/22/2015 05/22/2015 [facility] Wants to increase Losartan [id number] 05/22/2015 05/22/2015 [facility] Unknown [id number] 05/27/2015 05/27/2015 [facility] Unknown [id number] 05/27/2015 05/27/2015 [facility] Unknown [id number] 05/27/2015 05/27/2015 [facility] Unknown [id number] 05/27/2015 05/27/2015 [facility] Unknown [id number] 05/27/2015 05/27/2015 [facility] Unknown [id number] 05/27/2015 05/27/2015 [facility] Unknown [id number] 05/27/2015 05/27/2015 [facility] Refill for losartan [id number] 05/28/2015 05/28/2015 [facility] Refill for losartan [id number] 05/28/2015 05/28/2015 [facility] for losartan [id number] 05/28/2015 05/28/2015 [facility] Refill for losartan [id number] 05/28/2015 05/28/2015 [facility] Refill for losartan [id number] 05/28/2015 05/28/2015 [facility] refill on Potassium [id number] 06/25/2015 06/25/2015 [facility] refill on Potassium [id number] 06/25/2015 06/25/2015 [facility] refill on Potassium [id number] 06/25/2015 06/25/2015 [facility] refill on Potassium [id number] 06/25/2015 06/25/2015 [facility] [id number] Nini Amos 07/09/2015 07/10/2015 [facility] refill for lasix [id number] 08/08/2015 08/08/2015 [facility] refill for lasix [id number] 08/08/2015 08/08/2015 [facility] refill for lasix [id number] 08/08/2015 08/08/2015 [facility] [id number] Nadim Scientologist 10/01/2015 10/01/2015 [facility] Inpatient [id number] Quratulavioleta Campbelli 10/11/2015 10/15/2015 [facility] [id number] China Cisneros 11/18/2015 11/18/2015 [facility] patient called for refill [id number] 12/27/2015 12/27/2015 [facility] patient called for refill [id number] 12/27/2015 12/27/2015 [facility] refill request [id number] 04/06/2016 04/06/2016 [facility] Emergency [id number] Patricia Navasowole 08/19/2016 08/20/2016 [facility] Emergency [id number] Celia Plataooqi 07/27/2017 07/28/2017 [facility] Procedures Procedure Code Date Perfomer Comments Source section<sup>1</sup> 48022375 x2 [facility] Cholecyst[facility] [id number] [facility] Permanent cardiac pacemaker procedure [id number] [facility] Spinal fusion [id number] [facility] Tubal ligation [id number] [facility] Ablation [id number] [facility] Pacemaker care<sup>2</sup> [id number] defib [facility] section<sup>1</sup> 25329805 x2 [facility] Cholecystectomy 39002585 [facility] Permanent cardiac pacemaker procedure [id number] [facility] Spinal fusion [id number] [facility] Tubal ligation [id number] [facility]
--- OUTSIDE RECORDS SUMMARY | 2018-09-23 10:45 | XMS REPORT | Summary of Care ---
Author Organization Unknown Address Unknown Phone Unavailable Encounter [facility] Sara(SOLITARIO) [id number] Date(s): 09/21/14 - 09/21/[address] [facility] [address] Discharge Diagnosis: Dehydration Discharge Diagnosis: Paresthesia Discharge Disposition: Home Physician Attending: Kd Trinidad MD Reason for Visit R ARM PAIN Vital Signs 1 2 3 Most recent to oldest [Reference Range]: 157.48 cm (09/21/14 1:51 PM) Height 97.7 DegF (09/21/14 5:24 PM) 98.3 DegF (09/21/14 1:51 PM) Temperature Oral [96.4-99.1 DegF] 105 mmHg (09/21/14 5:24 PM) 99 mmHg (09/21/14 4:33 PM) 96 mmHg (09/21/14 3:33 PM) Systolic Blood Pressure [90-140 mmHg] 61 mmHg (09/21/14 5:24 PM) 55 mmHg *LOW* (09/21/14 4:33 PM) 68 mmHg (09/21/14 3:33 PM) Diastolic Blood Pressure [60-90 mmHg] 17 BRMIN (09/21/14 5:24 PM) 16 BRMIN (09/21/14 4:33 PM) 16 BRMIN (09/21/14 3:33 PM) Respiratory Rate [14-20 BRMIN] 82 bpm (09/21/14 5:24 PM) 90 bpm (09/21/14 4:33 PM) 90 bpm (09/21/14 3:33 PM) Peripheral Pulse Rate [60-100 bpm] 65.909 kg (09/21/14 1:51 PM) Weight 26.58 m2 (09/21/14 1:51 PM) Body Mass Index Problem List Condition Effective Dates Status Health Status Informant ADHD (attention Resolved deficit hyperactivity disorder)(Confirmed) Blood Active clot(Confirmed) CHF (congestive Resolved heart failure)(Confirmed) Herniated Resolved disc(Confirmed) Hypertension(Confirm Resolved ed) Stroke(Confirmed)1 Resolved 1pt states diagnosed with stroke Friday 09/01 at [facility] Allergies, Adverse Reactions, Alerts Substance Reaction Severity Status Bicillin L-A Active Mucinex Active Zoloft Active Medications Coumadin 5 mg, Route: PO, ONCE, Dosing Weight 65.909, kg, Priority: STAT, Start date: 17:26:00, Stop date: 09/21/14 17:26:00 Start Date: 09/21/14 Stop Date: 09/21/14 Status: Discontinued Sodium Chloride 0.9% (Bolus) IV 1,000 mL, 1000 ml/hr, Infuse Over: 1 hr, Route: IV, 1,000, Drug form: INJ, ONCE, Priority: STAT, Dosing Weight 65.909 kg, Start date: 09/21/14 15:10:00, Duratio n: 1 doses or times, Stop date: 09/21/14 15:10:00 Start Date: 09/21/14 Stop Date: 09/21/14 Status: Completed Tylenol with Codeine #3 oral tablet See Instructions, Pain, 1 - 2 tab PO Q4H 2, # 24 tab, 0 Refill(s) Special Instructions: 1 - 2 tab PO Q4H 2 Start Date: 09/21/14 Status: Ordered Results ELECTROLYTES Most recent to 1 oldest [Reference Range]: Sodium Lvl [135-145 142 mEq/L mEq/L] (09/21/14 3:30 PM) Potassium Lvl 5.3 mEq/L [3.5-5.1 mEq/L] *HI* (09/21/14 3:30 PM) Chloride Lvl [95-109 104 mEq/L mEq/L] (09/21/14 3:30 PM) CO2 [24-32 mEq/L] 32 mEq/L (09/21/14 3:30 PM) AGAP [10.0-20.0 11.3 mEq/L mEq/L] (09/21/14 3:30 PM) CHEM PANEL Most recent to 1 oldest [Reference Range]: Creatinine Lvl 1.0 mg/dL [0.5-1.4 mg/dL] (09/21/14 3:30 PM) eGFR 71 mL/min/1.73m2 1 *NA* (09/21/14 3:30 PM) BUN [7-22 mg/dL] 9 mg/dL (09/21/14 3:30 PM) B/C Ratio [6-25] 9 (09/21/14 3:30 PM) Glucose Lvl [70-99 97 mg/dL 2 mg/dL] (09/21/14 3:30 PM) Total Protein 7.1 g/dL [6.4-8.4 g/dL] (09/21/14 3:30 PM) Albumin Lvl [3.5-5.0 2.8 g/dL g/dL] *LOW* (09/21/14 3:30 PM) Globulin [2.0-4.0 4.3 g/dL g/dL] *HI* (09/21/14 3:30 PM) A/G Ratio [0.7-1.6] 0.7 (09/21/14 3:30 PM) Calcium Lvl 9.2 mg/dL [8.5-10.5 mg/dL] (09/21/14 3:30 PM) ALT [0-65 unit/L] 56 unit/L (09/21/14 3:30 PM) AST [0-37 unit/L] 43 unit/L *HI* (09/21/14 3:30 PM) Alk Phos [39-136 173 unit/L unit/L] *HI* (09/21/14 3:30 PM) Bili Total [0.2-1.3 0.3 mg/dL mg/dL] (09/21/14 3:30 PM) 1Result Comment: The eGFR is calculated using [...] be mul tiplied by the estimated BMI. 2Interpretive Data: Adult reference range values reflect the clinical guidelines of the [place] [employer]. URINE CHEM Most recent to 1 oldest [Reference Range]: U Preg [Negative] Negative (09/21/14 4:12 PM) URINE AND STOOL Most recent to 1 oldest [Reference Range]: UA Turbidity [Clear] Clear (09/21/14 4:12 PM) UA Color [Yellow] Yellow *NA* (09/21/14 4:12 PM) UA pH [5.0-8.0] 6.5 (09/21/14 4:12 PM) UA Spec Grav <=1.005 [<=1.030] *NA* (09/21/14 4:12 PM) UA Glucose Negative [Negative] (09/21/14 4:12 PM) UA Blood [Negative] Negative (09/21/14 4:12 PM) UA Ketones Negative [Negative] *NA* (09/21/14 4:12 PM) UA Protein Negative [Negative] (09/21/14 4:12 PM) UA Urobilinogen 0.2 EU/dL [0.1-1.0 EU/dL] (09/21/14 4:12 PM) UA Bili [Negative] Negative *NA* (09/21/14 4:12 PM) UA Leuk Est Negative [Negative] (09/21/14 4:12 PM) UA Nitrite Negative [Negative] (09/21/14 4:12 PM) UA WBC [None Seen 0-2 /HPF /HPF] (09/21/14 4:12 PM) UA RBC [0-2] None Seen (09/21/14 4:12 PM) UA Bacteria [None Occasional /HPF Seen /HPF] (09/21/14 4:12 PM) UA Sq Epi [Few /LPF] Rare /LPF (09/21/14 4:12 PM) HEMATOLOGY Most recent to 1 oldest [Reference Range]: WBC [3.7-10.4 K/CMM] 8.2 K/CMM (09/21/14 3:30 PM) RBC [4.20-5.40 3.18 M/CMM M/CMM] *LOW* (09/21/14 3:30 PM) Hgb [12.0-16.0 g/dL] 10.5 g/dL *LOW* (09/21/14 3:30 PM) Hct [36.0-48.0 %] 30.4 % *LOW* (09/21/14 3:30 PM) MCV [80.0-98.0 fL] 95.5 fL (09/21/14 3:30 PM) MCH [27.0-31.0 pg] 33.0 pg *HI* (09/21/14 3:30 PM) MCHC [32.0-36.0 34.5 g/dL g/dL] (09/21/14 3:30 PM) RDW [11.5-14.5 %] 13.1 % (09/21/14 3:30 PM) Platelet [133-450 373 K/CMM K/CMM] (09/21/14 3:30 PM) MPV [7.4-10.4 fL] 6.9 fL *LOW* (09/21/14 3:30 PM) Segs [45.0-75.0 %] 72.4 % (09/21/14 3:30 PM) Lymphocytes 20.5 % [20.0-40.0 %] (09/21/14 3:30 PM) Monocytes [2.0-12.0 5.1 % %] (09/21/14 3:30 PM) Eosinophils [0.0-4.0 1.5 % %] (09/21/14 3:30 PM) Basophils [0.0-1.0 0.5 % %] (09/21/14 3:30 PM) Segs-Bands # 5.9 K/CMM [1.5-8.1 K/CMM] (09/21/14 3:30 PM) Lymphocytes # 1.7 K/CMM [1.0-5.5 K/CMM] (09/21/14 3:30 PM) Monocytes # [0.0-0.8 0.4 K/CMM K/CMM] (09/21/14 3:30 PM) Eosinophils # 0.1 K/CMM [0.0-0.5 K/CMM] (09/21/14 3:30 PM) Medications Administered During Your Visit No data available for this section Immunizations No data available for this section Social History Social History Type Response Substance Abuse 1 Alcohol Use: Past Smoking Status Never smoker, Exposure to Tobacco Smoke None, Cigarette Smoking Last 365 Days No, Reg Smoking Cessation Counseling No 1pt denies
--- OUTSIDE RECORDS SUMMARY | 2018-09-23 10:46 | XMS REPORT | Summary of Care ---
Author Author [facility] Organization [facility] Address Unknown Phone Unavailable Encounter HQ Sara(FIN) [phone] Date(s): 07/27/17 - 07/28/17 [facility] [address] [place] [address]- Discharge Diagnosis: Acute upper respiratory infection Discharge Disposition: Home or Self Care Attending Physician: Celia Hernandez DO Vital Signs 1 2 3 Most recent to oldest [Reference Range]: 157.48 cm (07/27/17 3:06 PM) Height 97.7 DegF (07/28/17 12:42 AM) 98.8 DegF (07/27/17 7:36 PM) 97.9 DegF (07/27/17 3:06 PM) Temperature Oral [96.4-99.1 DegF] 113/80 mmHg (07/28/17 12:42 AM) 103/75 mmHg (07/27/17 7:36 PM) 113/77 mmHg (07/27/17 3:06 PM) Blood Pressure [90-140/60-90 mmHg] 17 BRMIN (07/28/17 12:42 AM) 16 BRMIN (07/27/17 7:36 PM) 18 BRMIN (07/27/17 3:06 PM) Respiratory Rate [14-20 BRMIN] 88 bpm (07/27/17 7:36 PM) 89 bpm (07/27/17 3:06 PM) Peripheral Pulse Rate [60-100 bpm] 59.091 kg (07/27/17 3:06 PM) Weight 23.83 m2 (07/27/17 3:06 PM) Body Mass Index Problem List Condition Effective Dates Status Health Status Informant ADHD (attention Resolved deficit hyperactivity disorder)(Confirmed) Anxiety(Confirmed) Resolved Hematuria(Confirmed) Resolved Cardiac Resolved arrest(Confirmed) Cardiac Resolved pacemaker(Confirmed) 1 CHF (congestive Active heart failure)(Confirmed)2 CHF - Congestive 07/09/11 Resolved heart failure(Confirmed) CKD (chronic kidney Active disease)(Confirmed)3 DVT (deep venous Resolved thrombosis)(Confirme d) SOB (shortness of Resolved breath)(Confirmed) Herniated Resolved disc(Confirmed) HT - Resolved Hypertension(Confirm ed) Hypertension(Confirm Resolved ed) Kidney Active infection(Confirmed) IA (myocardial Resolved infarction)(Confirme d) Myocarditis(Confirme Resolved d) Palpitations(Confirm Resolved ed)4 Angina pectoris, Active unstable(Confirmed) Pulmonary Resolved embolism(Confirmed) Stroke(Confirmed)5 Resolved 1defib 2ef 20% 3eccmo 4heart 5pt states diagnosed with stroke Friday 09/01 at [facility] Allergies, Adverse Reactions, Alerts Substance Reaction Severity Status Zoloft Active Decadron Active Bicillin L-A Active Mucinex Active traMADol Active Medications Cepacol Sore Throat Pain Relief [place] mucous membrane lozenge 1 lozenge, PO, Q2H, PRN for sore throat, X 2 day, # 18 ea, 0 Refill(s) Start Date: 07/28/17 Stop Date: 07/30/17 Status: Completed Saline Flush 0.9% 10 mL, Route: IVP, Drug Form: INJ, Dosing Weight 63.636, kg, PRN, PRN Line Flush , Start date: 07/27/17 15:11:00 MOVIE ACTOR, Duration: 30 day, Stop date: 08/26/17 15:10 :00 MOVIE ACTOR Notes: (Same as: BD Posiflush) Start Date: 07/27/17 Stop Date: 07/28/17 Status: Discontinued Results ELECTROLYTES Most recent to 1 2 oldest [Reference Range]: Sodium Lvl [135-145 131 mEq/L mEq/L] *LOW* (07/27/17 6:24 PM) Potassium Lvl 3.3 mEq/L [3.5-5.1 mEq/L] *LOW* (07/27/17 6:24 PM) Chloride Lvl [95-109 95 mEq/L mEq/L] (07/27/17 6:24 PM) CO2 [24-32 mEq/L] 24 mEq/L (07/27/17 6:24 PM) AGAP [10.0-20.0 15.3 mEq/L mEq/L] (07/27/17 6:24 PM) CHEM PANEL Most recent to 1 2 oldest [Reference Range]: Creatinine Lvl 2.14 mg/dL [0.50-1.40 mg/dL] *HI* (07/27/17 6:24 PM) eGFR 28 mL/min/1.73m2 1 *NA* (07/27/17 6:24 PM) BUN [7-22 mg/dL] 21 mg/dL (07/27/17 6:24 PM) B/C Ratio [6-25] 10 (07/27/17 6:24 PM) Glucose Lvl [70-99 87 mg/dL mg/dL] (07/27/17 6:24 PM) Total Protein 9.5 g/dL [6.4-8.4 g/dL] *HI* (07/27/17 6:24 PM) Albumin Lvl [3.5-5.0 4.8 g/dL g/dL] (07/27/17 6:24 PM) Globulin [2.7-4.2 4.7 g/dL g/dL] *HI* (07/27/17 6:24 PM) A/G Ratio [0.7-1.6] 1.0 (07/27/17 6:24 PM) Calcium Lvl 9.5 mg/dL [8.5-10.5 mg/dL] (07/27/17 6:24 PM) ALT [0-65 unit/L] 24 unit/L (07/27/17 6:24 PM) AST [0-37 unit/L] 16 unit/L (07/27/17 6:24 PM) Alk Phos [39-136 155 unit/L unit/L] *HI* (07/27/17 6:24 PM) Bili Total [0.2-1.3 0.7 mg/dL mg/dL] (07/27/17 6:24 PM) 1Result Comment: The eGFR is calculated [...] be mul tiplied by the estimated BMI. CARDIAC ENZYMES Most recent to 1 2 oldest [Reference Range]: Total CK [12-191 202 unit/L unit/L] *HI* (07/27/17 6:24 PM) CK MB [0.5-3.6 3.8 ng/mL ng/mL] *HI* (07/27/17 6:24 PM) CK MB Index 1.9 [0.0-2.5] (07/27/17 6:24 PM) Troponin-I <0.02 ng/mL <0.02 ng/mL [0.00-0.40 ng/mL] (07/27/17 10:33 PM) (07/27/17 6:24 PM) BNP [<=100 pg/mL] 30 pg/mL (07/27/17 6:24 PM) URINE AND STOOL Most recent to 1 2 oldest [Reference Range]: UA Turbidity [Clear] Clear (07/27/17 10:33 PM) UA Color Ltyellow *NA* (07/27/17 10:33 PM) UA pH [5.0-8.0] 7.0 (07/27/17 10:33 PM) UA Spec Grav 1.003 [<=1.030] (07/27/17 10:33 PM) UA Glucose [Negative Negative mg/dL mg/dL] *NA* (07/27/17 10:33 PM) UA Blood [Negative] Negative (07/27/17 10:33 PM) UA Ketones [Negative Negative mg/dL mg/dL] *NA* (07/27/17 10:33 PM) UA Protein [Negative Negative mg/dL mg/dL] (07/27/17 10:33 PM) UA Urobilinogen <=1.0 mg/dL [0.1-1.0 mg/dL] *NA* (07/27/17 10:33 PM) UA Bili [Negative] Negative *NA* (07/27/17 10:33 PM) UA Leuk Est Trace [Negative] *ABN* (07/27/17 10:33 PM) UA Nitrite Negative [Negative] (07/27/17 10:33 PM) UA WBC [0-5 /HPF] 2 /HPF (07/27/17 10:33 PM) UA RBC [0-2 /HPF] 1 /HPF (07/27/17 10:33 PM) UA Bacteria [None Occasional /HPF Seen /HPF] *NA* (07/27/17 10:33 PM) UA Sq Epi [Few /LPF] Occasional /LPF *NA* (07/27/17 10:33 PM) HEMATOLOGY Most recent to 1 2 oldest [Reference Range]: WBC [3.7-10.4 K/CMM] 13.3 K/CMM *HI* (07/27/17 6:24 PM) RBC [4.20-5.40 3.58 M/CMM M/CMM] *LOW* (07/27/17 6:24 PM) Hgb [12.0-16.0 g/dL] 12.3 g/dL (07/27/17 6:24 PM) Hct [36.0-48.0 %] 34.3 % *LOW* (07/27/17 6:24 PM) MCV [80.0-98.0 fL] 95.8 fL (07/27/17 6:24 PM) MCH [27.0-31.0 pg] 34.4 pg *HI* (07/27/17 6:24 PM) MCHC [32.0-36.0 35.9 g/dL g/dL] (07/27/17 6:24 PM) RDW [11.5-14.5 %] 12.6 % (07/27/17 6:24 PM) Platelet [133-450 192 K/CMM K/CMM] (07/27/17 6:24 PM) MPV [7.4-10.4 fL] 8.4 fL (07/27/17 6:24 PM) Segs [45.0-75.0 %] 75.0 % (07/27/17 6:24 PM) Lymphocytes 13.6 % [20.0-40.0 %] *LOW* (07/27/17 6:24 PM) Monocytes [2.0-12.0 9.4 % %] (07/27/17 6:24 PM) Eosinophils [0.0-4.0 1.2 % %] (07/27/17 6:24 PM) Basophils [0.0-1.0 0.8 % %] (07/27/17 6:24 PM) Segs-Bands # 10.0 K/CMM [1.5-8.1 K/CMM] *HI* (07/27/17 6:24 PM) Lymphocytes # 1.8 K/CMM [1.0-5.5 K/CMM] (07/27/17 6:24 PM) Monocytes # [0.0-0.8 1.3 K/CMM K/CMM] *HI* (07/27/17 6:24 PM) Eosinophils # 0.2 K/CMM [0.0-0.5 K/CMM] (07/27/17 6:24 PM) Basophils # [0.0-0.2 0.1 K/CMM K/CMM] (07/27/17 6:24 PM) RAPID Most recent to 1 2 oldest [Reference Range]: Grp A Strep Scr Negative [Negative] (07/27/17 6:24 PM) VIRAL - SEROLOGY Most recent to 1 2 oldest [Reference Range]: Influ A [Negative] Negative (07/27/17 6:24 PM) Influ B [Negative] Negative (07/27/17 6:24 PM) Immunizations No data available for this section Procedures Procedure Date Related Diagnosis Body Site Ablation section1 Cholecystectomy Pacemaker care2 Permanent cardiac pacemaker procedure Spinal fusion Tubal ligation 1x2 2defib Social History Social History Type Response Substance Abuse 1 Alcohol Past Smoking Status Never smoker; Exposure to Tobacco Smoke None; Cigarette Smoking Last 365 Days No; Reg Smoking Cessation Counseling No 1pt denies Assessment and Plan No data available for this section
--- OUTSIDE RECORDS SUMMARY | 2018-09-23 10:46 | XMS REPORT | Summary of Care ---
Author Author [facility] Organization [facility] Address Unknown Phone Unavailable Encounter IAN Ruiz(SOLITARIO) [id number] Date(s): 07/09/15 - 07/09/15 [facility] [address] [place] [address]- Discharge Diagnosis: Urinary tract infection, site not specified Discharge Disposition: Home Attending Physician: Nini Amos DO Vital Signs 1 2 3 Most recent to oldest [Reference Range]: 157.48 cm (07/09/15 1:29 PM) Height 98.2 DegF (07/09/15 6:48 PM) 98.4 DegF (07/09/15 1:29 PM) Temperature Oral [96.4-99.1 DegF] 118/78 mmHg (07/09/15 6:48 PM) 145/96 mmHg *HI* (07/09/15 1:29 PM) Blood Pressure [90-140/60-90 mmHg] 109 mmHg (07/09/15 5:24 PM) Systolic Blood Pressure [90-140 mmHg] 75 mmHg (07/09/15 5:24 PM) Diastolic Blood Pressure [60-90 mmHg] 16 BRMIN (07/09/15 6:48 PM) 18 BRMIN (07/09/15 5:24 PM) 18 BRMIN (07/09/15 1:29 PM) Respiratory Rate [14-20 BRMIN] 98 bpm (07/09/15 6:48 PM) 103 bpm *HI* (07/09/15 5:24 PM) 103 bpm *HI* (07/09/15 1:29 PM) Peripheral Pulse Rate [60-100 bpm] 61.364 kg (07/09/15 1:29 PM) Weight 24.74 m2 (07/09/15 1:29 PM) Body Mass Index Problem List Condition Effective Dates Status Health Status Informant ADHD (attention Resolved deficit hyperactivity disorder)(Confirmed) Blood Active clot(Confirmed) CHF (congestive Resolved heart failure)(Confirmed) Herniated Resolved disc(Confirmed) Hypertension(Confirm Resolved ed) Stroke(Confirmed)1 Resolved 1pt states diagnosed with stroke Friday 09/01 at [facility] Allergies, Adverse Reactions, Alerts Substance Reaction Severity Status Bicillin L-A Active Mucinex Active Zoloft Active Medications morphine Sulfate 4 mg, Route: IVP, Drug form: INJ, ONCE, Dosing Weight 61.364, kg, Priority: STAT , Start date: 07/09/15 18:07:00, Stop date: 07/09/15 18:07:00 Start Date: 07/09/15 Stop Date: 07/09/15 Status: Completed Motrin 800 mg oral tablet 800 mg=1 tab, PO, Q8H, PRN Pain, Take with food, # 30 tab, 0 Refill(s) Start Date: 07/09/15 Status: Ordered nitrofurantoin macrocrystals 100 mg oral capsule (Macrodantin) 100 mg=1 cap, PO, BID, X 10 day, # 20 cap, 0 Refill(s) Start Date: 07/09/15 Stop Date: 07/19/15 Status: Ordered ondansetron 4 mg, Route: IVP, Drug form: INJ, ONCE, Dosing Weight 61.364, kg, Priority: STAT , Start date: 07/09/15 18:08:00, Stop date: 07/09/15 18:08:00 Start Date: 07/09/15 Stop Date: 07/09/15 Status: Completed Rocephin 1 gm, Route: IVPB, Drug form: PDR/INJ, ONCE, Dosing Weight 61.364, kg, Priority: STAT, Start date: 07/09/15 17:54:00, Stop date: 07/09/15 17:54:00 Start Date: 07/09/15 Stop Date: 07/09/15 Status: Completed Results ELECTROLYTES Most recent to 1 oldest [Reference Range]: Sodium Lvl [135-145 131 mEq/L mEq/L] *LOW* (07/09/15 3:58 PM) Potassium Lvl 4.0 mEq/L [3.5-5.1 mEq/L] (07/09/15 3:58 PM) Chloride Lvl [95-109 96 mEq/L mEq/L] (07/09/15 3:58 PM) CO2 [24-32 mEq/L] 26 mEq/L (07/09/15 3:58 PM) AGAP [10.0-20.0 13.0 mEq/L mEq/L] (07/09/15 3:58 PM) CHEM PANEL Most recent to 1 oldest [Reference Range]: Creatinine Lvl 1.42 mg/dL [0.50-1.40 mg/dL] *HI* (07/09/15 3:58 PM) eGFR 46 mL/min/1.73m2 1 *NA* (07/09/15 3:58 PM) BUN [7-22 mg/dL] 26 mg/dL *HI* (07/09/15 3:58 PM) B/C Ratio [6-25] 18 (07/09/15 3:58 PM) Glucose Lvl [70-99 87 mg/dL mg/dL] (07/09/15 3:58 PM) Total Protein 9.3 g/dL [6.4-8.4 g/dL] *HI* (07/09/15 3:58 PM) Albumin Lvl [3.5-5.0 4.7 g/dL g/dL] (07/09/15 3:58 PM) Globulin [2.0-4.0 4.6 g/dL g/dL] *HI* (07/09/15 3:58 PM) A/G Ratio [0.7-1.6] 1.0 (07/09/15 3:58 PM) Calcium Lvl 9.5 mg/dL [8.5-10.5 mg/dL] (07/09/15 3:58 PM) ALT [0-65 unit/L] 23 unit/L (07/09/15 3:58 PM) AST [0-37 unit/L] 17 unit/L (07/09/15 3:58 PM) Alk Phos [39-136 90 unit/L unit/L] (07/09/15 3:58 PM) Bili Total [0.2-1.3 0.7 mg/dL mg/dL] (07/09/15 3:58 PM) 1Result Comment: The eGFR is calculated [...] BMI. CARDIAC ENZYMES Most recent to 1 oldest [Reference Range]: Total CK [12-191 64 unit/L unit/L] (07/09/15 3:58 PM) CK MB [0.5-3.6 <0.5 ng/mL ng/mL] (07/09/15 3:58 PM) CK MB Index <0.8 [0.0-2.5] (07/09/15 3:58 PM) Troponin-I <0.02 ng/mL [0.00-0.40 ng/mL] (07/09/15 3:58 PM) URINE CHEM Most recent to 1 oldest [Reference Range]: U Preg [Negative] Negative (07/09/15 1:50 PM) URINE AND STOOL Most recent to 1 oldest [Reference Range]: UA Turbidity [Clear] Marked *ABN* (07/09/15 1:50 PM) UA Color Ltyellow *NA* (07/09/15 1:50 PM) UA pH [5.0-8.0] 6.0 (07/09/15 1:50 PM) UA Spec Grav 1.004 [<=1.030] (07/09/15 1:50 PM) UA Glucose [Negative Negative mg/dL mg/dL] *NA* (07/09/15 1:50 PM) UA Blood [Negative] Negative (07/09/15 1:50 PM) UA Ketones [Negative Negative mg/dL mg/dL] *NA* (07/09/15 1:50 PM) UA Protein [Negative Negative mg/dL mg/dL] (07/09/15 1:50 PM) UA Urobilinogen <=1.0 mg/dL [0.1-1.0 mg/dL] *NA* (07/09/15 1:50 PM) UA Bili [Negative] Negative *NA* (07/09/15 1:50 PM) UA Leuk Est Small [Negative] *ABN* (07/09/15 1:50 PM) UA Nitrite Positive [Negative] *ABN* (07/09/15 1:50 PM) UA WBC [0-5 /HPF] 11 /HPF *HI* (07/09/15 1:50 PM) UA RBC [0-2 /HPF] <1 /HPF (07/09/15 1:50 PM) UA Bacteria [None Occasional /HPF Seen /HPF] *NA* (07/09/15 1:50 PM) UA Sq Epi [Few /LPF] Few /LPF *NA* (07/09/15 1:50 PM) HEMATOLOGY Most recent to 1 oldest [Reference Range]: WBC [3.7-10.4 K/CMM] 9.8 K/CMM (07/09/15 3:58 PM) RBC [4.20-5.40 4.08 M/CMM M/CMM] *LOW* (07/09/15 3:58 PM) Hgb [12.0-16.0 g/dL] 13.7 g/dL (07/09/15 3:58 PM) Hct [36.0-48.0 %] 40.5 % (07/09/15 3:58 PM) MCV [80.0-98.0 fL] 99.3 fL *HI* (07/09/15 3:58 PM) MCH [27.0-31.0 pg] 33.6 pg *HI* (07/09/15 3:58 PM) MCHC [32.0-36.0 33.8 g/dL g/dL] (07/09/15 3:58 PM) RDW [11.5-14.5 %] 13.2 % (07/09/15 3:58 PM) Platelet [133-450 191 K/CMM K/CMM] (07/09/15 3:58 PM) MPV [7.4-10.4 fL] 8.5 fL (07/09/15 3:58 PM) Segs [45.0-75.0 %] 78.5 % *HI* (07/09/15 3:58 PM) Lymphocytes 14.9 % [20.0-40.0 %] *LOW* (07/09/15 3:58 PM) Monocytes [2.0-12.0 5.5 % %] (07/09/15 3:58 PM) Eosinophils [0.0-4.0 0.4 % %] (07/09/15 3:58 PM) Basophils [0.0-1.0 0.7 % %] (07/09/15 3:58 PM) Segs-Bands # 7.7 K/CMM [1.5-8.1 K/CMM] (07/09/15 3:58 PM) Lymphocytes # 1.5 K/CMM [1.0-5.5 K/CMM] (07/09/15 3:58 PM) Monocytes # [0.0-0.8 0.5 K/CMM K/CMM] (07/09/15 3:58 PM) Basophils # [0.0-0.2 0.1 K/CMM K/CMM] (07/09/15 3:58 PM) Macrocyte [None 1+ Seen] *ABN* (07/09/15 3:58 PM) Immunizations No data available for this section Procedures Procedure Date Related Diagnosis Body Site section1 Cholecystectomy Permanent cardiac pacemaker procedure Spinal fusion Tubal ligation 1x2 Social History Social History Type Response Substance Abuse 1 Alcohol Past Smoking Status Never smoker; Exposure to Tobacco Smoke None; Cigarette Smoking Last 365 Days No; Reg Smoking Cessation Counseling No 1pt denies Assessment and Plan No data available for this section
--- OUTSIDE RECORDS SUMMARY | 2018-09-23 10:46 | XMS REPORT | Summary of Care ---
Author Author [facility] Organization [facility] Address Unknown Phone Unavailable Encounter IAN Ruiz(SOLITARIO) [id number] Date(s): 08/19/16 - 08/20/16 [facility] [address] [place] [address]- [phone] Discharge Diagnosis: Acute anxiety Discharge Diagnosis: GI bleeding Discharge Diagnosis: Heart palpitations Discharge Diagnosis: Abdominal pain Discharge Disposition: Home or Self Care Attending Physician: Patricia Wagner MD Vital Signs 1 2 3 Most recent to oldest [Reference Range]: 157.48 cm (08/19/16 5:05 PM) Height 98.4 DegF (08/19/16 5:05 PM) Temperature Oral [96.4-99.1 DegF] 99/65 mmHg (08/20/16 12:35 AM) 105/63 mmHg (08/19/16 10:00 PM) 100/59 mmHg (08/19/16 8:29 PM) Blood Pressure [90-140/60-90 mmHg] 16 BRMIN (08/20/16 12:35 AM) 16 BRMIN (08/19/16 10:00 PM) 18 BRMIN (08/19/16 8:29 PM) Respiratory Rate [14-20 BRMIN] 76 bpm (08/20/16 12:35 AM) 80 bpm (08/19/16 10:00 PM) 84 bpm (08/19/16 8:29 PM) Peripheral Pulse Rate [60-100 bpm] 63.636 kg (08/19/16 5:05 PM) Weight 25.66 m2 (08/19/16 5:05 PM) Body Mass Index Problem List Condition Effective Dates Status Health Status Informant ADHD (attention Resolved deficit hyperactivity disorder)(Confirmed) Anxiety(Confirmed) Resolved Cardiac Resolved pacemaker(Confirmed) CHF (congestive Resolved heart failure)(Confirmed) CHF - Congestive 07/09/11 Resolved heart failure(Confirmed) Herniated Resolved disc(Confirmed) HT - Resolved Hypertension(Confirm ed) Hypertension(Confirm Resolved ed) Stroke(Confirmed)1 Resolved 1pt states diagnosed with stroke Friday 09/01 at [facility] Allergies, Adverse Reactions, Alerts Substance Reaction Severity Status Bicillin L-A Active Decadron Active Mucinex Active traMADol Active Zoloft Active Medications [place] 5/325 oral tablet 1 tab, Route: PO, Drug Form: TAB, Dosing Weight 63.636, kg, ONCE, STAT, Start da te: 08/19/16 21:36:00 CRITICAL CARE NURSE, Stop date: 08/19/16 21:36:00 CRITICAL CARE NURSE Notes: (Same as: [place] 325/5) Do not exceed 4gm/day of acetaminophen. Start Date: 08/19/16 Stop Date: 08/19/16 Status: Completed Saline Flush 0.9% 10 mL, Route: IVP, Drug Form: INJ, Dosing Weight 61.364, kg, PRN, PRN Line Flush , Start date: 08/19/16 17:07:00 CRITICAL CARE NURSE, Duration: 30 day, Stop date: 09/18/16 17:06 :00 CRITICAL CARE NURSE Notes: (Same as: BD Posiflush) Start Date: 08/19/16 Stop Date: 08/20/16 Status: Discontinued Results ELECTROLYTES Most recent to 1 oldest [Reference Range]: Sodium Lvl [135-145 138 mEq/L mEq/L] (08/19/16 5:56 PM) Potassium Lvl 3.6 mEq/L [3.5-5.1 mEq/L] (08/19/16 5:56 PM) Chloride Lvl [95-109 104 mEq/L mEq/L] (08/19/16 5:56 PM) CO2 [24-32 mEq/L] 23 mEq/L *LOW* (08/19/16 5:56 PM) AGAP [10.0-20.0 14.6 mEq/L mEq/L] (08/19/16 5:56 PM) CHEM PANEL Most recent to 1 oldest [Reference Range]: Creatinine Lvl 0.99 mg/dL [0.50-1.40 mg/dL] (08/19/16 5:56 PM) eGFR 71 mL/min/1.73m2 1 *NA* (08/19/16 5:56 PM) BUN [7-22 mg/dL] 11 mg/dL (08/19/16 5:56 PM) B/C Ratio [6-25] 11 (08/19/16 5:56 PM) Glucose Lvl [70-99 96 mg/dL mg/dL] (08/19/16 5:56 PM) Total Protein 7.8 g/dL [6.4-8.4 g/dL] (08/19/16 5:56 PM) Albumin Lvl [3.5-5.0 3.6 g/dL g/dL] (08/19/16 5:56 PM) Globulin [2.7-4.2 4.2 g/dL g/dL] (08/19/16 5:56 PM) A/G Ratio [0.7-1.6] 0.9 (08/19/16 5:56 PM) Calcium Lvl 8.2 mg/dL [8.5-10.5 mg/dL] *LOW* (08/19/16 5:56 PM) ALT [0-65 unit/L] 22 unit/L (08/19/16 5:56 PM) AST [0-37 unit/L] 25 unit/L (08/19/16 5:56 PM) Alk Phos [39-136 91 unit/L unit/L] (08/19/16 5:56 PM) Bili Total [0.2-1.3 0.4 mg/dL mg/dL] (08/19/16 5:56 PM) Lipase Lvl [73-393 139 unit/L unit/L] (08/19/16 5:56 PM) 1Result Comment: The eGFR is calculated [...] 1 oldest [Reference Range]: Total CK [12-191 88 unit/L unit/L] (08/19/16 5:56 PM) CK MB [0.5-3.6 <0.5 ng/mL ng/mL] (08/19/16 5:56 PM) CK MB Index <0.6 [0.0-2.5] (08/19/16 5:56 PM) Troponin-I <0.02 ng/mL [0.00-0.40 ng/mL] (08/19/16 5:56 PM) URINE CHEM Most recent to 1 oldest [Reference Range]: U Preg [Negative] Negative (08/19/16 5:57 PM) URINE AND STOOL Most recent to 1 oldest [Reference Range]: UA Turbidity [Clear] Clear (08/19/16 5:57 PM) UA Color Colorless *NA* (08/19/16 5:57 PM) UA pH [5.0-8.0] 6.0 (08/19/16 5:57 PM) UA Spec Grav 1.004 [<=1.030] (08/19/16 5:57 PM) UA Glucose [Negative Negative mg/dL mg/dL] *NA* (08/19/16 5:57 PM) UA Blood [Negative] Negative (08/19/16 5:57 PM) UA Ketones [Negative Negative mg/dL mg/dL] *NA* (08/19/16 5:57 PM) UA Protein [Negative Negative mg/dL mg/dL] (08/19/16 5:57 PM) UA Urobilinogen <=1.0 mg/dL [0.1-1.0 mg/dL] *NA* (08/19/16 5:57 PM) UA Bili [Negative] Negative *NA* (08/19/16 5:57 PM) UA Leuk Est Negative [Negative] (08/19/16 5:57 PM) UA Nitrite Negative [Negative] (08/19/16 5:57 PM) UA WBC [0-5 /HPF] <1 /HPF (08/19/16 5:57 PM) UA Sq Epi None Seen *NA* (08/19/16 5:57 PM) Occult Bld Stl Positive [Negative] *ABN* (08/19/16 9:15 PM) HEMATOLOGY Most recent to 1 oldest [Reference Range]: WBC [3.7-10.4 K/CMM] 5.2 K/CMM (08/19/16 5:56 PM) RBC [4.20-5.40 3.31 M/CMM M/CMM] *LOW* (08/19/16 5:56 PM) Hgb [12.0-16.0 g/dL] 11.2 g/dL *LOW* (08/19/16 5:56 PM) Hct [36.0-48.0 %] 32.4 % *LOW* (08/19/16 5:56 PM) MCV [80.0-98.0 fL] 97.7 fL (08/19/16 5:56 PM) MCH [27.0-31.0 pg] 33.9 pg *HI* (08/19/16 5:56 PM) MCHC [32.0-36.0 34.7 g/dL g/dL] (08/19/16 5:56 PM) RDW [11.5-14.5 %] 13.5 % (08/19/16 5:56 PM) Platelet [133-450 163 K/CMM K/CMM] (08/19/16 5:56 PM) MPV [7.4-10.4 fL] 8.1 fL (08/19/16 5:56 PM) Segs [45.0-75.0 %] 72.7 % (08/19/16 5:56 PM) Lymphocytes 17.3 % [20.0-40.0 %] *LOW* (08/19/16 5:56 PM) Monocytes [2.0-12.0 8.1 % %] (08/19/16 5:56 PM) Eosinophils [0.0-4.0 1.5 % %] (08/19/16 5:56 PM) Basophils [0.0-1.0 0.4 % %] (08/19/16 5:56 PM) Segs-Bands # 3.8 K/CMM [1.5-8.1 K/CMM] (08/19/16 5:56 PM) Lymphocytes # 0.9 K/CMM [1.0-5.5 K/CMM] *LOW* (08/19/16 5:56 PM) Monocytes # [0.0-0.8 0.4 K/CMM K/CMM] (08/19/16 5:56 PM) Eosinophils # 0.1 K/CMM [0.0-0.5 K/CMM] (08/19/16 5:56 PM) PT [12.0-14.7 12.8 seconds seconds] (08/19/16 5:56 PM) INR [0.85-1.17] 0.94 (08/19/16 5:56 PM) PTT [22.9-35.8 31.7 seconds seconds] (08/19/16 5:56 PM) Immunizations No data available for this [...]
--- OUTSIDE RECORDS SUMMARY | 2018-09-23 10:46 | XMS REPORT ---
Author Author Yolanda Murphy Organization [employer] Address Unknown Phone Unavailable Care Team Providers Care Steward/Stewardess Room Name Role Phone Yolanda Murphy Unavailable Encounters Encounter Location Date Refill for losartan [facility] May 28, 2015 refill on Potassium [facility] Jun 25, 2015 refill for lasix [facility] Aug 08, 2015 losartan 50mg [facility] February 11, 2015 Wants to increase Losartan [facility] May 22, 2015 Unknown [facility] May 27, 2015 Problems Problem Type Condition ICD-9 Code Onset Dates Condition Status Problem S/P ICD (internal cardiac defibrillator) procedure Z95.810 Active Problem Congestive heart failure I50.9 Active Problem Cardiomyopathy I42.9 Active Problem HTN (hypertension) I10 Active Medications Medication Code System Code Instructions Start Date End Date Status Dosage Lasix MEDISPAN [address]-31 40 mg Orally twice a day (bid) Active 1 tablet Social History Social History Element Qualifiers Date Reported Tobacco Use: . Are you a: non-smoker Aug 05, 2015 Caffeine intake? . Status: Yes, What type: Coffee once a month Aug 05, 2015 Do you drink alcohol? . Status: No Aug 05, 2015 Summary Purpose [employer] Submission
--- OUTSIDE RECORDS SUMMARY | 2018-09-23 10:46 | XMS REPORT | Summary of Care ---
Author Author [facility] Organization [facility] Address Unknown Phone Unavailable Encounter IAN Ruiz([place]) [id number] Date(s): 10/01/15 - 10/01/15 [facility] [id number] [place] [address]- Discharge Diagnosis: Pain in left arm Discharge Diagnosis: Unspecified mood [affective] disorder Discharge Disposition: Home Attending Physician: Pretty Chase MD Vital Signs Most recent to 1 2 oldest [Reference Range]: Height 157.48 cm (10/01/15 12:06 PM) Temperature Oral 98.2 DegF 98.3 DegF [96.4-99.1 DegF] (10/01/15 2:59 PM) (10/01/15 12:06 PM) Blood Pressure 110/74 mmHg 108/76 mmHg [90-140/60-90 mmHg] (10/01/15 2:59 PM) (10/01/15 12:06 PM) Respiratory Rate 18 BRMIN 17 BRMIN [14-20 BRMIN] (10/01/15 2:59 PM) (10/01/15 12:06 PM) Peripheral Pulse 80 bpm 83 bpm Rate [60-100 bpm] (10/01/15 2:59 PM) (10/01/15 12:06 PM) Weight 61.364 kg (10/01/15 12:06 PM) Body Mass Index 24.74 m2 (10/01/15 12:06 PM) Problem List Condition Effective Dates Status Health Status Informant ADHD (attention Resolved deficit hyperactivity disorder)(Confirmed) Blood Active clot(Confirmed) CHF (congestive Resolved heart failure)(Confirmed) Herniated Resolved disc(Confirmed) Hypertension(Confirm Resolved ed) Stroke(Confirmed)1 Resolved 1pt states diagnosed with stroke Friday 09/01 at [facility] Allergies, Adverse Reactions, Alerts Substance Reaction Severity Status Bicillin L-A Active Mucinex Active Zoloft Active Medications No data available for this section Results ELECTROLYTES Most recent to 1 oldest [Reference Range]: Sodium Lvl [135-145 137 mEq/L mEq/L] (10/01/15 1:17 PM) Potassium Lvl 4.4 mEq/L [3.5-5.1 mEq/L] (10/01/15 1:17 PM) Chloride Lvl [95-109 103 mEq/L mEq/L] (10/01/15 1:17 PM) CO2 [24-32 mEq/L] 26 mEq/L (10/01/15 1:17 PM) AGAP [10.0-20.0 12.4 mEq/L mEq/L] (10/01/15 1:17 PM) CHEM PANEL Most recent to 1 oldest [Reference Range]: Creatinine Lvl 1.06 mg/dL [0.50-1.40 mg/dL] (10/01/15 1:17 PM) eGFR 66 mL/min/1.73m2 1 *NA* (10/01/15 1:17 PM) BUN [7-22 mg/dL] 18 mg/dL (10/01/15 1:17 PM) B/C Ratio [6-25] 17 (10/01/15 1:17 PM) Glucose Lvl [70-99 99 mg/dL mg/dL] (10/01/15 1:17 PM) Total Protein 8.2 g/dL [6.4-8.4 g/dL] (10/01/15 1:17 PM) Albumin Lvl [3.5-5.0 4.0 g/dL g/dL] (10/01/15 1:17 PM) Globulin [2.0-4.0 4.2 g/dL g/dL] *HI* (10/01/15 1:17 PM) A/G Ratio [0.7-1.6] 1.0 (10/01/15 1:17 PM) Calcium Lvl 8.3 mg/dL [8.5-10.5 mg/dL] *LOW* (10/01/15 1:17 PM) ALT [0-65 unit/L] 24 unit/L (10/01/15 1:17 PM) AST [0-37 unit/L] 19 unit/L (10/01/15 1:17 PM) Alk Phos [39-136 97 unit/L unit/L] (10/01/15 1:17 PM) Bili Total [0.2-1.3 0.3 mg/dL mg/dL] (10/01/15 1:17 PM) 1Result Comment: The eGFR is calculated [...] be mul tiplied by the estimated BMI. URINE AND STOOL Most recent to 1 oldest [Reference Range]: UA Turbidity [Clear] Clear (10/01/15 1:17 PM) UA Color Ltyellow *NA* (10/01/15 1:17 PM) UA pH [5.0-8.0] 7.0 (10/01/15 1:17 PM) UA Spec Grav 1.006 [<=1.030] (10/01/15 1:17 PM) UA Glucose [Negative Negative mg/dL mg/dL] *NA* (10/01/15 1:17 PM) UA Blood [Negative] Negative (10/01/15 1:17 PM) UA Ketones [Negative Negative mg/dL mg/dL] *NA* (10/01/15 1:17 PM) UA Protein [Negative Negative mg/dL mg/dL] (10/01/15 1:17 PM) UA Urobilinogen <=1.0 mg/dL [0.1-1.0 mg/dL] *NA* (10/01/15 1:17 PM) UA Bili [Negative] Negative *NA* (10/01/15 1:17 PM) UA Leuk Est Negative [Negative] (10/01/15 1:17 PM) UA Nitrite Positive [Negative] *ABN* (10/01/15 1:17 PM) UA WBC [0-5 /HPF] 3 /HPF (10/01/15 1:17 PM) UA RBC [0-2 /HPF] 6 /HPF *HI* (10/01/15 1:17 PM) UA Sq Epi None Seen *NA* (10/01/15 1:17 PM) HEMATOLOGY Most recent to 1 oldest [Reference Range]: WBC [3.7-10.4 K/CMM] 7.8 K/CMM (10/01/15 1:17 PM) RBC [4.20-5.40 3.58 M/CMM M/CMM] *LOW* (10/01/15 1:17 PM) Hgb [12.0-16.0 g/dL] 12.2 g/dL (10/01/15 1:17 PM) Hct [36.0-48.0 %] 35.7 % *LOW* (10/01/15 1:17 PM) MCV [80.0-98.0 fL] 99.6 fL *HI* (10/01/15 1:17 PM) MCH [27.0-31.0 pg] 34.1 pg *HI* (10/01/15 1:17 PM) MCHC [32.0-36.0 34.2 g/dL g/dL] (10/01/15 1:17 PM) RDW [11.5-14.5 %] 13.0 % (10/01/15 1:17 PM) Platelet [133-450 238 K/CMM K/CMM] (10/01/15 1:17 PM) MPV [7.4-10.4 fL] 8.0 fL (10/01/15 1:17 PM) Segs [45.0-75.0 %] 74.1 % (10/01/15 1:17 PM) Lymphocytes 16.7 % [20.0-40.0 %] *LOW* (10/01/15 1:17 PM) Monocytes [2.0-12.0 7.2 % %] (10/01/15 1:17 PM) Eosinophils [0.0-4.0 1.1 % %] (10/01/15 1:17 PM) Basophils [0.0-1.0 0.9 % %] (10/01/15 1:17 PM) Segs-Bands # 5.8 K/CMM [1.5-8.1 K/CMM] (10/01/15 1:17 PM) Lymphocytes # 1.3 K/CMM [1.0-5.5 K/CMM] (10/01/15 1:17 PM) Monocytes # [0.0-0.8 0.6 K/CMM K/CMM] (10/01/15 1:17 PM) Eosinophils # 0.1 K/CMM [0.0-0.5 K/CMM] (10/01/15 1:17 PM) Basophils # [0.0-0.2 0.1 K/CMM K/CMM] (10/01/15 1:17 PM) Macrocyte [None 1+ Seen] *ABN* (10/01/15 1:17 PM) Immunizations No data available for this [...]
--- OUTSIDE RECORDS SUMMARY | 2018-09-23 10:46 | XMS REPORT ---
Author Author Yolanda Murphy Organization [employer] Address Unknown Phone Unavailable Care Team Providers Care Mattress Packer Name Role Phone Yolanda Murphy Unavailable Encounters Encounter Location Date losartan 50mg [facility] February 11, 2015 Wants to increase Losartan [facility] May 22, 2015 Unknown [facility] May 27, 2015 Problems Problem Type Condition ICD-9 Code Onset Dates Condition Status Problem CHF 428.0 Active Problem Hypertension 401.0 Active Problem CMP 425.4 Active Problem S/P ICD V45.02 Active Medications Medication Code System Code Instructions Start Date End Date Status Dosage [facility] [address]-68 50 MG Orally Twice a day February 11, 2015 Active 1 tablet Social History Social History Element Qualifiers Date Reported Tobacco Use: . Are you a: non-smoker Apr 04, 2015 Caffeine intake? . Status: Yes, What type: Coffee once a month Apr 04, 2015 Do you drink alcohol? . Status: No Apr 04, 2015 Summary Purpose [employer] Submission
--- OUTSIDE RECORDS SUMMARY | 2018-09-23 10:46 | XMS REPORT | Summary of Care ---
Author [facility] Address Unknown Phone Unavailable Encounter [facility]) [id number] Date(s): 10/11/15 - 10/15/15 [facility] [address] [place] [address]- Discharge Disposition: Home Attending Physician: Demetria Palafox MD Admitting Physician: Yifan Bunch MD Vital Signs 1 2 3 Most recent to oldest [Reference Range]: 160.02 cm (10/11/15 3:57 PM) Height 63.778 kg (10/15/15 6:20 AM) Current Weight 97.4 DegF (10/15/15 7:02 AM) 97.5 DegF (10/15/15 12:00 AM) 97.9 DegF (10/14/15 6:00 PM) Temperature Oral [96.4-99.1 DegF] 116/81 mmHg (10/15/15 10:53 AM) 106/74 mmHg (10/15/15 7:02 AM) 104/71 mmHg (10/15/15 12:00 AM) Blood Pressure [90-140/60-90 mmHg] 18 BRMIN (10/15/15 10:53 AM) 18 BRMIN (10/15/15 7:02 AM) 18 BRMIN (10/15/15 12:00 AM) Respiratory Rate [14-20 BRMIN] 120 bpm *HI* (10/15/15 10:53 AM) 89 bpm (10/15/15 7:02 AM) 90 bpm (10/15/15 12:00 AM) Peripheral Pulse Rate [60-100 bpm] 61.364 kg (10/11/15 3:57 PM) Weight 23.96 m2 (10/11/15 3:57 PM) Body Mass Index Problem List Condition Effective Dates Status Health Status Informant ADHD (attention Resolved deficit hyperactivity disorder)(Confirmed) Anxiety(Confirmed) Resolved Blood Active clot(Confirmed) Cardiac Resolved pacemaker(Confirmed) CHF (congestive Resolved heart failure)(Confirmed) CHF - Congestive 07/09/11 Resolved heart failure(Confirmed) Herniated Resolved disc(Confirmed) HT - Resolved Hypertension(Confirm ed) Hypertension(Confirm Resolved ed) Stroke(Confirmed)1 Resolved 1pt states diagnosed with stroke Friday 09/01 at [facility] Allergies, Adverse Reactions, Alerts Substance Reaction Severity Status Bicillin L-A Active Mucinex Active Zoloft Active Medications acetaminophen 650 mg, 2 tab, Route: PO, Drug form: TAB, Q4H, Dosing Weight 61.364, kg, PRN For Temp > 100.4 F, Start date: 10/12/15 5:41:00, Duration: 30 day, Stop date: 11/11/15 5:40:00 Notes: Do not exceed 4 gm/day. (Same as: Tylenol) Start Date: 10/12/15 Stop Date: 10/15/15 Status: Discontinued Colette 180 mg, Route: PO, Daily, Dosing Weight 61.364, kg, Start date: 10/14/15 9:00:00 , Duration: 30 day, Stop date: 11/12/15 9:00:00 Start Date: 10/14/15 Stop Date: 10/13/15 Status: Deleted Colette 180 mg, Route: PO, Daily, Dosing Weight 61.364, kg, Start date: 10/14/15 9:00:00 , Duration: 30 day, Stop date: 11/12/15 9:00:00 Start Date: 10/14/15 Stop Date: 10/13/15 Status: Deleted Colette 180 mg, PO, Daily, 0 Refill(s) Start Date: 10/13/15 Stop Date: 10/15/15 Status: Discontinued Colette 180 mg oral tablet 180 mg=1 tab, PO, Daily, # 30 tab, 0 Refill(s) Start Date: 10/13/15 Stop Date: 11/12/15 Status: Ordered calcium carbonate 500 mg (200 mg elemental calcium) oral tablet 1,000 mg, 2 tab, Route: PO, Drug form: CHEWTAB, PRN, Dosing Weight 61.364, kg, P RN Abnormal Lab Result, FOR ICU USE ONLY, Start date: 10/12/15 5:41:00, Duration : 30 day, Stop date: 11/11/15 6:40:00 Notes: (Same As: Tums)Calcium Carbonate 500 gf=520 mg elemental calcium Dose=_ mg calcium carbonate ( mg elemental calcium) Start Date: 10/12/15 Stop Date: 10/14/15 Status: Discontinued calcium carbonate 500 mg (200 mg elemental calcium) oral tablet 500 mg, 1 tab, Route: PO, Drug form: CHEWTAB, PRN, Dosing Weight 61.364, kg, PRN Abnormal Lab Result, FOR ICU USE ONLY, Start date: 10/12/15 5:41:00, Duration: 30 day, Stop date: 11/11/15 6:40:00 Notes: (Same As: Pengs)Calcium Carbonate 500 bs=489 mg elemental calcium Dose=_ mg calcium carbonate ( mg elemental calcium) Start Date: 10/12/15 Stop Date: 10/14/15 Status: Discontinued calcium carbonate 500 mg (200 mg elemental calcium) oral tablet 1,000 mg, 2 tab, Route: PO, Drug form: CHEWTAB, PRN, Dosing Weight 61.364, kg, P RN Abnormal Lab Result, FOR ICU USE ONLY, Start date: 10/12/15 10:13:00, Duratio n: 30 day, Stop date: 11/11/15 11:12:00 Notes: (Same As: Pengs)Calcium Carbonate 500 tw=759 mg elemental calcium Dose=_ mg calcium carbonate ( mg elemental calcium) Start Date: 10/12/15 Stop Date: 10/14/15 Status: Discontinued calcium carbonate 500 mg (200 mg elemental calcium) oral tablet 500 mg, 1 tab, Route: PO, Drug form: CHEWTAB, PRN, Dosing Weight 61.364, kg, PRN Abnormal Lab Result, FOR ICU USE ONLY, Start date: 10/12/15 10:13:00, Duration: 30 day, Stop date: 11/11/15 11:12:00 Notes: (Same As: Tums)Calcium Carbonate 500 an=926 mg elemental calcium Dose=_ mg calcium carbonate ( mg elemental calcium) Start Date: 10/12/15 Stop Date: 10/14/15 Status: Discontinued calcium gluconate + Sodium Chloride 0.9% IV 50 mL 1 gm, 10 mL, Route: IVPB, PRN, Dosing Weight 61.364, kg, PRN Abnormal Lab Result , Start date: 10/12/15 5:41:00, Duration: 30 day, Stop date: 11/11/15 6:40:00, F OR ICU USE ONLY Notes: WASTE: F/P - Sink; E - Municipal Trash Bin Start Date: 10/12/15 Stop Date: 10/14/15 Status: Discontinued calcium gluconate + Sodium Chloride 0.9% IV 50 mL 1 gm, 10 mL, Route: IVPB, PRN, Dosing Weight 61.364, kg, PRN Abnormal Lab Result , Start date: 10/12/15 10:13:00, Duration: 30 day, Stop date: 11/11/15 11:12:00, FOR ICU USE ONLY Notes: WASTE: F/P - Sink; E - Municipal Trash Bin Start Date: 10/12/15 Stop Date: 10/14/15 Status: Discontinued cefepime 1 gm, Route: IVPB, ONCE, Dosing Weight 61.364, kg, Priority: STAT, Start date: 0 10/11/15 22:34:00, Stop date: 10/11/15 22:34:00 Start Date: 10/11/15 Stop Date: 10/11/15 Status: Completed Cipro 400 mg, 200 mL, Route: IVPB, Drug form: INJ, ONCE, Dosing Weight 61.364, kg, Martha ority: STAT, Start date: 10/11/15 22:34:00, Stop date: 10/11/15 22:34:00 Notes: Do not refrigerate Start Date: 10/11/15 Stop Date: 10/11/15 Status: Completed Claritin 10 mg, 1 tab, Route: PO, Drug form: TAB, Daily, Start date: 10/13/15 12:30:00, D uration: 30 day, Stop date: 11/12/15 9:00:00 Notes: 1 hr before meals (Same as: Claritin) Start Date: 10/13/15 Stop Date: 10/15/15 Status: Discontinued cyclobenzaprine 10 mg oral tablet 10 mg=1 tab, PO, TID, PRN for spasms, # 30 tab, 0 Refill(s) Start Date: 10/13/15 Stop Date: 10/23/15 Status: Ordered diazepam 10 mg oral tablet 10 mg=1 tab, PO, TID, 0 Refill(s) Start Date: 10/12/15 Stop Date: 10/15/15 Status: Discontinued docusate 100 mg, 1 cap, Route: PO, Drug form: CAP, Q12H, Dosing Weight 61.364, kg, PRN as needed for constipation, Start date: 10/12/15 5:41:00, Duration: 30 day, Stop d ate: 11/11/15 5:40:00 Notes: (Same as: Colace) (Do Not Crush) Start Date: 10/12/15 Stop Date: 10/15/15 Status: Discontinued Lasix 40 mg oral tablet 40 mg=1 tab, PO, Daily, 0 Refill(s) Start Date: 10/12/15 Stop Date: 10/15/15 Status: Discontinued levofloxacin 500 mg, 1 tab, Route: PO, Drug form: TAB, [id number], Dosing Weight 61.364, kg, Martha ority: NOW, Start date: 10/12/15 6:24:00, Duration: 5 day, Stop date: 10/16/15 6 :24:00 Start Date: 10/12/15 Stop Date: 10/14/15 Status: Discontinued losartan 25 mg, PO, Daily, 0 Refill(s) Start Date: 10/13/15 Stop Date: 10/15/15 Status: Discontinued Lovenox 40 mg, 0.4 mL, Route: SUB-Q, Drug form: INJ, [id number], Dosing Weight 61.364, kg, Start date: 10/12/15 7:00:00, Duration: 30 day, Stop date: 11/10/15 9:00:00 Notes: (Same as: Lovenox) Start Date: 10/12/15 Stop Date: 10/15/15 Status: Discontinued magnesium oxide 800 mg, 2 tab, Route: PO, Drug form: TAB, PRN, Dosing Weight 61.364, kg, PRN Abn ormal Lab Result, FOR ICU USE ONLY, Start date: 10/12/15 5:41:00, Duration: 30 d ay, Stop date: 11/11/15 6:40:00 Notes: (Same as: Mag-Ox 400)Magnesium oxide [id number] elemental magnesiumDose= ____mg magnesium oxide (___mg elemental magnesium) Start Date: 10/12/15 Stop Date: 10/14/15 Status: Discontinued magnesium oxide 800 mg, 2 tab, Route: PO, Drug form: TAB, PRN, Dosing Weight 61.364, kg, PRN Abn ormal Lab Result, FOR ICU USE ONLY, Start date: 10/12/15 10:13:00, Duration: 30 day, Stop date: 11/11/15 11:12:00 Notes: (Same as: Mag-Ox 400)Magnesium oxide [id number] elemental magnesiumDose= ____mg magnesium oxide (___mg elemental magnesium) Start Date: 10/12/15 Stop Date: 10/14/15 Status: Discontinued magnesium sulfate 2 gm, 50 mL, Route: IVPB, Drug form: INJ, PRN, Dosing Weight 61.364, kg, PRN Abn ormal Lab Result, Start date: 10/12/15 5:41:00, Duration: 30 day, Stop date: 11/22 6:40:00, FOR ICU USE ONLY Notes: WASTE: F/P - Sink; E - Municipal Trash Bin Start Date: 10/12/15 Stop Date: 10/14/15 Status: Discontinued magnesium sulfate 2 gm, 50 mL, Route: IVPB, Drug form: INJ, PRN, Dosing Weight 61.364, kg, PRN Abn ormal Lab Result, Start date: 10/12/15 10:13:00, Duration: 30 day, Stop date: 11:12:00, FOR ICU USE ONLY Notes: WASTE: F/P - Sink; E - Municipal Trash Bin Start Date: 10/12/15 Stop Date: 10/14/15 Status: Discontinued morphine Sulfate 2 mg, 1 mL, Route: IVP, Drug form: INJ, Q3H, Dosing Weight 61.364, kg, PRN Pain Score 7-10, Start date: 10/14/15 21:17:00, Duration: 30 day, Stop date: 11/13/15 21:16:00 Notes: (Same as:MORPhine Sulfate) Start Date: 10/14/15 Stop Date: 10/15/15 Status: Discontinued morphine Sulfate 1 mg, 0.5 mL, Route: IV, Drug form: INJ, Q4H, Dosing Weight 61.364, kg, PRN Pain Score 4-6, Start date: 10/13/15 16:34:00, Duration: 30 day, Stop date: 11/12/15 16:33:00 Notes: (Same as:MORPhine Sulfate) Start Date: 10/13/15 Stop Date: 10/14/15 Status: Discontinued morphine Sulfate 1 mg, 0.5 mL, Route: IVP, Drug form: INJ, On Adm, Dosing Weight 61.364, kg, PRN Chest Pain, Start date: 10/12/15 16:56:00, Duration: 30 day, Stop date: 11/11/15 17:55:00 Notes: (Same as:MORPhine Sulfate) Start Date: 10/12/15 Stop Date: 10/13/15 Status: Discontinued Neutra-Phos 2 pkt, Route: PO, Drug Form: PDR/REC, Dosing Weight 61.364, kg, PRN, PRN Abnorma l Lab Result, FOR ICU USE ONLY, Start date: 10/12/15 5:41:00, Duration: 30 day, Stop date: 11/11/15 6:40:00 Notes: (Same as: Neutra-Phos) Each 1.25 gm pkt has 250mg phosphorous. Mix w/2.5 oz water and stir. Start Date: 10/12/15 Stop Date: 10/14/15 Status: Discontinued Neutra-Phos 2 pkt, Route: PO, Drug Form: PDR/REC, Dosing Weight 61.364, kg, PRN, PRN Abnorma l Lab Result, FOR ICU USE ONLY, Start date: 10/12/15 10:13:00, Duration: 30 day, Stop date: 11/11/15 11:12:00 Notes: (Same as: Neutra-Phos) Each 1.25 gm pkt has 250mg phosphorous. Mix w/2.5 oz water and stir. Start Date: 10/12/15 Stop Date: 10/14/15 Status: Discontinued Martinez 10/325 oral tablet 1 tab, Route: PO, Drug Form: TAB, Dosing Weight 61.364, kg, Q6H, PRN Pain Score 4-6, STAT, Start date: 10/14/15 21:18:00, Duration: 30 day, Stop date: 11/13/15 21:17:00 Notes: Do not exceed 4gm/day of acetaminophen. (Same as: Martinez 325/10) Start Date: 10/14/15 Stop Date: 10/15/15 Status: Discontinued Martinez 5/325 oral tablet 1 tab, Route: PO, Drug Form: TAB, Dosing Weight 61.364, kg, Q4H, PRN, Start date : 10/14/15 14:54:00, Duration: 30 day, Stop date: 11/13/15 14:53:00, Pain Score 4-10 Start Date: 10/14/15 Stop Date: 10/14/15 Status: Discontinued Martinez 5/325 oral tablet 1 tab, Route: PO, Drug Form: TAB, Dosing Weight 61.364, kg, Q6H, PRN Pain Score 1-3, Start date: 10/12/15 15:58:00, Duration: 30 day, Stop date: 11/11/15 15:57: 00 Notes: (Same as: Martinez 325/5) Do not exceed 4gm/day of acetaminophen. Start Date: 10/12/15 Stop Date: 10/14/15 Status: Discontinued normal saline 0.9% IV 1,000 mL 1,000 mL, Rate: 75 ml/hr, Infuse over: 13.3 hr, Route: IV, Dosing Weight 61.364 kg, Total Volume: 1,000, Start date: 10/12/15 3:49:00, Stop date: 10/12/15 12:00 :00 Start Date: 10/12/15 Stop Date: 10/12/15 Status: Completed normal saline 0.9% IV 1,000 mL 1,000 mL, Rate: 75 ml/hr, Infuse over: 13.3 hr, Route: IV, Dosing Weight 61.364 kg, Total Volume: 1,000, Start date: 10/12/15 17:31:00, Duration: 30 day, Stop d ate: 11/11/15 17:30:00 Start Date: 10/12/15 Stop Date: 10/13/15 Status: Discontinued ondansetron 4 mg, 2 mL, Route: IVP, Drug form: INJ, Q8H, Dosing Weight 61.364, kg, PRN Nause a & Vomiting, Start date: 10/12/15 5:41:00, Duration: 30 day, Stop date: 11/11/15 5:40:00 Notes: (Same as: Ata) MEDICATION WASTE Product Size: 4 mgProduct Was ming: ___ mg Start Date: 10/12/15 Stop Date: 10/15/15 Status: Discontinued pantoprazole 40 mg, 1 tab, Route: PO, Drug form: ECTAB, Daily, Dosing Weight 61.364, kg, Star t date: 10/12/15 9:00:00, Duration: 30 day, Stop date: 11/10/15 9:00:00 Notes: Tablet should not be chewed or crushed.(Same as: Protonix) Start Date: 10/12/15 Stop Date: 10/15/15 Status: Discontinued potassium chloride 20 mEq, 15 mL, Route: NJ, Drug form: LIQ, PRN, Dosing Weight 61.364, kg, PRN Abn ormal Lab Result, Start date: 10/12/15 5:41:00, Duration: 30 day, Stop date: 11/22 6:40:00, FOR ICU USE ONLY Notes: (Same as: Potassium Chloride) Start Date: 10/12/15 Stop Date: 10/14/15 Status: Discontinued potassium chloride 20 mEq, 1 tab, Route: PO, Drug form: ERTAB, PRN, Dosing Weight 61.364, kg, PRN A bnormal Lab Result, Start date: 10/12/15 5:41:00, Duration: 30 day, Stop date: 0 11/11/15 6:40:00, FOR ICU USE ONLY Notes: (Same as: K-Dur 20)"Do Not Crush" With food and full glass of water Start Date: 10/12/15 Stop Date: 10/14/15 Status: Discontinued potassium chloride 10 mEq, 100 mL, Route: IVPB, Drug form: INJ, PRN, Dosing Weight 61.364, kg, PRN Abnormal Lab Result, Via peripheral line, Start date: 10/12/15 5:41:00, Duration : 30 day, Stop date: 11/11/15 6:40:00, FOR ICU USE ONLY Notes: Infuse at a rate of 10 mEq/hr.(Same as: KCL) Start Date: 10/12/15 Stop Date: 10/14/15 Status: Discontinued potassium chloride 20 mEq, 100 mL, Route: IVPB, Drug form: INJ, PRN, Dosing Weight 61.364, kg, PRN Abnormal Lab Result, Via central line, Start date: 10/12/15 5:41:00, Duration: 3 0 day, Stop date: 11/11/15 6:40:00, FOR ICU USE ONLY Notes: (Same as: KCL) Infuse no faster than 10 mEq/hr if given peripherally. Start Date: 10/12/15 Stop Date: 10/14/15 Status: Discontinued potassium chloride 0 Refill(s) Start Date: 10/12/15 Stop Date: 10/15/15 Status: Discontinued potassium chloride 20 mEq, 100 mL, Route: IVPB, Drug form: INJ, PRN, Dosing Weight 61.364, kg, PRN Abnormal Lab Result, Via central line, Start date: 10/12/15 10:13:00, Duration: 30 day, Stop date: 11/11/15 11:12:00, FOR ICU USE ONLY Notes: (Same as: KCL) Infuse no faster than 10 mEq/hr if given peripherally. Start Date: 10/12/15 Stop Date: 10/14/15 Status: Discontinued potassium chloride 20 mEq, 15 mL, Route: NJ, Drug form: LIQ, PRN, Dosing Weight 61.364, kg, PRN Abn ormal Lab Result, Start date: 10/12/15 10:13:00, Duration: 30 day, Stop date: 11:12:00, FOR ICU USE ONLY Notes: (Same as: Potassium Chloride) Start Date: 10/12/15 Stop Date: 10/14/15 Status: Discontinued potassium chloride 20 mEq, 1 tab, Route: PO, Drug form: ERTAB, PRN, Dosing Weight 61.364, kg, PRN A bnormal Lab Result, Start date: 10/12/15 10:13:00, Duration: 30 day, Stop date: 11/11/15 11:12:00, FOR ICU USE ONLY Notes: (Same as: K-Dur 20)"Do Not Crush" With food and full glass of water Start Date: 10/12/15 Stop Date: 10/14/15 Status: Discontinued potassium chloride 10 mEq, 100 mL, Route: IVPB, Drug form: INJ, PRN, Dosing Weight 61.364, kg, PRN Abnormal Lab Result, Via peripheral line, Start date: 10/12/15 10:13:00, Duratio n: 30 day, Stop date: 11/11/15 11:12:00, FOR ICU USE ONLY Notes: Infuse at a rate of 10 mEq/hr.(Same as: KCL) Start Date: 10/12/15 Stop Date: 10/14/15 Status: Discontinued potassium phosphate + Sodium Chloride 0.9% IV 250 mL 30 mmol, 10 mL, Route: IVPB, PRN, Dosing Weight 61.364, kg, PRN Abnormal Lab Res ult, Start date: 10/12/15 5:41:00, Duration: 30 day, Stop date: 11/11/15 6:40:00 , FOR ICU USE ONLY Notes: (Same as: K Phosphate.) 1 mMol phoshate has 1.47 mEq potassium Infuse o ifeanyi 4 hours Start Date: 10/12/15 Stop Date: 10/14/15 Status: Discontinued potassium phosphate + Sodium Chloride 0.9% IV 250 mL 15 mmol, 5 mL, Route: IVPB, PRN, Dosing Weight 61.364, kg, PRN Abnormal Lab Resu lt, Start date: 10/12/15 5:41:00, Duration: 30 day, Stop date: 11/11/15 6:40:00, FOR ICU USE ONLY Notes: (Same as: K Phosphate.) 1 mMol phoshate has 1.47 mEq potassium Infuse o ifeanyi 4 hours Start Date: 10/12/15 Stop Date: 10/14/15 Status: Discontinued potassium phosphate + Sodium Chloride 0.9% IV 250 mL 45 mmol, 15 mL, Route: IVPB, PRN, Dosing Weight 61.364, kg, PRN Abnormal Lab Res ult, Start date: 10/12/15 5:41:00, Duration: 30 day, Stop date: 11/11/15 6:40:00 , FOR ICU USE ONLY Notes: (Same as: K Phosphate.) 1 mMol phoshate has 1.47 mEq potassium Infuse o ifeanyi 4 hours Start Date: 10/12/15 Stop Date: 10/14/15 Status: Discontinued potassium phosphate + Sodium Chloride 0.9% IV 250 mL 45 mmol, 15 mL, Route: IVPB, PRN, Dosing Weight 61.364, kg, PRN Abnormal Lab Res ult, Start date: 10/12/15 10:13:00, Duration: 30 day, Stop date: 11/11/15 11:12: 00, FOR ICU USE ONLY Notes: (Same as: K Phosphate.) 1 mMol phoshate has 1.47 mEq potassium Infuse o ifeanyi 4 hours Start Date: 10/12/15 Stop Date: 10/14/15 Status: Discontinued potassium phosphate + Sodium Chloride 0.9% IV 250 mL 30 mmol, 10 mL, Route: IVPB, PRN, Dosing Weight 61.364, kg, PRN Abnormal Lab Res ult, Start date: 10/12/15 10:13:00, Duration: 30 day, Stop date: 11/11/15 11:12: 00, FOR ICU USE ONLY Notes: (Same as: K Phosphate.) 1 mMol phoshate has 1.47 mEq potassium Infuse o ifeanyi 4 hours Start Date: 10/12/15 Stop Date: 10/14/15 Status: Discontinued potassium phosphate + Sodium Chloride 0.9% IV 250 mL 15 mmol, 5 mL, Route: IVPB, PRN, Dosing Weight 61.364, kg, PRN Abnormal Lab Resu lt, Start date: 10/12/15 10:13:00, Duration: 30 day, Stop date: 11/11/15 11:12:0 0, FOR ICU USE ONLY Notes: (Same as: K Phosphate.) 1 mMol phoshate has 1.47 mEq potassium Infuse o ifeanyi 4 hours Start Date: 10/12/15 Stop Date: 10/14/15 Status: Discontinued Ritalin LA 40 mg, Route: PO, Drug form: ERCAP, QAM, Dosing Weight 61.364, kg, Start date: 0 10/13/15 9:00:00, Duration: 30 day, Stop date: 11/11/15 9:00:00 Start Date: 10/13/15 Stop Date: 10/15/15 Status: Discontinued Saline Flush 0.9% 10 mL, Route: IVP, Drug Form: INJ, Dosing Weight 61.364, kg, PRN, PRN Line Flush , Start date: 10/11/15 16:19:00, Duration: 1 day, Stop date: 10/12/15 16:18:00 Notes: (Same as: BD Posiflush) Start Date: 10/11/15 Stop Date: 10/12/15 Status: Completed Saline Flush 0.9% 10 ml, Route: IVP, Drug Form: INJ, Dosing Weight 61.364, kg, PRN, PRN Line Flush , Start date: 10/12/15 5:41:00, Duration: 30 day, Stop date: 11/11/15 6:40:00 Notes: (Same as: BD Posiflush) Start Date: 10/12/15 Stop Date: 10/15/15 Status: Discontinued Saline Flush 0.9% 10 ml, Route: IVP, Drug Form: INJ, Dosing Weight 61.364, kg, Q12H, Start date: 0 10/12/15 9:00:00, Duration: 30 day, Stop date: 11/10/15 21:00:00 Notes: (Same as: BD Posiflush) Start Date: 10/12/15 Stop Date: 10/15/15 Status: Discontinued senna 8.6 mg, 1 tab, Route: PO, Drug Form: TAB, Dosing Weight 61.364, kg, Q12H, PRN as needed for constipation, Start date: 10/12/15 5:41:00, Duration: 30 day, Stop d ate: 11/11/15 5:40:00 Notes: (Same as: Senokot) Start Date: 10/12/15 Stop Date: 10/15/15 Status: Discontinued Sodium Chloride 0.9% (Bolus) IV 1,000 mL, 1000 ml/hr, Infuse Over: 1 hr, Route: IV, 1,000, Drug form: INJ, ONCE, Priority: STAT, Dosing Weight 61.364 kg, Start date: 10/12/15 0:37:00, Duration: 1 doses or times, Stop date: 10/12/15 0:37:00 Start Date: 10/12/15 Stop Date: 10/12/15 Status: Completed Sodium Chloride 0.9% (Bolus) IV 1,000 mL, 1,000 ml/hr, Infuse Over: 1 Hour, Route: IV, ONCE, Priority: STAT, Dos ing Weight 61.364 kg, Start date: 10/11/15 22:34:00, Duration: 1 doses or times, Stop date: 10/11/15 22:34:00 Start Date: 10/11/15 Stop Date: 10/11/15 Status: Completed Sodium Chloride 0.9% IV 1,000 mL 1,000 mL, Rate: 2,000 ml/hr, Infuse over: 30 minutes, Route: IV, Dosing Weight 6 1.364 kg, Total Volume: 1,000, Start date: 10/12/15 13:42:00, Duration: 1 doses or times, Stop date: 10/12/15 14:11:00 Start Date: 10/12/15 Stop Date: 10/12/15 Status: Completed Sodium Chloride 0.9% IV 1,000 mL 1,000 mL, Rate: 2,000 ml/hr, Infuse over: 30 minutes, Route: IV, Dosing Weight 6 1.364 kg, Total Volume: 1,000, Start date: 10/12/15 13:41:00, Duration: 1 doses or times, Stop date: 10/12/15 14:10:00 Start Date: 10/12/15 Stop Date: 10/12/15 Status: Completed sodium phosphate + Sodium Chloride 0.9% IV 250 mL 15 mmol, 5 mL, Route: IVPB, PRN, Dosing Weight 61.364, kg, PRN Abnormal Lab Resu lt, Start date: 10/12/15 5:41:00, Duration: 30 day, Stop date: 11/11/15 6:40:00, FOR ICU USE ONLY Start Date: 10/12/15 Stop Date: 10/14/15 Status: Discontinued sodium phosphate + Sodium Chloride 0.9% IV 250 mL 45 mmol, 15 mL, Route: IVPB, PRN, Dosing Weight 61.364, kg, PRN Abnormal Lab Res ult, Start date: 10/12/15 5:41:00, Duration: 30 day, Stop date: 11/11/15 6:40:00 , FOR ICU USE ONLY Start Date: 10/12/15 Stop Date: 10/14/15 Status: Discontinued sodium phosphate + Sodium Chloride 0.9% IV 250 mL 30 mmol, 10 mL, Route: IVPB, PRN, Dosing Weight 61.364, kg, PRN Abnormal Lab Res ult, Start date: 10/12/15 5:41:00, Duration: 30 day, Stop date: 11/11/15 6:40:00 , FOR ICU USE ONLY Start Date: 10/12/15 Stop Date: 10/14/15 Status: Discontinued sodium phosphate + Sodium Chloride 0.9% IV 250 mL 30 mmol, 10 mL, Route: IVPB, PRN, Dosing Weight 61.364, kg, PRN Abnormal Lab Res ult, Start date: 10/12/15 10:13:00, Duration: 30 day, Stop date: 11/11/15 11:12: 00, FOR ICU USE ONLY Start Date: 10/12/15 Stop Date: 10/14/15 Status: Discontinued sodium phosphate + Sodium Chloride 0.9% IV 250 mL 15 mmol, 5 mL, Route: IVPB, PRN, Dosing Weight 61.364, kg, PRN Abnormal Lab Resu lt, Start date: 10/12/15 10:13:00, Duration: 30 day, Stop date: 11/11/15 11:12:0 0, FOR ICU USE ONLY Start Date: 10/12/15 Stop Date: 10/14/15 Status: Discontinued sodium phosphate + Sodium Chloride 0.9% IV 250 mL 45 mmol, 15 mL, Route: IVPB, PRN, Dosing Weight 61.364, kg, PRN Abnormal Lab Res ult, Start date: 10/12/15 10:13:00, Duration: 30 day, Stop date: 11/11/15 11:12: 00, FOR ICU USE ONLY Start Date: 10/12/15 Stop Date: 10/14/15 Status: Discontinued TamiFLU 75 mg, 1 cap, Route: PO, Drug form: CAP, [id number], Dosing Weight 61.364, kg, CrCl > 60 ml/hr, Start date: 10/12/15 1:00:00, Duration: 5 day, Stop date: 10/16/15 13:00:00 Notes: Take with food.Same as: Tamiflu) Start Date: 10/12/15 Stop Date: 10/14/15 Status: Discontinued Tessalon Perles 100 mg, 1 cap, Route: PO, Drug form: CAP, TID, Dosing Weight 61.364, kg, PRN Cou gh, Start date: 10/13/15 8:49:00, Duration: 30 day, Stop date: 11/12/15 8:48:00 Notes: (Same As: Nikolas Ballesteros)"Do Not Crush" Start Date: 10/13/15 Stop Date: 10/15/15 Status: Discontinued tramadol 50 mg oral tablet 50 mg, 1 tab, Route: PO, Drug form: TAB, Q4H, Dosing Weight 61.364, kg, PRN Pain Score 1-3, Start date: 10/14/15 14:54:00, Duration: 30 day, Stop date: 11/13/15 14:53:00 Notes: Not to exceed 400mg/day. (Same As: Ultram) Start Date: 10/14/15 Stop Date: 10/15/15 Status: Discontinued vancomycin + Sodium Chloride 0.9% IV 250 mL 1,250 mg, Route: IVPB, ONCE, Dosing Weight 61.364, kg, Priority: STAT, Start sara e: 10/11/15 22:33:00, Stop date: 10/11/15 22:33:00 Notes: TIME CRITICAL MEDICATION(Same As: Vancocin)Infusion rate< 1000 mg: infuse over 1 [id number] - 1500 mg: infuse over 1.5 [id number] - 2000 mg: infuse over 2 hours> 2001 mg: infuse over 2.5 hours MEDICATION WASTE Product Size: 1000 mgProduct Wasted: ___ mg Start Date: 10/11/15 Stop Date: 10/12/15 Status: Completed warfarin 4 mg, 2 tab, Route: PO, Drug form: TAB, Q5PM, Dosing Weight 61.364, kg, Start da te: 10/13/15 17:00:00, Duration: 30 day, Stop date: 11/11/15 17:00:00 Notes: Nurse to ensure documentation of patient education per anticoagulation po licy.Avoid large intake of vitamin-K containing foods diet.(Same As: Coumadin)[place] CONNER: F/P - P Waste Black; E - P Waste Black Start Date: 10/13/15 Stop Date: 10/13/15 Status: Canceled Xanax 2 mg oral tablet 2 mg, 2 tab, Route: PO, Drug form: TAB, TID, Dosing Weight 61.364, kg, PRN Anxie ty, Start date: 10/13/15 8:45:00, Duration: 30 day, Stop date: 11/12/15 8:44:00 Notes: With food or milk(Same as: Xanax) Start Date: 10/13/15 Stop Date: 10/15/15 Status: Discontinued Zofran 4 mg, 2 mL, Route: IVP, Drug form: INJ, ONCE, Dosing Weight 61.364, kg, Priority : STAT, Start date: 10/12/15 0:36:00, Stop date: 10/12/15 0:36:00 Notes: (Same as: Zofran) MEDICATION WASTE Product Size: 4 mgProduct Was ming: ___ mg Start Date: 10/12/15 Stop Date: 10/12/15 Status: Completed Zofran ODT 4 mg, Route: PO, Drug form: TABDIS, ONCE, Dosing Weight 61.364, kg, Priority: ST AT, Start date: 10/11/15 16:26:00, Stop date: 10/11/15 16:26:00 Start Date: 10/11/15 Stop Date: 10/11/15 Status: Completed Results ELECTROLYTES 1 2 3 Most recent to oldest [Reference Range]: 136 mEq/L (10/14/15 5:14 AM) 139 mEq/L (10/13/15 3:59 AM) 135 mEq/L (10/11/15 4:31 PM) Sodium Lvl [135-145 mEq/L] 3.5 mEq/L (10/14/15 5:14 AM) 3.8 mEq/L (10/13/15 3:59 AM) 3.6 mEq/L (10/12/15 12:05 PM) Potassium Lvl [3.5-5.1 mEq/L] 101 mEq/L (10/14/15 5:14 AM) 111 mEq/L *HI* (10/13/15 3:59 AM) 99 mEq/L (10/11/15 4:31 PM) Chloride Lvl [95-109 mEq/L] 27 mEq/L (10/14/15 5:14 AM) 21 mEq/L *LOW* (10/13/15 3:59 AM) 28 mEq/L (10/11/15 4:31 PM) CO2 [24-32 mEq/L] 11.5 mEq/L (10/14/15 5:14 AM) 10.8 mEq/L (10/13/15 3:59 AM) 11.2 mEq/L (10/11/15 4:31 PM) AGAP [10.0-20.0 mEq/L] CHEM PANEL 1 2 3 Most recent to oldest [Reference Range]: 1.00 mg/dL (10/14/15 5:14 AM) 0.85 mg/dL (10/13/15 3:59 AM) 1.40 mg/dL (10/11/15 4:31 PM) Creatinine Lvl [0.50-1.40 mg/dL] 71 mL/min/1.73m2 1 *NA* (10/14/15 5:14 AM) 86 mL/min/1.73m2 2 *NA* (10/13/15 3:59 AM) 47 mL/min/1.73m2 3 *NA* (10/11/15 4:31 PM) eGFR 7 mg/dL (10/14/15 5:14 AM) 7 mg/dL (10/13/15 3:59 AM) 24 mg/dL *HI* (10/11/15 4:31 PM) BUN [7-22 mg/dL] 17 (10/11/15 4:31 PM) B/C Ratio [6-25] 100 mg/dL *HI* (10/14/15 5:14 AM) 107 mg/dL *HI* (10/13/15 3:59 AM) 112 mg/dL *HI* (10/11/15 4:31 PM) Glucose Lvl [70-99 mg/dL] 7.8 g/dL (10/11/15 4:31 PM) Total Protein [6.4-8.4 g/dL] 3.7 g/dL (10/11/15 4:31 PM) Albumin Lvl [3.5-5.0 g/dL] 4.1 g/dL *HI* (10/11/15 4:31 PM) Globulin [2.0-4.0 g/dL] 0.9 (10/11/15 4:31 PM) A/G Ratio [0.7-1.6] 8.0 mg/dL *LOW* (10/14/15 5:14 AM) 7.2 mg/dL *LOW* (10/13/15 3:59 AM) 7.7 mg/dL *LOW* (10/11/15 4:31 PM) Calcium Lvl [8.5-10.5 mg/dL] 84 unit/L *HI* (10/11/15 4:31 PM) ALT [0-65 unit/L] 70 unit/L *HI* (10/11/15 4:31 PM) AST [0-37 unit/L] 160 unit/L *HI* (10/11/15 4:31 PM) Alk Phos [39-136 unit/L] 0.5 mg/dL (10/11/15 4:31 PM) Bili Total [0.2-1.3 mg/dL] 252 unit/L (10/11/15 4:31 PM) Lipase Lvl [73-393 unit/L] 0.8 mMol/L (10/14/15 5:14 AM) 1.0 mMol/L (10/13/15 3:59 AM) 0.5 mMol/L (10/11/15 10:50 PM) Lactic Acid Lvl [0.5-2.2 mMol/L] 0.14 ng/mL *HI* (10/11/15 10:50 PM) Procalcitonin Lvl [0.00-0.10 ng/mL] 1Result Comment: The eGFR is calculated using [...] be mul tiplied by the estimated BMI. 2Result Comment: The eGFR is calculated using [...] tiplied by the estimated BMI. CARDIAC ENZYMES 1 2 3 Most recent to oldest [Reference Range]: <0.02 ng/mL (10/12/15 5:31 PM) Troponin-I [0.00-0.40 ng/mL] URINE CHEM 1 2 3 Most recent to oldest [Reference Range]: Negative (10/11/15 4:31 PM) U Preg [Negative] URINE AND STOOL 1 2 3 Most recent to oldest [Reference Range]: Clear (10/12/15 1:36 PM) Clear (10/11/15 4:31 PM) UA Turbidity [Clear] Yellow *NA* (10/12/15 1:36 PM) Yellow *NA* (10/11/15 4:31 PM) UA Color [Yellow] 6.5 (10/12/15 1:36 PM) 7.0 (10/11/15 4:31 PM) UA pH [5.0-8.0] 1.010 (10/12/15 1:36 PM) 1.010 (10/11/15 4:31 PM) UA Spec Grav [<=1.030] Negative (10/12/15 1:36 PM) UA Glucose [Negative] Negative mg/dL (10/11/15 4:31 PM) UA Glucose [Negative mg/dL] Negative (10/12/15 1:36 PM) Negative (10/11/15 4:31 PM) UA Blood [Negative] Negative *NA* (10/12/15 1:36 PM) UA Ketones [Negative] Negative mg/dL *NA* (10/11/15 4:31 PM) UA Ketones [Negative mg/dL] Negative (10/12/15 1:36 PM) UA Protein [Negative] Negative mg/dL (10/11/15 4:31 PM) UA Protein [Negative mg/dL] 0.2 EU/dL (10/12/15 1:36 PM) 0.2 EU/dL (10/11/15 4:31 PM) UA Urobilinogen [0.1-1.0 EU/dL] Negative *NA* (10/12/15 1:36 PM) Negative *NA* (10/11/15 4:31 PM) UA Bili [Negative] Negative (10/12/15 1:36 PM) Negative (10/11/15 4:31 PM) UA Leuk Est [Negative] Positive *ABN* (10/12/15 1:36 PM) Negative (10/11/15 4:31 PM) UA Nitrite [Negative] 0-2 /HPF (10/12/15 1:36 PM) 6-10 /HPF *ABN* (10/11/15 4:31 PM) UA WBC [None Seen /HPF] None Seen (10/12/15 1:36 PM) UA RBC [0-2] 3-5 /HPF *ABN* (10/11/15 4:31 PM) UA RBC [0-2 /HPF] Moderate /HPF (10/12/15 1:36 PM) Many /HPF (10/11/15 4:31 PM) UA Bacteria [None Seen /HPF] Many /LPF *ABN* (10/12/15 1:36 PM) Few /LPF (10/11/15 4:31 PM) UA Sq Epi [Few /LPF] HEMATOLOGY 1 2 3 Most recent to oldest [Reference Range]: 3.2 K/CMM *LOW* (10/15/15 5:23 AM) 2.6 K/CMM *LOW* (10/14/15 5:14 AM) 3.0 K/CMM *LOW* (10/13/15 3:59 AM) WBC [3.7-10.4 K/CMM] 3.09 M/CMM *LOW* (10/15/15 5:23 AM) 2.80 M/CMM *LOW* (10/14/15 5:14 AM) 2.50 M/CMM *LOW* (10/13/15 3:59 AM) RBC [4.20-5.40 M/CMM] 10.7 g/dL *LOW* (10/15/15 5:23 AM) 9.8 g/dL *LOW* (10/14/15 5:14 AM) 8.6 g/dL *LOW* (10/13/15 3:59 AM) Hgb [12.0-16.0 g/dL] 30.8 % *LOW* (10/15/15 5:23 AM) 28.2 % *LOW* (10/14/15 5:14 AM) 25.6 % *LOW* (10/13/15 3:59 AM) Hct [36.0-48.0 %] 99.5 fL *HI* (10/15/15 5:23 AM) 100.8 fL *HI* (10/14/15 5:14 AM) 102.2 fL *HI* (10/13/15 3:59 AM) MCV [80.0-98.0 fL] 34.6 pg *HI* (10/15/15 5:23 AM) 34.9 pg *HI* (10/14/15 5:14 AM) 34.5 pg *HI* (10/13/15 3:59 AM) MCH [27.0-31.0 pg] 34.8 g/dL (10/15/15 5:23 AM) 34.7 g/dL (10/14/15 5:14 AM) 33.8 g/dL (10/13/15 3:59 AM) MCHC [32.0-36.0 g/dL] 13.5 % (10/15/15 5:23 AM) 14.0 % (10/14/15 5:14 AM) 14.2 % (10/13/15 3:59 AM) RDW [11.5-14.5 %] 148 K/CMM (10/15/15 5:23 AM) 138 K/CMM (10/14/15 5:14 AM) 125 K/CMM *LOW* (10/13/15 3:59 AM) Platelet [133-450 K/CMM] 8.7 fL (10/15/15 5:23 AM) 8.7 fL (10/14/15 5:14 AM) 8.4 fL (10/13/15 3:59 AM) MPV [7.4-10.4 fL] 42.2 % *LOW* (10/15/15 5:23 AM) 42.4 % *LOW* (10/14/15 5:14 AM) 58.8 % (10/13/15 3:59 AM) Segs [45.0-75.0 %] 38.2 % (10/15/15 5:23 AM) 35.9 % (10/14/15 5:14 AM) 25.0 % (10/13/15 3:59 AM) Lymphocytes [20.0-40.0 %] 16.3 % *HI* (10/15/15 5:23 AM) 18.7 % *HI* (10/14/15 5:14 AM) 13.8 % *HI* (10/13/15 3:59 AM) Monocytes [2.0-12.0 %] 2.9 % (10/15/15 5:23 AM) 2.4 % (10/14/15 5:14 AM) 1.9 % (10/13/15 3:59 AM) Eosinophils [0.0-4.0 %] 0.4 % (10/15/15 5:23 AM) 0.6 % (10/14/15 5:14 AM) 0.5 % (10/13/15 3:59 AM) Basophils [0.0-1.0 %] 1.4 K/CMM *LOW* (10/15/15 5:23 AM) 1.1 K/CMM *LOW* (10/14/15 5:14 AM) 1.8 K/CMM (10/13/15 3:59 AM) Segs-Bands # [1.5-8.1 K/CMM] 1.2 K/CMM (10/15/15 5:23 AM) 0.9 K/CMM *LOW* (10/14/15 5:14 AM) 0.8 K/CMM *LOW* (10/13/15 3:59 AM) Lymphocytes # [1.0-5.5 K/CMM] 0.5 K/CMM (10/15/15 5:23 AM) 0.5 K/CMM (10/14/15 5:14 AM) 0.4 K/CMM (10/13/15 3:59 AM) Monocytes # [0.0-0.8 K/CMM] 0.1 K/CMM (10/15/15 5:23 AM) 0.1 K/CMM (10/14/15 5:14 AM) 0.1 K/CMM (10/13/15 3:59 AM) Eosinophils # [0.0-0.5 K/CMM] 1+ *ABN* (10/15/15 5:23 AM) 1+ *ABN* (10/14/15 5:14 AM) 1+ *ABN* (10/13/15 3:59 AM) Macrocyte [None Seen] 12.9 seconds (10/15/15 5:23 AM) 12.7 seconds (10/14/15 5:14 AM) 12.6 seconds (10/11/15 4:31 PM) PT [12.0-14.7 seconds] 0.94 (10/15/15 5:23 AM) 0.92 (10/14/15 5:14 AM) 0.91 (10/11/15 4:31 PM) INR [0.85-1.17] 34.0 seconds (10/11/15 4:31 PM) PTT [22.9-35.8 seconds] BACTERIAL - SEROLOGY 1 2 3 Most recent to oldest [Reference Range]: Negative (10/12/15 5:49 AM) MRSA by PCR VIRAL - SEROLOGY 1 2 3 Most recent to oldest [Reference Range]: Negative (10/11/15 10:50 PM) Influ A [Negative] Positive 1 *ABN* (10/11/15 10:50 PM) Influ B [Negative] 1Result Comment: "Significant Findings called to abhi lawrence__at __10/11/2015 23:56_by __bz_.Read Back OK." Immunizations No data available for this section Procedures Procedure Date Related Diagnosis Body Site section1 Cholecystectomy Permanent cardiac pacemaker procedure Spinal fusion Tubal ligation 1x2 Social History Social History Type Response Substance Abuse 1 Alcohol Past Smoking Status Never smoker; Exposure to Tobacco Smoke None; Cigarette Smoking Last 365 Days No; Reg Smoking Cessation Counseling No 1pt denies Assessment and Plan Extracted from: Title: Progress Note * Author: Julio Fuentes MD Date: 10/14/15 Patient: MALIA CHU Age: 40 years Sex: Female : 1975 Associated Diagnoses: None Author: Julio Fuentes MD Basic Information Patient seen and examined at bedside.Overnight,no acute event.Her Bp has improved significantly and her repaet echo yestewrday showed a normal EF.Her Hb dropped by 2 gram which i believe is dilutional since she got almost 5L of fluid since yesterday. Review of Systems REVIEW OF SYSTEMS: HEENT : Pupils are equal and reactive to light Lymph nodes: no enlarged lymph nodes Respiratory : Cough Cardiovascular: No Palpitations Gastrointestinal: No abdominal distention Neurologic: No weakness or loss of sensation Endocrine: No Thyroid Enlargement Skin: No skin excoriations Extremities: No leg swelling Health Status Allergies: Allergic Reactions (All) Severity Not Documented Bicillin L-A- No reactions were documented. Mucinex- No reactions were documented. Zoloft- No reactions were documented., Allergies (3) ActiveReaction Bicillin L-ANone Documented MucinexNone Documented ZoloftNone Documented Current medications: (Selected) Inpatient Medications Ordered Claritin: 10 mg, 1 tab, PO, Daily Lovenox: 40 mg, 0.4 mL, SUB-Q, [id number] Neutra-Phos: 2 pkt, PO, PRN, PRN: Abnormal Lab Result Neutra-Phos: 2 pkt, PO, PRN, PRN: Abnormal Lab Result Martinez 5/325 oral tablet: 1 tab, PO, Q6H, PRN: Pain Score 1-3 Ritalin LA: 40 mg, PO, QAM Saline Flush 0.9%: 10 ml, IVP, PRN, PRN: Line Flush Saline Flush 0.9%: 10 ml, IVP, Q12H TamiFLU: 75 mg, 1 cap, PO, [id number] Tessalon Perles: 100 mg, 1 cap, PO, TID, PRN: Cough Xanax 2 mg oral tablet: 2 mg, 2 tab, PO, TID, PRN: Anxiety acetaminophen: 650 mg, 2 tab, PO, Q4H, PRN: For Temp > 100.4 F calcium carbonate 500 mg (200 mg elemental calcium) oral tablet: 1,000 mg, 2 tab, PO, PRN, PRN: Abnormal Lab Result calcium carbonate 500 mg (200 mg elemental calcium) oral tablet: 1,000 mg, 2 tab, PO, PRN, PRN: Abnormal Lab Result calcium carbonate 500 mg (200 mg elemental calcium) oral tablet: 500 mg, 1 tab, PO, PRN, PRN: Abnormal Lab Result calcium carbonate 500 mg (200 mg elemental calcium) oral tablet: 500 mg, 1 tab, PO, PRN, PRN: Abnormal Lab Result calcium gluconate + Sodium Chloride 0.9% IV 50 mL: 1 gm, 10 mL, 120 ml/hr, IVPB, PRN, PRN: Abnormal Lab Result calcium gluconate + Sodium Chloride 0.9% IV 50 mL: 1 gm, 10 mL, 120 ml/hr, IVPB, PRN, PRN: Abnormal Lab Result docusate: 100 mg, 1 cap, PO, Q12H, PRN: as needed for constipation levofloxacin: 500 mg, 1 tab, PO, [id number] magnesium oxide: 800 mg, 2 tab, PO, PRN, PRN: Abnormal Lab Result magnesium oxide: 800 mg, 2 tab, PO, PRN, PRN: Abnormal Lab Result magnesium sulfate: 2 gm, 50 mL, 25 ml/hr, IVPB, PRN, PRN: Abnormal Lab Result magnesium sulfate: 2 gm, 50 mL, 25 ml/hr, IVPB, PRN, PRN: Abnormal Lab Result morphine Sulfate: 1 mg, 0.5 mL, IV, Q4H, PRN: Pain Score 4-6 ondansetron: 4 mg, 2 mL, IVP, Q8H, PRN: Nausea & Vomiting pantoprazole: 40 mg, 1 tab, PO, Daily potassium chloride: 10 mEq, 100 mL, 100 ml/hr, IVPB, PRN, PRN: Abnormal Lab Result potassium chloride: 10 mEq, 100 mL, 100 ml/hr, IVPB, PRN, PRN: Abnormal Lab Result potassium chloride: 20 mEq, 1 tab, PO, PRN, PRN: Abnormal Lab Result potassium chloride: 20 mEq, 1 tab, PO, PRN, PRN: Abnormal Lab Result potassium chloride: 20 mEq, 100 mL, 50 ml/hr, IVPB, PRN, PRN: Abnormal Lab Result potassium chloride: 20 mEq, 100 mL, 50 ml/hr, IVPB, PRN, PRN: Abnormal Lab Result potassium chloride: 20 mEq, 15 mL, NJ, PRN, PRN: Abnormal Lab Result potassium chloride: 20 mEq, 15 mL, NJ, PRN, PRN: Abnormal Lab Result potassium phosphate + Sodium Chloride 0.9% IV 250 mL: 15 mmol, 5 mL, 63.75 ml/hr, IVPB, PRN, PRN: Abnormal Lab Result potassium phosphate + Sodium Chloride 0.9% IV 250 mL: 15 mmol, 5 mL, 63.75 ml/hr, IVPB, PRN, PRN: Abnormal Lab Result potassium phosphate + Sodium Chloride 0.9% IV 250 mL: 30 mmol, 10 mL, 65 ml/hr, IVPB, PRN, PRN: Abnormal Lab Result potassium phosphate + Sodium Chloride 0.9% IV 250 mL: 30 mmol, 10 mL, 65 ml/hr, IVPB, PRN, PRN: Abnormal Lab Result potassium phosphate + Sodium Chloride 0.9% IV 250 mL: 45 mmol, 15 mL, 66.25 ml/hr, IVPB, PRN, PRN: Abnormal Lab Result potassium phosphate + Sodium Chloride 0.9% IV 250 mL: 45 mmol, 15 mL, 66.25 ml/hr, IVPB, PRN, PRN: Abnormal Lab Result senna: 8.6 mg, 1 tab, PO, Q12H, PRN: as needed for constipation sodium phosphate + Sodium Chloride 0.9% IV 250 mL: 15 mmol, 5 mL, 63.75 ml/hr, IVPB, PRN, PRN: Abnormal Lab Result sodium phosphate + Sodium Chloride 0.9% IV 250 mL: 15 mmol, 5 mL, 63.75 ml/hr, IVPB, PRN, PRN: Abnormal Lab Result sodium phosphate + Sodium Chloride 0.9% IV 250 mL: 30 mmol, 10 mL, 65 ml/hr, IVPB, PRN, PRN: Abnormal Lab Result sodium phosphate + Sodium Chloride 0.9% IV 250 mL: 30 mmol, 10 mL, 65 ml/hr, IVPB, PRN, PRN: Abnormal Lab Result sodium phosphate + Sodium Chloride 0.9% IV 250 mL: 45 mmol, 15 mL, 66.25 ml/hr, IVPB, PRN, PRN: Abnormal Lab Result sodium phosphate + Sodium Chloride 0.9% IV 250 mL: 45 mmol, 15 mL, 66.25 ml/hr, IVPB, PRN, PRN: Abnormal Lab Result Prescriptions Suspended Motrin 800 mg oral tablet: 800 mg, 1 tab, PO, Q8H, Take with food, PRN: Pain, 30 tab, 0 Refill(s) Documented Medications Documented Colette 180 mg oral tablet: 180 mg, 1 tab, PO, Daily, for 30 day, 30 tab, 0 Refill(s) Colette: 180 mg, PO, Daily, 0 Refill(s) cyclobenzaprine 10 mg oral tablet: 10 mg, 1 tab, PO, TID, for 10 day, PRN: for spasms, 30 tab, 0 Refill(s) losartan: 25 mg, PO, Daily, 0 Refill(s) Suspended Coreg 12.5 mg oral tablet: 12.5 mg, 1 tab, PO, BID, 180 tab, 0 Refill(s) Lasix 40 mg oral tablet: 40 mg, 1 tab, PO, Daily, 0 Refill(s) Martinez 10/325 oral tablet: 1 tab, PO, Q6H, 24 tab, PRN: for pain Ritalin LA 40 mg/24 hr oral capsule, extended release: 40 mg, 1 cap, PO, QAM, 30 cap, 0 Refill(s) Xanax 2 mg oral tablet: 2 mg, PO, TID, PRN: Anxiety diazepam 10 mg oral tablet: 10 mg, 1 tab, PO, TID, 0 Refill(s) potassium chloride: 0 Refill(s) Problem list: All Problems Blood clot / SNOMED CT 749442602 / Confirmed Resolved: ADHD (attention deficit hyperactivity disorder) / SNOMED CT [id number] Resolved: Anxiety / SNOMED CT [id number] Resolved: Cardiac pacemaker / SNOMED CT 13590575 Resolved: CHF (congestive heart failure) / SNOMED CT [id number] Resolved: CHF - Congestive heart failure / SNOMED CT 817858566 Resolved: Herniated disc / SNOMED CT [id number] Resolved: HT - Hypertension / SNOMED CT 941490944 Resolved: Hypertension / SNOMED CT [id number] Resolved: Stroke / SNOMED CT [id number] pt states diagnosed with stroke Friday 09/01 at [facility], Active Problems (1) Blood clot Physical Examination VS/Measurements Vital Signs (last 24 hrs) Last Charted Temp Oral98.1 DegF (OCT 13 08:04) Heart Rate [id number] bpm (OCT 13 09:20) Resp Rate 18 BRMIN (OCT 13 08:04) MNC325 mmHg (OCT 13 09:20) DBP77 mmHg (OCT 13 09:20) PHYSICAL EXAMINATION: HEENT : Pupils are equal and reactive to light Lymph nodes: No palpable lymphadenopathy Respiratory : Mild b/l expiratory wheeze Cardiovascular: First and second heart sound heard. No murmurs Gastrointestinal: Abdomen is soft, nontender. No palpabl organomegaly Neurologic: No focal neurologic deficit Endocrine: No thyromegaly Skin: Absent skin excoriations Extremities: No edema ,cyanosis or clubbing Review / Management Results review: Labs (Last four charted values) WBC L 2.6(OCT 13)L 3.0(OCT 12)7.1(OCT 10) Hgb L 9.8(OCT 13)L 8.6(OCT 12)L 10.7(OCT 10) Hct L 28.2(OCT 13)L 25.6(OCT 12)L 30.5(OCT 10) Plt 138(OCT 13)L 125(OCT 12)146(OCT 10) Na 136(OCT 13)139(OCT 12)135(OCT 10) K 3.5(OCT 13)3.8(OCT 12)3.6(OCT 11)L 3.2(OCT 10) CO2 27(OCT 13)L 21(OCT 12)28(OCT 10) Cl 101(OCT 13)H 111(OCT 12)99(OCT 10) Cr 1.00(OCT 13)0.85(OCT 12)1.40(OCT 10) BUN 7(OCT 13)7(OCT 12)H 24(OCT 10) Glucose Random H 100(OCT 13)H 107(OCT 12)H 112(OCT 10) Ca L 8.0(OCT 13)L 7.2(OCT 12)L 7.7(OCT 10) PT 12.7(OCT 13)12.6(OCT 10) INR 0.92(OCT 13)0.91(OCT 10) PTT 34.0(OCT 10) Troponin <0.02(OCT 11). Impression and Plan 40 yo w/ HTN, ADHD, concern for substance abuse, h/o benzo w/d, and h/o CMP w/ AICD w/ most recent echo 10/11 noting complete recovery. She p/w concern for fever, and cocnern for flu exposure. Her blood pressures were diminished with sbp~90-100. She was not tachycardic and did not have further fevers. Her InfB was positive. She was treated in the ICU initially. 1.Influenza B viral infection Continue Tamifu 75MG PO BID d/c levaquin, no indication for this at this time 2.Hypotension: Resolved Likely secondary to volume depletion and medications: benzos 3.h/o Cardiomyopathy s/p AICD placement Coreg/Lasix on hold for hypotension Appears to have recovered cardiac function, hold at d/c 4.Hx of DVT: in 10/2014, off coumadin now per patient after verification of resultion. 5.Anxiety disorder taper Alprazolam, may need to consider d/c (defer to pcp) 6.ADHD: On Ritalin 7.DVT/GI prophylaxis: ppi and lmwh Disposition; D/C today anticipated pending PCP records to confirm meds PCP: Dr. Wendy Ojeda: [phone] Code status: Full Addendum Developing neutropenina: ?medication reaction by -d/c tamiflu Gina, -check in am Julio Mendez MD on 10/14/2015 11:29
--- OUTSIDE RECORDS SUMMARY | 2018-09-23 10:46 | XMS REPORT | Summary of Care ---
Author Author [facility] Organization [facility] Address Unknown Phone Unavailable Encounter IAN Ruiz(SOLITARIO) [id number] Date(s): 11/18/15 - 11/18/15 [facility] [address] [place] [address]- Discharge Diagnosis: Other psychoactive substance abuse, uncomplicated Discharge Diagnosis: Unspecified mood [affective] disorder Discharge Diagnosis: Low back pain Discharge Disposition: Home Attending Physician: China Cisneros MD Vital Signs Most recent to 1 2 oldest [Reference Range]: Height 157.48 cm (11/18/15 2:41 PM) Temperature Oral 98.1 DegF 97.5 DegF [96.4-99.1 DegF] (11/18/15 6:10 PM) (11/18/15 2:41 PM) Blood Pressure 98/67 mmHg 114/79 mmHg [90-140/60-90 mmHg] (11/18/15 6:10 PM) (11/18/15 2:41 PM) Respiratory Rate 18 BRMIN 17 BRMIN [14-20 BRMIN] (11/18/15 6:10 PM) (11/18/15 2:41 PM) Peripheral Pulse 86 bpm 93 bpm Rate [60-100 bpm] (11/18/15 6:10 PM) (11/18/15 2:41 PM) Weight 61.364 kg (11/18/15 2:41 PM) Body Mass Index 24.74 m2 (11/18/15 2:41 PM) Problem List Condition Effective Dates Status Health Status Informant ADHD (attention Resolved deficit hyperactivity disorder)(Confirmed) Anxiety(Confirmed) Resolved Blood Active clot(Confirmed) Cardiac Resolved pacemaker(Confirmed) CHF (congestive Resolved heart failure)(Confirmed) CHF - Congestive 07/09/11 Resolved heart failure(Confirmed) Herniated Resolved disc(Confirmed) HT - Resolved Hypertension(Confirm ed) Hypertension(Confirm Resolved ed) Stroke(Confirmed)1 Resolved 1pt states diagnosed with stroke Friday 09/01 at [facility] Allergies, Adverse Reactions, Alerts Substance Reaction Severity Status Bicillin L-A Active Mucinex Active Zoloft Active Medications Dolobid 500 mg oral tablet 500 mg=1 tab, PO, Q8H, # 90 tab, 0 Refill(s) Start Date: 11/18/15 Status: Ordered Flagyl 500 mg oral tablet 500 mg=1 tab, PO, Q12H, X 14 day, # 28 tab, 0 Refill(s) Start Date: 11/18/15 Stop Date: 12/02/15 Status: Ordered Saline Flush 0.9% 10 mL, Route: IVP, Drug Form: INJ, Dosing Weight 61.364, kg, PRN, PRN Line Flush , Start date: 11/18/15 14:41:00 CDT, Duration: 30 day, Stop date: 12/18/15 14:40 :00 CDT Notes: (Same as: BD Posiflush) Start Date: 11/18/15 Stop Date: 11/19/15 Status: Discontinued Tylenol 975 mg, Route: PO, Drug form: TAB, ONCE, Dosing Weight 61.364, kg, Priority: STA T, Start date: 11/18/15 16:51:00 CDT, Stop date: 11/18/15 16:51:00 CDT Start Date: 11/18/15 Stop Date: 11/18/15 Status: Completed Results ELECTROLYTES Most recent to 1 oldest [Reference Range]: Sodium Lvl [135-145 133 mEq/L mEq/L] *LOW* (11/18/15 3:35 PM) Potassium Lvl 3.4 mEq/L [3.5-5.1 mEq/L] *LOW* (11/18/15 3:35 PM) Chloride Lvl [95-109 96 mEq/L mEq/L] (11/18/15 3:35 PM) CO2 [24-32 mEq/L] 26 mEq/L (11/18/15 3:35 PM) AGAP [10.0-20.0 14.4 mEq/L mEq/L] (11/18/15 3:35 PM) CHEM PANEL Most recent to 1 oldest [Reference Range]: Creatinine Lvl 1.16 mg/dL [0.50-1.40 mg/dL] (11/18/15 3:35 PM) eGFR 59 mL/min/1.73m2 1 *NA* (11/18/15 3:35 PM) BUN [7-22 mg/dL] 22 mg/dL (11/18/15 3:35 PM) B/C Ratio [6-25] 19 (11/18/15 3:35 PM) Glucose Lvl [70-99 89 mg/dL mg/dL] (11/18/15 3:35 PM) Total Protein 8.9 g/dL [6.4-8.4 g/dL] *HI* (11/18/15 3:35 PM) Albumin Lvl [3.5-5.0 4.4 g/dL g/dL] (11/18/15 3:35 PM) Globulin [2.0-4.0 4.5 g/dL g/dL] *HI* (11/18/15 3:35 PM) A/G Ratio [0.7-1.6] 1.0 (11/18/15 3:35 PM) Calcium Lvl 9.0 mg/dL [8.5-10.5 mg/dL] (11/18/15 3:35 PM) ALT [0-65 unit/L] 33 unit/L (11/18/15 3:35 PM) AST [0-37 unit/L] 32 unit/L (11/18/15 3:35 PM) Alk Phos [39-136 121 unit/L unit/L] (11/18/15 3:35 PM) Bili Total [0.2-1.3 0.3 mg/dL mg/dL] (11/18/15 3:35 PM) Amylase Lvl [25-115 76 unit/L unit/L] (11/18/15 3:35 PM) Lipase Lvl [73-393 149 unit/L unit/L] (11/18/15 3:35 PM) 1Result Comment: The eGFR is calculated [...] be mul tiplied by the estimated BMI. DRUG SCREEN Most recent to 1 oldest [Reference Range]: U Amph Scr Negative [Negative] *NA* (11/18/15 3:18 PM) U Valeria Scr Negative [Negative] *NA* (11/18/15 3:18 PM) U Benzodia Scr Positive [Negative] *ABN* (11/18/15 3:18 PM) U Cocaine Scr Negative [Negative] *NA* (11/18/15 3:18 PM) U Opiate Scr Negative [Negative] *NA* (11/18/15 3:18 PM) U Phencyc Scr Negative [Negative] *NA* (11/18/15 3:18 PM) U Cannab Scr Positive [Negative] *ABN* (11/18/15 3:18 PM) UDS Note See Note (11/18/15 3:18 PM) URINE CHEM Most recent to 1 oldest [Reference Range]: U Preg [Negative] Negative (11/18/15 3:35 PM) URINE AND STOOL Most recent to 1 oldest [Reference Range]: UA Turbidity [Clear] Clear (11/18/15 3:18 PM) UA Color Ltyellow *NA* (11/18/15 3:18 PM) UA pH [5.0-8.0] 6.0 (11/18/15 3:18 PM) UA Spec Grav 1.010 [<=1.030] (11/18/15 3:18 PM) UA Glucose [Negative Negative mg/dL mg/dL] *NA* (11/18/15 3:18 PM) UA Blood [Negative] Moderate *ABN* (11/18/15 3:18 PM) UA Ketones [Negative 20 mg/dL mg/dL] *ABN* (11/18/15 3:18 PM) UA Protein [Negative Negative mg/dL mg/dL] (11/18/15 3:18 PM) UA Urobilinogen <=1.0 mg/dL [0.1-1.0 mg/dL] *NA* (11/18/15 3:18 PM) UA Bili [Negative] Negative *NA* (11/18/15 3:18 PM) UA Leuk Est Negative [Negative] (11/18/15 3:18 PM) UA Nitrite Negative [Negative] (11/18/15 3:18 PM) UA WBC [0-5 /HPF] 2 /HPF (11/18/15 3:18 PM) UA RBC [0-2 /HPF] 1 /HPF (11/18/15 3:18 PM) UA Bacteria [None Many /HPF Seen /HPF] *ABN* (11/18/15 3:18 PM) UA Sq Epi [Few /LPF] Occasional /LPF *NA* (11/18/15 3:18 PM) UA Hyal Cast [0-2 14 /LPF /LPF] *HI* (11/18/15 3:18 PM) UA Mucus [None Seen Few /LPF /LPF] *NA* (11/18/15 3:18 PM) HEMATOLOGY Most recent to 1 oldest [Reference Range]: WBC [3.7-10.4 K/CMM] 5.9 K/CMM (11/18/15 3:35 PM) RBC [4.20-5.40 3.47 M/CMM M/CMM] *LOW* (11/18/15 3:35 PM) Hgb [12.0-16.0 g/dL] 11.8 g/dL *LOW* (11/18/15 3:35 PM) Hct [36.0-48.0 %] 34.1 % *LOW* (11/18/15 3:35 PM) MCV [80.0-98.0 fL] 98.5 fL *HI* (11/18/15 3:35 PM) MCH [27.0-31.0 pg] 33.9 pg *HI* (11/18/15 3:35 PM) MCHC [32.0-36.0 34.4 g/dL g/dL] (11/18/15 3:35 PM) RDW [11.5-14.5 %] 13.6 % (11/18/15 3:35 PM) Platelet [133-450 193 K/CMM K/CMM] (11/18/15 3:35 PM) MPV [7.4-10.4 fL] 8.5 fL (11/18/15 3:35 PM) Segs [45.0-75.0 %] 66.2 % (11/18/15 3:35 PM) Lymphocytes 24.9 % [20.0-40.0 %] (11/18/15 3:35 PM) Monocytes [2.0-12.0 6.6 % %] (11/18/15 3:35 PM) Eosinophils [0.0-4.0 1.6 % %] (11/18/15 3:35 PM) Basophils [0.0-1.0 0.7 % %] (11/18/15 3:35 PM) Segs-Bands # 3.9 K/CMM [1.5-8.1 K/CMM] (11/18/15 3:35 PM) Lymphocytes # 1.5 K/CMM [1.0-5.5 K/CMM] (11/18/15 3:35 PM) Monocytes # [0.0-0.8 0.4 K/CMM K/CMM] (11/18/15 3:35 PM) Eosinophils # 0.1 K/CMM [0.0-0.5 K/CMM] (11/18/15 3:35 PM) Immunizations No data available for this section Procedures Procedure Date Related Diagnosis Body Site section1 Cholecystectomy Permanent cardiac pacemaker procedure Spinal fusion Tubal ligation 1x2 Social History Social History Type Response Substance Abuse 1 Alcohol Past Smoking Status Never smoker; Type: Cigarettes; Exposure to Tobacco Smoke None; Cigarette Smoking Last 365 Days No; Reg Smoking Cessation Counseling No 1pt denies Assessment and Plan No data available for this section
--- OUTSIDE RECORDS SUMMARY | 2018-09-23 10:46 | XMS REPORT ---
Author Author Yolanda Murphy Organization [employer]ClinicalWorks Address Unknown Phone Unavailable Care Team Providers Care Mental Health Tech Name Role Phone Yolanda Murphy Unavailable Encounters Encounter Location Date losartan 50mg [facility] February 11, 2015 Wants to increase Losartan [facility] May 22, 2015 Unknown [facility] May 27, 2015 Problems Problem Type Condition ICD-9 Code Onset Dates Condition Status Problem CHF 428.0 Active Problem Hypertension 401.0 Active Problem CMP 425.4 Active Problem S/P ICD V45.02 Active Social History Social History Element Qualifiers Date Reported Tobacco Use: . Are you a: non-smoker Apr 04, 2015 Caffeine intake? . Status: Yes, What type: Coffee once a month Apr 04, 2015 Do you drink alcohol? . Status: No Apr 04, 2015 Summary Purpose eClinicalWorks Submission
--- OUTSIDE RECORDS SUMMARY | 2018-09-23 10:46 | XMS REPORT ---
Author Author Yolanda Murphy Organization [employer] Address Unknown Phone Unavailable Care Team Providers Care Medical Surgical Tech Name Role Phone Yolanda Murphy Unavailable Encounters Encounter Location Date Refill for losartan [facility] May 28, 2015 losartan 50mg [facility] February 11, [...] Date End Date Status Dosage Losartan Potassium [facility] [address]-83 100 MG Orally twice a day (bid) February 11, 2015 Active 1/2 half tablet Social History Social History Element Qualifiers Date Reported Tobacco Use: . Are you a: non-smoker Apr 04, 2015 Caffeine intake? . Status: Yes, What type: Coffee once a month Apr 04, 2015 Do you drink alcohol? . Status: No Apr 04, 2015 Summary Purpose eClinicalWorks Submission
--- OUTSIDE RECORDS SUMMARY | 2018-09-23 10:46 | XMS REPORT ---
Author Author Yolanda Murphy Organization [employer] Address Unknown Phone Unavailable Care Team Providers Care Pump Service Supervisor Name Role Phone Yolanda Murphy Unavailable Encounters Encounter Location Date Refill for losartan [facility] May 28, 2015 refill on Potassium [facility] Jun 25, 2015 losartan 50mg [facility] February 11, 2015 Wants to increase Losartan [facility] May 22, 2015 Unknown [facility] May 27, 2015 Problems Problem Type Condition ICD-9 Code Onset Dates Condition Status Problem CHF 428.0 Active Problem Hypertension 401.0 Active Problem CMP 425.4 Active Problem S/P ICD V45.02 Active Medications Medication Code System Code Instructions Start Date End Date Status Dosage Potassium Chloride CR Unknown 0 20 MEQ Orally daily February 21, 2015 Sep 23, 2015 Active as directed Social History Social History Element Qualifiers Date Reported Tobacco Use: . Are you a: non-smoker Apr 04, 2015 Caffeine intake? . Status: Yes, What type: Coffee once a month Apr 04, 2015 Do you drink alcohol? . Status: No Apr 04, 2015 Summary Purpose eClinicalWorks Submission
--- OUTSIDE RECORDS SUMMARY | 2018-09-23 10:47 | XMS REPORT ---
Author Author Yolanda Murphy Organization [employer] Address Unknown Phone Unavailable Care Team Providers Care Tow Boat Captain Name Role Phone Yolanda Murphy Unavailable Encounters Encounter Location Date Refill for losartan [facility] May 28, 2015 refill on Potassium [facility] Jun 25, 2015 refill for lasix [facility] Aug 08, 2015 patient called for refill [facility] December 27, 2015 losartan 50mg [facility] February 11, 2015 Wants to increase Losartan [facility] May 22, 2015 Unknown [facility] May 27, 2015 Problems Problem Type Condition ICD-9 Code Onset Dates Condition Status Problem S/P ICD (internal cardiac defibrillator) procedure Z95.810 Active Problem Congestive heart failure I50.9 Active Problem Cardiomyopathy I42.9 Active Problem HTN (hypertension) I10 Active Problem Paroxysmal ventricular tachycardia I47.2 Active Medications Medication Code System Code Instructions Start Date End Date Status Dosage Losartan Potassium [facility] [address]-33 100 mg Orally Once a day Active 1 tablet Social History Social History Element Qualifiers Date Reported Tobacco Use: . Are you a: non-smoker Sep 12, 2015 Marital Status: . Single Sep 12, 2015 Caffeine intake? . Status: Yes, What type: Coffee once a month Sep 12, 2015 Do you drink alcohol? . Status: No Sep 12, 2015 Summary Purpose eClinicalWorks Submission
--- OUTSIDE RECORDS SUMMARY | 2018-09-23 10:47 | XMS REPORT ---
Author Author [facility] Address Unknown Phone Unavailable Care Team Providers Care Rn Radiation Oncology Name Role Phone BENJAMIN JAUREGUI Unavailable Unavailable JEAN CARLOS BRITTANY HILLS Unavailable Unavailable Problems This patient has no known problems. Allergies, Adverse Reactions, Alerts This patient has no known allergies or adverse reactions. Medications This patient has no known medications. Results Test Description Test Time Test Comments Text Results Atomic Results Result Comments B-TYPE NATRIURETIC FACTOR (BNP) 2018-04-20 13:22:00 B-TYPE NATRIURETIC PEPTIDE (BEAKER) (test rubs=422) 27 pg/mL 0-100 [id number] 13:14:00* Test Item Value Reference Range Comments MAGNESIUM (BEAKER) (test qupm=989) 2.3 mg/dL 1.6-2.6 BASIC METABOLIC [id number] 13:14:00* Test Item Value Reference Range Comments SODIUM (BEAKER) (test jjuj=542) 136 meq/L 136-145 POTASSIUM (BEAKER) (test atpq=960) 3.7 meq/L 3.5-5.1 CHLORIDE (BEAKER) (test clpx=128) 101 meq/L 98-107 CO2 (BEAKER) (test xfss=403) 25 meq/L 22-29 BLOOD UREA NITROGEN (BEAKER) (test twef=616) 19 mg/dL 7-21 CREATININE (BEAKER) (test mboi=051) 1.35 mg/dL 0.57-1.25 GLUCOSE RANDOM (BEAKER) (test twkz=688) 106 mg/dL 70-105 CALCIUM (BEAKER) (test goqj=029) 9.8 mg/dL 8.4-10.2 EGFR (BEAKER) (test hcwe=5804) 43 mL/min/1.73 sq m ESTIMATED GFR IS NOT ACCURATE CREATININE CLEARANCE IN PREDICTING GLOMERULAR FILTRATION RATE. ESTIMATED GFR IS NOT APPLICABLE FOR DIALYSIS PATIENTS. BLOOD [id number] 00:00:00* Test Item Value Reference Range Comments CULTURE (BEAKER) (test yglz=4439) No growth in 5 days BLOOD [id number] 00:00:00* Test Item Value Reference Range Comments CULTURE (BEAKER) (test sxdt=7900) No growth in 5 days TSH/FREE T4 IF [id number] 06:12:00* Test Item Value Reference Range Comments THYROID STIMULATING HORMONE (BEAKER) (test sfyk=304) 2.06 uIU/mL 0.35-4.94 BASIC METABOLIC [id number] 06:00:00* Test Item Value Reference Range Comments SODIUM (BEAKER) (test eecd=353) 136 meq/L 136-145 POTASSIUM (BEAKER) (test cinu=588) 3.6 meq/L 3.5-5.1 CHLORIDE (BEAKER) (test kguw=310) 108 meq/L 98-107 CO2 (BEAKER) (test aqlt=072) 21 meq/L 22-29 BLOOD UREA NITROGEN (BEAKER) (test xnrf=030) 26 mg/dL 7-21 CREATININE (BEAKER) (test qrom=315) 1.24 mg/dL 0.57-1.25 GLUCOSE RANDOM (BEAKER) (test jnlh=673) 99 mg/dL 70-105 CALCIUM (BEAKER) (test xudq=562) 9.0 mg/dL 8.4-10.2 EGFR (BEAKER) (test kscd=7311) 47 mL/min/1.73 sq m ESTIMATED GFR IS NOT ACCURATE CREATININE CLEARANCE IN PREDICTING GLOMERULAR FILTRATION RATE. ESTIMATED GFR IS NOT APPLICABLE FOR DIALYSIS PATIENTS. TROPONIN [id number] 05:51:00* Test Item Value Reference Range Comments TROPONIN I (BEAKER) (test uofc=100) < ng/mL 0.00-0.03 Troponin I (TnI) levels must be interpreted in the context of the presenting sym ptoms and the clinical findings. Elevated TnI levels indicate myocardial damage, but are not specific for ischemic heart disease. Elevated TnI levels are seen in patients with other cardiac conditions (including myocarditis and congestive h eart failure), and slight TnI elevations occur in patients with other conditions , including sepsis, renal failure, acidosis, acute neurological disease, and per sistent tachyarrhythmia.B-TYPE NATRIURETIC FACTOR (BNP)2018-03-28 05:50:00* Test Item Value Reference Range Comments B-TYPE NATRIURETIC PEPTIDE (VAMSHI) (test yoow=829) 26 pg/mL 0-100 U/S, RENAL, [id number] 02:22:00Reason for exam:->akiFINAL REPORT Exam: Complete renal ultrasound Clinical History: [...] atrophy or obstructive uropathy. Signed: Gaby Bocanegra ort Verified Date/Time: 03/28/2018 02:22:25 Reading Location: [address] Reading Room Electronically signed by: GABY BOCANEGRA M.D. on 03/10 02:22 AM P[facility] PERF IMAGING, PARTIC, [id number] 19:11:00Reason for exam:->sobIs the patient ?->NoWhen was patient's last menstrual cycle?-> 03/26/18INAL REPORT PROCEDURE: V/Q LUNG SCAN CPT CODE: 45952 INDICATION: Dyspnea, chest pain, history of PE, [...] physiological. IMPRESSION: Normal ventilation/perfusion lung scan. Signed: Dennys Galicia MDReport Verified Date/Time: 03/27/2018 19:11:41 EN, [id number] 19:10:00* Test Item Value Reference Range Comments TEST URINE (BEAKER) (test zymx=746) Negative RAPID DRUG SCREEN, [id number] 18:27:00* Test Item Value Reference Range Comments BARBITURATE URINE (BEAKER) (test gmpe=739) Negative Negative BENZODIAZEPINE SCREEN URINE (BEAKER) (test vbpl=660) Positive Negative COCAINE (METAB.) SCREEN (BEAKER) (test qfid=4449) Negative Negative METHADONE SCREEN (BEAKER) (test zwli=4714) Negative Negative OPIATE SCREEN URINE (BEAKER) (test xmpa=520) Negative Negative CANNABINOID SCREEN URINE (BEAKER) (test yewp=001) Negative Negative AMPH/METHAMPH SCREEN (BEAKER) (test xvsd=0139) Negative Negative PHENCYCLIDINE SCREEN URINE (BEAKER) (test lnhx=905) Negative Negative OXYCODONE SCREEN URINE (BEAKER) (test oywm=0196) Negative Negative DRUG CUTOFF CONC.Cocaine 300 ng/mL Cannabinoid 50 ng/mL Benzodiazepine 200 ng/mLBarbiturate 200 ng/mLPh encyclidine 25 ng/mLOpiate 300 ng/mLMethadone 300 ng/mLAmphetamine/ 1000 ng/mL MethamphetamineOxycodone 300 ng/mLThis assay provides an unconfirmed qualitative test result for the cli nical management of patients in emergency situations. Chain of custody not maint ained. Some dxis-rco-vlsxlyu medications, as well as adulterants, may cause inac curate results. Clinical correlation should be applied. A more comprehensive jorge g screen or confirmation of a detected drug may be performed upon request. SODIUM, RANDOM [id number] 17:58:00* Test Item Value Reference Range Comments SODIUM URINE (BEAKER) (test pnpb=374) < meq/L Reference Range: No NormalsCREATININE, RANDOM [id number] 17:48:00* Test Item Value Reference Range Comments CREATININE URINE (BEAKER) (test ymja=203) 53.1 mg/dL Reference Range: No NormalsRAPID DRUG SCREEN, [id number] 08:29:00* Test Item Value Reference Range Comments BARBITURATE URINE (BEAKER) (test vqdo=441) Negative Negative BENZODIAZEPINE SCREEN URINE (BEAKER) (test teck=992) Positive Negative COCAINE (METAB.) SCREEN (BEAKER) (test icqc=3076) Negative Negative METHADONE SCREEN (BEAKER) (test cyzj=7510) Negative Negative OPIATE SCREEN URINE (BEAKER) (test dyzf=758) Positive Negative CANNABINOID SCREEN URINE (BEAKER) (test zznm=485) Negative Negative AMPH/METHAMPH SCREEN (BEAKER) (test xsfl=9431) Negative Negative PHENCYCLIDINE SCREEN URINE (BEAKER) (test nedy=348) Negative Negative OXYCODONE SCREEN URINE (BEAKER) (test zbgi=6593) Negative Negative DRUG CUTOFF CONC.Cocaine 300 ng/mL Cannabinoid 50 ng/mL Benzodiazepine 200 ng/mLBarbiturate 200 ng/mLPh encyclidine 25 ng/mLOpiate 300 ng/mLMethadone 300 ng/mLAmphetamine/ 1000 ng/mL MethamphetamineOxycodone 300 ng/mLThis assay provides an unconfirmed qualitative test result for the cli nical management of patients in emergency situations. Chain of custody not maint ained. Some rfdw-kai-jaimyib medications, as well as adulterants, may cause inac curate results. Clinical correlation should be applied. A more comprehensive jorge g screen or confirmation of a detected drug may be performed upon request. TROPONIN [id number] 05:49:00* Test Item Value Reference Range Comments TROPONIN I (BEAKER) (test vxpx=422) < ng/mL 0.00-0.03 Troponin I (TnI) levels must be interpreted in the context of the presenting sym ptoms and the clinical findings. Elevated TnI levels indicate myocardial damage, but are not specific for ischemic heart disease. Elevated TnI levels are seen in patients with other cardiac conditions (including myocarditis and congestive h eart failure), and slight TnI elevations occur in patients with other conditions , including sepsis, renal failure, acidosis, acute neurological disease, and per sistent tachyarrhythmia.BASIC METABOLIC [id number] 05:46:00* Test Item Value Reference Range Comments SODIUM (BEAKER) (test eikq=734) 138 meq/L 136-145 POTASSIUM (BEAKER) (test vmxh=642) 3.6 meq/L 3.5-5.1 CHLORIDE (BEAKER) (test kmrh=627) 103 meq/L 98-107 CO2 (BEAKER) (test kabk=225) 24 meq/L 22-29 BLOOD UREA NITROGEN (BEAKER) (test shgl=592) 31 mg/dL 7-21 CREATININE (BEAKER) (test xjpr=337) 1.67 mg/dL 0.57-1.25 GLUCOSE RANDOM (BEAKER) (test hram=648) 98 mg/dL 70-105 CALCIUM (BEAKER) (test txyf=278) 9.9 mg/dL 8.4-10.2 EGFR (BEAKER) (test cdwy=4168) 33 mL/min/1.73 sq m ESTIMATED GFR IS NOT ACCURATE CREATININE CLEARANCE IN PREDICTING GLOMERULAR FILTRATION RATE. ESTIMATED GFR IS NOT APPLICABLE FOR DIALYSIS PATIENTS. CBC W/PLT COUNT & AUTO [id number] 05:28:00* Test Item Value Reference Range Comments WHITE BLOOD CELL COUNT (BEAKER) (test ylse=529) 7.9 K/ L 3.5-10.5 RED BLOOD CELL COUNT (BEAKER) (test lsyw=216) 3.53 M/ L 3.93-5.22 HEMOGLOBIN (BEAKER) (test axqh=150) 11.6 GM/DL 11.2-15.7 HEMATOCRIT (BEAKER) (test mrmr=716) 33.3 % 34.1-44.9 MEAN CORPUSCULAR VOLUME (BEAKER) (test irlr=019) 94.3 fL 79.4-94.8 MEAN CORPUSCULAR HEMOGLOBIN (BEAKER) (test iqla=480) 32.9 pg 25.6-32.2 MEAN CORPUSCULAR HEMOGLOBIN CONC (BEAKER) (test kjpn=178) 34.8 GM/DL 32.2-35.5 RED CELL DISTRIBUTION WIDTH (BEAKER) (test cddr=228) 12.0 % 11.7-14.4 PLATELET COUNT (BEAKER) (test hepm=505) 280 K/CU MM 150-450 MEAN PLATELET VOLUME (BEAKER) (test smsn=124) 10.2 fL 9.4-12.3 NUCLEATED RED BLOOD CELLS (BEAKER) (test tszx=281) 0 /100 WBC 0-0 NEUTROPHILS RELATIVE PERCENT (BEAKER) (test rlky=617) 60 % LYMPHOCYTES RELATIVE PERCENT (BEAKER) (test ejhy=424) 28 % MONOCYTES RELATIVE PERCENT (BEAKER) (test wizu=010) 11 % EOSINOPHILS RELATIVE PERCENT (BEAKER) (test gjsb=053) 1 % BASOPHILS RELATIVE PERCENT (BEAKER) (test mxxe=253) 1 % NEUTROPHILS ABSOLUTE COUNT (BEAKER) (test xbwm=734) 4.73 K/ L 1.56-6.13 LYMPHOCYTES ABSOLUTE COUNT (BEAKER) (test qrtt=589) 2.20 K/ L 1.18-3.74 MONOCYTES ABSOLUTE COUNT (BEAKER) (test mnty=075) 0.83 K/ L 0.24-0.36 EOSINOPHILS ABSOLUTE COUNT (BEAKER) (test stnx=318) 0.07 K/ L 0.04-0.36 BASOPHILS ABSOLUTE COUNT (BEAKER) (test ahxj=057) 0.05 K/ L 0.01-0.08 IMMATURE GRANULOCYTES-RELATIVE PERCENT (BEAKER) (test hojs=5901) 0 % 0-1 RAD, CHEST, 1 VIEW, NON [id number] 21:16:00Reason for exam:->CHEST PAINIs the patient ?->NoShould this be performed at the bedside?->YesFINAL REPORT History: Chest pain. Comparison: 08/31/2016 Findings: A single view of the chest is submitted. The cardiac silhouette is wit hin normal limits for size. A left subclavian, multilead ICD remains in place. There is no focal consolidation, pneumothorax, large pleural effusion or evidenc e of overt pulmonary edema. There is no acute bony abnormality. Signed: Elisa Perry MDReport Verified Date/Time: 03/26/2018 21:16:59 Reading Location: [address] Reading Room /[id number] 18:58:00* Test Item Value Reference Range Comments PROTIME (BEAKER) (test klii=251) 13.6 seconds 11.7-14.7 INR (BEAKER) (test xbxy=646) 1.0 <=5.9 PARTIAL THROMBOPLASTIN TIME (BEAKER) (test vtxk=454) 27.7 seconds 22.5-36.0 RECOMMENDED COUMADIN/WARFARIN INR THERAPY RANGESSTANDARD DOSE: 2.0 - 3.0 Inclu mariana: PROPHYLAXIS for venous thrombosis, systemic embolization; TREATMENT for nell ous thrombosis and/or pulmonary embolus.HIGH RISK: Target INR is 2.5-3.5 for pat ients with mechanical heart valves.CREATINE KINASE (CK), TOTAL AND [id number] 18:46:00* Test Item Value Reference Range Comments CREATINE KINASE TOTAL (BEAKER) (test xtqu=278) 68 U/L 29-200 CREATINE KINASE-MB (BEAKER) (test fwcl=146) 0.6 ng/mL 0.0-6.6 CREATINE KINASE-MB INDEX (BEAKER) (test neot=499) 0.9 % CK-MB Reference Range:<6.7 Normal6.7-10.0 Borderline>10.0 Abnormal TROPONIN [id number] 18:46:00* Test Item Value Reference Range Comments TROPONIN I (BEAKER) (test qujs=913) < ng/mL 0.00-0.03 Troponin I (TnI) levels must be interpreted in the context of the presenting sym ptoms and the clinical findings. Elevated TnI levels indicate myocardial damage, but are not specific for ischemic heart disease. Elevated TnI levels are seen in patients with other cardiac conditions (including myocarditis and congestive h eart failure), and slight TnI elevations occur in patients with other conditions , including sepsis, renal failure, acidosis, acute neurological disease, and per sistent tachyarrhythmia.BASIC METABOLIC [id number] 18:40:00* Test Item Value Reference Range Comments SODIUM (BEAKER) (test xqys=213) 134 meq/L 136-145 POTASSIUM (BEAKER) (test lmjw=095) 3.9 meq/L 3.5-5.1 CHLORIDE (BEAKER) (test rhbe=802) 101 meq/L 98-107 CO2 (BEAKER) (test mebo=038) 20 meq/L 22-29 BLOOD UREA NITROGEN (BEAKER) (test rkny=152) 28 mg/dL 7-21 CREATININE (BEAKER) (test qtam=304) 1.79 mg/dL 0.57-1.25 GLUCOSE RANDOM (BEAKER) (test eflj=281) 102 mg/dL 70-105 CALCIUM (BEAKER) (test rirz=030) 10.4 mg/dL 8.4-10.2 EGFR (BEAKER) (test tyce=4098) 31 mL/min/1.73 sq m ESTIMATED GFR IS NOT ACCURATE CREATININE CLEARANCE IN PREDICTING GLOMERULAR FILTRATION RATE. ESTIMATED GFR IS NOT APPLICABLE FOR DIALYSIS PATIENTS. SCREEN, [id number] 18:32:00* Test Item Value Reference Range Comments TEST URINE (BEAKER) (test yerr=968) Negative CBC W/PLT COUNT & AUTO [id number] 18:22:00* Test Item Value Reference Range Comments WHITE BLOOD CELL COUNT (BEAKER) (test kxwi=204) 10.1 K/ L 3.5-10.5 RED BLOOD CELL COUNT (BEAKER) (test qjcb=919) 3.79 M/ L 3.93-5.22 HEMOGLOBIN (BEAKER) (test vqoh=367) 12.6 GM/DL 11.2-15.7 HEMATOCRIT (BEAKER) (test sbwq=963) 35.4 % 34.1-44.9 MEAN CORPUSCULAR VOLUME (BEAKER) (test ptjz=283) 93.4 fL 79.4-94.8 MEAN CORPUSCULAR HEMOGLOBIN (BEAKER) (test solu=793) 33.2 pg 25.6-32.2 MEAN CORPUSCULAR HEMOGLOBIN CONC (BEAKER) (test lllw=148) 35.6 GM/DL 32.2-35.5 RED CELL DISTRIBUTION WIDTH (BEAKER) (test yawr=344) 11.9 % 11.7-14.4 PLATELET COUNT (BEAKER) (test drlw=887) 313 K/CU MM 150-450 MEAN PLATELET VOLUME (BEAKER) (test pbhp=498) 10.0 fL 9.4-12.3 NUCLEATED RED BLOOD CELLS (BEAKER) (test jexw=486) 0 /100 WBC 0-0 NEUTROPHILS RELATIVE PERCENT (BEAKER) (test dqjc=672) 77 % LYMPHOCYTES RELATIVE PERCENT (BEAKER) (test fexj=674) 15 % MONOCYTES RELATIVE PERCENT (BEAKER) (test iizd=955) 7 % EOSINOPHILS RELATIVE PERCENT (BEAKER) (test sxzq=259) 0 % BASOPHILS RELATIVE PERCENT (BEAKER) (test aimk=431) 1 % NEUTROPHILS ABSOLUTE COUNT (BEAKER) (test juet=704) 7.74 K/ L 1.56-6.13 LYMPHOCYTES ABSOLUTE COUNT (BEAKER) (test brcy=314) 1.52 K/ L 1.18-3.74 MONOCYTES ABSOLUTE COUNT (BEAKER) (test ciyt=002) 0.70 K/ L 0.24-0.36 EOSINOPHILS ABSOLUTE COUNT (BEAKER) (test lffc=068) 0.01 K/ L 0.04-0.36 BASOPHILS ABSOLUTE COUNT (BEAKER) (test fqvq=133) 0.06 K/ L 0.01-0.08 IMMATURE GRANULOCYTES-RELATIVE PERCENT (BEAKER) (test nido=3023) 0 % 0-1
--- OUTSIDE RECORDS SUMMARY | 2018-09-23 10:47 | XMS REPORT ---
Author Author Yolanda Murphy Organization eClinicalWorks Address Unknown Phone Unavailable Care Team Providers Care Head Insulation Board Saw Operator Name Role Phone Yolanda Murphy Unavailable Encounters [...] 2015 Unknown [facility] May 27, 2015 refill request [facility] Apr 06, 2016 Problems Problem Type Condition ICD-9 Code Onset Dates Condition Status Problem S/P ICD (internal cardiac defibrillator) procedure Z95.810 Active Problem Congestive heart failure I50.9 Active Problem Cardiomyopathy I42.9 Active Problem HTN (hypertension) I10 Active Problem Paroxysmal ventricular tachycardia I47.2 Active Medications Medication Code System Code Instructions Start Date End Date Status Dosage Potassium Chloride Kate [facility] [id number] 20 Orally Once a day Aug 04, 2016 Active TAKE 1 TABLET BY MOUTH EVERY DAY Social History Social History Element Qualifiers Date Reported Tobacco Use: . Are you a: non-smoker Mar 12, 2016 Marital Status: . Single Mar 12, 2016 Caffeine intake? . Status: Yes, What type: Coffee once a month Mar 12, 2016 Do you drink alcohol? . Status: No Mar 12, 2016 Summary Purpose eClinicalWorks Submission
[2018-09-23 11:20] LABS: BASOPHILS % 0.4 % (0.0-1.0); EOSINOPHILS # (AUTO) 0.1 (0.0-0.4); EOSINOPHILS % 1.5 % (0.0-6.0); HEMATOCRIT 27.3 % (34.2-44.1); HEMOGLOBIN 10.8 g/dL (12.0-16.0); LYMPHOCYTES # (AUTO) 1.7 (1.0-3.2); LYMPHOCYTES % 30.9 % (18.0-39.1); MEAN CORPUSCULAR HEMOGLOBIN 33.2 pg (28-32); MEAN CORPUSCULAR HGB CONC 39.6 g/dL (31-35); MONOCYTES # (AUTO) 0.7 (0.2-0.8); NEUTROPHILS % 54.8 % (38.7-80.0); PLATELET COUNT 196 x10e3/uL (140-360); RED BLOOD COUNT 3.25 x10e6/uL (3.6-5.1); RED CELL DISTRIBUTION WIDTH 10.8 % (11.7-14.4)
[2018-09-23 11:29] LABS: INR 0.87; PROTHROMBIN TIME 12.6 seconds (11.9-14.5)
[2018-09-23 11:30] LABS: PARTIAL THROMBOPLASTIN TIME 30.9 seconds (23.8-35.5)
[2018-09-23 11:32] LABS: AMPHETAMINES SCREEN,URINE NEGATIVE (NEGATIVE); BENZODIAZEPINES SCREEN,URINE POSITIVE (NEGATIVE); PHENCYCLIDINE SCREEN,URINE NEGATIVE (NEGATIVE)
[2018-09-23 11:39] LABS: ALANINE AMINOTRANSFERASE 625 IU/L (0-55); ALBUMIN 4.3 g/dL (3.5-5.0); ALBUMIN/GLOBULIN RATIO 1.3 (0.8-2.0); ALKALINE PHOSPHATASE 309 IU/L (40-150); ANION GAP 22.1 mmol/L (8-16); BLOOD UREA NITROGEN 93 mg/dL (7-26); BUN/CREATININE RATIO 25 (6-25); CALCIUM 9.4 mg/dL (8.4-10.2); CARBON DIOXIDE 22 mmol/L (22-29); CHLORIDE 75 mmol/L (98-107); CREATINE KINASE 244 IU/L (29-168); CREATININE, SERUM 3.69 mg/dL (0.57-1.11); EST GLOMERULAR FILTRATION RATE 13 ML/MIN (60-); GLUCOSE 93 mg/dL (74-118); POTASSIUM 3.1 mmol/L (3.5-5.1)
[2018-09-23 11:43] LABS: COLOR,URINE ORANGE (YELLOW)
[2018-09-23 11:44] LABS: BILIRUBIN,URINE NEGATIVE (NEGATIVE); CLARITY,URINE CLEAR (CLEAR); KETONES,URINE NEGATIVE (NEGATIVE); LEUKOCYTE ESTERASE ,URINE NEGATIVE (NEGATIVE); NITRITE,URINE POSITIVE (NEGATIVE); PROTEIN,URINE DIPSTICK TRACE (NEGATIVE); URINE UROBILINOGEN 4 mg/dL (0.2 - 1)
[2018-09-23 11:47] LABS: SODIUM 116 mmol/L (136-145)
[2018-09-23 11:49] LABS: BACTERIA,URINE FEW /HPF; EPITHELIAL CELLS,URINE FEW /LPF; RBC,URINE 0-5 /HPF (0-5); WBC,URINE (MAN) 0-5 /HPF (0-5)
[2018-09-23] MEDS ORDERED: POTASSIUM CHLO20 ME1 (11:51)
[2018-09-23] MEDS ORDERED: SODIUM CHLORIDE 0.9% 1000ML 2,000 ML IV SCH (12:30)
[2018-09-23] MEDS ORDERED: SODIUM CHLORIDE 0.9% 1000ML 1,000 ML IV SCH (12:36)
[2018-09-23] MEDS ORDERED: ONDANSETRON HCL INJ 2MG/ML 2ML 2 MG/ML VIAL IV PRN (12:45)
[2018-09-23] MEDS ORDERED: SODIUM BICARBONATE 8.4% INJ 50 ML SYR IV ONE (13:00)
[2018-09-23 13:04] LABS: BLOOD UREA NITROGEN 93 mg/dL (7-26); GLUCOSE 92 mg/dL (74-118); OSMOLALITY,SERUM 263 mOsm/kg (278-305)
[2018-09-23 13:19] LABS: SODIUM 116 mmol/L (136-145)
[2018-09-23 13:30] LABS: ACETAMINOPHEN 5 ug/mL (10-30)
--- OUTSIDE RECORDS SUMMARY | 2018-09-23 14:16 | XMS REPORT | Clinical Summary ---
Author Author [facility] Organization [facility] Address Unknown Phone Unavailable Care Team Providers Care Bank Worker Name Role Phone Alexandrea Ojeda MD PCP Allergies Comments Active Allergy Reactions Severity Noted Date Dexamethasone 01/20/2016 Dexamethasone Acetate Hives Medium 07/27/2016 Flu Vaccine Rash Low 02/01/2018 [id number](36mo,Up) PT. STATED THAT SHE GETS PAIN ON [...] 12/10/2017 lactobacillus Take 1 30 each 0 [id number]-rhpbi-lwdqlgt capsule by 8 us (BIO K PLUS) [...] Taken Vital Sign Reading 06/17/2018 11:49 PM [employer] Blood Pressure 122/81 06/17/2018 11:49 PM [employer] Pulse 87 06/17/2018 11:49 PM [employer] Temperature 36.9 C (98.4 F) 06/17/2018 11:49 PM [employer] Respiratory Rate 18 06/17/2018 11:49 PM [employer] Oxygen Saturation 97% - Inhaled Oxygen - Concentration 04/07/2018 8:27 AM CDT Weight 56.7 kg (125 lb) 06/17/2018 11:49 PM [employer] Height 157.5 cm (5' 2") 04/07/2018 8:27 AM CDT Body Mass Index 22.86 Plan of Treatment Health Maintenance Due Date Last Done Comments CERVICAL CANCER SCREENING 01/11/1996 INFLUENZA VACCINE 03/09/2018 11/06/2017 Implants Device Identifier Shelf Expiration Date Model / Serial / Lot Implanted Type Area Manufactur er 11/06/2018 [id number] / / [id number] Device Vasclr Clsr Baln Cath 10ml Cardiovasc CARDINAL Lkng Syr 6fr 7fr Mynxgrip - [facility] [id number] Implants Implanted: Qty: 1 on 01/05/2017 by Nish Betts MD Pacemaker-05/04/2016 Pacemaker Implanted: 05/04/2016 (Quantity not on file) Procedures Comments Procedure Name Priority Date/Time Associated Diagnosis XR CHEST 1 VW PORTABLE STAT 06/18/2018 12:29 AM [employer] POC GLUCOSE Routine 04/07/2018 8:59 AM CDT [...] MMODE SPECTRAL 9:15 AM CDT COLOR DOPPLER (71631) NM LUNG VENTILATION STAT 03/01/2018 PERFUSION 8:40 [...] MMODE SPECTRAL 3:57 PM CDT COLOR DOPPLER ([id number]) HCG QUALITATIVE, URINE Routine 11/05/2017 SCREEN 10:03 [...] Chest 1 Vw Portable (06/18/2018 12:29 AM [employer]) Only the most recent of 2 results [...] noted. Impression: No active cardiopulmonary disease identified. [facility]-[id number] Procedure Note Hm Interface, Radiology Results Incoming - 06/18/2018 12:33 AM [employer] Examination: XR CHEST 1 VW PORTABLE Clinical History: pacer placement verification Comparison: None. Technique: Single frontal view of the chest is obtained. Findings: The lungs are free of infiltrate. The heart size is normal. No pleural effusion is seen. Left transvenous pacer device is noted. Impression: No active cardiopulmonary disease identified. [facility]-[id number] Performing Organization Address City/State/Zipcode Phone Number [facility] [address] [place] [address] * POC glucose (04/07/2018 8:59 AM CDT) POC glucose 88 65 - 99 mg/dL [facility] DEPARTMENT OF Comment: PATHOLOGY AND Meter ID: [id number] GENOMIC MEDICINE Data Warehousing Specialist: Lewis Parker Performing Organization Address City/State/Zipcode Phone Number [facility] [place] [address] [place] [address] PATHOLOGY AND GENOMIC MEDICINE * Blood culture, aerobic & anaerobic (03/03/2018 6:09 PM CDT) Only the most recent of 6 results within the time period is included. Blood culture isolate No growth after 5 days of [facility] DEPARTMENT OF incubation. PATHOLOGY AND Comment: GENOMIC MEDICINE Specimen Information Specimen Source: Blood Specimen Site: Antecubital Arm Left Specimen Blood Performing Organization Address [facility] Phone Number [facility] DEPARTMENT OF [address] [place] [address] PATHOLOGY AND GENOMIC MEDICINE * ECG 12 lead (03/03/2018 7:02 AM CDT) Only the most recent of 4 results within the time period is included. Ventricular rate 126 [facility] MUSE Atrial rate 126 [facility] MUSE NM interval 122 [facility] MUSE QRSD interval 102 [facility] MUSE QT interval 328 [facility]USE QTC interval 475 [facility] MUSE P axis 1 68 [facility] MUSE QRS axis 1 78 [facility] MUSE T wave axis 50 [facility] MUSE EKG impression Atrial-sensed [facility] MUSE ventricular-paced rhythm-Baseline artifact-In automated comparison with ECG of 01-MAR-2018 16:06,-Vent. rate has increased BY 23 BPM- Performing Organization Address [facility]/Zipcode Phone Number [facility] [address] [place] [address] * Estimated GFR (03/03/2018 6:37 AM CDT) Only the most recent of 10 results within the time period is included. GFR Non Af Amer 41 (A) mL/min/1.73 m2 [facility] DEPARTMENT OF PATHOLOGY AND [facility] Res[facility] MEDICINE GFR Af Amer 50 (A) mL/min/1.73 m2 [facility] DEPARTMENT OF Comment: PATHOLOGY AND Chronic kidney [...] specimen Performing Organization Address City/State/Zipcode Phone Number [address] [place] [address] PATHOLOGY AND [facility] * Troponin (03/03/2018 6:37 AM CDT) Only the most recent of 6 results within the time period is included. Troponin <0.30 0.00 - 0.30 ng/mL [facility] DEPARTMENT OF Comment: PATHOLOGY AND 0.11 - 1.49 GENOMIC MEDICINE ng/mlMay indicate increased risk of acute coronary syndrome. >=1.5 ng/ml Consistent with acute myocardial infarction. The diagnostic value of a single normal or non-diagnostic result is questionable.Serial samples at 2-6 hour intervals are required to rule out acute myocardial injury. Specimen Plasma specimen Performing Organization Address City/[facility] Cent[facility]ode Phone Number [address] [place] [address] PATHOLOGY AND [facility] * CBC with platelet and differential (03/03/2018 6:37 AM CDT) Only the most recent of 9 results within the time period is included. WBC 6.9 4.2 - 11.0 k/uL [facility] DEPARTMENT OF PATHOLOGY AND GENOMIC MEDICINE RBC 3.07 (L) 4.04 - 5.86 m/uL [facility] DEPARTMENT OF PATHOLOGY AND GENOMIC MEDICINE HGB 10.5 (L) 11.5 - 15.3 g/dL [facility] DEPARTMENT OF PATHOLOGY AND GENOMIC MEDICINE HCT 29.4 (L) 34.0 - 45.0 % [facility] DEPARTMENT OF PATHOLOGY AND GENOMIC MEDICINE MCV 95.8 80.0 - 98.0 fL [facility] DEPARTMENT OF PATHOLOGY AND GENOMIC MEDICINE MCH 32.6 27.0 - 34.0 pg [facility] DEPARTMENT OF PATHOLOGY AND GENOMIC MEDICINE MCHC 34.0 31.5 - 36.5 g/dL [facility] DEPARTMENT OF PATHOLOGY AND GENOMIC MEDICINE RDW - SD 41.9 37.0 - 51.0 [facility] OF PATHOLOGY AND GENOMIC MEDICINE MPV 10.1 7.4 - 10.4 [facility] DEPARTMENT OF PATHOLOGY AND GENOMIC MEDICINE Platelet count 163 150 - 400 k/uL [facility] DEPARTMENT OF PATHOLOGY AND GENOMIC MEDICINE Nucleated RBC 0.00 /100 WBC [facility] DEPARTMENT OF PATHOLOGY AND GENOMIC MEDICINE Neutrophils 69.3 (H) 36.0 - 66.0 % [facility] DEPARTMENT PATHOLOGY AND GENOMIC MEDICINE Lymphocytes 20.0 (L) 24.0 - 44.0 % [facility] DEPARTMENT PATHOLOGY AND GENOMIC MEDICINE Monocytes 8.2 (H) 0.0 - 6.0 % [facility] DEPARTMENT OF PATHOLOGY AND GENOMIC MEDICINE Eosinophils 1.7 0.0 - 6.0 % [facility] DEPARTMENT PATHOLOGY AND GENOMIC MEDICINE Basophils 0.4 0.0 - 1.2 % [facility] PATHOLOGY AND GENOMIC MEDICINE Immature granulocytes 0.4 0.0 - 1.0 % [facility] PATHOLOGY AND GENOMIC MEDICINE Specimen Blood Performing Organization Address City/[facility] [place] [address] PATHOLOGY [facility] * Lactic acid level (03/03/2018 6:37 AM CDT) Only the most recent of 3 results within the time period is included. Lactic acid 1.9 0.5 - 2.2 mmol/L [facility] PATHOLOGY AND GENOMIC MEDICINE Specimen Blood Performing Organization Address City/[facility] [place] [address] PATHOLOGY [facility] * Basic metabolic panel (03/03/2018 6:37 AM CDT) Only the most recent of 7 results within the time period is included. Sodium 133 (L) 135 - 150 mEq/L [facility] PATHOLOGY AND GENOMIC MEDICINE Potassium 3.5 3.5 - 5.0 mEq/L [facility] PATHOLOGY AND GENOMIC MEDICINE Chloride 94 (L) 98 - 112 mEq/L [facility] PATHOLOGY AND GENOMIC MEDICINE CO2 24 24 - 31 mmol/L [facility] DEPARTMENT OF PATHOLOGY AND GENOMIC MEDICINE Anion gap 15@ANIO 7 - 15 mEq/L [facility] DEPARTMENT OF PATHOLOGY AND GENOMIC MEDICINE BUN 11 7 - 18 mg/dL [facility] DEPARTMENT OF PATHOLOGY AND GENOMIC MEDICINE Creatinine 1.40 (H) 0.50 - 0.90 mg/dL [facility] DEPARTMENT OF PATHOLOGY AND GENOMIC MEDICINE Glucose 99 65 - 100 mg/dL [facility] DEPARTMENT OF PATHOLOGY AND GENOMIC MEDICINE Calcium 9.0 8.3 - 10.2 mg/dL [facility] DEPARTMENT OF PATHOLOGY AND GENOMIC MEDICINE Specimen Plasma specimen Performing Organization Address City/[facility] Centercode Phone Number [address] [place] [address] PATHOLOGY AND GENOMIC MEDICINE * Urinalysis, automated with microscopy (03/02/2018 12:38 PM CDT) Color, UA Yellow [facility] DEPARTMENT OF PATHOLOGY AND GENOMIC MEDICINE Appearance, UA Clear [facility] DEPARTMENT OF PATHOLOGY AND GENOMIC MEDICINE Specific gravity, UA 1.008 1.001 - 1.035 [facility] DEPARTMENT OF PATHOLOGY AND GENOMIC MEDICINE pH, UA 6.0 5.0 - 8.5 [facility] DEPARTMENT OF PATHOLOGY AND GENOMIC MEDICINE Protein, UA Negative Negative [facility] DEPARTMENT OF PATHOLOGY AND GENOMIC MEDICINE Glucose, UA Negative Negative [facility] DEPARTMENT OF PATHOLOGY AND GENOMIC MEDICINE Ketones, UA Negative Negative [facility] DEPARTMENT OF PATHOLOGY AND GENOMIC MEDICINE Bilirubin, UA Negative Negative [facility] DEPARTMENT OF PATHOLOGY AND GENOMIC MEDICINE Blood, UA Negative Negative [facility] DEPARTMENT OF PATHOLOGY AND GENOMIC MEDICINE Nitrite, UA Negative Negative [facility] DEPARTMENT OF PATHOLOGY AND GENOMIC MEDICINE Urobilinogen, UA Negative <2.0 [facility] DEPARTMENT OF PATHOLOGY AND GENOMIC MEDICINE Leukocyte esterase, UA Negative Negative [facility] DEPARTMENT OF PATHOLOGY AND GENOMIC MEDICINE Epithelial cells, UA Few /HPF [facility] DEPARTMENT OF PATHOLOGY AND GENOMIC MEDICINE WBC, UA None seen 0 - 5 /HPF [facility] DEPARTMENT OF PATHOLOGY AND GENOMIC MEDICINE RBC, UA <1 0 - 5 /HPF [facility] DEPARTMENT OF PATHOLOGY AND GENOMIC MEDICINE Bacteria, UA None seen None seen [facility] DEPARTMENT OF PATHOLOGY AND GENOMIC MEDICINE Yeast, UA None seen [facility] DEPARTMENT OF PATHOLOGY AND GENOMIC MEDICINE Yeast with pseudohyphae, None seen [facility] DEPARTMENT [facility] PATHOLOGY AND GENOMIC MEDICINE Specimen Urine Performing Organization Address City/[facility] Centercode Phone Number [address] [place] [address] PATHOLOGY AND GENOMIC MEDICINE * Echocardiogram complete [...] Organization Address City/State/Zipcode Phone Number [facility] [address] [place] [address] * NM Lung Ventilation Perfusion (03/01/2018 8:40 [...] was then injected with 5 mCi of [id number] intravenously, followed by imaging of the lungs [...] was then injected with 5 mCi of [id number]-40v-[id number] intravenously, followed by imaging of the lungs in 8 projections. FINDINGS: Ventilation and perfusion are normal bilaterally. Incidental note of pacemaker metallic attenuation artifact left upper lobe. IMPRESSION: Normal VQ scan. KAMRYN Performing Organization Address City/[facility]/Zipcode Phone Number [facility] [address] [place] [address] * Respiratory pathogen panel (03/01/2018 8:07 PM CDT) Respiratory pathogen Negative for all pathogens [facility] DEPARTMENT OF panel tested: PATHOLOGY AND Negative [...] Nares - Not specified Performing Organization Address [facility] Centercode Phone Number [facility] DEPARTMENT OF [address] [place] [address] PATHOLOGY AND GENOMIC MEDICINE * Influenza antigen (03/01/2018 8:07 PM CDT) Influenza antigen Negative for Influenza A/B [facility] DEPARTMENT OF antigen. PATHOLOGY AND Comment: GENOMIC MEDICINE Specimen Information Specimen Source: Nares Specimen Site: Not specified Specimen Nares - Not specified Performing Organization Address City/State/Zipcode Phone Number [facility] DEPARTMENT OF [address] [place] [address] PATHOLOGY AND GENOMIC MEDICINE * CT Chest [...] dilatation. 4. The upper abdomen is unremarkable. [id number] Procedure Note Hm Interface, Radiology Results Incoming [...] dilatation. 4. The upper abdomen is unremarkable. [id number] Performing Organization Address City/[facility]/Zipcode Phone Number [facility] [address] [place] [address] * Venous blood gas (03/01/2018 7:15 PM CDT) Data Warehousing Specialist LAN [facility] DEPARTMENT OF PATHOLOGY AND GENOMIC MEDICINE Collection site RAC [facility] DEPARTMENT OF PATHOLOGY AND GENOMIC MEDICINE O2 therapy ROOM [facility] DEPARTMENT OF PATHOLOGY AND GENOMIC MEDICINE pH, venous 7.588 (H) 7.320 - 7.420 units [facility] DEPARTMENT OF PATHOLOGY AND GENOMIC MEDICINE pCO2, venous 24.7 (L) 45.0 - 51.0 mmHg [facility] DEPARTMENT OF PATHOLOGY AND GENOMIC MEDICINE pO2, venous 19.6 (L) 25.0 - 40.0 mmHg [facility] DEPARTMENT OF PATHOLOGY AND GENOMIC MEDICINE O2 saturation, venous 39.6 (L) 40.0 - 70.0 % [facility] DEPARTMENT OF PATHOLOGY AND GENOMIC MEDICINE Base excess, venous 1.8 -2.0 - 2.0 mEq/L [facility] DEPARTMENT OF PATHOLOGY AND GENOMIC MEDICINE Bicarbonate 23.6 21.0 - 28.0 mEq/L [facility] DEPARTMENT OF PATHOLOGY AND GENOMIC MEDICINE O2 content 6.7 VOL% [facility] DEPARTMENT OF PATHOLOGY AND GENOMIC MEDICINE FiO2, inspired O2% 21.0 % [facility] DEPARTMENT OF PATHOLOGY AND GENOMIC MEDICINE Carboxyhemoglobin 0.7 0.0 - 1.4 % [facility] DEPARTMENT OF Comment: PATHOLOGY AND Reference Ranges: GENOMIC MEDICINE Carboxyhemoglobin Non smoker: 0.0 - 2.0% Smoker: 2.1 - 5.0% Heavy smoker: 5.1 - 9% Methemoglobin 0.1 0.0 - 1.0 % [facility] DEPARTMENT OF PATHOLOGY AND GENOMIC MEDICINE Hemoglobin, blood gas 12.1 12.0 - 16.0 g/dL [facility] DEPARTMENT OF PATHOLOGY AND GENOMIC MEDICINE Specimen Blood Performing Organization Address City/[facility]/Zipcode Phone Number [facility] [address] [place] [address] PATHOLOGY AND GENOMIC MEDICINE * Acetaminophen level (03/01/2018 7:15 PM CDT) Acetaminophen level <15.3 10.0 - 30.0 ug/mL [facility] DEPARTMENT OF Comment: PATHOLOGY AND Therapeutic GENOMIC MEDICINE 10-30 ug/mL Possible Toxicity 150-200 ug/mL Probable Toxicity >200 ug/mL Specimen Blood Performing Organization Address City/[facility]/Zipcode Phone Number [facility] [address] [place] [address] PATHOLOGY AND GENOMIC MEDICINE * Salicylate level (03/01/2018 7:15 PM CDT) Salicylate <0.4 (L) 3.0 - 30.0 mg/dL [facility] DEPARTMENT OF Comment: PATHOLOGY AND Therapeutic Range: GENOMIC MEDICINE 5 - 30 mg/dL Specimen Blood Performing Organization Address City/[facility]ode Phone Number [facility] [address] [place] [address] PATHOLOGY AND GENOMIC MEDICINE * ECG ED [...] ED Physician in the absence of a solution developer: yes Rate: ECG rate:103 ECG rate assessment: [...] RADIANT CLINICAL HISTORY:43 years Female sobcpcardiac hx [facility] COMPARISON:01/31/2018 IMPRESSION: 1.Left chest wall cardiac device is similar to prior. Heart and central vasculature are normal. 2.The lungs are clear. 3.Cholecystectomy clips. Bones are intact. [facility]-[id number] Procedure Note Hm Interface, Radiology Results Incoming - 03/01/2018 6:46 PM CDT EXAMINATION: XR CHEST 2 VW CLINICAL HISTORY:43 years Female sob cp cardiac hx [facility] COMPARISON: 01/31/2018 IMPRESSION: 1. Left chest wall cardiac device is similar to prior. Heart and central vasculature are normal. 2. The lungs are clear. 3. Cholecystectomy clips. Bones are intact. [facility]-[id number] Performing Organization Address City/State/Zipcode Phone Number [facility] [address] [place] [address] * B natriuretic peptide (03/01/2018 6:10 PM CDT) Only the most recent of 4 results within the time period is included. BNP 19 0 - 100 pg/mL [facility] DEPARTMENT OF PATHOLOGY AND GENOMIC MEDICINE Specimen Blood Performing Organization Address City/State/Zipcode Phone Number [facility] DEPARTMENT [address] [place] [address] PATHOLOGY AND GENOMIC MEDICINE * Comprehensive metabolic panel (03/01/2018 6:10 PM CDT) Only the most recent of 3 results within the time period is included. Sodium 138 135 - 150 mEq/L [facility] DEPARTMENT OF PATHOLOGY AND GENOMIC MEDICINE Potassium 3.9 3.5 - 5.0 mEq/L [facility] DEPARTMENT OF PATHOLOGY AND GENOMIC MEDICINE Chloride 93 (L) 98 - 112 mEq/L [facility] DEPARTMENT OF PATHOLOGY AND GENOMIC MEDICINE CO2 21 (L) 24 - 31 mmol/L [facility] DEPARTMENT OF PATHOLOGY AND GENOMIC MEDICINE Anion gap 24@ANIO (H) 7 - 15 mEq/L [facility] DEPARTMENT OF PATHOLOGY AND GENOMIC MEDICINE BUN 20 (H) 7 - 18 mg/dL [facility] DEPARTMENT OF PATHOLOGY AND GENOMIC MEDICINE Creatinine 1.50 (H) 0.50 - 0.90 mg/dL [facility] DEPARTMENT OF PATHOLOGY AND GENOMIC MEDICINE Glucose 84 65 - 100 mg/dL [facility] DEPARTMENT OF PATHOLOGY AND GENOMIC MEDICINE Calcium 9.7 8.3 - 10.2 mg/dL [facility] DEPARTMENT OF PATHOLOGY AND GENOMIC MEDICINE Protein 8.9 (H) 6.3 - 8.3 g/dL [facility] DEPARTMENT OF PATHOLOGY AND GENOMIC MEDICINE Albumin 5.0 3.5 - 5.0 g/dL [facility] DEPARTMENT OF PATHOLOGY AND GENOMIC MEDICINE A/G ratio 1.3 0.7 - 3.8 [facility] DEPARTMENT OF PATHOLOGY AND GENOMIC MEDICINE Alkaline phosphatase 97 0 - 104 U/L [facility] DEPARTMENT OF PATHOLOGY AND GENOMIC MEDICINE AST 27 10 - 35 U/L [facility] DEPARTMENT OF PATHOLOGY AND GENOMIC MEDICINE ALT 15 5 - 50 U/L [facility] DEPARTMENT OF PATHOLOGY AND GENOMIC MEDICINE Total bilirubin 0.7 0.2 - 1.2 mg/dL [facility] DEPARTMENT OF PATHOLOGY AND GENOMIC MEDICINE Specimen Plasma specimen Performing Organization Address City/State/Zipcode Phone Number [facility] [place] [address] PATHOLOGY AND GENOMIC MEDICINE * Urinalysis screen and microscopy, with reflex to culture (02/01/2018 12:26 PM CDT) Only the most recent of 4 results within the time period is included. Specimen site Clean catch [facility] DEPARTMENT OF PATHOLOGY AND GENOMIC MEDICINE Color, UA Yellow [facility] DEPARTMENT OF PATHOLOGY AND GENOMIC MEDICINE Appearance, UA Slightly-Cloudy [facility] DEPARTMENT OF PATHOLOGY AND GENOMIC MEDICINE Specific gravity, UA 1.006 1.001 - 1.035 [facility] DEPARTMENT OF PATHOLOGY AND GENOMIC MEDICINE pH, UA 6.0 5.0 - 8.5 [facility] DEPARTMENT OF PATHOLOGY AND GENOMIC MEDICINE Protein, UA Negative Negative [facility] DEPARTMENT OF PATHOLOGY AND GENOMIC MEDICINE Glucose, UA Negative Negative [facility] DEPARTMENT OF PATHOLOGY AND GENOMIC MEDICINE Ketones, UA Negative Negative [facility] DEPARTMENT OF PATHOLOGY AND GENOMIC MEDICINE Bilirubin, UA Negative Negative [facility] DEPARTMENT OF PATHOLOGY AND GENOMIC MEDICINE Blood, UA Negative Negative [facility] DEPARTMENT OF PATHOLOGY AND GENOMIC MEDICINE Nitrite, UA Negative Negative [facility] DEPARTMENT OF PATHOLOGY AND GENOMIC MEDICINE Urobilinogen, UA Negative <2.0 [facility] DEPARTMENT OF PATHOLOGY AND GENOMIC MEDICINE Leukocyte esterase, UA Small (A) Negative [facility] DEPARTMENT OF PATHOLOGY AND GENOMIC MEDICINE Epithelial cells, UA Many /HPF [facility] DEPARTMENT OF PATHOLOGY AND GENOMIC MEDICINE WBC, UA 17 (H) 0 - 5 /HPF [facility] DEPARTMENT OF PATHOLOGY AND GENOMIC MEDICINE RBC, UA 1 0 - 5 /HPF [facility] DEPARTMENT OF PATHOLOGY AND GENOMIC MEDICINE Bacteria, UA Trace None seen [facility] DEPARTMENT OF PATHOLOGY AND GENOMIC MEDICINE Yeast, UA None seen [facility] DEPARTMENT OF PATHOLOGY AND GENOMIC MEDICINE Yeast with pseudohyphae, None seen [facility] DEPARTMENT OF PATHOLOGY AND GENOMIC MEDICINE Specimen Urine Performing Organization Address City/State/Zipcode Phone Number [facility] [place] [address] PATHOLOGY AND GENOMIC MEDICINE * Gram stain (02/01/2018 12:26 PM CDT) Only the most recent of 3 results within the time period is included. Gram stain result No WBC's or organisms seen. [facility] DEPARTMENT OF Comment: PATHOLOGY AND Specimen Information GENOMIC MEDICINE Specimen Source: Urine Specimen Site: Clean catch Specimen Urine Performing Organization Address City/[facility]/Zipcode Phone Number [facility] DEPARTMENT OF [address] [place] [address] PATHOLOGY AND GENOMIC MEDICINE * Urine culture (02/01/2018 12:26 PM CDT) Only the most recent of 4 results within the time period is included. Urine culture isolate Mixed Gram positive antionette [facility] DEPARTMENT OF 10-3 cfu/ml PATHOLOGY AND (A) GENOMIC MEDICINE Comment: Specimen Information Specimen Source: Urine Specimen Site: Clean catch Specimen Urine Performing Organization Address City/[facility] Phone Number [facility] DEPARTMENT OF [address] [place] [phone] PATHOLOGY AND GENOMIC MEDICINE * hCG qualitative, urine screen (01/31/2018 10:44 PM CDT) Only the most recent of 2 results within the time period is included. hCG qualitative, urine Negative Negative [facility] DEPARTMENT OF Comment: PATHOLOGY AND The manufacturers stated GENOMIC MEDICINE sensitivity of HcG test for serum is >/=10 mIU/ml and urine is >/=20mIU/ml. Specimen Urine Performing Organization Address [facility] Cent[facility]ode Phone Number [place] [address] [place] [address] PATHOLOGY AND GENOMIC MEDICINE * Total iron binding capacity (11/10/2017 9:38 AM CDT) Iron level 51 (L) 76 - 198 ug/dL [facility] DEPARTMENT OF PATHOLOGY AND GENOMIC MEDICINE Iron binding capacity 305 271 - 474 ug/dL [facility]PART[facility] OF PATHOLOGY AND GENOMIC MEDICINE % Saturation 16.7 15.0 - 38.0 % [facility] OF PATHOLOGY AND GENOMIC MEDICINE Specimen Plasma specimen Performing Organization Address [facility]ode Phone Number [facility] [place] [address] [address] [place] [phone] PATHOLOGY AND GENOMIC MEDICINE * Ferritin level (11/10/2017 9:38 AM CDT) Ferritin level 125 10 - 125 ng/mL [facility] DEPARTMENT OF PATHOLOGY AND GENOMIC MEDICINE Specimen Serum Performing Organization Address [facility] Centercode Phone Number [place] [address] [address] [place] [phone] PATHOLOGY AND GENOMIC MEDICINE * US Extremity [...] without discrete fluid collection. Performing Organization Address City/[facility] Centercofl Phone Number [facility] [address] [place] [address] * Magnesium level (11/09/2017 6:20 AM CDT) Only the most recent of 3 results within the time period is included. Magnesium 2.50 (H) 1.60 - 2.40 mg/dL [facility] DE[facility] OF PATHOLOGY AND GENOMIC MEDICINE Specimen Plasma specimen Performing Organization Address [facility] Phone Number [address] [place] [address] PATHOLOGY AND GENOMIC MEDICINE * Reticulocyte count (11/08/2017 6:31 AM CDT) Retic %, auto 1.9 % [facility] DEPARTMENT OF PATHOLOGY AND GENOMIC MEDICINE Retic absolute, auto 0.0533 0.0210 - 0.1155 m/uL [facility] DEPARTMENT OF PATHOLOGY AND GENOMIC MEDICINE Specimen Blood Performing Organization Address [facility] Phone Number [place] [address] [place] [address] PATHOLOGY AND GENOMIC MEDICINE * Folate level (11/08/2017 6:31 AM CDT) Folate 16.6 3.4 - 20.0 ng/mL [facility] DE[facility]MENT OF PATHOLOGY AND GENOMIC MEDICINE Specimen Serum Performing Organization Address [facility] Phone Number [address] [place] [address] PATHOLOGY AND GENOMIC MEDICINE * Vitamin B12 level (11/08/2017 6:31 AM CDT) Vitamin B12 770 231 - 931 pg/mL [facility] DE[facility] OF Comment: PATHOLOGY AND Significant overlap exists [facility] between normal and deficiency states. However, most patients with deficiencies will have Serum B12 <200 pg/mL. Specimen Serum Performing Organization Address City/[facility] Centercode Phone Number [facility] [address] [place] [address] PATHOLOGY AND GENOMIC MEDICINE * Digoxin level (11/07/2017 5:40 PM CDT) Digoxin 1.0 0.8 - 2.0 ng/mL [facility] DE[facility]MENT OF Comment: PATHOLOGY AND For valid Digoxin results, at [facility] least 6 hours should elapse between time of last dose and collection of blood. Otherwise, result may be false high. Therapeutic Range: 0.8 - 2.0 ng/mL Specimen Blood Performing Organization Address City/[facility] Centercode Phone Number [facility] [address] [place] [address] PATHOLOGY AND [facility] MEDICINE * Pv carotid duplex [...] (less than 50%). Bilateral antegrade vertebral flow. [id number] Procedure Note Hm Interface, Radiology Results Incoming [...] (less than 50%). Bilateral antegrade vertebral flow. [facility]-[id number] Performing Organization Address City/[facility]/Zipcode Phone Number [facility] [address] [place] [address] * Hemoglobin A1c (11/06/2017 5:20 AM CDT) Hemoglobin A1C 5.2 4.0 - 6.0 % [facility] OF Comment: PATHOLOGY AND GENOMIC MEDICINE Less than 6% - Goal of therapy for Type II Diabetes Less than 7%-Goal of therapy for Type I Diabetes Less than 8%-Accepta ble control for Type I or Type II Diabetes Greater than 8%-Unacceptabl e control; action indicated. ([id number]) Specimen Blood Performing Organization Address City/[facility]/Zipcode Phone Number [place] [phone] [place] [address] PATHOLOGY AND GENOMIC MEDICINE * Lipid panel (11/06/2017 5:20 AM CDT) Cholesterol 166 120 - 200 mg/dL [facility] DE[facility]MENT OF PATHOLOGY AND GENOMIC MEDICINE Triglycerides 106 50 - 150 mg/dL [facility] DE[facility]MENT OF PATHOLOGY AND GENOMIC MEDICINE HDL cholesterol 76 (H) 40 - 60 mg/dL [facility] DEPARTMENT OF PATHOLOGY AND GENOMIC MEDICINE LDL cholesterol 81Comment: Result obtained by mg/dL [facility] DE[facility]MENT OF direct LDL measurement PATHOLOGY AND GENOMIC MEDICINE Lipid panel See below [facility] DE[facility]MENT OF interpretation Comment: PATHOLOGY AND Total Cholesterol GENOMIC MEDICINE (mg/dL) LDL Cholesterol (mg/dL) <200 Desirable <100 Optimal 200-239Borderline -[id number] 29Near or above optimal >=240High 130-159Borderline- high [...] specimen Performing Organization Address City/State/Zipcode Phone Number [place] [address] [place] [address] PATHOLOGY AND GENOMIC MEDICINE * Echocardiogram complete [...] normal. No pericardial effusion Performing Organization Address [facility] Centercofl Phone Number [facility] [address] [place] [address] * XR Chest 1 Vw (11/05/2017 8:05 [...] process or active disease of the chest. [id number] Procedure Note Hm Interface, Radiology Results Incoming [...] process or active disease of the chest. [id number] Performing Organization Address [facility] Phone Number [facility] [address] [place] [address] after 09/22/2017 Insurance Payer Benefit Subscriber ID Type Phone Address Plan / Group [employer] xxxxxxxxx HMO [employer]PLUS [place] (Home) [place] [address] Advance Directives Patient has advance care planning documents, and code status on file. For more i nformation, please contact: Javon Ricks [address] [place] [address] Date Inactivated Comments Code Status Date Activated 01/06/2017 6:25 PM Full Code 01/05/2017 7:50 PM Code Status decision reached by: Patient
--- OUTSIDE RECORDS SUMMARY | 2018-09-23 14:17 | XMS REPORT | Clinical Summary ---
Author Author RENE [facility] Address Unknown Phone Unavailable Care Team Providers Care Youth Ministry Director Name Role Phone Alexandrea Ojeda MD PCP [...] mEq packet by mouth daily . Active xtkmqubx-gfww-eqd-folic Take 1 tablet 0 acid by mouth (KUYTJYRVAHBP-IJCM-PBSUMR daily. LS-FOLIC ACID) 3,500-18-0.4 unit-mg-mg Chew Active [...] ms QTC Calculatio n(Bazett) 471 ms P [place] 61 degrees R [place] 86 degrees T [place] 32 degrees Sinus tachycardi a Otherwise normal ECG No previous ECGs available ECG 12-LEAD STAT 03/26/2018 4:48 PM CDT after 09/22/2017 Results * B N P (04/20/2018 12:49 PM CDT) Only the most recent of 2 results within the time period is included. BNP 27 0 - 100 pg/mL [facility] Specimen Blood Performing Organization Address City/[facility]/Zipcode Phone Number [address] [address] [facility] * Magnesium (04/20/2018 12:49 PM CDT) Magnesium 2.3 1.6 - 2.6 mg/dL [facility] Specimen Blood Performing Organization Address City/[facility]/Zipcode Phone Number [facility] [place] [phone] * Basic Metabolic Panel (04/20/2018 12:49 PM CDT) Only the most recent of 4 results within the time period is included. Sodium 136 136 - 145 meq/L [facility] Potassium 3.7 3.5 - 5.1 meq/L [facility] Chloride 101 98 - 107 meq/L [facility] CO2 25 22 - 29 meq/L [facility] BUN 19 7 - 21 mg/dL [facility] Creatinine 1.35 (H) 0.57 - 1.25 mg/dL [facility] Glucose 106 (H) 70 - 105 mg/dL [facility] Calcium 9.8 8.4 - 10.2 mg/dL [facility] EGFR 43Comment: ESTIMATED GFR IS mL/min/1.[address] [facility] NOT ACCURATE CREATININE [facility] CLEARANCE IN PREDICTING GLOMERULAR FILTRATION RATE. ESTIMATED GFR IS NOT APPLICABLE FOR DIALYSIS PATIENTS. Specimen Blood Performing Organization Address City/State/Zipcode Phone Number [address] * RHYTHM STRIP - SCAN (03/29/2018 1:50 PM CDT) Narrative Performed At * ECHOCARDIOGRAM REPORT - SCAN (03/28/2018 9:30 AM CDT) Narrative Performed At * TSH/Free T4 If Indicated (03/28/2018 5:09 AM CDT) TSH 2.06 0.35 - 4.94 uIU/mL [facility] Specimen Blood - Arm, Left Performing Organization Address City/State/Zipcode Phone Number [address] [address] [phone] [place] [address] * Troponin I (03/28/2018 5:09 AM CDT) Only the most recent of 3 results within the time period is included. Troponin I <0.01 0.00 - 0.03 ng/mL [facility] Specimen Blood - Arm, Left Narrative Performed At Troponin I (TnI) levels must be interpreted in the context of the presenting [facility] symptoms and the clinical findings. Elevated TnI levels indicate myocardial [facility] damage, but are not specific for ischemic heart disease. Elevated TnI levels are seen in patients with other cardiac conditions (including myocarditis and congestive heart failure), and slight TnI elevations occur in patients with other conditions, including sepsis, renal failure, acidosis, acute neurological disease, and persistent tachyarrhythmia. Performing Organization Address City/State/Zipcode Phone Number [facility] [address] [place] [address] [facility] * US renal complete (03/27/2018 10:37 PM CDT) Narrative Performed At FINAL REPORT Locationary Exam: Complete renal ultrasound Clinical History:Acute kidney [...] MD Report Verified Date/Time:03/28/2018 02:22:25 Reading Location: [facility] [id number] Transitional Reading Room Procedure Note Interface, [...] Report Verified Date/Time: 03/28/2018 02:22:25 Reading Location: [address] Transitional Reading Room Performing Organization Address City/State/Zipcode Phone Number Locationary * Blood culture (03/27/2018 9:06 PM CDT) Only the most recent of 2 results within the time period is included. Result No growth in 5 days [facility] Specimen Blood - Arm, Right Performing Organization Address City/[facility]/Zipcode Phone Number [facility] [address] [place] [address] MEDICAL CENTER * NM lung scan (V/Q) (03/27/2018 6:55 PM CDT) Narrative Performed At FINAL REPORT Locationary PROCEDURE: V/Q LUNG SCAN CPT CODE:16746 INDICATION:Dyspnea, chest pain, history of PE, pacemaker, [...] REPORT PROCEDURE: V/Q LUNG SCAN CPT CODE: 83307 INDICATION: Dyspnea, chest pain, history of PE, [...] period is included. Preg Test, Ur Negative [facility] Specimen Urine Performing Organization Address City/[facility]/[place] [address] MEDICAL CENTER * Rapid drug screen, urine (03/27/2018 4:59 PM CDT) Only the most recent of 2 results within the time period is included. Barbiturate Screen Negative Negative [facility] Benzodiazepine Screen Positive (A) Negative [facility] Cocaine (Metab.) Screen Negative Negative [facility] Methadone Screen Negative Negative [facility] Opiate Screen Negative Negative [facility] Cannabinoid Screen Negative Negative [facility] Amph/Methamph Screen Negative Negative [facility] Phencyclidine Screen Negative Negative [facility] Oxycodone Screen Negative Negative [facility] Specimen Urine Narrative Performed At [facility] Cocaine 300 ng/mL [facility] Yffafdycbpn29 ng/mL Isogqgwxmhivju701 ng/mL Barbiturate 200 ng/mL Ymloxvsasaqre69 ng/mL Vtkpqj392 ng/mL Methadone 300 ng/mL Amphetamine/ 1000 ng/mL Methamphetamine Oxycodone 300 ng/mL This assay provides an unconfirmed qualitative test result for the clinical management of patients in emergency situations. Chain of custody not maintained. Some flln-oep-ahdpuuh medications, as well as adulterants, may cause inaccurate results. Clinical correlation should be applied. A more comprehensive drug screen or confirmation of a detected drug may be performed upon request. Performing Organization Address City/[facility]ercode Phone Number [address] * Sodium, random urine (03/27/2018 4:59 PM CDT) Sodium Urine <20 meq/L [facility] Specimen Urine Narrative Performed At Reference Range: No Normals [facility] Performing Organization Address [facility]ercoks Phone Number [address] * Creatinine, random urine (03/27/2018 4:59 PM CDT) Creatinine, Ur 53.1 mg/dL [facility] Specimen Urine Narrative Performed At Reference Range: No Normals [facility] Performing Organization Address [facility] Phone Number [address] * 2D Echo W/Doppler(CW/PW/Color) (03/27/2018 4:56 PM CDT) Ejection Fraction [facility] ECHO [facility] Narrative Performed At Transthoracic Echocardiography Report (TTE) [facility] ECHO HEARTLAB Demographics [facility] Patient Name Yandy AIKEN of Study 03/27/2018 DEONDRE [id number] GenderFemale Visit Number [id number] Ragini [id number] Number [id number] Number Date of Birth1975 Referring Physician Ijeoma Tan MD Age43 year(s) Sewing Machine Repairer Helper Gaby Ruby [facility] KarolyntIzojanel Hanks MD Physician Procedure Type of [...] Study 03/27/2018 DEONDRE Gender Female Visit Number [id number] Race Unknown Room Number [id number] Number Date of 1975 Referring Physician Ijeoma Tan MD Age 43 year(s) Sewing Machine Repairer Helper Gaby Tung [facility] Chicken Picker Nataliia iFscher Interpreting Sky Hanks MD Physician Procedure Type [...] included. WBC 7.9 3.5 - 10.5 K/L [facility] RBC 3.53 (L) 3.93 - 5.22 M/L [facility] Hemoglobin 11.6 11.2 - 15.7 GM/DL [facility] Hematocrit 33.3 (L) 34.1 - 44.9 % [facility] MCV 94.3 79.4 - 94.8 fL [facility] MCH 32.9 (H) 25.6 - 32.2 pg [facility] MCHC 34.8 32.2 - 35.5 GM/DL [facility] RDW 12.0 11.7 - 14.4 % [facility] Platelets 280 150 - 450 K/CU MM [facility] MPV 10.2 9.4 - 12.3 fL [facility] nRBC 0 0 - 0 /100 WBC [facility] % Neutros 60 % [facility] % Lymphs 28 % [facility] % Monos 11 % [facility] % Eos 1 % [facility] % Baso 1 % [facility] # Neutros 4.73 1.56 - 6.13 K/L [facility] # Lymphs 2.20 1.18 - 3.74 K/L [facility] # Monos 0.83 (H) 0.24 - 0.36 K/L [facility] # Eos 0.07 0.04 - 0.36 K/L [facility] # Baso 0.05 0.01 - 0.08 K/L [facility] Immature 0 0 - 1 % [facility] Granulocytes-Relative [facility] Specimen Blood Performing Organization Address City/State/Zipcode Phone Number [facility] [address] [place] [address] [facility] * XR chest [...] MD Report Verified Date/Time:03/26/2018 21:16:59 Reading Location: [address] Reading Room Procedure Note Interface, External [...] Report Verified Date/Time: 03/26/2018 21:16:59 Reading Location: [address] Reading Room Performing Organization Address City/[facility] Centercode Phone Number GE RIS * PT/aPTT (03/26/2018 6:12 PM CDT) Protime 13.6 11.7 - 14.7 seconds [facility] INR 1.0 <=5.9 [facility] PTT 27.7 22.5 - 36.0 seconds [facility] Specimen Blood Narrative Performed At RECOMMENDED COUMADIN/WARFARIN INR THERAPY RANGES [facility] STANDARD DOSE: 2.0 - 3.0 Includes: PROPHYLAXIS for venous thrombosis, [facility] systemic embolization; TREATMENT for venous thrombosis and/or pulmonary embolus. HIGH RISK: Target INR is 2.5-3.5 for patients with mechanical heart valves. Performing Organization Address [facility] Centercode Phone Number [facility] [address] [place] [address] [phone] [place] [address] * Creatine Kinase (CK), Total and MB (03/26/2018 6:12 PM CDT) Total CK 68 29 - 200 U/L [facility] CK-MB 0.6 0.0 - 6.6 ng/mL [facility] MB Relative Index 0.9 % [facility] Specimen Blood Narrative Performed At CK-MB Reference Range: [facility] <6.7Normal [facility] 6.7-10.0Borderline >10.0 Abnormal Performing Organization Address [facility] Centercode Phone Number [facility] [address] [place] [address] [facility] * ECG 12 lead (03/26/2018 4:48 PM CDT) Narrative Performed At Ventricular Rate 129 BPM GE MUSE Atrial Rate 129 BPM P-R Interval 114 ms QRS Duration 104 ms Q-T Interval 322 ms QTC Calculation(Bazett) 471 ms P [place] 61 degrees R [place] 86 degrees T [place] 32 degrees Sinus tachycardia Prolonged QT Pacing [...] 322 ms QTC Calculation(Bazett) 471 ms P [place] 61 degrees R [place] 86 degrees T [place] 32 degrees Sinus tachycardia Prolonged QT Pacing [...] MEDICAID xxxxxxxxx Medicaid CARE [employer] Non-Contra cted ([place]) [place] [address] Advance Directives For more information, please contact: [facility] [address] [place] [address] Date Inactivated Comments Code Status Date Activated 03/28/2018 2:49 PM Full Code 03/26/2018 10:30 PM This code status was determined by: Patient 09/02/2016 5:33 PM Full Code 09/01/2016 12:25 AM This code status was determined by: Patient 08/25/2014 2:06 PM Full Code 08/18/2014 7:08 AM This code status was determined by: Patient
--- NOTE | 2018-09-23 14:52 | Diagnostic Imaging Report ---
EXAMINATION: CHEST 2 VIEWS INDICATION: Weakness COMPARISON: None FINDINGS: TUBES and LINES: Left-sided AICD device with leads overlying the right ventricle. LUNGS: Lungs are well inflated. Lungs are clear. There is no evidence of pneumonia or pulmonary edema. PLEURA: No pleural effusion or pneumothorax. HEART AND MEDIASTINUM: The cardiomediastinal silhouette is unremarkable. BONES AND SOFT TISSUES: No acute osseous lesion. Soft tissues are unremarkable. UPPER ABDOMEN: No free air under the diaphragm. IMPRESSION: No acute radiographic abnormality. Signed by: Dr. Louie Holloway MD on 09/23/2018 2:49 PM
--- NOTE | 2018-09-23 16:04 | NUR ---
[address] APPLIED
--- NOTE | 2018-09-23 16:38 | NUR ---
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
[2018-09-23 16:48] VITALS: BP 83/66
--- NOTE | 2018-09-23 16:51 | Consultation ---
DATE OF CONSULTATION: NO DICTATION, length 0 minutes 2 seconds. Job#: [id number] EV
--- NOTE | 2018-09-23 16:51 | History and Physical ---
CHIEF COMPLAINT: Patient was called with abnormal labs so she came to the emergency room. HPI: Ms. Aiken is a 43-year-old female with a history of chronic kidney disease, cardiomyopathy, AICD, , pacemaker placement. 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 She sees Dr. Santana regularly for her chronic kidney disease. Her primary doctor is at [facility]. She came in because she was told that her labs are abnormal. In the emergency room, the patient's sodium was 116 and creatinine was 3.69. She denies any complaint of chest pain, nausea, vomiting. She has mild to moderate confusion. She denies any chest pain, nausea, vomiting at this point. REVIEW OF SYSTEMS GENERAL: Denies any fever or chills. HEAD: Denies any head trauma. ENT: Denies any earache. CV: Denies any chest pain. RESPIRATORY: She denies any shortness of breath. The rest of the review of systems are negative except as in HPI. PAST MEDICAL HISTORY: Cardiomyopathy. Had ECMO in 2010, and now has BIVI pacemaker. Sees Dr. Betts in [place]. Chronic kidney disease and bipolar disorder. PAST SURGICAL HISTORY: None. FAMILY AND SOCIAL HISTORY: She does not smoke. Does not drink. Denies any drug use. Lives with her boyfriend. She is disabled. PHYSICAL EXAMINATION VITAL SIGNS: Temperature 98.1, pulse of 80, blood pressure 89/45, respiratory rate of 18, O2 sat 100%. HEENT: Head is atraumatic and normocephalic. NECK: Supple. CHEST: Clear to auscultation bilaterally. No wheezing. No crackles. HEART: S1 and S2 audible. ABDOMEN: Soft, nontender and nondistended. Bowel sounds audible. No hepatosplenomegaly. EXTREMITIES: No clubbing, cyanosis or edema. NEUROLOGIC: Awake and alert. No focal neurologic deficit. LABS: Sodium 1160, potassium 3.1, BUN 93, creatinine 3.69. White count of 5.3, hemoglobin 10.8 and platelets 196,000. Chest x-ray I reviewed the images no focal infiltrate. Urinalysis shows nitrite positive and wbcs 0-5. AST 786, ALT 645, alk phos 309. ASSESSMENT AND PLAN: Ms. Aiken is a 43-year-old female presented with mild confusion. The patient has hyponatremia. CURRENT PROBLEMS 1. Severe hyponatremia. 2. Chronic kidney disease. 3. History of cardiomyopathy and heart failure. 4. BIVI pacemaker and automatic implanted cardioverter defibrillator placement. 5. Hypokalemia. 6. Possibility of urinary tract infection. 7. Abnormal liver function test: Etiology not clear. Could be due to passive congestion of the liver due to heart failure. PLAN 1. I will consult Dr. Lopes for management of hyponatremia. 2. Consult cardiology for further evaluation of cardiomyopathy. 3. CKD seems to be stable. Dr. Lopes is following the patient. 4. Patient has a history of bipolar disorder. Will consult psychiatry. 5. Consult psychiatry. Job#: [id number] REYNA
--- NOTE | 2018-09-23 16:58 | Diagnostic Imaging Report ---
EXAMINATION: Right upper quadrant ultrasound CLINICAL INDICATION: Elevated liver function test COMPARISON: September 23, 2018 DISCUSSION: Transverse and longitudinal images of the right upper quadrant were obtained. The liver is normal in size measuring 10.9centimeters in length in the right midclavicular line and shows normal echogenicity. No focal masses are seen in the liver. There is no intrahepatic biliary dilatation. The common bile duct is normal in caliber and measures 0.4 cm. The main portal vein is normal in caliber and measures 0.7 cm with normal hepatopetal flow. Cholecystectomy The visualized portions of the pancreatic body are unremarkable. The right kidney measures 8.9 centimeters in length. There is normal renal cortical echogenicity and no hydronephrosis, mass or shadowing calculi. The visualized portions of the great vessels are normal. No free fluid is seen. IMPRESSION: Normal sonographic appearance of the liver. Cholecystectomy. Signed by: Dr. Carson Casey M.D. on 09/23/2018 4:55 PM
[2018-09-23] MEDS ORDERED: BYSTOLIC10 MG PO (17:00)
[2018-09-23] MEDS ORDERED: CYCLOBENZAPRINE5 MG PO (17:00)
[2018-09-23] MEDS ORDERED: METOLAZONE5 MG PO (17:00)
[2018-09-23] MEDS ORDERED: CEFDINIR300 MG PO (17:00)
[2018-09-23] MEDS ORDERED: [UNRECOGNIZED DRUG - OTHER] PO (17:00)
[2018-09-23] MEDS ORDERED: [UNRECOGNIZED DRUG - OTHER] PO (17:00)
[2018-09-23] MEDS: SODIUM CHLORIDE 1 GM TAB PO SCH ×2 (17:00→20:18)
--- NOTE | 2018-09-23 17:00 | Consultation ---
DATE OF CONSULTATION: September 23, 2018 LOCATION: Emergency room. This 43-year-old female was sent from our office with abnormal labs. She has been having some dizziness and slight nausea but denies any diarrhea. Currently awake, alert and oriented x3, in no apparent distress. In the ER, laboratory tests show serum sodium 116, potassium 3.1, chloride 75 with BUN 93 and creatinine 3.69. LFTs are significantly elevated with a CK of 244. She is currently lying supine in no apparent respiratory distress. She is on her 1st liter of normal saline bolus. Patient has significant history of cardiomyopathy. 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 Required ECMO and ventilator support and probably developed ATN at that time followed by chronic kidney disease, which is why she follows with our associate. She has an AICD. She is on high-dose diuretics. Recently metolazone was introduced. She also has a history of anxiety and depression. She sees a psychiatrist and takes Valium [id number]. She denies any fever and chills at the moment. ALLERGIES: SHE IS ALLERGIC TO WARFARIN, TRAMADOL, SERTRALINE, KETOROLAC, GUAIFENESIN AND STEROIDS. Currently, the patient is on NS at 125 mL an hour, which I have cut down to 70 mL an hour. She has had tubal ligation done and 2 C-sections. History of hypotension, previously hypertensive. She states her normal blood pressure runs in the 90s. PHYSICAL EXAMINATION VITALS: Initially, her blood pressure was in the 70s. After the saline bolus, the blood pressure improved to 96 at this moment. Pulse rate is 77. Afebrile. HEAD AND NECK: Corneas are clear. Oral mucosa is moist. Neck veins are flat. LUNGS: Relatively clear. HEART: S1 and S2 audible. ABDOMEN: Otherwise soft and nontender. LOWER EXTREMITY EXAMINATION: No edema. She has been complaining of some right-sided abdominal pain. ER physician ordered a CT scan of abdomen and pelvis and liver ultrasound. She has significantly abnormal LFTs. IMPRESSION AND PLAN: Hyponatremia, hypokalemia, underlying chronic kidney disease stage 3, underlying nephrosclerosis, multiple comorbidities, elevated liver function tests. Patient denies any history of thyroid disorder. Etiology most likely diuretics and decreased solute intake. Plan on obtaining uric acid level. Will obtain an echocardiogram to see what her underlying ejection fraction is. I suspect it is probably no more than 20% given her history. Will place on sodium chloride tablets, fluid restriction, serum sodium q.2 h. x5. RN to call with the results. Will follow up on the CT scan report. Job#: [id number] JENNIFER
[2018-09-23 17:03] LABS: FREE THYROXINE INDEX 3.6747 (1.4-3.8); THYROID STIMULATING HORMONE 2.443 uIU/mL (0.350-4.940)
--- NOTE | 2018-09-23 17:08 | Diagnostic Imaging Report ---
EXAM: CT Abdomen and Pelvis WITHOUT contrast INDICATION: Abdominal pain, bloating. COMPARISON: None. TECHNIQUE: Abdomen and pelvis were scanned utilizing a multidetector helical scanner from the lung base to the pubic symphysis without administration of IV contrast. Coronal and sagittal reformations were obtained. Routine protocol was performed. Dose modulation, iterative reconstruction, and/or weight based adjustment of the mA/kV was utilized to reduce the radiation dose to as low as reasonably achievable. RADIATION DOSE: Total DLP: 630.7 mGy*cm COMPLICATIONS: None FINDINGS: Absence of intravenous contrast decreases sensitivity for detection of focal lesions and vascular pathology. LINES and TUBES: Partially seen AICD leads. LOWER THORAX: Minimal dependent atelectasis. HEPATOBILIARY: No focal hepatic lesions. Status post cholecystectomy. Mild dilation of the CBD, measuring up to 7 mm, likely reflecting post cholecystectomy reservoir effect. SPLEEN: No splenomegaly. PANCREAS: No focal masses or ductal dilatation. ADRENALS: No adrenal nodules KIDNEYS/URETERS: No hydronephrosis. No cystic or solid mass lesions. No stones. GI TRACT: No abnormal distention, wall thickening, or evidence of bowel obstruction. Appendix is not clearly identified. There is however no fat stranding or adenopathy in the right lower quadrant to suggest appendicitis. PELVIC ORGANS/BLADDER: Unremarkable. LYMPH NODES: No lymphadenopathy. VESSELS: Unremarkable. PERITONEUM / RETROPERITONEUM: No free air or fluid. BONES: No acute osseous abnormality. No suspicious lytic or blastic lesions. Status post posterior instrumented fusion from L5 through S1 with bilateral carina and pedicle screw construct. There is intervertebral spacer at L5-S1. SOFT TISSUES: There are surgical clips anterior to bladder and in the perirectal and left inguinal region. IMPRESSION: No acute CT abnormality. Status post cholecystectomy. Signed by: Dr. Louie Holloway MD on 09/23/2018 5:04 PM
[2018-09-23 17:20] VITALS: BP 83/66
--- NOTE | 2018-09-23 18:29 | Consultation ---
DATE OF CONSULTATION: September 23, 2018 CARDIAC CONSULTATION REASON FOR CONSULTATION: Advanced cardiomyopathy and defibrillator. HISTORY: This is a 43-year-old lady who is known with long-standing history of cardiomyopathy diagnosed in 2010. At that time, the patient had a Medtronic device. This was changed to a Biotronic device in April 2016. She got failed leads. The patient does have now biventricular defibrillator placed in April 2016. 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 Aidan Parry, who does not come to this institution. She used to be on Coreg and losartan, but he changed her medications to Bystolic and irbesartan. The patient is on Lasix 80 mg a day and potassium, as well as she takes Zaroxolyn. She does have a history of attention deficit disorder and chronic kidney disease. In fact, she is followed by renal service. She came to this institution because she was feeling weak and no energy. Her sodium is 116, potassium 3.1, BUN of 93, and creatinine of 3.7. AST and ALT are both elevated at 786 exams 625. Because of her cardiomyopathy and her presentation, cardiac consultation is obtained. Cardiac durán, her symptoms are dyspnea on exertion, class 3 [place] [employer] classification. There is no orthopnea. No paroxysmal nocturnal dyspnea. There is no chest pain. No pericardial pain. No pleuritic pain. REVIEW OF SYSTEMS GENERAL: No fever. No chills. Just failure to thrive and weakness. HEENT: No vision problem. No hearing problem. PULMONARY/CARDIAC: Class 3 shortness of breath on exertion. GI: Gloating and indigestion. : Increased frequency of urination. MUSCULOSKELETAL: Aches and pain. NEUROLOGICAL: No local deficits. PSYCHIATRIC: The patient takes medication for attention deficit disorder or some form of problem like that. SOCIAL HISTORY: She is . She is a nonsmoker and not an alcohol drinker. She does not use any drugs. HOME MEDICATIONS 1. Bystolic 5 mg twice a day. 2. Irbesartan 150 mg daily. 3. Lasix 80 mg daily. 4. Potassium chloride 20 mEq daily. 5. Valium. 6. One medication she cannot recall the name for her attention deficit disorder. ALLERGIES: ZOLOFT, MORPHINE SULFATE, DECADRON, TRADOL, MUCINEX. PAST MEDICAL HISTORY 1. 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 2. Class 4 kidney disease. 3. Attention deficit disorder. 4. Hypertension. 5. . 6. Tubal ligation. 7. Back surgery. FAMILY HISTORY: Both father and mother post myocardial infarction at the age of 71 and 64 respectively. One brother and 6 sisters, at least 2 of them with cardiomyopathy. PHYSICAL EXAMINATION GENERAL: A well-built lady in no acute distress. VITALS: Height of 5 feet 3 inches, weight of 125 pounds, blood pressure is 90/60, heart rate of 80, respiratory rate of 18. HEENT: Pupils are reactive. NECK: No elevation of jugular venous pulsation. CHEST: Clear to auscultation and percussion. ICD is noted in place. HEART: PMI in 5th left intercostal space. Normal 1st and 2nd heart sounds. ABDOMEN: Soft with good bowel sounds. EXTREMITIES: No cyanosis. No clubbing. No edema. NEUROLOGIC: Awake, alert and oriented. No motor deficits. LAB DATA: Sodium of 116, potassium 3.1, BUN of 93, creatinine of 3.7. White blood cell count of 5.4, hemoglobin of 10.8, hematocrit 27%, and platelet count of 196,000. Chest x-ray is showing no volume overload. There is a biventricular device and extraventricular lead not attached to the device. ALT and AST are both elevated. IMPRESSION AND PLAN 1. Admission with hyponatremia and electrolyte imbalance. 2. Acute tubular necrosis on chronic renal insufficiency. 3. Elevated transaminase. 4. Hypertension, currently hypotensive. 5. Patient's volume status seems to be euvolemic. 6. History of myocarditis and cardiomyopathy in 2010. 7. Implantable cardioverter defibrillator twice, latest in April 2016. 8. 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 Cardiac durán, my recommendation is to observe volume status. Withhold her Bystolic and irbesartan for the time being because of the low blood pressure. Electrolyte adjustment and evaluation of the elevation of the transaminase. Will check an echocardiogram. Will repeat her lab in the morning. Will check her BMP and will follow her volume status carefully. Care is discussed with the patient. 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 Aidan Parry. Job#: [id number] RI
--- NOTE | 2018-09-23 18:35 | NUR ---
pt up in bed ,labs drawn ,denies pain,no distress noted,
[2018-09-23] MEDS ORDERED: DEXTROSE 5%/0.45% SOD CHL 1,000 ML IV SCH (19:00)
[2018-09-23 19:04] LABS: CREATINE KINASE 241 IU/L (29-168)
--- NOTE | 2018-09-23 19:10 | NUR ---
RECEIVED PATIENT SITTING UP IN BED WITH FAMILY AT BEDSIDE. NO S/S OF RESP DISTRESS. DENIES N/V/D OR PAIN AT THIS TIME. CALL LIGHT WITHIN REACH AND INSTRUCTED TO CALL FOR ASSISTANCE. PATIENT AND FAMILY VERBALIZED UNDERSTANDING.
--- NOTE | 2018-09-23 19:12 | NUR ---
spoke with dr torres re; labs orderes written
[2018-09-23 20:13] VITALS: BP 80/53
[2018-09-23 22:40] VITALS: BP 80/53
--- NOTE | 2018-09-23 23:30 | NUR ---
SPOKE WITH DR. CELAYA REGARDING NA RESULTS. OK TO CHANGE NA BLOOD DRAWS Q4HRS.
[2018-09-24] VITALS (7 sets, daily range): BP systolic 69–84; BP diastolic 47–62
[2018-09-24 05:41] LABS: BASOPHILS % 0.9 % (0.0-1.0); EOSINOPHILS # (AUTO) 0.1 (0.0-0.4); EOSINOPHILS % 3.7 % (0.0-6.0); HEMATOCRIT 27.1 % (34.2-44.1); HEMOGLOBIN 10.2 g/dL (12.0-16.0); LYMPHOCYTES # (AUTO) 1.4 (1.0-3.2); LYMPHOCYTES % 40.3 % (18.0-39.1); MEAN CORPUSCULAR HEMOGLOBIN 32.5 pg (28-32); MEAN CORPUSCULAR HGB CONC 37.6 g/dL (31-35); MEAN CORPUSCULAR VOLUME 86.3 fL (81-99); MONOCYTES # (AUTO) 0.4 (0.2-0.8); MONOCYTES % 10.3 % (4.4-11.3); NEUTROPHILS # (AUTO) 1.6 (2.1-6.9); NEUTROPHILS % 44.5 % (38.7-80.0); PLATELET COUNT 172 x10e3/uL (140-360); RED BLOOD COUNT 3.14 x10e6/uL (3.6-5.1); RED CELL DISTRIBUTION WIDTH 10.9 % (11.7-14.4)
[2018-09-24 06:06] LABS: CHOL/HDL RATIO 2.1 (3.0-3.6)
[2018-09-24 06:10] LABS: CREATINE KINASE 205 IU/L (29-168)
[2018-09-24 06:14] LABS: ALBUMIN 3.6 g/dL (3.5-5.0); ALBUMIN/GLOBULIN RATIO 1.2 (0.8-2.0); ANION GAP 17.8 mmol/L (8-16); CALCIUM 8.4 mg/dL (8.4-10.2); CREATININE, SERUM 3.29 mg/dL (0.57-1.11); MAGNESIUM 2.7 MG/DL (1.3-2.1); PHOSPHORUS 5.5 MG/DL (2.3-4.7)
[2018-09-24 06:18] LABS: POTASSIUM 2.8 mmol/L (3.5-5.1)
[2018-09-24 06:25] LABS: THYROID STIMULATING HORMONE 2.589 uIU/mL (0.350-4.940)
--- NOTE | 2018-09-24 06:27 | NUR ---
Paged Dr. Lopes office, awaiting call back.
--- NOTE | 2018-09-24 06:58 | Diagnostic Imaging Report ---
EXAMINATION: CHEST SINGLE (PORTABLE) INDICATION: SOB COMPARISON: 09/23/2018 FINDINGS: AP view TUBES and LINES: Left chest wall ICD. LUNGS: Lungs are well inflated. Lungs are clear. There is no evidence of pneumonia or pulmonary edema. PLEURA: No pleural effusion or pneumothorax. HEART AND MEDIASTINUM: The cardiomediastinal silhouette is unremarkable. BONES AND SOFT TISSUES: No acute osseous lesion. Soft tissues are unremarkable. UPPER ABDOMEN: No free air under the diaphragm. IMPRESSION: No acute thoracic abnormality. Signed by: DR. David Carbone MD on 09/24/2018 6:55 AM
--- NOTE | 2018-09-24 07:25 | NUR ---
PT UP IN BED NO DISTRESS NOTED,DENIES PAIN
[2018-09-24] MEDS: SODIUM CHLORIDE 1 GM TAB PO SCH ×3 (08:48→20:44)
[2018-09-24] MEDS ORDERED: POTASSIUM CHLORIDE 20MEQ/100ML 100 ML IV SCH (10:00)
--- NOTE | 2018-09-24 12:45 | NUR ---
PT BP 80/52 DR GORDON HERE AWARE LOW BP
--- NOTE | 2018-09-24 12:48 | Consultation ---
DATE OF CONSULTATION: GASTROENTEROLOGY CONSULTATION REFERRING PHYSICIAN: Dr. Talbot. REASON FOR CONSULTATION: Elevated LFTs. HISTORY OF PRESENT ILLNESS: Ms. Aiken is a pleasant 43-year-old woman with significant past medical history. She has decompensated cardiomyopathy with AICD and pacemaker. She has chronic kidney disease. She had a history of viral myocarditis. Here, she was found to be significantly hyponatremic. Her LFTs were also noted to be elevated. He had increased in her renal parameters. She has urinary tract infection. She has no abdominal pain except for some chronic back pain, for which she would like some pain medicine. She is not having any nausea or vomiting. She has not had any recent febrile illnesses or unusual exposures. She has a history of cholecystectomy. She has a history of elevated LFTs per her report. PAST MEDICAL HISTORY: As mentioned in [facility]. MEDICATIONS: Reviewed, [facility]. ALLERGIES: REVIEWED, PLEASE SEE [facility] MEDICATION RECONCILIATION FORM. SOCIAL HISTORY: She has good family support with sister at bedside. No alcohol, tobacco, or illicit substances. FAMILY HISTORY: Negative for chronic liver disease. REVIEW OF SYSTEMS: Twelve-system review is positive for that mentioned in HPI as well as a headache and dry eyes. PHYSICAL EXAMINATION GENERAL: She is calm, alert, in no acute distress. HEENT: Pupils equal, round and reactive to light. NECK: Supple. CARDIOVASCULAR: S1 and S2. She has ICD noted. ABDOMEN: Soft, nontender, nondistended with normal bowel sounds. EXTREMITIES: No clubbing, cyanosis, or edema. PSYCH: Calm, cooperative. NEUROLOGIC: Nonfocal. HEME/ONC: No bruising or adenopathy. LABS: The electronic health record is reviewed for laboratory and radiologic study as well as history. IMPRESSION AND PLAN: We will follow up on her elevated LFTs with the acute hepatitis studies. We will need to trend this out. It is possible from hepatic congestion and dehydration. She is being treated for UTI. She has already had imaging. I do not think that it is a biliary process. I will go ahead and order an ALPHONSE and just evaluate for autoimmune. Thank you very much for asking us to see Ms. Aiken. If any questions or concerns, please do not hesitate to contact me. Job#: [id number] JACKI
--- NOTE | 2018-09-24 13:00 | NUR ---
DR PALOMINO HERE ORDERS WRITTEN
[2018-09-24] MEDS ORDERED: SODIUM CHLORIDE 0.9% 1000ML 1,000 ML IV STA (13:02)
--- NOTE | 2018-09-24 13:30 | NUR ---
BOLUS NS GIVEN ORDERED.
[2018-09-24 15:12] LABS: CREATINE KINASE MB 1.4 ng/mL (0-5.0)
[2018-09-24 15:54] LABS: AMPHETAMINES SCREEN,URINE NEGATIVE (NEGATIVE); BENZODIAZEPINES SCREEN,URINE POSITIVE (NEGATIVE); PHENCYCLIDINE SCREEN,URINE NEGATIVE (NEGATIVE)
[2018-09-24] MEDS ORDERED: POTASSIUM CHLORIDE 20 MEQ TAB CR PO ONE (16:30)
--- NOTE | 2018-09-24 17:36 | NUR ---
PT UP IN BED NO DISTRESS NOTED DENIES PAIN.
--- NOTE | 2018-09-24 19:10 | NUR ---
Patient visited in room during nursing rounds. Patient alert and oriented x3 but appears very sleepy at this time. No sign of discomfort or distress. Vital signs (especially blood pressure) to be monitored closely. Call spence within reach. Bed alarm active.
--- NOTE | 2018-09-24 21:15 | NUR ---
Notified (via phone) Dr. Kwame Lopes regarding patient's latest low blood pressure (73/47). Informed MD that patient is asymptomatic at this time. Dr. Lopes ordered to give patient 5% Albumin IV 500ml x1 dose STAT and to give Patient Midodrine 10mg PO TID with 1st dose now/STAT.
[2018-09-24] MEDS ORDERED: ALBUMIN 5% 0.05 GM/ML BTL IV STA (21:16)
[2018-09-24] MEDS: MIDODRINE 2.5 MG TAB PO SCH (21:37)
--- NOTE | 2018-09-24 21:58 | NUR ---
Attempted to call back Dr. Kwame Lopes to notify 5% Albumin not immediately available on any Pyxis all over the hospital. As per recommendation from remote Pharmacist (Nahum), possible plan is to change concentration order of Albumin or Carpet Or Rug Layer Helper to call on-call Pharmacist to come down to the hospital and prepare 5% Albumin IV. Carpet Or Rug Layer Helper not available at this time to call on-call pharmacist due to emergency reasons at the ER department. Carpet Or Rug Layer Helper (Zaynab) aware and will call on-call pharmacy as soon as ER issue has been finished or resolved.
--- NOTE | 2018-09-24 22:00 | NUR ---
BP of patient re-checked and now is 84/50 and HR = 89. Patient still asymptomatic at this time.
[2018-09-25] VITALS (7 sets, daily range): BP systolic 82–121; BP diastolic 45–69
[2018-09-25] MEDS ORDERED: ALBUMIN 5% 250ML 500 ML IV ONE (00:15)
[2018-09-25] MEDS ORDERED: SODIUM CHLORIDE 0.9% 250ML 250 ML ONE (00:21)
--- NOTE | 2018-09-25 00:30 | NUR ---
5% Albumin 500ml infusion has been finally started on patient after being prepared by on-call pharmacist. Will re-check BP after infusion complete.
--- NOTE | 2018-09-25 04:38 | NUR ---
Patient called nurse and was complaining of 10/10 headache. Patient describes headache like a migraine type of headache. Nurse (Jason) will attempt to call Dr. Talbot to obtain medication orders.
--- NOTE | 2018-09-25 04:40 | NUR ---
Dr. Talbot paged via answering service for possible medication orders for pain (headache).
--- NOTE | 2018-09-25 05:05 | NUR ---
Re-paged (2nd call attempt) Dr. Talbot to obtain possible medication orders for patient's headache. Answering service (Frandy) stated he will try to re-page Dr. Talbot.
[2018-09-25 06:43] LABS: ALBUMIN 4.2 g/dL (3.5-5.0); ALBUMIN/GLOBULIN RATIO 1.4 (0.8-2.0); ANION GAP 15.4 mmol/L (8-16); CALCIUM 9.1 mg/dL (8.4-10.2); CREATININE, SERUM 2.26 mg/dL (0.57-1.11); POTASSIUM 3.4 mmol/L (3.5-5.1)
--- NOTE | 2018-09-25 07:25 | NUR ---
PT UP IN ROOM C/O HEADACHE PAIN LEVEL 6 ,PAGED DR JESUS.
--- NOTE | 2018-09-25 07:55 | NUR ---
DR JESUS RETURNED CALL ORDERS WRITTEN.
[2018-09-25] MEDS: ACETAMINOPHEN 325 MG TAB PO PRN ×3 (08:00→21:12)
--- NOTE | 2018-09-25 08:10 | NUR ---
PAIN LEVEL 6 TO HEAD MEDICATED
[2018-09-25] MEDS: MIDODRINE 2.5 MG TAB PO SCH ×3 (08:16→16:21)
[2018-09-25] MEDS: SODIUM CHLORIDE 1 GM TAB PO SCH ×3 (08:18→21:09)
[2018-09-25] MEDS ORDERED: NEBIVOLOL 10 MG TAB PO SCH (09:00)
[2018-09-25] MEDS ORDERED: SODIUM CHLORIDE 0.9% 500ML 500 ML IV STA (12:17)
[2018-09-25] MEDS ORDERED: POTASSIUM CHLORIDE 20 MEQ TAB CR PO ONE (13:00)
[2018-09-25] MEDS ORDERED: DOCUSATE SODIUM 100 MG CAP PO PRN (14:15)
[2018-09-25] MEDS ORDERED: BISACODYL 5 MG TAB EC PO PRN (14:15)
--- NOTE | 2018-09-25 19:45 | NUR ---
Patient visited in room during nursing rounds. Patient alert and oriented x3. Family at bedside visiting patient. Patient appear very pleasant and denies any discomfort or pain at this time. BP checked as 107/45. Call spence within reach. Bed alarm active.
[2018-09-26] VITALS (8 sets, daily range): BP systolic 84–110; BP diastolic 51–75
[2018-09-26 06:26] LABS: ALBUMIN 3.8 g/dL (3.5-5.0); ALBUMIN/GLOBULIN RATIO 1.4 (0.8-2.0); ANION GAP 14.6 mmol/L (8-16); CALCIUM 9.3 mg/dL (8.4-10.2); CREATININE, SERUM 1.8 mg/dL (0.57-1.11); POTASSIUM 3.6 mmol/L (3.5-5.1)
--- NOTE | 2018-09-26 07:02 | NUR ---
Bedside reporting done. Patient is awake and alert without any complaints voiced at this time in good spirits. Patient was instructed to call for assistance as needed and verbalized understanding. Bed in lowest position, locked and call spence within reach.
[2018-09-26] MEDS ORDERED: DOCUSATE SODIUM 100 MG CAP PO SCH (09:00)
[2018-09-26] MEDS: MIDODRINE 2.5 MG TAB PO SCH ×3 (09:15→16:39)
[2018-09-26] MEDS: SODIUM CHLORIDE 1 GM TAB PO SCH ×3 (09:37→20:31)
[2018-09-26] MEDS ORDERED: NON-FORMULARY MEDICATION (Diazepam (Valium) 10 MG) PO SCH (15:00)
[2018-09-26] MEDS ORDERED: DIAZEPAM 5 MG TAB PO SCH (15:00)
[2018-09-26] MEDS ORDERED: RISPERIDONE 0.5 MG TAB PO PRN (15:30)
[2018-09-26] MEDS: RISPERIDONE 0.5 MG TAB PO SCH ×2 (16:39→16:46)
--- NOTE | 2018-09-26 19:39 | NUR ---
PT IS RESTING IN BED. NO RESPIRATORY DISTRESS NOTED. BED IN THE LOWEST POSITION, LOCKED, AND CALL LIGHT WITHIN REACH. WILL CONTINUE TO MONITOR.
[2018-09-26] MEDS: DIAZEPAM 5 MG TAB PO SCH (20:31)
[2018-09-26] MEDS: FUROSEMIDE 20 MG TAB PO SCH (20:31)
[2018-09-26] MEDS: GABAPENTIN 100 MG CAP PO SCH (20:31)
[2018-09-27] MEDS: LORAZEPAM 0.5 MG TAB PO PRN ×3 (00:01→11:30)
[2018-09-27 00:02] VITALS: BP 94/50
--- NOTE | 2018-09-27 00:07 | Consultation ---
DATE OF CONSULTATION: September 26, 2018 PSYCHIATRIC CONSULTATION The patient was evaluated, no events noted. HISTORY OF PRESENTING ILLNESS: The patient is a 43-year-old female, admitted to the hospital for hyponatremia. Psychiatric consultation is called to evaluate the patient's mood. As per the medical record, the patient has history of cardiomyopathy, pacemaker, chronic kidney disease, bipolar disorder. The patient was taken to the hospital per PCP's advice due to abnormal labs. Upon evaluation today, the patient was found to be in the room. She is alert, awake and oriented to situation. Her family member is in the room. The patient is anxious. She reports having a lot of anxiety due to her health issue. She denies any depression. She denies any suicidal or homicidal ideation. She denies any hallucination. She denies any problem with sleep or appetite. She does not elicit paranoia or delusional thinking. However, the patient reports that she has been diagnosed with bipolar in the past and she does have some mood swings. Nursing staff reported that the patient's blood pressure has been low at times in the 80s systolic. Her sodium level is also low. PAST PSYCHIATRIC HISTORY: The patient reports history of ADHD, anxiety and bipolar. She sees Dr. Daniels. Her diagnosis has been given since 2007. She never attempted suicide in the past. She claims she has been sober for about 1 year. She denies any drug use. FAMILY HISTORY: The patient reports history of depression in her family. SOCIAL HISTORY: The patient lives with her significant other. MENTAL STATUS EXAMINATION: The patient is a middle-aged female. She is alert, awake and oriented to situation. Her mood is anxious. She denies any suicidal or homicidal ideation. She denies any hallucination. Thought process is concrete. No delusions elicited. Insight and judgment are fair. Memory appears to be grossly intact. Affect is congruent to her mood. CURRENT MEDICATION 1. Midodrine. 2. Sodium chloride. 3. Acetaminophen. 4. Docusate sodium. 5. Ondansetron. 6. Valium 10 mg p.o. three times a day. 7. Dicacodyl. CURRENT LABS: WBC is 3.50, RBC 3.14, hemoglobin 10.2, hematocrit is 27.1, platelets 172,000. Chemistry: Sodium is 133, potassium 3.6, chloride 97, CO2 25, BUN 59. AST 73, ALT 213. ASSESSMENT 1. Bipolar disorder, mixed, mild to moderate. 2. Generalized anxiety disorder. 3. Attention deficit hyperactivity disorder, as per the patient. PLAN 1. Add Vistaril 0.25 mg p.o. q.12. 2. Add Risperdal 0.5 mg p.o. q.6 h. p.r.n. 3. Add Neurontin 100 mg p.o. 3 times a day. 4. Decrease Valium to 5 mg p.o. q.12 h. 5. Monitor for mood. 6. Supportive therapy. Thank you for this consultation. Dictated by: GURMEET Dykes Job#: [id number] GE
[2018-09-27 05:15] VITALS: BP 100/59
[2018-09-27 07:10] LABS: ANION GAP 17.9 mmol/L (8-16); CALCIUM 9.7 mg/dL (8.4-10.2); CREATININE, SERUM 1.7 mg/dL (0.57-1.11)
[2018-09-27 07:16] LABS: POTASSIUM 2.9 mmol/L (3.5-5.1)
--- NOTE | 2018-09-27 07:20 | NUR ---
Paged Dr Talbot with critical lab Potassium 2.9, patient stable, sitting up in bed , no distress noted
[2018-09-27 07:45] VITALS: BP 98/73
[2018-09-27] MEDS: SODIUM CHLORIDE 1 GM TAB PO SCH ×2 (08:31→15:54)
[2018-09-27] MEDS: FUROSEMIDE 20 MG TAB PO SCH (08:31)
[2018-09-27] MEDS: MIDODRINE 2.5 MG TAB PO SCH ×3 (08:31→15:55)
[2018-09-27] MEDS: DIAZEPAM 5 MG TAB PO SCH (08:31)
[2018-09-27] MEDS: GABAPENTIN 100 MG CAP PO SCH (09:00)
[2018-09-27] MEDS ORDERED: POTASSIUM CHLORIDE 20MEQ/100ML 100 ML IV ONE (09:00)
[2018-09-27] MEDS: RISPERIDONE 0.5 MG TAB PO SCH (09:00)
[2018-09-27] MEDS ORDERED: POTASSIUM CHLORIDE 20 MEQ TAB CR PO NR ×2 (09:15→16:56)
[2018-09-27] MEDS ORDERED: GABAPENTIN100 MG PO (09:58)
[2018-09-27] MEDS ORDERED: FUROSEMIDE20 MG PO (09:58)
[2018-09-27] MEDS ORDERED: MIDODRINE HCL2.5 MG PO ×2 (09:58→17:27)
[2018-09-27] MEDS ORDERED: DIAZEPAM5 MG PO (09:58)
[2018-09-27] MEDS ORDERED: RISPERDAL0.5 MG PO (09:58)
[2018-09-27] MEDS: ACETAMINOPHEN 325 MG TAB PO PRN (11:31)
--- NOTE | 2018-09-27 11:31 | NUR ---
patient c/o left shoulder hurting when she breath, she said feel like she is anxious, vitals checked, T-98.5 P-114 BP-93/60 Spo2- 100 ra, PRN Ativan and tylenol 650mg po given , monitoring closely
[2018-09-27 11:33] VITALS: BP 93/60
--- NOTE | 2018-09-27 12:25 | Discharge Summary ---
The patient of Dr. Talbot, Dr. Lopes, , Dr. Vallejo. HOSPITAL COURSE: Charming, but unfortunate 43-year-old woman with history of chronic kidney disease, cardiomyopathy, apparently familial AICD in the past. The patient of , is admitted with hyponatremia; sodium of 116, creatinine 3.69, treated by Dr. Lopes and Dr. Vallejo. Her congestive heart failure medicines were held. She was given fluids and sodium, midodrine and gradually improved. She was seen by Psychiatry and her medications were adjusted. She has anemia with chronic disease with hemoglobin of 10.3. Sodium at the time of discharge was 136, BUN 51, creatinine 1.7. Admission sodium was 116, admission creatinine 3.69. Discharge to be followed by and Dr. Lopes as an outpatient as well as Dr. Miller . DISCHARGE MEDICATIONS: Include: 1. Midodrine 10 mg t.i.d. 2. Valium 5 mg q.12. 3. Risperidone 0.5 mg b.i.d. 4. Neurontin 100 mg t.i.d. 5. Lasix 20 mg a day. We will defer to Dr. Lopes whether he wishes to continue her sodium chloride tablets. MD MARSHA Marr/SALINA /[id number]
[2018-09-27 16:16] VITALS: BP 122/71
--- NOTE | 2018-09-27 17:05 | NUR ---
Dr Lopes here for rounds, new order to give kcl 20meq po one dose, he said ptient can go home
[2018-09-27] MEDS ORDERED: POTASSIUM CHLO20 ME1 PO (17:26)
--- NOTE | 2018-09-27 18:06 | NUR ---
patient discharged home, her spouse at bed side giving ride, prescription given , IV canula removed with tip intact, no ss infiltration, tele box returned, transported via wc to front lobby, all personnel belongings with her
--- NOTE | 2018-09-28 23:46 | Progress Note ---
DATE: 09/27/2018 Psychiatric Progress Note SUBJECTIVE: The patient evaluated and events noted. The patient is in the room with a family member. She continued to be anxious. She is reluctant to take any new medications. She received Risperdal and Neurontin yesterday. She is uncooperative. She complained of anxiety. Denies any depression. Denies any suicidal ideation or hallucination. She denies any side effects to medications. She requests discontinuation of Psych Service as she claims that she has a psychiatrist outpatient already. ASSESSMENT: Bipolar I disorder, recurrent; depressed, mild; also with current generalized anxiety disorders; attention-deficit/hyperactivity disorder history. PLAN: 1. Discontinue Risperdal. 2. Discontinue Neurontin. 3. Continue Valium 5 mg p.o. q.12 hours. 4. Continue Ativan 0.5 mg p.o. q.6 hours p.r.n. 5. Monitor for mood. 6. Supportive therapy. 7. Psychiatry will sign off. 8. Psychiatry will evaluate on an as-needed basis. Dictated by Regina Taveras PA-C Sonido Cox MD QTV/SALINA /[id number]
== END 2018-09-27 17:55 | disposition home or self-care (01) | DRG 640 ==
LOC: ER 10:39 → ERHOLD 14:13 → MED/SURG3 16:30
PROVIDERS: ADMIT Internal Medicine; ATTEND Internal Medicine
DX: E87.1 Hypo-osmolality and hyponatremia (principal); N17.0 Acute kidney failure with tubular necrosis; I13.0 Hypertensive heart and chronic kidney disease with heart failure and stage 1 through stage 4 chronic kidney disease, or unspecified chronic kidney disease; I42.8 Other cardiomyopathies; N18.4 Chronic kidney disease, stage 4 (severe); N39.0 Urinary tract infection, site not specified; F31.62 Bipolar disorder, current episode mixed, moderate; E87.6 Hypokalemia; I50.9 Heart failure, unspecified; T50.2X5A Adverse effect of carbonic-anhydrase inhibitors, benzothiadiazides and other diuretics, initial encounter; R94.5 Abnormal results of liver function studies; Z95.810 Presence of automatic (implantable) cardiac defibrillator; F98.8 Other specified behavioral and emotional disorders with onset usually occurring in childhood and adolescence; I95.9 Hypotension, unspecified; R79.89 Other specified abnormal findings of blood chemistry; E86.0 Dehydration; K76.1 Chronic passive congestion of liver; M54.9 Dorsalgia, unspecified; K59.00 Constipation, unspecified; F41.9 Anxiety disorder, unspecified; Z86.19 Personal history of other infectious and parasitic diseases
CPT/HCPCS: 36415; 71045; 71046; 74176; 76705; 80048; 80053; 80061; 80307; 80329; 81001; 82270; 82550; 82553; 82947; 83735; 83880; 84100; 84295; 84300; 84436; 84443; 84479; 84484; 84520; 84550; 85025; 85610; 85730; 86039; 86255; 86376; 87086; 93005; 93306; 99284; J2405; J3480; J7030; J7040; J7050

== ENCOUNTER 2021-01-05 17:59 | Emergency (ER) | payer OTHER ==
[~2021-01-05] VITALS: Ht 157.5 cm; Wt 68.5 kg
[~2021-01-05 17:59] MED LIST changes: +BYSTOLIC10 MG PO; +CEFDINIR300 MG PO; +CYCLOBENZAPRINE5 MG PO; +DIAZEPAM5 MG PO; +FUROSEMIDE20 MG PO; +GABAPENTIN100 MG PO; +METOLAZONE5 MG PO; +MIDODRINE HCL2.5 MG PO; +POTASSIUM CHLO20 ME1; +RISPERDAL0.5 MG PO; +[UNRECOGNIZED DRUG - OTHER] PO; +[UNRECOGNIZED DRUG - OTHER] PO
[2021-01-05 18:51] LABS: BASOPHILS # (AUTO) 0.1 (0.0-0.1); BASOPHILS % 0.7 % (0.0-1.0); EOSINOPHILS # (AUTO) 0.1 (0.0-0.4); EOSINOPHILS % 0.8 % (0.0-6.0); HEMATOCRIT 35.6 % (34.2-44.1); HEMOGLOBIN 12.1 g/dL (12.0-16.0); LYMPHOCYTES # (AUTO) 2.5 (1.0-3.2); LYMPHOCYTES % 23.7 % (18.0-39.1); MEAN CORPUSCULAR HEMOGLOBIN 31.8 pg (28-32); MEAN CORPUSCULAR VOLUME 93.4 fL (81-99); MONOCYTES # (AUTO) 0.8 (0.2-0.8); MONOCYTES % 7.6 % (4.4-11.3); NEUTROPHILS # (AUTO) 7.1 (2.1-6.9); NEUTROPHILS % 66.9 % (38.7-80.0); PLATELET COUNT 274 x10e3/uL (140-360); RED BLOOD COUNT 3.81 x10e6/uL (3.6-5.1); RED CELL DISTRIBUTION WIDTH 11.9 % (11.7-14.4)
[2021-01-05 19:10] LABS: ALBUMIN 4.3 g/dL (3.5-5.0); ALBUMIN/GLOBULIN RATIO 1.1 (0.8-2.0); ANION GAP 18.1 mmol/L (8-16); CALCIUM 8.9 mg/dL (8.4-10.2); CREATININE, SERUM 1.12 mg/dL (0.57-1.11); POTASSIUM 3.1 mmol/L (3.5-5.1)
[2021-01-05 19:37] LABS: CLARITY,URINE CLOUDY (CLEAR); COLOR,URINE YELLOW (YELLOW); KETONES,URINE NEGATIVE (NEGATIVE); LEUKOCYTE ESTERASE ,URINE MODERATE (NEGATIVE); NITRITE,URINE POSITIVE (NEGATIVE); PROTEIN,URINE DIPSTICK NEGATIVE (NEGATIVE); URINE UROBILINOGEN 0.2 mg/dL (0.2 - 1)
[2021-01-05 19:52] LABS: BACTERIA,URINE MODERATE /HPF; EPITHELIAL CELLS,URINE MANY /LPF; WBC,URINE (MAN) 21-50 /HPF (0-5)
[2021-01-05] MEDS ORDERED: CEFTRIAXONE SOD 1 GM in SODIUM CHLORIDE 0.9% 50ML 50 ML IV ONE (20:00)
[2021-01-05] MEDS ORDERED: CEFTRIAXONE SOD 1 GM VIAL IV ONE (20:00)
[2021-01-05] MEDS ORDERED: CEFTRIAXONE SOD 1 GM VIAL ONE (20:06)
== END 2021-01-05 20:03 | disposition home or self-care (01) ==
LOC: ER 18:27
DX: N39.0 Urinary tract infection, site not specified (principal); N18.30 Chronic kidney disease, stage 3 unspecified; J02.9 Acute pharyngitis, unspecified; Z95.0 Presence of cardiac pacemaker; Z88.8 Allergy status to other drugs, medicaments and biological substances; B96.20 Unspecified Escherichia coli [E. coli] as the cause of diseases classified elsewhere; Z16.11 Resistance to penicillins; Z16.29 Resistance to other single specified antibiotic
CPT/HCPCS: 36415; 80053; 81001; 83518; 85025; 87070; 87086; 87186; 99283; J0696

== ENCOUNTER 2021-01-09 15:30 | Emergency (ER) | payer OTHER ==
[~2021-01-09] VITALS: Ht 157.5 cm; Wt 68.5 kg
[2021-01-09] MEDS ORDERED: AZITHROMYCIN250 MG PO ×2 (16:05→16:07)
[2021-01-09] MEDS ORDERED: TETANUS/DIPHTHERIA TOX ADULT 0.5 ML SYR IM ONE (16:15)
== END 2021-01-09 16:15 | disposition home or self-care (01) ==
LOC: ER 16:13
DX: S60.812A Abrasion of left wrist, initial encounter (principal); W55.03XA Scratched by cat, initial encounter; Y92.008 Other place in unspecified non-institutional (private) residence as the place of occurrence of the external cause; N18.9 Chronic kidney disease, unspecified; I50.9 Heart failure, unspecified; F41.9 Anxiety disorder, unspecified; Z95.810 Presence of automatic (implantable) cardiac defibrillator
CPT/HCPCS: 90714; 99282

== ENCOUNTER 2021-08-01 13:33 | Emergency (ER) | payer OTHER ==
[~2021-08-01] VITALS: Ht 157.5 cm; Wt 63.1 kg
[~2021-08-01 13:33] MED LIST changes: +AZITHROMYCIN250 MG PO
[2021-08-01] MEDS ORDERED: HYDROCODONE/APAP 5MG-325MG TAB PO ONE (14:00)
[2021-08-01] MEDS ORDERED: HYDROCODONE/APAP 5MG-325MG TAB ONE (14:20)
[2021-08-01] MEDS ORDERED: CYCLOBENZAPRINE5 MG PO (15:09)
== END 2021-08-01 15:18 | disposition home or self-care (01) ==
LOC: FSED 14:02
DX: M54.16 Radiculopathy, lumbar region (principal); G89.29 Other chronic pain; I50.9 Heart failure, unspecified; N18.30 Chronic kidney disease, stage 3 unspecified; F41.9 Anxiety disorder, unspecified; Z95.810 Presence of automatic (implantable) cardiac defibrillator
CPT/HCPCS: 72131; 99283